=== PATIENT | female | born 1960 | race African-American/Black ===

== ENCOUNTER → 2018-06-11 | Day surgery (SDC) | payer OTHER ==
[2018-06-10 13:07] LABS: BASOPHILS % 0.3 % (0.0-1.0); EOSINOPHILS # (AUTO) 0.1 (0.0-0.4); EOSINOPHILS % 0.8 % (0.0-6.0); HEMATOCRIT 34.2 % (34.2-44.1); HEMOGLOBIN 11.8 g/dL (12.0-16.0); LYMPHOCYTES # (AUTO) 2.8 (1.0-3.2); LYMPHOCYTES % 36.8 % (18.0-39.1); MEAN CORPUSCULAR HEMOGLOBIN 29.8 pg (28-32); MEAN CORPUSCULAR HGB CONC 34.5 g/dL (31-35); MEAN CORPUSCULAR VOLUME 86.4 fL (81-99); MONOCYTES # (AUTO) 0.7 (0.2-0.8); MONOCYTES % 8.6 % (4.4-11.3); NEUTROPHILS % 53.1 % (38.7-80.0); PLATELET COUNT 347 x10e3/uL (140-360); RED BLOOD COUNT 3.96 x10e6/uL (3.6-5.1); RED CELL DISTRIBUTION WIDTH 13.9 % (11.7-14.4)
[2018-06-10 13:17] LABS: INR 0.92; PROTHROMBIN TIME 13.2 seconds (11.9-14.5)
[2018-06-10 13:18] LABS: PARTIAL THROMBOPLASTIN TIME 32.9 seconds (23.8-35.5)
[2018-06-10 14:34] LABS: ALANINE AMINOTRANSFERASE 29 IU/L (0-55); ALBUMIN 3.7 g/dL (3.5-5.0); ALBUMIN/GLOBULIN RATIO 0.8 (0.8-2.0); ALKALINE PHOSPHATASE 79 IU/L (40-150); ANION GAP 13.9 mmol/L (8-16); BLOOD UREA NITROGEN 7 mg/dL (7-26); BUN/CREATININE RATIO 10 (6-25); CALCIUM 8.8 mg/dL (8.4-10.2); CARBON DIOXIDE 24 mmol/L (22-29); CHLORIDE 102 mmol/L (98-107); CREATININE, SERUM 0.71 mg/dL (0.57-1.11); EST GLOMERULAR FILTRATION RATE > 60 ML/MIN (60-); GLUCOSE 103 mg/dL (74-118); POTASSIUM 3.9 mmol/L (3.5-5.1); SODIUM 136 mmol/L (136-145)
--- NOTE | 2018-06-10 14:53 | Diagnostic Imaging Report ---
EXAMINATION: CHEST 2 VIEWS INDICATION: Pre-op heart cath COMPARISON: None FINDINGS: TUBES and LINES: None. LUNGS: Lungs are well inflated. Mild patchy bibasilar opacities, likely atelectasis. There is no evidence of pneumonia or pulmonary edema. PLEURA: No pleural effusion or pneumothorax. HEART AND MEDIASTINUM: The cardiomediastinal silhouette is unremarkable. BONES AND SOFT TISSUES: No acute osseous lesion. Soft tissues are unremarkable. UPPER ABDOMEN: No free air under the diaphragm. IMPRESSION: No acute radiographic abnormality. Signed by: Dr. Ramón Damico MD on 06/10/2018 2:50 PM
[2018-06-11] VITALS (18 sets, daily range): BP systolic 100–123; BP diastolic 62–99
[~2018-06-11] VITALS: Ht 167.6 cm; Wt 91.6 kg
[~2018-06-11] MED LIST: CARAFATE SU1 G/10 ML PO; CYCLOBENZAPRINE10 MG PO; ELIQUIS PO; FENTANYL CITRATE/PF 100MCG/2 ML INJ ONE; GABAPENTIN300 MG PO; HEPARIN SOD/SOD CHLORIDE 2,000 ML ONE; IOPAMIDOL 370 MG/ML 200 ML INFUS..BTL INJ ONE; LIDOCAINE HCL 1% LOCAL INJ 20 ML VIAL ONE; LISINOPRIL-HCT1 EAC2 PO; METOPROLOL TART25 MG PO; MIDAZOLAM HCL 2 MG/2 ML VIAL ONE; MORPHINE SULFATE INJ 4 MG/ML INJ 1ML ONE; NITROGLYCERIN0.4 MG SL; NORCO 10-325 T1 EACH PO; SIMVASTATIN20 MG PO; SODIUM CHLORIDE 0.9% 1000ML 1,000 ML ONE; Z.0.PRILOSEC20 MG PO
--- OUTSIDE RECORDS SUMMARY | 2018-06-11 06:21 | XMS REPORT ---
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 Allergies, Adverse Reactions, Alerts Allergy Name Allergy Type Status Severity Reaction(s) Onset Date Inactive Date Treating Clinician Comments No Known Allergies DA Active U 2017-08-05 00:00:00 Medications This patient has no known medications. Results Test Description Test Time Test Comments Text Results Atomic Results Result Comments CHEST 2 VIEWS 2018-06-10 14:49:00 [place] [address] Patient Name: GEETA CHAVARRIA MR #: [id number] : 1960 Age/Sex: 57/F Req #: [id number] Adm Physician: Ordered by: RODOLFO KOEHLER MD Report #: [id number] Location: [facility] Room/Bed: Procedure: [id number] DX/CHEST 2 VIEWS Exam Date: 06/10/18 Exam Time: 1320 REPORT STATUS: Signed EXAMINATION: CHEST 2 VIEWS INDICATION: Pre-op heart cath COMPARISON: None FINDINGS: TUBES and LINES: None. LUNGS: Lungs are well inflated. Mild patchy bibasilar opacities, likely atelectasis. There is no evidence of pneumonia or pulmonary edema. PLEURA: No pleural effusion or pneumothorax. HEART AND MEDIASTINUM: The cardiomediastinal silhouette is unremarkable. BONES AND SOFT TISSUES: No acute osseous lesion. Soft tissues are unremarkable. UPPER ABDOMEN: No free air under the diaphragm. IMPRESSION: No acute radiographic abnormality. Signed by: Dr. Jose Angel Oates MD on 06/10/2018 2:50 PM Dictated By: JOSE ANGEL OATES MD 1450 Transcribed By: TOYA on 06/10/18 1450 COPY TO: RODOLFO KOEHLER MD
--- NOTE | 2018-06-11 12:00 | NUR ---
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 Identifier x2 [facility] Dr Marlow no fix Vascade employed 809 am and manual pressure 10min .Rt groin Site w/o hematoma or bleeding.Vascade dressing dry and intake. Back to baseline orientation. PEERLA, Resp. shallow and regular 100% on room air. Abdomen soft and nontender Bilateral Femoral pulsed x4 present.PD/DP. Infusing iv via controller 50cc/hr left forearm site w/o s/s infiltration. Ate and tolerated po intake Medicate 1034 for back pain left hip. and position for comfort. Re-medicated with Hydrocodone 03/13 self po med per Dr Radha lee. at bedside awaiting dc at 230pm.DC papers and POC discussed with and copies with .
--- NOTE | 2018-06-11 13:52 | Operative Report ---
DATE OF PROCEDURE: June 11, 2018 PROCEDURES 1. Left heart catheterization. 2. Selective coronary angiogram. 3. Left ventriculogram. INDICATIONS: Chest pain and abnormal stress test. DESCRIPTION OF PROCEDURE: After informed consent, patient was brought to the cardiac catheterization laboratory and placed on the table. Both groins were painted and draped in a sterile fashion. Lidocaine injected in the right groin for local anesthesia. The right femoral artery was accessed by Seldinger technique, and a 5-Marshallese sheath was placed in right femoral artery. Left main artery was cannulated using a JL4 5-Marshallese catheter. Coronary angiogram was performed. Images obtained in multiple views. Right coronary artery was cannulated using a 3DRC 5-Marshallese catheter. Coronary angiogram was performed and images obtained in multiple views. LV-gram was performed using a pigtail catheter. The patient tolerated the procedure without any complications. The arteriotomy site was closed with a vascade closure device. REPORT LEFT MAIN: Normal caliber. No significant stenosis. LEFT ANTERIOR DESCENDING: Normal caliber. No significant stenosis. LEFT CIRCUMFLEX: Normal caliber. No significant stenosis. RIGHT CORONARY ARTERY: Normal caliber. It is tortuous. No significant stenosis. LV-GRAM: Normal LV function. Overall ejection fraction is 60%. HEMODYNAMICS: Aortic pressure is 131/65. LV pressure 127/8. LVEDP is 14. PLAN: Medical management. Job#: [id number] LEE PATEL
--- NOTE | 2018-06-11 14:30 | NUR ---
1430 stable vs and rt groin site. No hematoma or bleeding noted dressing intact. ppx4 present aplpable.Iv removed left arm no s/s infiltration coban 2x2 gauze dressing in place. Pt states pain level 2/10 her normal due to chronic back pain. Assist to car per [facility] Staff [employer] Terra .Pt denies c/o states has copy of POC and d/c papers. Aware of importance of followup care. 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 To car with valuables and personal wheelchair. Buckled in car for safety with as clark driver.
== END | disposition home or self-care (01) ==
LOC: CATH LAB 06:18
DX: R07.9 Chest pain, unspecified (principal); R94.39 Abnormal result of other cardiovascular function study; I10 Essential (primary) hypertension; I73.9 Peripheral vascular disease, unspecified; F17.200 Nicotine dependence, unspecified, uncomplicated; Z01.810 Encounter for preprocedural cardiovascular examination; Z01.812 Encounter for preprocedural laboratory examination; Z01.818 Encounter for other preprocedural examination; Z79.02 Long term (current) use of antithrombotics/antiplatelets
CPT/HCPCS: 36415; 71046; 80053; 85025; 85610; 85730; 93005; 93458; C1760; C1769; J2001; J2250; J2270; J7030; Q9967

== ENCOUNTER 2018-06-12 21:16 | Emergency (ER) | payer OTHER ==
[~2018-06-12] VITALS: Ht 167.6 cm; Wt 91.6 kg
[~2018-06-12 21:16] MED LIST changes: -FENTANYL CITRATE/PF 100MCG/2 ML INJ ONE; -HEPARIN SOD/SOD CHLORIDE 2,000 ML ONE; -IOPAMIDOL 370 MG/ML 200 ML INFUS..BTL INJ ONE; -LIDOCAINE HCL 1% LOCAL INJ 20 ML VIAL ONE; -MIDAZOLAM HCL 2 MG/2 ML VIAL ONE; -MORPHINE SULFATE INJ 4 MG/ML INJ 1ML ONE; -SODIUM CHLORIDE 0.9% 1000ML 1,000 ML ONE
--- OUTSIDE RECORDS SUMMARY | 2018-06-12 21:23 | XMS REPORT | Continuity of Care Document ---
Author Author Sangeeta heather [facility] Interface Address Unknown Phone Unavailable Problems Problem Status Onset Date Classification Date Reported Comments Source LEG PAIN Active 02/24/2018 [facility] KNEE PAIN Active 01/30/2018 [facility] DX: DVT, LOWER EXTREMITY Active 01/27/2018 [facility] BACK PAIN Active 01/14/2018 [facility] BACTERIAL COLITIS Active 01/04/2018 [facility] DIARRHEA Active 01/04/2018 [facility] Left leg pain 12/29/2017 12/31/2017 [facility] CHEST PAIN Active 12/29/2017 [facility] Radiculopathy 11/30/2017 12/03/2017 [facility] Sciatica 11/04/2017 11/07/2017 [facility] Leg pain 11/04/2017 11/07/2017 [facility] HX BLOOD CLOT, SOB AND BACK PAIN Active 10/21/2017 [facility] ACUTE LEG PAIN Active 10/04/2017 [facility] Chronic left hip pain 09/23/2017 09/26/2017 [facility] Chronic left-sided low back pain 09/23/2017 09/26/2017 [facility] LEG AND HIP PAIN Active 09/23/2017 [facility] Chronic leg pain 09/07/2017 09/10/2017 [facility] SOB 09/07/2017 09/10/2017 [facility] Acute upper respiratory infection, unspecified 06/07/2017 09/07/2017 [facility] Chronic back pain 06/01/2017 09/07/2017 [facility] Acute URI 06/01/2017 09/07/2017 [facility] SOB, COUGH, LEG SWELLING Active 05/31/2017 [facility] Discharge Diagnosis: Acute exacerbation of chronic low back pain 01/03/2017 01/06/2017 [facility] Discharge Diagnosis: Dizziness 12/04/2016 12/07/2016 [facility] LIGHT HEADED Active 12/03/2016 [facility] Discharge Diagnosis: Low back pain 11/23/2016 11/26/2016 [facility] Discharge Diagnosis: S/P diskectomy 11/23/2016 11/26/2016 [facility] Discharge Diagnosis: H/O laminectomy 11/23/2016 11/26/2016 [facility] Discharge Diagnosis: Acute low back pain 02/25/2016 02/28/2016 [facility] Discharge Diagnosis: Syncope and collapse 09/27/2015 09/30/2015 [facility] DIZZY Active 09/27/2015 [facility] Discharge Diagnosis: Paresthesia 08/23/2015 08/27/2015 [facility] PAIN IN BODY Active 08/23/2015 [facility] Discharge Diagnosis: Chronic lumbar radiculopathy 09/28/2014 10/01/2014 [facility] LT LEG PAIN Active 09/28/2014 [facility] SWOLLEN FEET Active 09/17/2014 [facility] Discharge Diagnosis: Sciatica of left side 08/30/2014 09/01/2014 [facility] 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 Active 06/10/2014 [facility] [place] CORE COMPRESSION Active 04/10/2014 [facility] HIP PAIN Active 04/09/2014 [facility] LEFT LOWER EXTREMITY ARTERIAL INSUFFICIE Active 04/09/2014 [facility] Discharge Diagnosis: Sciatica 04/08/2014 04/11/2014 [facility] LEFT SIDE AND FOOT PAIN Active 04/08/2014 [facility] 836.1 - TEAR LAT MENISC Active 03/18/2014 [facility] RIGHT UPPER LOBE PNEUMONIA Active 02/16/2014 [facility] CHEST PAIN/ COUGH Active 02/16/2014 [facility] 724.4 Active 05/26/2013 [facility] ABD PAIN Active 03/06/2013 [facility] 724.4 COMPRESSION OF LUMBAR NERVE ROOT / Active 10/28/2012 [facility] FOOT PAIN Active 11/20/2011 [facility] 722.52 Active 06/26/2011 [facility] Gallstone<sup>1</sup> Active 11/21/2010 Problem 12/31/2017 Data migrated from [facility] on 10/18/14. [facility] Gallbladder stones Active Problem 11/02/2012 [facility] Back pain Active Problem 12/31/2017 [facility], [facility] [place],[facility] [place] Gallbladder stones Active Problem 12/31/2017 [facility], [facility] [place],[facility] [place],[facility] Back pain Resolved Problem 11/02/2012 [facility] Active smoker Active Problem 12/31/2017 [facility], [facility] [place],[facility] Hypertension Active Problem 12/31/2017 [facility] [place],[facility] Sciatica neuralgia Active Problem 12/31/2017 [facility] [place],[facility] Gall stone Resolved Problem 12/31/2017 [facility] Low back pain 09/07/2017 [facility] Other chronic pain 09/07/2017 [facility] Essential hypertension 09/07/2017 [facility] Nicotine dependence, cigarettes, uncomplicated 09/07/2017 [facility] Tobacco abuse counseling 09/07/2017 [facility] Pain in leg, unspecified 10/11/2017 [facility] Simple obesity Active Problem 12/31/2017 [facility] PNEUMONIA, ORGANISM NOS Active [facility] PERIPH VASCULAR DIS NOS Active [facility] CORD COMPRESS NEC-UNSPEC Active [facility] 719.46 Active [facility] PAIN IN LEG, UNSPECIFIED Active [facility] BACTERIAL INTESTINAL INFECTION, UNSPECIF Active [facility] CHEST PAIN, UNSPECIFIED Active [facility] Medications Medication Details Route Status Patient Instructions Ordering Provider Order Date Source Morphine 4 mg, Route: IVP, ONCE, Dosing Weight 90.909, kg, Priority: STAT, Start date: 12/28/17 23:36:00 CDT, Stop date: 12/28/17 23:36:00 CDT Inactive 12/29/2017 [facility] Acetaminophen 325 MG / Hydrocodone Bitartrate 5 MG Oral Tablet 1 tab, Route: PO, Drug Form: TAB, Dosing Weight 91.818, kg, ONCE, STAT, Start date: 11/30/17 4:26:00 CDT, Stop date: 11/30/17 4:26:00 CDT Inactive 11/30/2017 [facility] methylPREDNISolone SODium SUCCinate 125 mg, Route: IVP, ONCE, Dosing Weight 91.818, kg, Priority: STAT, Start date: 11/30/17 1:05:00 CDT, Stop date: 11/30/17 1:05:00 CDT Inactive 11/30/2017 [facility] Ondansetron 4 mg, 2 mL, Route: IVP, Drug form: INJ, ONCE, Dosing Weight 91.818, kg, Priority: STAT, Start date: 11/30/17 1:05:00 CDT, Stop date: 11/30/17 1:05:00 CDTNotes: (Same as: Yeimy) MEDICATION WASTE * Product Size: 4 mg Product Wasted: ___ mg Inactive 11/30/2017 [facility] Morphine 4 mg, Route: IVP, ONCE, Dosing Weight 91.818, kg, Priority: STAT, Start date: 11/30/17 1:05:00 CDT, Stop date: 11/30/17 1:04:00 CDT Inactive 11/30/2017 [facility] Acetaminophen 325 MG / Hydrocodone Bitartrate 5 MG Oral Tablet [[place] 5/325] 1 tab, Route: PO, Drug Form: TAB, Dosing Weight 89.091, kg, ONCE, STAT, Start date: 11/04/17 5:48:00 CDT, Stop date: 11/04/17 5:48:00 CDT Inactive 11/04/2017 [facility] Acetaminophen 325 MG / Hydrocodone Bitartrate 5 MG Oral Tablet [[place] 5/325] 1 tab, Route: PO, Drug Form: TAB, Dosing Weight 89.091, kg, ONCE, STAT, Start date: 10/22/17 1:24:00 CDT, Stop date: 10/22/17 1:24:00 CDT Inactive 10/22/2017 [facility] Saline Flush 0.9% 10 mL, Route: IVP, Drug Form: INJ, Dosing Weight 90.001, kg, PRN, PRN Line Flush, Start date: 10/21/17 19:45:00 CDT, Duration: 30 day, Stop date: 11/20/17 19:44:00 CDTNotes: (Same as: BD Posiflush) No Longer Active 10/22/2017 [facility] Aspirin 325 MG Enteric Coated Tablet 325 mg, 1 tab, Route: PO, Drug form: ECTAB, Daily, Dosing Weight 90.001, kg, Start date: 10/09/17 9:00:00 CDT, Duration: 30 day, Stop date: 11/07/17 9:00:00 CDTNotes: (Do Not Crush) Do not crush or chew. No Longer Active 10/09/2017 [facility] bisacodyl 5 mg oral enteric coated tablet 10 mg=2 tab, PO, Daily, # 24 tab, 0 Refill(s), Pharmacy: [facility] [id number] No Longer Active 10/08/2017 [facility] Aspirin 325 MG Enteric Coated Tablet 325 mg=1 tab, PO, Daily, take with food, # 30 tab, 0 Refill(s), Pharmacy: [facility] [id number] Active 10/08/2017 [facility] Acetaminophen 300 MG / Codeine Phosphate 30 MG Oral Tablet [Tylenol with Codeine #3] 1 tab, PO, Q6H, PRN Pain Score 1-3, # 24 tab, 0 Refill(s) No Longer Active 10/08/2017 [facility] gabapentin 300 MG Oral Capsule 300 mg, PO, TID, # 90 tab, 0 Refill(s), Pharmacy: [facility] [id number] Active 10/08/2017 [facility] Docusate Sodium 100 MG Oral Capsule [Colace] 100 mg=1 cap, PO, BID, # 30 cap, 0 Refill(s), Pharmacy: [facility] [id number] Active 10/08/2017 [facility] Acetaminophen 300 MG / Codeine Phosphate 30 MG Oral Tablet [Tylenol with Codeine #3] 1 tab, Route: PO, Drug Form: TAB, Dosing Weight 90.001, kg, Q6H, PRN Pain Score 1-3, Start date: 10/08/17 11:28:00 CDT, Duration: 7 day, Stop date: 10/15/17 11:27:00 CDTNotes: Do not exceed 4gm/day of a cetaminophen. (Same as: Tylenol with Codeine # 3) Inactive 10/08/2017 [facility] Dulcolax Laxative 10 mg, 2 tab, Route: PO, Drug form: ECTAB, Daily, Dosing Weight 90.001, kg, Start date: 10/07/17 9:00:00 CDT, Duration: 30 day, Stop date: 11/05/17 9:00:00 CDTNotes: (Same As: Dulcolax, Correctol) (Do Not Crush) "Do Not Crush" No Longer Active 10/07/2017 [facility] Docusate Sodium 100 MG Oral Capsule 100 mg, 1 cap, Route: PO, Drug form: CAP, BID, Dosing Weight 90.001, kg, Start date: 10/06/17 17:00:00 CDT, Duration: 30 day, Stop date: 11/05/17 9:00:00 CDTNotes: (Same as: Colace) (Do Not Crush) No Longer Active 10/06/2017 [facility] Dexamethasone 10 mg, 2.5 mL, Route: IVP, Drug form: INJ, ONCE, Dosing Weight 90.001, kg, Start date: 10/06/17 9:48:00 CDT, Stop date: 10/06/17 9:48:00 CDT Inactive 10/06/2017 [facility] lisinopril 10 mg, 2 tab, Route: PO, Drug form: TAB, Daily, Start date: 10/06/17 9:00:00 CDT, Duration: 30 day, Stop date: 11/04/17 9:00:00 CDTNotes: (Same as: Prinivil, Zestril) No Longer Active 10/06/2017 [facility] hydrochlorothiazide 25 mg oral tablet 12.5 mg, 0.5 tab, Route: PO, Drug form: TAB, Daily, Start date: 10/06/17 9:00:00 CDT, Duration: 30 day, Stop date: 11/04/17 9:00:00 CDTNotes: (Same as: Hydrodiuril) With food. No Longer Active 10/06/2017 [facility] Hydrochlorothiazide 12.5 MG / Lisinopril 10 MG Oral Tablet 1 tab, Route: PO, Drug Form: TAB, Dosing Weight 90.001, kg, Daily, Start date: 10/06/17 9:00:00 CDT, Duration: 30 day, Stop date: 11/04/17 9:00:00 CDT No Longer Active 10/06/2017 [facility] Simvastatin 20 mg, 1 tab, Route: PO, Drug form: TAB, Bedtime, Dosing Weight 90.001, kg, Start date: 10/05/17 21:00:00 CDT, Duration: 30 day, Stop date: 11/03/17 21:00:00 CDTNotes: (Same as: Zocor) No Longer Active 10/06/2017 [facility] Eliquis 5 mg, 1 tab, Route: PO, Drug form: TAB, Q12H, Dosing Weight 90.001, kg, Start date: 10/05/17 21:00:00 CDT, Duration: 30 day, Stop date: 11/04/17 9:00:00 CDTNotes: Same as: Eliquis No Longer Active 10/06/2017 [facility] gabapentin 300 mg, 1 cap, Route: PO, Drug form: CAP, TID, Dosing Weight 90.001, kg, Start date: 10/05/17 13:00:00 CDT, Duration: 30 day, Stop date: 11/04/17 9:00:00 CDTNotes: (Same as: Neurontin) Inactive 10/05/2017 [facility] cyclobenzaprine 10 mg, 1 tab, Route: PO, Drug form: TAB, TID, Dosing Weight 90.001, kg, Start date: 10/05/17 13:00:00 CDT, Duration: 30 day, Stop date: 11/04/17 9:00:00 CDTNotes: (Same As: Flexeril) No Longer Active 10/05/2017 [facility] Acetaminophen 325 MG / Hydrocodone Bitartrate 10 MG Oral Tablet [[place] 10/325] 2 tab, Route: PO, Drug Form: TAB, Dosing Weight 90.001, kg, Q4H, PRN Pain Score 6-10, Start date: 10/05/17 10:30:00 CDT, Duration: 2 day, Stop date: 10/07/17 10:29:00 CDTNotes: Do not exceed 4gm/day of acetaminophen. (Same as: [place] 325/10) No Longer Active 10/05/2017 [facility] Potassium Chloride 20 mEq, 15 mL, Route: PO, Drug form: LIQ, ONCE, Dosing Weight 90.001, kg, Start date: 10/05/17 10:29:00 CDT, Stop date: 10/05/17 10:29:00 CDTNotes: (Same as: Potassium Chloride) Inactive 10/05/2017 [facility] magnesium citrate 58.2 MG/ML Oral Solution 300 ml, Route: PO, Drug Form: LIQ, Dosing Weight 90.001, kg, ONCE, Start date: 10/05/17 10:04:00 CDT, Stop date: 10/05/17 10:04:00 CDTNotes: (Same as: Citrate of Magnesia) Concentration: 1.745 gm / 30 mL Inactive 10/05/2017 [facility] Saline Flush 0.9% 10 ml, Route: IVP, Drug Form: INJ, Dosing Weight 90.001, kg, PRN, PRN Line Flush, Start date: 10/05/17 2:17:00 CDT, Duration: 30 day, Stop date: 11/04/17 2:16:00 CDTNotes: (Same as: BD Posiflush) No Longer Active 10/05/2017 [facility] Ondansetron 4 mg, 2 mL, Route: IVP, Drug form: INJ, Q6H, Dosing Weight 90.001, kg, PRN Nausea & Vomiting, Start date: 10/05/17 2:17:00 CDT, Duration: 30 day, Stop date: 11/04/17 2:16:00 CDTNotes: (Same as: Zofran) MEDICATION WASTE Product Size: 4 mg Product Wasted: ___ mg No Longer Active 10/05/2017 [facility] Acetaminophen 325 MG / Hydrocodone Bitartrate 5 MG Oral Tablet 2 tab, Route: PO, Drug Form: TAB, Dosing Weight 90.001, kg, Q4H, PRN Pain Score 7-10, Start date: 10/05/17 2:17:00 CDT, Duration: 30 day, Stop date: 11/04/17 2:16:00 CDTNotes: (Same as: [place] 325/5) Do not exceed 4gm/day of acetaminophen. Inactive 10/05/2017 [facility] Morphine 6 mg, 3 mL, Route: PO, Drug form: SOLN, Q4H, Dosing Weight 90.001, kg, PRN Pain Score 7-10, Start date: 10/05/17 2:17:00 CDT, Stop date: 11/04/17 2:16:00 CDTNotes: (Same as:MORPhine Sulfate) No Longer Active 10/05/2017 [facility] Sodium Chloride 0.9% IV 1,000 mL 1,000 mL, Rate: 75 ml/hr, Infuse over: 13.3 hr, Route: IV, Dosing Weight 90.001 kg, Total Volume: 1,000, Start date: 10/05/17 2:17:00 CDT, Duration: 30 day, Stop date: 11/04/17 2:16:00 CDT, 2.07, m2 Inactive 10/05/2017 [facility] apixaban 5 MG Oral Tablet [Eliquis] 5 mg, PO, Q12H, 0 Refill(s) No Longer Active 10/05/2017 [facility] simvastatin 20 mg oral tablet 20 mg=1 tab, PO, Bedtime, # 30 tab, 1 Refill(s) Active 10/05/2017 [facility] Fentanyl 50 microgram, 1 mL, Route: IVP, Drug form: INJ, ONCE, Dosing Weight 109.091, kg, Priority: STAT, Start date: 10/04/17 22:08:00 CDT, Stop date: 10/04/17 22:08:00 CDTNotes: (Same as: Sublimaze) Preservative free. Inactive 10/05/2017 [facility] Saline Flush 0.9% 10 mL, Route: IVP, Drug Form: INJ, Dosing Weight 109.091, kg, PRN, PRN Line Flush, Start date: 10/04/17 22:08:00 CDT, Duration: 30 day, Stop date: 11/03/17 22:07:00 CDTNotes: (Same as: BD Posiflush) No Longer Active 10/05/2017 [facility] Morphine 4 mg, Route: IVP, ONCE, Dosing Weight 89.545, kg, Priority: STAT, Start date: 09/23/17 22:56:00 CDT, Stop date: 09/23/17 22:56:00 CDT Inactive 09/24/2017 [facility] Saline Flush 0.9% 10 mL, Route: IVP, Drug Form: INJ, Dosing Weight 89.545, kg, PRN, PRN Line Flush, Start date: 09/23/17 18:28:00 CDT, Duration: 30 day, Stop date: 10/23/17 18:27:00 CDTNotes: (Same as: BD Posiflush) No Longer Active 09/23/2017 [facility] tramadol hydrochloride 50 MG Oral Tablet [Ultram] 50 mg=1 tab, PO, Q4H, PRN pain, X 5 day, # 30 tab, 0 Refill(s) Active 09/07/2017 [facility] Morphine 4 mg, Route: IVP, Drug form: INJ, ONCE, Dosing Weight 89.545, kg, Priority: STAT, Start date: 09/07/17 0:27:00 CDT, Stop date: 09/07/17 0:27:00 CDT Inactive 09/07/2017 [facility] Acetaminophen 325 MG / Hydrocodone Bitartrate 10 MG Oral Tablet [[place] 10/325] 1 tab, Route: PO, Drug Form: TAB, Dosing Weight 89.545, kg, ONCE, STAT, Start date: 09/06/17 22:06:00 CDT, Stop date: 09/06/17 22:06:00 CDTNotes: Do not exceed 4gm/day of acetaminophen. (Same as: [place] 325/10) Inactive 09/07/2017 [facility] Acetaminophen 300 MG / Codeine Phosphate 30 MG Oral Tablet [Tylenol with Codeine #3] 1 - 2 tab, PO, Q4H, PRN Pain, not to exceed 4000 mg acetaminophen per day, X 3 day, # 20 tab, 0 Refill(s) No Longer Active 06/01/2017 [facility] Acetaminophen 325 MG / Hydrocodone Bitartrate 5 MG Oral Tablet 1 tab, Route: PO, Drug Form: TAB, Dosing Weight 89.545, kg, ONCE, STAT, Start date: 06/01/17 5:25:00 SLAB OFF MILL TENDER, Stop date: 06/01/17 5:25:00 SLAB OFF MILL TENDER Inactive 06/01/2017 [facility] Sodium Chloride 0.9% (Bolus) IV 1,000 mL, Infuse Over: 1 hr, Route: IV, ONCE, Priority: STAT, Dosing Weight 89.545 kg, Start date: 06/01/17 1:58:00 SLAB OFF MILL TENDER, Stop date: 06/01/17 1:58:00 SLAB [employer] M[employer] TENDER Inactive 06/01/2017 [facility] Acetaminophen 650 mg, Route: PO, Drug form: TAB, ONCE, Dosing Weight 89.545, kg, Priority: STAT, Start date: 06/01/17 1:58:00 SLAB [employer] M[employer] TENDER, Stop date: 06/01/17 1:58:00 SLAB [employer] M[employer] TENDER Inactive 06/01/2017 [facility] meclizine 50 mg oral tablet 25 mg=1 tab, PO, TID, X 7 day, # 21 tab, 0 Refill(s) Active 12/04/2016 [facility] Meclizine 50 mg, Route: PO, Drug form: TAB, ONCE, Dosing Weight 85.909, kg, Priority: STAT, Start date: 12/04/16 4:19:00 CDT, Stop date: 12/04/16 4:19:00 CDT Inactive 12/04/2016 [facility] Diphenhydramine 25 mg, Route: IVP, ONCE, Dosing Weight 85.909, kg, Priority: STAT, Start date: 12/04/16 4:19:00 CDT, Stop date: 12/04/16 4:19:00 CDT Inactive 12/04/2016 [facility] Ondansetron 4 mg, Route: IVP, Drug form: INJ, ONCE, Dosing Weight 85.909, kg, Priority: STAT, Start date: 12/04/16 4:19:00 CDT, Stop date: 12/04/16 4:19:00 CDT Inactive 12/04/2016 [facility] Sodium Chloride 0.154 MEQ/ML Injectable Solution 1,000 mL, Infuse Over: 1 hr, Route: IV, ONCE, Priority: STAT, Dosing Weight 85.909 kg, Start date: 12/04/16 4:19:00 CDT, Duration: 1 doses or times, Stop date: 12/04/16 4:19:00 CDT Inactive 12/04/2016 [facility] Saline Flush 0.9% 10 mL, Route: IVP, Drug Form: INJ, Dosing Weight 85.909, kg, PRN, PRN Line Flush, Start date: 12/03/16 23:44:00 CDT, Duration: 30 day, Stop date: 01/02/17 23:43:00 CDTNotes: (Same as: BD Posiflush) No Longer Active 12/04/2016 [facility] Acetaminophen 325 MG / Oxycodone Hydrochloride 10 MG Oral Tablet [Percocet 10/325] 2 tab, PO, Q8H, 0 Refill(s) Active 11/23/2016 [facility] gabapentin 300 mg, PO, TID, 0 Refill(s) Active 11/23/2016 [facility] Sodium Chloride 0.154 MEQ/ML Injectable Solution 1,000 mL, 1000 ml/hr, Infuse Over: 1 hr, Route: IV, 1,000, Drug form: INJ, ONCE, Priority: STAT, Dosing Weight 85 kg, Start date: 11/23/16 3:19:00 CDT, Duration: 1 doses or times, Stop date: 11/23/16 3:19:00 CDT Inactive 11/23/2016 [facility] predniSONE 20 mg oral tablet 40 mg=2 tab, PO, Daily, X 5 day, # 10 tab, 0 Refill(s) Active 02/26/2016 [facility] Diazepam 5 MG Oral Tablet [Valium] 5 mg=1 tab, PO, BID, PRN Spasm, X 7 day, # 14 tab, 0 Refill(s) Active 02/26/2016 [facility] Valium 5 mg, 1 tab, Route: PO, Drug form: TAB, ONCE, Dosing Weight 85.909, kg, Priority: STAT, Start date: 02/25/16 17:51:00 CDT, Stop date: 02/25/16 17:51:00 CDTNotes: (Same as: Valium) Inactive 02/25/2016 [facility] Ibuprofen 800 mg, 2 tab, Route: PO, Drug form: TAB, ONCE, Dosing Weight 85.455, kg, Priority: STAT, Start date: 02/25/16 16:38:00 CDT, Stop date: 02/25/16 16:38:00 CDTNotes: (Same as: Motrin) "Do Not Crush" Give with food. Inactive 02/25/2016 [facility] Dexamethasone 10 mg, 2.5 mL, Route: IM, Drug form: INJ, ONCE, Dosing Weight 85.455, kg, Priority: STAT, Start date: 02/25/16 16:38:00 CDT, Stop date: 02/25/16 16:38:00 CDTNotes: Concentration: 4mg/ml Inactive 02/25/2016 [facility] Saline Flush 0.9% 10 mL, Route: IVP, Drug Form: INJ, Dosing Weight 85.455, kg, PRN, PRN Line Flush, Start date: 09/27/15 2:38:00 CDT, Duration: 30 day, Stop date: 10/27/15 2:37:00 CDTNotes: (Same as: BD Posiflush) Inactive 09/27/2015 [facility] Sodium Chloride 0.154 MEQ/ML Injectable Solution 1,000 mL, 1,000 ml/hr, Infuse Over: 1 hr, Route: IV, 1,000, Drug form: INJ, ONCE, Priority: STAT, Dosing Weight 85.909 kg, Start date: 08/23/15 22:00:00, Duration: 1 doses or times, Stop date: 08/23/15 22:00:00 Inactive 08/24/2015 [facility] Saline Flush 0.9% 10 mL, Route: IVP, Drug Form: INJ, Dosing Weight 85.909, kg, PRN, PRN Line Flush, Start date: 08/23/15 16:04:00, Duration: 30 day, Stop date: 09/22/15 16:03:00Notes: (Same as: BD Posiflush) No Longer Active 08/23/2015 [facility] Naproxen sodium 550 MG Oral Tablet [Anaprox] 550 mg=1 tab, PO, BID, PRN for pain, X 10 day, # 20 tab, 0 Refill(s) Active 09/28/2014 [facility] Dexamethasone 10 mg, 2.5 mL, Route: IM, Drug form: INJ, ONCE, Dosing Weight 60.909, kg, Priority: STAT, Start date: 09/28/14 15:52:00, Stop date: 09/28/14 15:52:00Notes: Concentration: 4mg/ml Inactive 09/28/2014 [facility] Ketorolac 60 mg, 2 mL, Route: IM, Drug form: INJ, ONCE, Dosing Weight 60.909, kg, Priority: STAT, Start date: 09/28/14 15:52:00, Stop date: 09/28/14 15:52:00Notes: (Same as:Toradol) IV bolus must be given >15 seconds. Give IM administration slowly and deeply into the muscle. Not for use > 4 days MEDICATION WASTE Product Size: 60 mg Product Wasted: ___ mg Inactive 09/28/2014 [facility] Orphenadrine 60 mg, Route: IM, ONCE, Dosing Weight 84.091, kg, Priority: STAT, Start date: 08/30/14 0:51:00, Stop date: 08/30/14 0:51:00 Inactive 08/30/2014 [facility] Morphine 4 mg, Route: IM, Drug form: INJ, ONCE, Dosing Weight 84.091, kg, Priority: STAT, Start date: 08/30/14 0:50:00, Stop date: 08/30/14 0:50:00 Inactive 08/30/2014 [facility] sennosides, PRISON 8.6 MG Oral Tablet 17.2 mg=2 tab, PO, Daily, 0 Refill(s) Active 04/14/2014 [facility] Docusate Sodium 100 MG Oral Capsule [Colace] 100 mg=1 cap, PO, BID, 0 Refill(s) Active 04/14/2014 [facility] Senokot 17.2 mg, 2 tab, Route: PO, Drug Form: TAB, Dosing Weight 83.182, kg, Daily, Start date: 04/13/14 9:00:00, Duration: 30 day, Stop date: 05/12/14 9:00:00Notes: (Same as: Senokot) No Longer Active 04/13/2014 [facility] heparin sodium, porcine 2500 UNT/ML Injectable Solution 5,000 unit, 1 mL, Route: SUB-Q, Drug form: INJ, Q12H, Dosing Weight 83.182, kg, Start date: 04/13/14 8:00:00, Duration: 30 day, Stop date: 05/12/14 21:00:00Notes: porcine heparin No Longer Active 04/13/2014 [facility] Famotidine 20 MG Oral Tablet [Pepcid] 20 mg, 1 tab, Route: PO, Drug form: TAB, Q12H, Dosing Weight 83.182, kg, Start date: 04/12/14 21:00:00, Duration: 30 day, Stop date: 05/12/14 9:00:00Notes: (Same as: Pepcid) No Longer Active 04/13/2014 [facility] Docusate Sodium 100 MG Oral Capsule [Colace] 100 mg, 1 cap, Route: PO, Drug form: CAP, BID, Dosing Weight 83.182, kg, Start date: 04/12/14 17:00:00, Duration: 30 day, Stop date: 05/12/14 9:00:00Notes: (Same as: Colace) (Do Not Crush) No Longer Active 04/12/2014 [facility] 10 ML Cefazolin 100 MG/ML Prefilled Syringe 1 gm, 100 mL, Route: IVPB, Drug form: INJ, Q8H, Dosing Weight 83.182, kg, Start date: 04/12/14 16:00:00, Duration: 3 doses or times, Stop date: 04/13/14 8:00:00 No Longer Active 04/12/2014 [facility] magnesium citrate 300 ml, Route: PO, Drug Form: LIQ, Dosing Weight 83.182, kg, ONCE, PRN Constipation, Start date: 04/12/14 12:18:00Notes: (Same as: Citrate of Magnesia) No Longer Active 04/12/2014 [facility] Zofran 4 mg, 2 mL, Route: IV, Drug form: INJ, Q8H, Dosing Weight 83.182, kg, PRN Nausea, Start date: 04/12/14 12:18:00, Duration: 30 day, Stop date: 05/12/14 12:17:00Notes: (Same as: Zofran) No Longer Active 04/12/2014 [facility] Acetaminophen 325 MG / Hydrocodone Bitartrate 5 MG Oral Tablet 1 tab, Route: PO, Drug Form: TAB, Dosing Weight 83.182, kg, Q4H, PRN Pain Score 4-6, Start date: 04/12/14 12:18:00, Stop date: 05/12/14 12:17:00Notes: (Same as: [place] 325/5) Do not exceed 4gm/day of acetaminophen. No Longer Active 04/12/2014 [facility] Dilaudid 1 mg, Route: IV, Q3H, Dosing Weight 83.182, kg, PRN Pain, Start date: 04/12/14 12:18:00, Duration: 30 day, Stop date: 05/12/14 12:17:00 Inactive 04/12/2014 [facility] Tylenol 650 mg, 2 tab, Route: PO, Drug form: TAB, Q4H, Dosing Weight 83.182, kg, PRN Pain Score 1-3, Start date: 04/12/14 12:18:00, Stop date: 05/12/14 12:17:00Notes: Do not exceed 4 gm/day. (Same as: Tylenol) No Longer Active 04/12/2014 [facility] Sodium Chloride 0.154 MEQ/ML Injectable Solution 1,000 mL, Rate: 75 ml/hr, Infuse over: 13.3 hr, Route: IV, Dosing Weight 83.182 kg, Total Volume: 1,000, Start date: 04/12/14 12:18:00, Duration: 30 day, Stop date: 05/12/14 12:17:00 No Longer Active 04/12/2014 [facility] Ancef 2 gm, 100 mL, Route: IVPB, Drug form: INJ, ONCE, Dosing Weight 83.182, kg, Start date: 04/12/14 8:14:00, Stop date: 04/12/14 8:14:00Notes: Same as: Ancef Inactive 04/12/2014 [facility] Lactated Ringers IV 1,000 mL 1,000 mL, Rate: 25 ml/hr, Infuse over: 40 hr, Route: IV, Dosing Weight 83.182 kg, Total Volume: 1,000, Start date: 04/12/14 7:32:00, Duration: 30 day, Stop date: 05/12/14 7:31:00 No Longer Active 04/12/2014 [facility] hydrochlorothiazide 25 mg oral tablet 12.5 mg, 0.5 tab, Route: PO, Drug form: TAB, Daily, Start date: 04/11/14 9:00:00, Duration: 30 day, Stop date: 05/10/14 9:00:00Notes: (Same as: Hydrodiuril) With food. No Longer Active 04/11/2014 [facility] Hydrochlorothiazide 12.5 MG / Lisinopril 10 MG Oral Tablet 1 tab, Route: PO, Drug Form: TAB, Dosing Weight 83.182, kg, Daily, Start date: 04/11/14 9:00:00, Duration: 30 day, Stop date: 05/10/14 9:00:00 No Longer Active 04/11/2014 [facility] Prinivil 10 mg, 1 tab, Route: PO, Drug form: TAB, Daily, Start date: 04/11/14 9:00:00, Duration: 30 day, Stop date: 05/10/14 9:00:00Notes: (Same as: Prinivil, Zestril) No Longer Active 04/11/2014 [facility] Methadone 5 mg, 5 mL, Route: PO, Drug form: SOLN, Q8H, Dosing Weight 83.182, kg, Start date: 04/10/14 16:00:00, Duration: 30 day, Stop date: 05/10/14 8:00:00Notes: (Same as: Dolophine) No Longer Active 04/10/2014 [facility] gabapentin 600 MG Oral Tablet [Neurontin] 600 mg, 2 cap, Route: PO, Drug form: CAP, TID, Dosing Weight 83.182, kg, Start date: 04/10/14 13:00:00, Duration: 30 day, Stop date: 05/10/14 9:00:00Notes: (Same as: Neurontin) No Longer Active 04/10/2014 [facility] Enoxaparin 40 mg, 0.4 mL, Route: SUB-Q, Drug form: INJ, [id number], Dosing Weight 83.182, kg, Start date: 04/10/14 11:00:00, Duration: 30 day, Stop date: 05/09/14 11:00:00Notes: (Same as: Lovenox) No Longer Active 04/10/2014 [facility] Dilaudid 0.5 mg, 0.5 mL, Route: IV, Drug form: INJ, Q4H, Dosing Weight 83.182, kg, PRN Pain Score 6-10, Start date: 04/10/14 10:12:00, Duration: 30 day, Stop date: 05/10/14 10:11:00 No Longer Active 04/10/2014 [facility] cyclobenzaprine 10 mg, 1 tab, Route: PO, Drug form: TAB, TID, Dosing Weight 83.182, kg, PRN as needed for muscle spasm, Start date: 04/10/14 10:10:00, Stop date: 05/10/14 10:09:00Notes: (Same As: Flexeril) No Longer Active 04/10/2014 [facility] Acetaminophen 325 MG / Hydrocodone Bitartrate 10 MG Oral Tablet [[place] 10/325] 1 tab, Route: PO, Drug Form: TAB, Dosing Weight 83.182, kg, Q4H, PRN Pain Score 7-10, Start date: 04/10/14 10:10:00, Stop date: 05/10/14 10:09:00Notes: Do not exceed 4gm/day of acetaminophen. (Same as: [place] 325/10) No Longer Active 04/10/2014 [facility] Influenza Virus Vaccine, Inactivated O-Ijrkbxhv-36 (H3N2)-like virus ([id number] [facility] X-175C) strain / Influenza Virus Vaccine, Inactivated C-Zrjslebx-97-2007, IVR-148 (H1N1) strain / Influenza Virus Vaccine, Inactivated, M-[id number]-lik 0.5 mL, Route: IM, Drug Form: SUSP, Daily, Start date: 04/10/14 9:00:00, Duration: 1 doses or times, Stop date: 04/10/14 9:00:00Notes: (Same as: Fluzone Quadrivalent) Inactive 04/10/2014 [facility] Morphine 4 mg, Route: IVP, ONCE, Dosing Weight 106.818, kg, Start date: 04/10/14 5:24:00, Stop date: 04/10/14 5:24:00 Inactive 04/10/2014 [facility] Saline Flush 0.9% 10 ml, Route: IVP, Drug Form: INJ, Dosing Weight 86.364, kg, PRN, PRN Line Flush, Start date: 04/10/14 5:18:00, Duration: 30 day, Stop date: 05/10/14 5:17:00Notes: (Same as: BD Posiflush) No Longer Active 04/10/2014 [facility] D5W 1/2NS + KCL 20mEq/L 1000ml (Premix) 1,000 mL 1,000 mL, Rate: 125 ml/hr, Infuse over: 8 hr, Route: IV, Dosing Weight 86.364 kg, Total Volume: 1,000, Start date: 04/10/14 5:18:00, Duration: 30 day, Stop date: 05/10/14 5:17:00Notes: PREMIX IV - Do Not Alter No Longer Active 04/10/2014 [facility] Ondansetron 4 mg, 2 mL, Route: IVP, Drug form: INJ, Q8H, Dosing Weight 86.364, kg, PRN Nausea & Vomiting, Start date: 04/10/14 5:18:00, Duration: 30 day, Stop date: 05/10/14 5:17:00Notes: (Same as: Zofran) No Longer Active 04/10/2014 [facility] Acetaminophen 325 MG / Hydrocodone Bitartrate 10 MG Oral Tablet [[place] 10/325] 1 tab, PO, Q4H, for pain, # 24 tab, 0 Refill(s) No Longer Active 04/10/2014 [facility] Hydrochlorothiazide 12.5 MG / Lisinopril 10 MG Oral Tablet 1 tab, PO, Daily, # 30 tab, 0 Refill(s) No Longer Active 04/10/2014 [facility] cyclobenzaprine 10 mg oral tablet 10 mg=1 tab, PO, TID, for spasm, # 30 tab, 0 Refill(s) No Longer Active 04/10/2014 [facility] methadone 5 mg oral tablet 5 mg=1 tab, PO, Q6H, Pain, 0 Refill(s) No Longer Active 04/10/2014 [facility] gabapentin 600 MG Oral Tablet [Neurontin] 600 mg=1 tab, PO, TID, # 90 tab, 0 Refill(s) Active 04/10/2014 [facility] heparin sodium, porcine 1000 UNT/ML Injectable Solution Pharmacy To Manage, Route: IVP, PRN, Drug form: INJ, PRN, Heparin Protocol, Start date: 04/10/14 4:32:00 Stop date: 05/10/14 4:31:00, 30 day Inactive 04/10/2014 [facility] Heparin - one time bolus for DVT/PE 6,800 unit, Route: IV, Drug form: INJ, ONCE, Dosing Weight 86.364, kg, Priority: STAT, Start date: 04/10/14 4:32:00, Stop date: 04/10/14 4:32:00 Inactive 04/10/2014 [facility] heparin additive 25,000 unit [18 unit/kg/hr] + Premix Diluent Dextrose 5% 500 mL 500 mL, Rate: 31.09 ml/hr, Infuse over: 16.1 hr, Route: IV, Dosing Weight 86.364 kg, Total Volume: 500 mL, Start date: 04/10/14 4:32:00, Duration: 30 day, Stop date: 05/10/14 4:31:00 Inactive 04/10/2014 [facility] Zofran 4 mg, Route: IVP, Drug form: INJ, ONCE, Dosing Weight 86.364, kg, Priority: STAT, Start date: 04/09/14 22:01:00, Stop date: 04/09/14 22:01:00 Inactive 04/10/2014 [facility] Morphine 4 mg, Route: IVP, Drug form: INJ, ONCE, Dosing Weight 86.364, kg, Priority: STAT, Start date: 04/09/14 22:00:00, Stop date: 04/09/14 22:00:00 Inactive 04/10/2014 [facility] Sodium Chloride 0.154 MEQ/ML Injectable Solution 500 mL, 500 ml/hr, Infuse Over: 1 Hour, Route: IV, ONCE, Priority: STAT, Dosing Weight 86.364 kg, Start date: 04/09/14 20:14:00, Duration: 1 doses or times, Stop date: 04/09/14 20:14:00 Inactive 04/10/2014 [facility] tramadol hydrochloride 50 MG Oral Tablet 50 mg=1 tab, PO, Q6H, # 12 tab, 0 Refill(s) On Hold 04/08/2014 [facility] Ibuprofen 800 MG Oral Tablet [Motrin] 800 mg=1 tab, PO, Q8H, Pain, Take with food, # 30 tab, 0 Refill(s)Special Instructions: Take with food On Hold 04/08/2014 [facility] Ketorolac 30 mg, Route: IVP, Drug form: INJ, ONCE, Dosing Weight 86.364, kg, Priority: STAT, Start date: 04/08/14 6:28:00, Stop date: 04/08/14 6:28:00 Inactive 04/08/2014 [facility] Zofran 4 mg, Route: IVP, Drug form: INJ, ONCE, Dosing Weight 86.364, kg, Priority: STAT, Start date: 04/08/14 5:27:00, Stop date: 04/08/14 5:27:00 Inactive 04/08/2014 [facility] Morphine 6 mg, Route: IVP, Drug form: INJ, ONCE, Dosing Weight 86.364, kg, Priority: STAT, Start date: 04/08/14 5:26:00, Stop date: 04/08/14 5:26:00 Inactive 04/08/2014 [facility] Zofran ODT 4 mg, Route: PO, Drug form: TABDIS, ONCE, Dosing Weight 86.364, kg, Priority: STAT, Start date: 04/08/14 4:13:00, Stop date: 04/08/14 4:13:00 Inactive 04/08/2014 [facility] Morphine 4 mg, Route: IM, Drug form: INJ, ONCE, Dosing Weight 86.364, kg, Priority: STAT, Start date: 04/08/14 4:13:00, Stop date: 04/08/14 4:13:00 Inactive 04/08/2014 [facility] cefpodoxime 200 MG Oral Tablet [Vantin] 200 mg=1 tab, PO, Q12H, # 20 tab, 0 Refill(s) Active 02/18/2014 [facility] benzonatate 100 mg oral capsule 100 mg=1 cap, PO, TID, Cough, # 10 cap, 0 Refill(s) Active 02/18/2014 [facility] Azithromycin 5 Day Dose Pack 250 mg oral tablet See Instructions, as directed on package labeling, # 6 tab, 0 Refill(s)Special Instructions: as directed on package labeling Active 02/18/2014 [facility] Hydrochlorothiazide 12.5 MG / Lisinopril 10 MG Oral Tablet 1 tab, Route: PO, Drug Form: TAB, Dosing Weight 82.727, kg, Daily, Start date: 02/18/14 9:00:00, Duration: 30 day, Stop date: 03/19/14 9:00:00 No Longer Active 02/18/2014 [facility] Prinivil 10 mg, 1 tab, Route: PO, Drug form: TAB, Daily, Start date: 02/18/14 9:00:00, Duration: 30 day, Stop date: 03/19/14 9:00:00Notes: (Same as: Prinivil, Zestril) Inactive 02/18/2014 [facility] Microzide 12.5 mg, 1 cap, Route: PO, Drug form: CAP, Daily, Start date: 02/18/14 9:00:00, Duration: 30 day, Stop date: 03/19/14 9:00:00Notes: (Same as: Microzide) With food. Inactive 02/18/2014 [facility] gabapentin 600 MG Oral Tablet 600 mg, 2 cap, Route: PO, Drug form: CAP, Q12H, Dosing Weight 82.727, kg, Start date: 02/17/14 21:00:00, Duration: 30 day, Stop date: 03/19/14 9:00:00Notes: (Same as: Neurontin) No Longer Active 02/18/2014 [facility] Azithromycin 500 mg, Route: IVPB, [id number], Dosing Weight 82.727, kg, Priority: Routine, Start date: 02/17/14 21:00:00, Duration: 5 day, Stop date: 02/21/14 21:00:00Notes: (Same As: Zithromax IV) No Longer Active 02/18/2014 [facility] Ceftriaxone 1 gm, Route: IVPB, [id number], Dosing Weight 82.727, kg, Priority: Routine, Start date: 02/17/14 20:00:00, Duration: 30 day, Stop date: 03/18/14 20:00:00Notes: (Same As: Rocephin). Use with 100ml NS mini-bag PLUS and infuse over 30 min No Longer Active 02/18/2014 [facility] Nicotine 14 mg, 1 patch, Route: TOP, Drug form: ERFILM, Daily, Dosing Weight 82.727, kg, Start date: 02/17/14 17:00:00, Duration: 30 day, Stop date: 03/19/14 9:00:00 No Longer Active 02/17/2014 [facility] Methadone 5 mg, 5 mL, Route: PO, Drug form: SOLN, Q8H, Dosing Weight 82.727, kg, Start date: 02/17/14 16:00:00, Duration: 30 day, Stop date: 03/19/14 8:00:00Notes: (Same as: Dolophine) No Longer Active 02/17/2014 [facility] Tessalon Perles 100 mg, 1 cap, Route: PO, Drug form: CAP, TID, Dosing Weight 82.727, kg, PRN Cough, Start date: 02/17/14 10:45:00, Duration: 30 day, Stop date: 03/19/14 10:44:00 No Longer Active 02/17/2014 [facility] cyclobenzaprine 10 mg, 1 tab, Route: PO, Drug form: TAB, TID, Dosing Weight 82.727, kg, PRN as needed for muscle spasm, Start date: 02/17/14 10:43:00, Duration: 30 day, Stop date: 03/19/14 10:42:00Notes: (Same As: Flexeril) No Longer Active 02/17/2014 [facility] Acetaminophen 325 MG / Hydrocodone Bitartrate 10 MG Oral Tablet [[place] 10/325] 1 tab, Route: PO, Drug Form: TAB, Dosing Weight 82.727, kg, TID, PRN Pain Score 4-6, Start date: 02/17/14 10:43:00, Duration: 30 day, Stop date: 03/19/14 10:42:00 No Longer Active 02/17/2014 [facility] gabapentin 600 MG Oral Tablet 600 mg=1 tab, PO, Q12H, # 270 tab, 0 Refill(s) Active 02/17/2014 [facility] Methadone 5 mg, PO, Q8H, 0 Refill(s) Active 02/17/2014 [facility] cyclobenzaprine 10 mg oral tablet 10 mg=1 tab, PO, TID, as needed for muscle spasm, # 30 tab, 0 Refill(s) Active 02/17/2014 [facility] Hydrochlorothiazide 12.5 MG / Lisinopril 10 MG Oral Tablet 1 tab, PO, Daily, # 30 tab, 0 Refill(s) Active 02/17/2014 [facility] Acetaminophen 325 MG / Hydrocodone Bitartrate 10 MG Oral Tablet [[place] 10/325] 1 tab, PO, TID, as needed for pain, # 24 tab, 0 Refill(s) Active 02/17/2014 [facility] Saline Flush 0.9% 10 ml, Route: IVP, Drug Form: INJ, Dosing Weight 82.727, kg, PRN, PRN Line Flush, Start date: 02/17/14 4:30:00, Duration: 30 day, Stop date: 03/19/14 4:29:00Notes: (Same as: BD Posiflush) No Longer Active 02/17/2014 [facility] Sodium Chloride 0.154 MEQ/ML Injectable Solution 1,000 mL, Rate: 75 ml/hr, Infuse over: 13.3 hr, Route: IV, Dosing Weight 82.727 kg, Total Volume: 1,000, Start date: 02/17/14 4:30:00, Duration: 30 day, Stop date: 03/19/14 4:29:00 No Longer Active 02/17/2014 [facility] Guaifenesin 200 mg, 10 mL, Route: PO, Drug form: LIQ, Q4H, Dosing Weight 82.727, kg, PRN Cough, Start date: 02/17/14 4:30:00, Duration: 30 day, Stop date: 03/19/14 4:29:00Notes: (Same as: Robitussin) No Longer Active 02/17/2014 [facility] Ondansetron 4 mg, 2 mL, Route: IVP, Drug form: INJ, Q6H, Dosing Weight 82.727, kg, PRN Nausea & Vomiting, Start date: 02/17/14 4:30:00, Duration: 30 day, Stop date: 03/19/14 4:29:00Notes: (Same as: Zofran) No Longer Active 02/17/2014 [facility] Acetaminophen 650 mg, 2 tab, Route: PO, Drug form: TAB, Q4H, Dosing Weight 82.727, kg, PRN Pain Score 1-3, For fever > 100.4. Not to exceed 4 grams in 24 hours, Start date: 02/17/14 4:30:00, Duration: 30 day, Stop date: 03/19/14 4:29:00Notes: Do not exceed 4 gm/day. (Same as: Tylenol) No Longer Active 02/17/2014 [facility] Albuterol 0.833 MG/ML / Ipratropium [place] 0.167 MG/ML Inhalant Solution [DuoNeb] 3 ml, Route: INHALATION, Drug Form: SOLN, Dosing Weight 82.727, kg, PRN, PRN Respiratory Protocol, Start date: 02/17/14 1:11:00, Duration: 30 day, Stop date: 03/19/14 1:10:00Notes: (Same as: Duoneb) No Longer Active 02/17/2014 [facility] Sodium Chloride 0.154 MEQ/ML Injectable Solution 1,000 mL, 1,000 ml/hr, Infuse Over: 1 hr, Route: IV, ONCE, Priority: STAT, Dosing Weight 82.727 kg, Start date: 02/16/14 19:10:00, Duration: 1 doses or times, Stop date: 02/16/14 19:10:00 Inactive 02/17/2014 [facility] Zithromax 1 gm, Route: PO, ONCE, Dosing Weight 82.727, kg, Start date: 02/16/14 19:08:00, Stop date: 02/16/14 19:08:00 Inactive 02/17/2014 [facility] Rocephin 1 gm, Route: IVPB, Drug form: PDR/INJ, ONCE, Dosing Weight 82.727, kg, Priority: STAT, Start date: 02/16/14 19:08:00, Stop date: 02/16/14 19:08:00 Inactive 02/17/2014 [facility] Tylenol 975 mg, Route: PO, Drug form: TAB, ONCE, Dosing Weight 82.727, kg, Priority: STAT, Start date: 02/16/14 19:08:00, Stop date: 02/16/14 19:08:00 Inactive 02/17/2014 [facility] Albuterol 0.833 MG/ML / Ipratropium [place] 0.167 MG/ML Inhalant Solution [DuoNeb] 3 ml, Route: INHALATION, Drug Form: SOLN, Dosing Weight 82.727, kg, PRN, PRN Respiratory Protocol, Start date: 02/16/14 19:08:00, Duration: 30 day, Stop date: 03/18/14 19:07:00Notes: (Same as: Duoneb) No Longer Active 02/17/2014 [facility] Protonix 40 mg oral enteric coated tablet 40 mg, 1 tab, PO, Daily, 30 tab, Substitution Allowed, ECTAB Active [facility] 03/07/2013 [facility] Zofran ODT 4 mg oral tablet, disintegrating 4 mg, 1 tab, PO, BID, PRN, Dissolve tab under tongue, 10 tab, Nausea and Vomiting, Substitution AllowedDissolve tab under tongue Active [facility] 03/07/2013 [facility] Flexeril 10 mg oral tablet 10 mg, 1 tab, PO, TID, PRN, 30 tab, for spasm, Substitution Allowed, TAB PO Active [facility] 06/14/2011 [facility] Vicodin ES 7.5/750 oral tablet 1 tab, PO, Q4-6H, PRN, 15 tab, for Pain, Substitution Allowed, Maintenance PO Active [facility] 06/14/2011 [facility] ondansetron 4 mg, Route: IM, Drug form: INJ, ONCE, Priority: STAT, Start date: 06/14/11 16:11:00, Stop date: 06/14/11 16:11:00 IM No Longer Active [facility] 06/14/2011 [facility] morphine Sulfate 10 mg, Route: IM, ONCE, Priority: STAT, Start date: 06/14/11 16:11:00, Stop date: 06/14/11 16:11:00 IM No Longer Active [facility] 06/14/2011 [facility] Allergies, Adverse Reactions, Alerts Substance Category Reaction Severity Reaction type Status Date Reported Comments Source Immunizations Immunization Date Given Site Status Last Updated Comments Source influenza virus vaccine, inactivated 04/11/2014 Not Given [facility] [place] Results Order Name Results Value Reference Range Date Interpretation Comments Source ED Abdomen/Pelvis IV contrast only CT ED Abdomen/Pelvis IV contrast only CT Clinical Indication: Abdominal pain, acute - abdominal pain; Comparison: 01/04/2018 Technique: Multi-detector CT imaging of the abdomen and pelvis is performed with contrast. Coronal and sagittal reconstructions were obtained. IV CONTRAST: 100 mL of Omnipaque GI CONTRAST: No oral contrast was administered which can limit assessment. CT Radiation Dose: DLP 1218.50 mGy-cm FINDINGS: CT ABDOMEN WITH CONTRAST: Included chest: Mild atelectasis/scar in the right lung base. ABDOMINAL SOLID ORGANS: The contrast enhanced images of the spleen, pancreas, adrenals and kidneys are normal. Liver is enlarged. Diffuse hepatic steatosis is noted. Gallbladder is surgically absent. STOMACH AND BOWEL: The stomach is unremarkable. The small bowel are unremarkable. The appendix is normal . Previously seen circumferential wall thickening of the Left colon and sigmoid colon with areas of minimal pericolonic inflammatory changes have improved with minimal scattered area of minimal bowel wall thickening. No bowel obstruction seen. Small fat-containing umbilical hernia seen. PERITONEUM AND RETROPERITONEUM: There is no abdominal lymphadenopathy. There is no pneumoperitoneum or abdominal ascites. VASCULAR STRUCTURES: The abdominal aorta is unremarkable without aneurysm. The inferior vena cava is unremarkable. The mesenteric vessels and portal veinous structures are grossly patent. CT PELVIS WITH CONTRAST: PERITONEAL AND EXTRAPERITONEAL REGIONS: There is no pelvic free fluid or lymphadenopathy. The inguinal regions are unremarkable. BLADDER / : The bladder is unremarkable. Anteverted and unremarkable uterus. Ovaries are not well seen. OSSEOUS STRUCTURES: There are no postsurgical changes at L4-L5.. IMPRESSION: 1. Previously seen changes of left colon and sigmoid colon colitis have significantly improved with minimal residual scattered area of bowel wall thickening. No bowel obstruction seen. 2. Hepatomegaly. Hepatic steatosis. 3. Cholecystectomy. SL: [RD] 02/25/2018 - - Read by: Hank Benton MD Dictated Date/time: 02/25/18 01:50 Electronically Signed by: Hank Benton MD 02/25/18 02:02 FINAL REPORT [facility] Ext Lower Venous Doppler Unilat US Ext Lower Venous Doppler Unilat US Clinical Indication: - increasing LE pain / edema p dx DVT 12/2017; Comparison: 01/30/2018 TECHNIQUE: Sonographic evaluation of the leftlower extremity veins was performed using high resolution B-mode imaging, along with pulse and color Doppler imaging. FINDINGS: Left lower extremity: The common femoral vein, femoral vein, and visualized posterior tibial/calf veins are patent. There is noncompressible thrombus visualized within the left popliteal vein with flow. There is no echogenic debris to suggest deep venous thrombosis. The saphenofemoral junction is unremarkable. IMPRESSION: 1. Nonocclusive thrombus visualized within the left popliteal vein which is relatively unchanged. SL: [id number] 02/05/2018 - - Read by: Perry Zazueta MD Dictated Date/time: 02/05/18 22:45 Electronically Signed by: Perry Zazueta MD 02/05/18 22:47 FINAL REPORT [facility] Lower Venous Doppler Bilat US Ext Lower Venous Doppler Bilat US Ext Lower Venous Doppler Bilat US CLINICAL HX: Left leg pain; COMPARISON: 12/29/2017 TECHNIQUE: Nava scale imaging, compression techniques and spectral analysis were utilized to evaluate the deep venous system of both lower extremities from the inguinal ligament to the popliteal fossa. FINDINGS: There is adequate compression, respiratory variability, and appropriate response to augmentation in the CFV and femoral veins bilaterally. There is partial compressibility off the left popliteal vein and on grayscale images, and eccentric thrombus is visualized. The right popliteal vein is patent. The junction of the profunda vein to the SFV is patent bilaterally. Posterior tibial vein/trunk and the saphenous vein demonstrate normal compressibility. IMPRESSION: Positive study. DVT is visualized in the left popliteal vein. NOTE: Critical and/or salient findings telephoned to JANNA Nielsen for the referring physician, Dr. Villarreal on 01/30/2018 10:24 AM CDT. The patient was escorted to the emergency room in a wheelchair by the cytotechnologist/cytology supervisor. SL: [id number] 01/30/2018 - - Read by: Toñito Julian MD Dictated Date/time: 01/30/18 10:19 Electronically Signed by: Toñito Julian MD 01/30/18 10:42 FINAL REPORT [facility] Abdomen/Pelvis IV contrast only CT ED Abdomen/Pelvis IV contrast only CT ED Abdomen/Pelvis IV contrast only CT 01/04/2018 12:24 PM CDT Ordering Physician:Savannah Ramey MD CLINICAL HISTORY: - abdominal pain; right-sided flank abdominal pain; vomiting and diarrhea; possible bloody bowel movement Dose: Total DLP 1265.1; 100 cc Omnipaque IV COMPARISON: Abdominopelvic CT 09/23/2017 TECHNIQUE: 5 mm thick axial images of the abdomen and pelvis were obtained with IV contrast. . Coronal and sagittal reformations were created. FINDINGS: Visualized lung bases demonstrate mild right basilar scarring Diffuse fatty infiltration of the liver is present. Gallbladder surgically absent. Spleen, pancreas, adrenal glands, and kidneys are normal. A few small, subcentimeter bilateral renal cysts are present. Ureters normal. Bladder is contracted. Uterus and ovaries are present. Moderate to severe left and sigmoid colonic diffuse circumferential mural thickening with areas of minimal pericolonic hazy fat stranding is present. Remaining gastrointestinal tract is grossly normal. Appendix is normal and retrocecal in location. No mesenteric or retroperitoneal lymphadenopathy is present. No free air or free fluid is present. Aortoiliac arterial system is normal. Celiac axis, SMA, and TOMMY are widely patent from their respective origins to their distal perfusional territories. Bones demonstrate L4-L5 posterior bipedicular screw and brandyn fixation hardware with intervertebral disc spacer cage. IMPRESSION: 1. Moderate to severe diffuse left and sigmoid postinfectious/inflammatory colitis. 2. Diffuse fatty infiltration of liver. SL: [id number] 01/04/2018 - - Read by: Kathy Brink MD Dictated Date/time: 01/04/18 14:51 Electronically Signed by: Kathy Brink MD 01/04/18 14:57 FINAL REPORT [facility] Chest 1view DX Chest 1view DX Clinical Indication: - cp Comparison: 10/21/2017 FINDINGS: AP chest radiograph was obtained. MEDIASTINUM: The cardiac silhouette is normal in size. The aorta is unremarkable. LUNGS: Lung volumes are maintained. There are no focal infiltrates or effusions. There are no pneumothoraces noted. BONES: The visualized osseous structures are unremarkable. IMPRESSION: No acute infiltrates or effusions. SL: [id number] 12/30/2017 - - Read by: King Alford MD Dictated Date/time: 12/30/17 02:32 Electronically Signed by: King Alford MD 12/30/17 02:33 FINAL REPORT [facility] Chest Pulmonary Embolism CTA Chest Pulmonary Embolism CTA CTA CHEST PE protocol HISTORY: - pad off elloquis. Shortness of breath. Chest pain. TECHNIQUE: Thin collimation axial images of the chest with IV contrast per CT angiogram protocol. Coronal and sagittal reformatted images were utilized. 3-D reconstructions were obtained. COMPARISON: CT PE study of 09/07/2017. Total DLP: 902.94 mGy-cm FINDINGS: No filling defect is present within the main, right and left pulmonary arteries. Stable dominant about 1.9 cm posterior left thyroid lobe nodule or parathyroid adenoma is present. Stable mild cardiomegaly. No pericardial effusion. No mediastinum or hilar mass or adenopathy. Paraseptal emphysematous change is present. Mild bibasilar atelectasis and/or parenchymal scarring. No new gross focal consolidation, pleural effusion, pneumothorax. Postoperative cholecystectomy. Diffuse fatty liver infiltration. Impression: 1. No convincing evidence of acute pulmonary embolus detected. 2. No focal consolidation, pleural effusion, pneumothorax. 3. Diffuse fatty liver infiltration. 4. Stable dominant about 1.9 cm posterior left thyroid lobe nodule or parathyroid adenoma is present. Please correlate with thyroid ultrasound, laboratory values and parathyroid scan if indicated. SL: [id number] 12/30/2017 - - Read by: Mitchel Duval MD Dictated Date/time: 12/30/17 04:47 Electronically Signed by: Mitchel Duval MD 12/30/17 04:51 FINAL REPORT [facility] CHEM PANEL Globulin 5.0 g/dL 2.7 - 4.2 12/29/2017 [facility] CHEM PANEL B/C Ratio 13 6 - 25 12/29/2017 [facility] CHEM PANEL AGAP 10.7 meq/L 10.0 - 20.0 12/29/2017 [facility] CHEM PANEL A/G Ratio 0.8 0.7 - 1.6 12/29/2017 [facility] CHEM PANEL eGFR 113 mL/min/1.73m2 12/29/2017 Result Comment: The eGFR is calculated using the CKD-EPI formula. In most young, healthy individuals the eGFR will be >90 mL/min/1.73m2. The eGFR declines with age. An eGFR of 60-89 may be normal in some populations, particularly the elderly, for whom the CKD-EPI formula has not been extensively validated. Use of the eGFR is not recommended in the following populations: Individuals with unstable creatinine concentrations, including patients and those with serious co-morbid conditions. Patients with extremes in muscle mass or diet. The data above are obtained from the National Kidney Disease Education Program (NKDEP) which additionally recommends that when the eGFR is used in patients with extremes of body mass index for purposes of drug dosing, the eGFR should be multiplied by the estimated BMI. [facility] CHEM PANEL Bili Total 0.3 mg/dL 0.2 - 1.3 12/29/2017 [facility] CHEM PANEL Sodium Lvl 139 meq/L 135 - 145 12/29/2017 [facility] CHEM PANEL Alk Phos 101 unit/L 39 - 136 12/29/2017 [facility] CHEM PANEL AST 32 unit/L 0 - 37 12/29/2017 [facility] CHEM PANEL ALT 40 unit/L 0 - 65 12/29/2017 [facility] CHEM PANEL Potassium Lvl 3.7 meq/L 3.5 - 5.1 12/29/2017 [facility] CHEM PANEL Calcium Lvl 9.1 mg/dL 8.5 - 10.5 12/29/2017 [facility] CHEM PANEL CO2 28 meq/L 24 - 32 12/29/2017 [facility] CHEM PANEL Chloride Lvl 104 meq/L 95 - 109 12/29/2017 [facility] CHEM PANEL Albumin Lvl 3.9 g/dL 3.5 - 5.0 12/29/2017 [facility] CHEM PANEL Total Protein 8.9 g/dL 6.4 - 8.4 12/29/2017 [facility] CHEM PANEL Glucose Lvl 103 mg/dL 70 - 99 12/29/2017 [facility] CHEM PANEL Creatinine Lvl 0.68 mg/dL 0.50 - 1.40 12/29/2017 [facility] CHEM PANEL BUN 9 mg/dL 7 - 22 12/29/2017 [facility] HEMATOLOGY Eosinophils # 0.1 K/CMM 0.0 - 0.5 12/29/2017 [facility] HEMATOLOGY Monocytes # 0.8 K/CMM 0.0 - 0.8 12/29/2017 [facility] Lymphocytes # 3.7 K/CMM 1.0 - 5.5 12/29/2017 [facility] Segs-Bands # 4.9 K/CMM 1.5 - 8.1 12/29/2017 [facility] Monocytes 8.0 % 2.0 - 12.0 12/29/2017 [facility] Eosinophils 0.7 % 0.0 - 4.0 12/29/2017 [facility] Segs 52.0 % 45.0 - 75.0 12/29/2017 [facility] Basophils 0.4 % 0.0 - 1.0 12/29/2017 [facility] Lymphocytes 38.9 % 20.0 - 40.0 12/29/2017 [facility] PTT 38.9 s 22.9 - 35.8 12/29/2017 [facility] MPV 8.7 fL 7.4 - 10.4 12/29/2017 [facility] Hgb 12.9 g/dL 12.0 - 16.0 12/29/2017 [facility] Hct 37.6 % 36.0 - 48.0 12/29/2017 [facility] MCV 86.5 fL 80.0 - 98.0 12/29/2017 [facility] MCH 29.7 pg 27.0 - 31.0 12/29/2017 [facility] MCHC 34.3 g/dL 32.0 - 36.0 12/29/2017 [facility] RDW 14.1 % 11.5 - 14.5 12/29/2017 [facility] WBC 9.4 K/CMM 3.7 - 10.4 12/29/2017 [facility] RBC 4.34 M/CMM 4.20 - 5.40 12/29/2017 [facility] Platelet 322 K/CMM 133 - 450 12/29/2017 [facility] INR 1.07 0.85 - 1.17 12/29/2017 [facility] PT 13.9 s 12.0 - 14.7 12/29/2017 [facility] Ext Lower Venous Doppler Unilat US Ext Lower Venous Doppler Unilat US Clinical Indication: - pain ? DVT , left leg pain and swelling Comparison: 11/29/2017 TECHNIQUE: Sonographic evaluation of the left lower extremity veins was performed using high resolution B-mode imaging, along with pulse and color Doppler imaging. FINDINGS: The common femoral vein, superficial femoral vein, popliteal vein and visualized posterior tibial/calf veins are patent. There is no echogenic debris to suggest deep venous thrombosis. The saphenofemoral junction is unremarkable. IMPRESSION: No sonographic evidence for deep vein thrombosis of the left lower extremity. SL: [id number] 12/28/2017 - - Read by: Ab Cifuentes MD Dictated Date/time: 12/29/17 02:18 Electronically Signed by: Ab Cifuentes MD 12/29/17 02:19 FINAL REPORT [facility] CHEM PANEL A/G Ratio 0.8 0.7 - 1.6 11/30/2017 [facility] CHEM PANEL B/C Ratio 14 6 - 25 11/30/2017 [facility] CHEM PANEL Globulin 4.6 g/dL 2.7 - 4.2 11/30/2017 [facility] CHEM PANEL AGAP 7.5 meq/L 10.0 - 20.0 11/30/2017 [facility] CHEM PANEL eGFR 106 mL/min/1.73m2 11/30/2017 Result Comment: The eGFR is calculated using the CKD-EPI formula. In most young, healthy individuals the eGFR will be >90 mL/min/1.73m2. The eGFR declines with age. An eGFR of 60-89 may be normal in some populations, particularly the elderly, for whom the CKD-EPI formula has not been extensively validated. Use of the eGFR is not recommended in the following populations: Individuals with unstable creatinine concentrations, including patients and those with serious co-morbid conditions. Patients with extremes in muscle mass or diet. The data above are obtained from the National Kidney Disease Education Program (NKDEP) which additionally recommends that when the eGFR is used in patients with extremes of body mass index for purposes of drug dosing, the eGFR should be multiplied by the estimated BMI. [facility] CHEM PANEL Alk Phos 90 unit/L 39 - 136 11/30/2017 [facility] CHEM PANEL Bili Total 0.3 mg/dL 0.2 - 1.3 11/30/2017 [facility] CHEM PANEL AST 32 unit/L 0 - 37 11/30/2017 [facility] CHEM PANEL Potassium Lvl 3.5 meq/L 3.5 - 5.1 11/30/2017 [facility] CHEM PANEL Chloride Lvl 105 meq/L 95 - 109 11/30/2017 [facility] CHEM PANEL CO2 32 meq/L 24 - 32 11/30/2017 [facility] CHEM PANEL Calcium Lvl 8.7 mg/dL 8.5 - 10.5 11/30/2017 [facility] CHEM PANEL Sodium Lvl 141 meq/L 135 - 145 11/30/2017 [facility] CHEM PANEL Albumin Lvl 3.6 g/dL 3.5 - 5.0 11/30/2017 [facility] CHEM PANEL ALT 34 unit/L 0 - 65 11/30/2017 [facility] CHEM PANEL Total Protein 8.2 g/dL 6.4 - 8.4 11/30/2017 [facility] CHEM PANEL Glucose Lvl 140 mg/dL 70 - 99 11/30/2017 [facility] CHEM PANEL BUN 10 mg/dL 7 - 22 11/30/2017 [facility] CHEM PANEL Creatinine Lvl 0.73 mg/dL 0.50 - 1.40 11/30/2017 [facility] HEMATOLOGY MCH 30.1 pg 27.0 - 31.0 11/30/2017 [facility] HEMATOLOGY RBC 3.96 M/CMM 4.20 - 5.40 11/30/2017 [facility] HEMATOLOGY WBC 8.4 K/CMM 3.7 - 10.4 11/30/2017 [facility] HEMATOLOGY Platelet 306 K/CMM 133 - 450 11/30/2017 [facility] HEMATOLOGY MPV 8.4 fL 7.4 - 10.4 11/30/2017 [facility] HEMATOLOGY MCV 86.2 fL 80.0 - 98.0 11/30/2017 [facility] HEMATOLOGY Hct 34.2 % 36.0 - 48.0 11/30/2017 [facility] HEMATOLOGY Hgb 11.9 g/dL 12.0 - 16.0 11/30/2017 [facility] MCHC 34.9 g/dL 32.0 - 36.0 11/30/2017 [facility] HEMATOLOGY RDW 14.4 % 11.5 - 14.5 11/30/2017 [facility] HEMATOLOGY Segs 47.2 % 45.0 - 75.0 11/30/2017 [facility] HEMATOLOGY Monocytes 8.6 % 2.0 - 12.0 11/30/2017 [facility] HEMATOLOGY Lymphocytes 42.5 % 20.0 - 40.0 11/30/2017 [facility] HEMATOLOGY Basophils 1.0 % 0.0 - 1.0 11/30/2017 [facility] HEMATOLOGY Eosinophils 0.7 % 0.0 - 4.0 11/30/2017 [facility] HEMATOLOGY Segs-Bands # 4.0 K/CMM 1.5 - 8.1 11/30/2017 [facility] HEMATOLOGY Monocytes # 0.7 K/CMM 0.0 - 0.8 11/30/2017 [facility] HEMATOLOGY Lymphocytes # 3.6 K/CMM 1.0 - 5.5 11/30/2017 [facility] HEMATOLOGY Basophils # 0.1 K/CMM 0.0 - 0.2 11/30/2017 [facility] HEMATOLOGY Eosinophils # 0.1 K/CMM 0.0 - 0.5 11/30/2017 [facility] Ext Lower Venous Doppler Unilat US Ext Lower Venous Doppler Unilat US Clinical Indication: - left lower extremity swelling. Comparison: 11/04/2017 sonogram TECHNIQUE: Sonographic evaluation of the left lower extremity veins was performed using high resolution B-mode imaging, along with pulse and color Doppler imaging. FINDINGS: The left common femoral, femoral, popliteal and visualized posterior tibial/calf veins are patent. The veins compress, fill with color Doppler signal and augment. There is no echogenic debris to suggest deep venous thrombosis. The saphenofemoral junction is unremarkable. Morphologically normal, nonenlarged left inguinal lymph node is seen measuring 0.7 cm short axis. IMPRESSION: No evidence of deep venous thrombosis. SL: [id number] 11/29/2017 - - Read by: Tammy Abbasi MD Dictated Date/time: 11/29/17 21:18 Electronically Signed by: Tammy Abbasi MD 11/29/17 21:19 FINAL REPORT [facility] Ext Lower Venous Doppler Unilat US Ext Lower Venous Doppler Unilat US Patient Name: GEETA CHAVARRIA : 1960; Age: 57 years y/o Female MR: [id number] Study: Ext Lower Venous Doppler Unilat US 11/04/2017 5:47 AM CDT Ordering Physician: Clinical Indication: - hx of dvt, ro new dvt left leg. suspect radicular pain >>dvt; Comparison: None Left lower extremity venous Doppler ultrasound exam demonstrates normal flow and compressibility of the common femoral, superficial femoral, tibial venous segments. Normal distal augmentation. IMPRESSION: No sonographic evidence for left lower extremity deep vein thrombosis. SL: [id number] 11/04/2017 - - Read by: Fer Zuniga MD Dictated Date/time: 11/04/17 07:40 Electronically Signed by: Fer Zuniga MD 11/04/17 07:41 FINAL REPORT [facility] CARDIAC ENZYMES Troponin-I null 0.00 - 0.40 10/22/2017 [facility] CARDIAC ENZYMES Total CK 92 unit/L 12 - 191 10/22/2017 [facility] CARDIAC ENZYMES CK MB 2.3 ng/mL 0.5 - 3.6 10/22/2017 [facility] CARDIAC ENZYMES CK MB Index 2.5 0.0 - 2.5 10/22/2017 [facility] CHEM PANEL eGFR 92 mL/min/1.73m2 10/22/2017 Result Comment: The eGFR is calculated using the CKD-EPI formula. In most young, healthy individuals the eGFR will be >90 mL/min/1.73m2. The eGFR declines with age. An eGFR of 60-89 may be normal in some populations, particularly the elderly, for whom the CKD-EPI formula has not been extensively validated. Use of the eGFR is not recommended in the following populations: Individuals with unstable creatinine concentrations, including patients and those with serious co-morbid conditions. Patients with extremes in muscle mass or diet. The data above are obtained from the National Kidney Disease Education Program (NKDEP) which additionally recommends that when the eGFR is used in patients with extremes of body mass index for purposes of drug dosing, the eGFR should be multiplied by the estimated BMI. [facility] CHEM PANEL Total Protein 8.4 g/dL 6.4 - 8.4 10/22/2017 [facility] CHEM PANEL Albumin Lvl 3.6 g/dL 3.5 - 5.0 10/22/2017 [facility] CHEM PANEL Alk Phos 91 unit/L 39 - 136 10/22/2017 [facility] CHEM PANEL Bili Total 0.2 mg/dL 0.2 - 1.3 10/22/2017 [facility] CHEM PANEL AST 21 unit/L 0 - 37 10/22/2017 [facility] CHEM PANEL ALT 34 unit/L 0 - 65 10/22/2017 [facility] CHEM PANEL Glucose Lvl 140 mg/dL 70 - 99 10/22/2017 [facility] CHEM PANEL BUN 10 mg/dL 7 - 22 10/22/2017 [facility] CHEM PANEL CO2 31 meq/L 24 - 32 10/22/2017 [facility] CHEM PANEL Chloride Lvl 105 meq/L 95 - 109 10/22/2017 [facility] CHEM PANEL Sodium Lvl 141 meq/L 135 - 145 10/22/2017 [facility] CHEM PANEL Creatinine Lvl 0.82 mg/dL 0.50 - 1.40 10/22/2017 [facility] CHEM PANEL Potassium Lvl 3.5 meq/L 3.5 - 5.1 10/22/2017 [facility] CHEM PANEL A/G Ratio 0.8 0.7 - 1.6 10/22/2017 [facility] CHEM PANEL Globulin 4.8 g/dL 2.7 - 4.2 10/22/2017 [facility] CHEM PANEL B/C Ratio 12 6 - 25 10/22/2017 [facility] CHEM PANEL AGAP 8.5 meq/L 10.0 - 20.0 10/22/2017 [facility] CHEM PANEL Calcium Lvl 8.5 mg/dL 8.5 - 10.5 10/22/2017 [facility] HEMATOLOGY INR 0.99 0.85 - 1.17 10/22/2017 [facility] PTT 36.0 s 22.9 - 35.8 10/22/2017 [facility] PT 13.1 s 12.0 - 14.7 10/22/2017 [facility] MPV 8.1 fL 7.4 - 10.4 10/22/2017 [facility] Platelet 351 K/CMM 133 - 450 10/22/2017 [facility] RDW 14.5 % 11.5 - 14.5 10/22/2017 [facility] RBC 4.16 M/CMM 4.20 - 5.40 10/22/2017 [facility] WBC 11.9 K/CMM 3.7 - 10.4 10/22/2017 [facility] MCHC 33.8 g/dL 32.0 - 36.0 10/22/2017 [facility] Hgb 12.3 g/dL 12.0 - 16.0 10/22/2017 [facility] MCH 29.5 pg 27.0 - 31.0 10/22/2017 [facility] Hct 36.2 % 36.0 - 48.0 10/22/2017 [facility] MCV 87.1 fL 80.0 - 98.0 10/22/2017 [facility] Monocytes # 1.0 K/CMM 0.0 - 0.8 10/22/2017 [facility] Eosinophils # 0.1 K/CMM 0.0 - 0.5 10/22/2017 [facility] Lymphocytes # 4.3 K/CMM 1.0 - 5.5 10/22/2017 [facility] HEMATOLOGY Basophils # 0.1 K/CMM 0.0 - 0.2 10/22/2017 [facility] HEMATOLOGY Eosinophils 0.5 % 0.0 - 4.0 10/22/2017 [facility] HEMATOLOGY Segs 54.8 % 45.0 - 75.0 10/22/2017 [facility] HEMATOLOGY Monocytes 8.3 % 2.0 - 12.0 10/22/2017 [facility] HEMATOLOGY Lymphocytes 35.8 % 20.0 - 40.0 10/22/2017 [facility] HEMATOLOGY Basophils 0.6 % 0.0 - 1.0 10/22/2017 [facility] Segs-Bands # 6.5 K/CMM 1.5 - 8.1 10/22/2017 [facility] Chest 1view DX Chest 1view DX Study: Chest 1view DX 10/21/2017 7:45 PM CDT Clinical Indication: Chest pain - chest pain; Comparison: Chest x-ray 09/06/2017 FINDINGS: The cardiac silhouette and pulmonary vasculature are normal for projection and degree of inspiration. No lobar consolidation, effusion, or pneumothorax. No pleural abnormalities are seen. No acute bony abnormalities. IMPRESSION: No acute intrathoracic abnormalities. SL: [id number] 10/21/2017 - - Read by: Xavier Amor MD Dictated Date/time: 10/21/17 20:22 Electronically Signed by: Xavier Amor MD 10/21/17 20:24 FINAL REPORT [facility] ELECTROLYTES AGAP 11.4 meq/L 10.0 - 20.0 10/07/2017 [facility] ELECTROLYTES eGFR 92 mL/min/1.73m2 10/07/2017 Result Comment: The eGFR is calculated using the CKD-EPI formula. In most young, healthy individuals the eGFR will be >90 mL/min/1.73m2. The eGFR declines with age. An eGFR of 60-89 may be normal in some populations, particularly the elderly, for whom the CKD-EPI formula has not been extensively validated. Use of the eGFR is not recommended in the following populations: Individuals with unstable creatinine concentrations, including patients and those with serious co-morbid conditions. Patients with extremes in muscle mass or diet. The data above are obtained from the National Kidney Disease Education Program (NKDEP) which additionally recommends that when the eGFR is used in patients with extremes of body mass index for purposes of drug dosing, the eGFR should be multiplied by the estimated BMI. [facility] ELECTROLYTES BUN 13 mg/dL 7 - 22 10/07/2017 [facility] ELECTROLYTES Glucose Lvl 225 mg/dL 70 - 99 10/07/2017 [facility] ELECTROLYTES CO2 27 meq/L 24 - 32 10/07/2017 [facility] ELECTROLYTES Calcium Lvl 8.9 mg/dL 8.5 - 10.5 10/07/2017 [facility] ELECTROLYTES Potassium Lvl 4.4 meq/L 3.5 - 5.1 10/07/2017 [facility] ELECTROLYTES Chloride Lvl 104 meq/L 95 - 109 10/07/2017 [facility] ELECTROLYTES Creatinine Lvl 0.83 mg/dL 0.50 - 1.40 10/07/2017 [facility] ELECTROLYTES Sodium Lvl 138 meq/L 135 - 145 10/07/2017 [facility] HEMATOLOGY Platelet 332 K/CMM 133 - 450 10/07/2017 [facility] HEMATOLOGY MPV 8.8 fL 7.4 - 10.4 10/07/2017 [facility] MCH 29.9 pg 27.0 - 31.0 10/07/2017 [facility] MCHC 34.5 g/dL 32.0 - 36.0 10/07/2017 [facility] HEMATOLOGY RDW 14.8 % 11.5 - 14.5 10/07/2017 [facility] HEMATOLOGY Hgb 11.8 g/dL 12.0 - 16.0 10/07/2017 [facility] HEMATOLOGY Hct 34.3 % 36.0 - 48.0 10/07/2017 [facility] HEMATOLOGY MCV 86.9 fL 80.0 - 98.0 10/07/2017 [facility] HEMATOLOGY WBC 14.2 K/CMM 3.7 - 10.4 10/07/2017 [facility] HEMATOLOGY RBC 3.95 M/CMM 4.20 - 5.40 10/07/2017 [facility] HEMATOLOGY Monocytes # 1.0 K/CMM 0.0 - 0.8 10/07/2017 [facility] HEMATOLOGY Segs 80.0 % 45.0 - 75.0 10/07/2017 [facility] HEMATOLOGY Lymphocytes 12.9 % 20.0 - 40.0 10/07/2017 [facility] HEMATOLOGY Segs-Bands # 11.3 K/CMM 1.5 - 8.1 10/07/2017 [facility] HEMATOLOGY Lymphocytes # 1.8 K/CMM 1.0 - 5.5 10/07/2017 [facility] HEMATOLOGY Monocytes 6.9 % 2.0 - 12.0 10/07/2017 [facility] HEMATOLOGY Basophils 0.2 % 0.0 - 1.0 10/07/2017 [facility] Spine lumbar wo contrast CT Spine lumbar wo contrast CT Patient Name: GEETA CHAVARRIA : 1960; Age: 57 years y/o Female MR: [id number] Study: Spine lumbar wo contrast CT 10/06/2017 9:55 AM CDT Clinical Indication: - lumbar radiculopathy w/left leg pain; Comparison: MRI of the lumbar spine from 10/06/2017 TECHNIQUE: Sequential trans-axial images were obtained with a multi-detector helical CT. Coronal and sagittal reconstructions were obtained. CT Radiation Dose DLP 699.79 mGy-cm FINDINGS: ALIGNMENT AND GENERAL ASSESSMENT: There are 5 nonrib-bearing lumbar vertebral segments. There is normal alignment of the lumbar spine. The anterior and posterior paraspinal soft tissues are unremarkable. Postoperative changes of discectomy and interbody spacer placement at L4-L5 are seen. Changes of posterior instrumentation for fusion with transpedicular fixation screws and Rodriguez rods at L4-L5 are seen. No hardware fracture or displacement is seen. No suspicious paralleling lucency is noted. There is moderate disc height loss with vacuum disc phenomena at L5-S1. Paravertebral soft tissues are unremarkable. No pars interarticularis defects are seen. DISK SPACES AND SOFT TISSUES: MRI has higher sensitivity and specificity for disc and soft tissue disease. T12-L1: The disc is unremarkable. Mild to moderate facet arthrosis is seen, right greater than left. There is no spinal canal stenosis or neural foraminal narrowing. L1-L2: The disc is unremarkable. Mild to moderate facet arthrosis is seen. There is no spinal canal stenosis. Mild bilateral neural foraminal narrowing is seen. L2-L3: Small annular disc bulge is present. Moderate facet arthrosis is seen. There is mild central spinal canal stenosis with mild bilateral neural foraminal narrowing. L3-L4: Small annular disc bulge is present. Moderate-severe facet arthrosis is present, right greater than left. There is mild spinal canal stenosis with moderate bilateral neural foraminal narrowing, right greater than left. L4-L5: Postoperative changes of left hemilaminectomy are seen. Fusion across the disc space is seen. No spinal canal stenosis is seen. Moderate-severe right facet arthropathy is seen. There is moderate right neural foraminal narrowing. L5-S1: Small annular disc bulge is seen. Moderate-severe facet arthrosis is seen, right greater than left. Changes of prior left hemilaminectomy are seen. There is no central spinal canal stenosis. Mild to moderate bilateral neural foraminal narrowing, left greater than right, is seen. IMPRESSION: 1. Postoperative changes of L4-L5 fusion as well as left hemilaminectomy at L4 and L5. 2. Multilevel degenerative changes of the lumbar spine with mild spinal canal stenosis at L2-L3 and L3-L4. 3. Moderate right neural foraminal narrowing at L4-L5. 4. Mild to moderate bilateral neural foraminal narrowing at L3-L4 and L5-S1. SL: [id number] 10/06/2017 - - Read by: Emiliano Harris MD Dictated Date/time: 10/06/17 11:21 Electronically Signed by: Emiliano Harris MD 10/06/17 11:28 FINAL REPORT [facility] Spine lumbar wo contrast MRI Spine lumbar wo contrast MRI Clinical Indication: - LUMBAR SPONDYLOSIS. Patient complained of lower back pain that radiates down her left lower extremity. Comparison: 04/10/2014. TECHNIQUE: MRI of the lumbar spine was performed without IV contrast using standard technique. Findings: Conus and cauda equina: Conus terminates at T12-L1. No intramedullary masses or lesions are visualized. T12-L1: Normal. L1-L2: Mild facet arthropathy bilaterally. No significant disc bulge or protrusion. Neural foramina are widely patent. L2-L3: Mild centrilobular bilaterally. Very small broad-based posterior disc bulge. Mild narrowing the neural foramina bilaterally. No spinal stenosis. L3-L4: Moderate facet arthropathy bilaterally. Small broad-based posterior disc bulge. No spinal stenosis. Mild to moderate narrowing of the neural foramina bilaterally. L4-L5: Interval posterior and interbody fusion. The vertebral bodies appear in anatomic alignment. No significant disc bulge or protrusion. There may be mild narrowing of the the left neural foramen although evaluation is somewhat limited due to artifact. L5-S1: Disc desiccation. Mild facet arthropathy bilaterally. There is a moderately large left paracentral to left foraminal disc extrusion with severe narrowing of the left neural foramen. The right neural foramen is widely patent. Bone marrow: Other than the interbody fusion at L4-5 the bone marrow appears normal. Surrounding tissues: Punctation left renal lesion most likely a small cyst. IMPRESSION: New moderately large left paracentral to left foraminal disc extrusion at L5-S1 with suspected impingement of the exiting left L5 nerve root. Interval posterior and interbody fusion of L4-L5. There remains mild to moderate narrowing of the left neural foramen. Mild to moderate narrowing of the neural foramina bilaterally at L3-L4 due to a small disc bulge and facet arthropathy. SL: [id number] 10/06/2017 - - Read by: Hung Owusu MD Dictated Date/time: 10/06/17 05:09 Electronically Signed by: Hung Owusu MD 10/06/17 05:17 FINAL REPORT [facility] CHEM PANEL eGFR 112 mL/min/1.73m2 10/05/2017 Result Comment: The eGFR is calculated using the CKD-EPI formula. In most young, healthy individuals the eGFR will be >90 mL/min/1.73m2. The eGFR declines with age. An eGFR of 60-89 may be normal in some populations, particularly the elderly, for whom the CKD-EPI formula has not been extensively validated. Use of the eGFR is not recommended in the following populations: Individuals with unstable creatinine concentrations, including patients and those with serious co-morbid conditions. Patients with extremes in muscle mass or diet. The data above are obtained from the National Kidney Disease Education Program (NKDEP) which additionally recommends that when the eGFR is used in patients with extremes of body mass index for purposes of drug dosing, the eGFR should be multiplied by the estimated BMI. [facility] CHEM PANEL Creatinine Lvl 0.69 mg/dL 0.50 - 1.40 10/05/2017 [facility] CHEM PANEL BUN 10 mg/dL 7 - 22 10/05/2017 [facility] CHEM PANEL Glucose Lvl 123 mg/dL 70 - 99 10/05/2017 [facility] CHEM PANEL Chloride Lvl 106 meq/L 95 - 109 10/05/2017 [facility] CHEM PANEL Sodium Lvl 143 meq/L 135 - 145 10/05/2017 [facility] CHEM PANEL Potassium Lvl 3.4 meq/L 3.5 - 5.1 10/05/2017 [facility] CHEM PANEL ALT 29 unit/L 0 - 65 10/05/2017 [facility] CHEM PANEL AST 20 unit/L 0 - 37 10/05/2017 [facility] CHEM PANEL Albumin Lvl 3.3 g/dL 3.5 - 5.0 10/05/2017 [facility] CHEM PANEL A/G Ratio 0.7 0.7 - 1.6 10/05/2017 [facility] CHEM PANEL Total Protein 7.8 g/dL 6.4 - 8.4 10/05/2017 [facility] CHEM PANEL Globulin 4.5 g/dL 2.7 - 4.2 10/05/2017 [facility] CHEM PANEL B/C Ratio 14 6 - 25 10/05/2017 [facility] CHEM PANEL CO2 32 meq/L 24 - 32 10/05/2017 [facility] CHEM PANEL AGAP 8.4 meq/L 10.0 - 20.0 10/05/2017 [facility] CHEM PANEL Calcium Lvl 8.7 mg/dL 8.5 - 10.5 10/05/2017 [facility] CHEM PANEL Alk Phos 86 unit/L 39 - 136 10/05/2017 [facility] CHEM PANEL Bili Total 0.3 mg/dL 0.2 - 1.3 10/05/2017 [facility] CHEM PANEL Magnesium Lvl 2.3 mg/dL 1.8 - 2.4 10/05/2017 [facility] HEMATOLOGY Hgb 11.3 g/dL 12.0 - 16.0 10/05/2017 [facility] HEMATOLOGY Hct 32.1 % 36.0 - 48.0 10/05/2017 [facility] HEMATOLOGY INR 1.05 0.85 - 1.17 10/05/2017 [facility] HEMATOLOGY PT 13.7 s 12.0 - 14.7 10/05/2017 [facility] HEMATOLOGY PTT 50.6 s 22.9 - 35.8 10/05/2017 [facility] MCH 30.3 pg 27.0 - 31.0 10/05/2017 [facility] HEMATOLOGY Hct 32.1 % 36.0 - 48.0 10/05/2017 [facility] HEMATOLOGY MCV 86.3 fL 80.0 - 98.0 10/05/2017 [facility] HEMATOLOGY MCHC 35.2 g/dL 32.0 - 36.0 10/05/2017 [facility] HEMATOLOGY Hgb 11.3 g/dL 12.0 - 16.0 10/05/2017 [facility] HEMATOLOGY Platelet 297 K/CMM 133 - 450 10/05/2017 [facility] HEMATOLOGY RDW 14.9 % 11.5 - 14.5 10/05/2017 [facility] HEMATOLOGY MPV 8.7 fL 7.4 - 10.4 10/05/2017 [facility] HEMATOLOGY RBC 3.73 M/CMM 4.20 - 5.40 10/05/2017 [facility] HEMATOLOGY WBC 9.7 K/CMM 3.7 - 10.4 10/05/2017 [facility] HEMATOLOGY Segs-Bands # 5.3 K/CMM 1.5 - 8.1 10/05/2017 [facility] HEMATOLOGY Lymphocytes # 3.4 K/CMM 1.0 - 5.5 10/05/2017 [facility] HEMATOLOGY Basophils 0.8 % 0.0 - 1.0 10/05/2017 [facility] HEMATOLOGY Monocytes # 0.8 K/CMM 0.0 - 0.8 10/05/2017 [facility] HEMATOLOGY Eosinophils # 0.1 K/CMM 0.0 - 0.5 10/05/2017 [facility] HEMATOLOGY Basophils # 0.1 K/CMM 0.0 - 0.2 10/05/2017 [facility] HEMATOLOGY Eosinophils 0.8 % 0.0 - 4.0 10/05/2017 [facility] HEMATOLOGY Segs 55.2 % 45.0 - 75.0 10/05/2017 [facility] HEMATOLOGY Lymphocytes 35.2 % 20.0 - 40.0 10/05/2017 [facility] HEMATOLOGY Monocytes 8.0 % 2.0 - 12.0 10/05/2017 [facility] URINE AND STOOL UA Sq Epi None Seen 10/05/2017 [facility] URINE AND STOOL UA Bacteria Occasional /HPF None Seen /HPF 10/05/2017 [facility] URINE AND STOOL UA Amorph Analisa Few /HPF None Seen /HPF 10/05/2017 [facility] URINE AND STOOL UA WBC 4 /HPF 0 - 5 10/05/2017 [facility] URINE AND STOOL UA Nitrite Negative (10/04/17 11:08 PM) Negative 10/05/2017 [facility] URINE AND STOOL UA RBC 15 /HPF 0 - 2 10/05/2017 [facility] URINE AND STOOL UA Leuk Est Negative (10/04/17 11:08 PM) Negative 10/05/2017 [facility] URINE AND STOOL UA Urobilinogen 4.0 mg/dL 0.1 - 1.0 10/05/2017 [facility] URINE AND STOOL UA Blood Negative (10/04/17 11:08 PM) Negative 10/05/2017 [facility] URINE AND STOOL UA Bili Negative *NA* (10/04/17 11:08 PM) Negative 10/05/2017 [facility] URINE AND STOOL UA Ketones Negative mg/dL Negative mg/dL 10/05/2017 [facility] URINE AND STOOL UA Protein Negative mg/dL Negative mg/dL 10/05/2017 [facility] URINE AND STOOL UA pH 5.0 5.0 - 8.0 10/05/2017 [facility] URINE AND STOOL UA Glucose Negative mg/dL Negative mg/dL 10/05/2017 [facility] URINE AND STOOL UA Turbidity Clear (10/04/17 11:08 PM) Clear 10/05/2017 [facility] URINE AND STOOL UA Spec Grav 1.020 <=1.030 10/05/2017 [facility] URINE AND STOOL UA Color Yellow *NA* (10/04/17 11:08 PM) Yellow 10/05/2017 [facility] CARDIAC ENZYMES CK MB Index 1.1 0.0 - 2.5 10/05/2017 [facility] CARDIAC ENZYMES Troponin-I null 0.00 - 0.40 10/05/2017 [facility] CARDIAC ENZYMES CK MB 1.2 ng/mL 0.5 - 3.6 10/05/2017 [facility] CARDIAC ENZYMES Total CK 114 unit/L 12 - 191 10/05/2017 [facility] CHEM PANEL A/G Ratio 0.7 0.7 - 1.6 10/05/2017 [facility] CHEM PANEL AST 38 unit/L 0 - 37 10/05/2017 [facility] CHEM PANEL ALT 33 unit/L 0 - 65 10/05/2017 [facility] CHEM PANEL Sodium Lvl 138 meq/L 135 - 145 10/05/2017 [facility] CHEM PANEL Creatinine Lvl 0.72 mg/dL 0.50 - 1.40 10/05/2017 [facility] CHEM PANEL Globulin 5.0 g/dL 2.7 - 4.2 10/05/2017 [facility] CHEM PANEL B/C Ratio 14 6 - 25 10/05/2017 [facility] CHEM PANEL BUN 10 mg/dL 7 - 22 10/05/2017 [facility] CHEM PANEL Glucose Lvl 177 mg/dL 70 - 99 10/05/2017 [facility] CHEM PANEL Total Protein 8.7 g/dL 6.4 - 8.4 10/05/2017 [facility] CHEM PANEL Calcium Lvl 8.8 mg/dL 8.5 - 10.5 10/05/2017 [facility] CHEM PANEL CO2 29 meq/L 24 - 32 10/05/2017 [facility] CHEM PANEL Chloride Lvl 104 meq/L 95 - 109 10/05/2017 [facility] CHEM PANEL Potassium Lvl 4.4 meq/L 3.5 - 5.1 10/05/2017 [facility] CHEM PANEL eGFR 109 mL/min/1.73m2 10/05/2017 Result Comment: The eGFR is calculated using the CKD-EPI formula. In most young, healthy individuals the eGFR will be >90 mL/min/1.73m2. The eGFR declines with age. An eGFR of 60-89 may be normal in some populations, particularly the elderly, for whom the CKD-EPI formula has not been extensively validated. Use of the eGFR is not recommended in the following populations: Individuals with unstable creatinine concentrations, including patients and those with serious co-morbid conditions. Patients with extremes in muscle mass or diet. The data above are obtained from the National Kidney Disease Education Program (NKDEP) which additionally recommends that when the eGFR is used in patients with extremes of body mass index for purposes of drug dosing, the eGFR should be multiplied by the estimated BMI. [facility] CHEM PANEL AGAP 9.4 meq/L 10.0 - 20.0 10/05/2017 [facility] CHEM PANEL Bili Total 0.3 mg/dL 0.2 - 1.3 10/05/2017 [facility] CHEM PANEL Alk Phos 86 unit/L 39 - 136 10/05/2017 [facility] CHEM PANEL Albumin Lvl 3.7 g/dL 3.5 - 5.0 10/05/2017 [facility] Lymphocytes # 4.3 K/CMM 1.0 - 5.5 10/05/2017 [facility] HEMATOLOGY Eosinophils 0.5 % 0.0 - 4.0 10/05/2017 [facility] HEMATOLOGY Basophils 0.7 % 0.0 - 1.0 10/05/2017 [facility] HEMATOLOGY Segs-Bands # 5.7 K/CMM 1.5 - 8.1 10/05/2017 [facility] HEMATOLOGY Monocytes 7.6 % 2.0 - 12.0 10/05/2017 [facility] HEMATOLOGY Eosinophils # 0.1 K/CMM 0.0 - 0.5 10/05/2017 [facility] HEMATOLOGY Basophils # 0.1 K/CMM 0.0 - 0.2 10/05/2017 [facility] HEMATOLOGY Monocytes # 0.8 K/CMM 0.0 - 0.8 10/05/2017 [facility] Lymphocytes 39.1 % 20.0 - 40.0 10/05/2017 [facility] Segs 52.1 % 45.0 - 75.0 10/05/2017 [facility] PTT 41.0 s 22.9 - 35.8 10/05/2017 [facility] INR 1.09 0.85 - 1.17 10/05/2017 [facility] PT 14.1 s 12.0 - 14.7 10/05/2017 [facility] WBC 11.0 K/CMM 3.7 - 10.4 10/05/2017 [facility] RBC 4.08 M/CMM 4.20 - 5.40 10/05/2017 [facility] MPV 8.7 fL 7.4 - 10.4 10/05/2017 [facility] RDW 15.0 % 11.5 - 14.5 10/05/2017 [facility] MCHC 34.6 g/dL 32.0 - 36.0 10/05/2017 [facility] Platelet 307 K/CMM 133 - 450 10/05/2017 [facility] MCH 30.4 pg 27.0 - 31.0 10/05/2017 [facility] MCV 87.7 fL 80.0 - 98.0 10/05/2017 [facility] Ext Lower Arterial Doppler unilat US Ext Lower Arterial Doppler unilat US Clinical Indication: - RLE with decreased pulses and cool foot, pain and swelling. Comparison: None. TECHNIQUE: Left lower extremity arterial ultrasound with grayscale, color Doppler and duplex imaging modalities. Findings: Flow velocities in centimeters per second: Common femoral: 133. Deep femoral: 91. Proximal SFA: 96. Mid SFA: 122. Distal SFA: 118. Popliteal: 41. Posterior tibial: 80. Dorsalis pedis: 33. Doppler waveforms are biphasic to triphasic throughout the left lower extremity. IMPRESSION: There is a significant drop in the velocity from the distal left SFA to the popliteal region although I suspect this may be due to sampling error as there are good biphasic and triphasic waveforms in this region and more distally. Otherwise unremarkable left extremity arterial ultrasound. SL: [id number] 10/04/2017 - - Read by: Hung Owusu MD Dictated Date/time: 10/04/17 23:25 Electronically Signed by: Hung Owusu MD 10/04/17 23:28 FINAL REPORT [facility] Ext Lower Venous Doppler Unilat US Ext Lower Venous Doppler Unilat US Clinical Indication: Left ankle pain and swelling. Comparison: 09/06/2017 TECHNIQUE: Sonographic evaluation of the left lower extremity veins was performed using high resolution B-mode imaging, along with pulse and color Doppler imaging. FINDINGS: The common femoral vein, femoral vein, popliteal vein and visualized posterior tibial/calf veins are patent. There is no echogenic debris to suggest deep venous thrombosis. The saphenofemoral junction is unremarkable. IMPRESSION: 1. No DVT in the left lower extremity. SL: [id number] 10/04/2017 - - Read by: Karen Damico MD Dictated Date/time: 10/04/17 23:09 Electronically Signed by: Karen Damico MD 10/04/17 23:10 FINAL REPORT [facility] CHEM PANEL A/G Ratio 0.7 0.7 - 1.6 09/23/2017 [facility] CHEM PANEL Globulin 5.3 g/dL 2.7 - 4.2 09/23/2017 [facility] CHEM PANEL B/C Ratio 11 6 - 25 09/23/2017 [facility] CHEM PANEL AGAP 8.7 meq/L 10.0 - 20.0 09/23/2017 [facility] CHEM PANEL eGFR 90 mL/min/1.73m2 09/23/2017 Result Comment: The eGFR is calculated using the CKD-EPI formula. In most young, healthy individuals the eGFR will be >90 mL/min/1.73m2. The eGFR declines with age. An eGFR of 60-89 may be normal in some populations, particularly the elderly, for whom the CKD-EPI formula has not been extensively validated. Use of the eGFR is not recommended in the following populations: Individuals with unstable creatinine concentrations, including patients and those with serious co-morbid conditions. Patients with extremes in muscle mass or diet. The data above are obtained from the National Kidney Disease Education Program (NKDEP) which additionally recommends that when the eGFR is used in patients with extremes of body mass index for purposes of drug dosing, the eGFR should be multiplied by the estimated BMI. [facility] CHEM PANEL Albumin Lvl 3.9 g/dL 3.5 - 5.0 09/23/2017 [facility] CHEM PANEL Alk Phos 98 unit/L 39 - 136 09/23/2017 [facility] CHEM PANEL ALT 32 unit/L 0 - 65 09/23/2017 [facility] CHEM PANEL Bili Total 0.4 mg/dL 0.2 - 1.3 09/23/2017 [facility] CHEM PANEL AST 22 unit/L 0 - 37 09/23/2017 [facility] CHEM PANEL Potassium Lvl 3.7 meq/L 3.5 - 5.1 09/23/2017 [facility] CHEM PANEL Total Protein 9.2 g/dL 6.4 - 8.4 09/23/2017 [facility] CHEM PANEL Calcium Lvl 9.4 mg/dL 8.5 - 10.5 09/23/2017 [facility] CHEM PANEL CO2 30 meq/L 24 - 32 09/23/2017 [facility] CHEM PANEL Chloride Lvl 104 meq/L 95 - 109 09/23/2017 [facility] CHEM PANEL Sodium Lvl 139 meq/L 135 - 145 09/23/2017 [facility] CHEM PANEL Creatinine Lvl 0.84 mg/dL 0.50 - 1.40 09/23/2017 [facility] CHEM PANEL Glucose Lvl 106 mg/dL 70 - 99 09/23/2017 [facility] CHEM PANEL BUN 9 mg/dL 7 - 22 09/23/2017 [facility] CHEM PANEL Lipase Lvl 135 unit/L 73 - 393 09/23/2017 [facility] MCHC 35.4 g/dL 32.0 - 36.0 09/23/2017 [facility] HEMATOLOGY Platelet 370 K/CMM 133 - 450 09/23/2017 [facility] HEMATOLOGY MPV 8.2 fL 7.4 - 10.4 09/23/2017 [facility] HEMATOLOGY RDW 14.4 % 11.5 - 14.5 09/23/2017 [facility] RBC 4.18 M/CMM 4.20 - 5.40 09/23/2017 [facility] Hgb 12.8 g/dL 12.0 - 16.0 09/23/2017 [facility] Hct 36.2 % 36.0 - 48.0 09/23/2017 [facility] MCV 86.5 fL 80.0 - 98.0 09/23/2017 [facility] MCH 30.6 pg 27.0 - 31.0 09/23/2017 [facility] WBC 11.3 K/CMM 3.7 - 10.4 09/23/2017 [facility] HEMATOLOGY PTT 43.8 s 22.9 - 35.8 09/23/2017 [facility] HEMATOLOGY PT 14.6 s 12.0 - 14.7 09/23/2017 [facility] INR 1.14 0.85 - 1.17 09/23/2017 [facility] Monocytes # 0.8 K/CMM 0.0 - 0.8 09/23/2017 [facility] Eosinophils # 0.1 K/CMM 0.0 - 0.5 09/23/2017 [facility] Monocytes 6.8 % 2.0 - 12.0 09/23/2017 [facility] Eosinophils 0.6 % 0.0 - 4.0 09/23/2017 [facility] Segs 61.5 % 45.0 - 75.0 09/23/2017 [facility] Lymphocytes 30.2 % 20.0 - 40.0 09/23/2017 [facility] Segs-Bands # 6.9 K/CMM 1.5 - 8.1 09/23/2017 [facility] Lymphocytes # 3.4 K/CMM 1.0 - 5.5 09/23/2017 [facility] Basophils # 0.1 K/CMM 0.0 - 0.2 09/23/2017 [facility] Basophils 0.9 % 0.0 - 1.0 09/23/2017 [facility] ED Abdomen/Pelvis IV contrast only CT ED Abdomen/Pelvis IV contrast only CT Patient Name: GEETA CHAVARRIA : 1960; Age: 57 years y/o Female MR: [id number] Study: ED Abdomen/Pelvis IV contrast only CT 09/23/2017 6:28 PM CDT Ordering Physician: Regla Payton Clinical Indication: Abdominal pain, acute - left gluteal swelling, pain Comparison: None TECHNIQUE: Sequential trans-axial images were obtained with a multi-detector helical CT with IV contrast. Coronal and sagittal reconstructions were obtained. 100 mL of Omni intravenously were used for the exam. CT Radiation Dose DLP 1184.84 mGy-cm FINDINGS: CT ABDOMEN: VISUALIZED LUNG BASES: demonstrate bibasilar atelectasis but are otherwise clear. ABDOMINAL ORGANS: The liver appears fatty infiltrated and enlarged. The spleen, pancreas, adrenals and kidneys demonstrate no acute pathology. 1cm left renal lesion noted, not a simple cyst, mid aspect. Short interval follow up recommended to exclude mass. STOMACH AND ABDOMINAL BOWEL: The stomach demonstrates no acute pathology. There is no evidence of bowel obstruction or free air. PERITONEUM AND RETROPERITONEUM: There is no lymphadenopathy appreciated. VASCULAR STRUCTURES: The abdominal aorta demonstrates no acute pathology . Atherosclerotic calcifications noted. CT PELVIS: PELVIC BOWEL: The appendix does not appear inflamed. PERITONEUM AND EXTRAPERITONEAL REGIONS: There is no pelvic sidewall lymphadenopathy. The inguinal regions demonstrate no acute pathology. No gluteal inflammatory changes or swelling appreciated by CT. BLADDER: The bladder demonstrate no acute pathology. OSSEOUS STRUCTURES: There are no focal suspicious lesions appreciated. IMPRESSION: Fatty infiltration of the liver. Left renal lesion as above, follow up recommended. Otherwise no acute pathology appreciated. Please correlate, follow-up recommended if ongoing clinical concern SL: MARJAN 09/23/2017 - - Read by: Bertha Shepherd MD Dictated Date/time: 09/23/17 21:11 Electronically Signed by: Bertha Shepherd MD 09/23/17 21:23 FINAL REPORT [facility] CARDIAC ENZYMES CK MB Index 1.4 0.0 - 2.5 09/07/2017 [facility] CARDIAC ENZYMES Troponin-I null 0.00 - 0.40 09/07/2017 [facility] CARDIAC ENZYMES CK MB 1.0 ng/mL 0.5 - 3.6 09/07/2017 [facility] CARDIAC ENZYMES Total CK 73 unit/L 12 - 191 09/07/2017 [facility] CARDIAC ENZYMES BNP 24 pg/mL <=100 pg/mL 09/07/2017 [facility] CHEM PANEL eGFR 122 mL/min/1.73m2 09/07/2017 Result Comment: The eGFR is calculated using the CKD-EPI formula. In most young, healthy individuals the eGFR will be >90 mL/min/1.73m2. The eGFR declines with age. An eGFR of 60-89 may be normal in some populations, particularly the elderly, for whom the CKD-EPI formula has not been extensively validated. Use of the eGFR is not recommended in the following populations: Individuals with unstable creatinine concentrations, including patients and those with serious co-morbid conditions. Patients with extremes in muscle mass or diet. The data above are obtained from the National Kidney Disease Education Program (NKDEP) which additionally recommends that when the eGFR is used in patients with extremes of body mass index for purposes of drug dosing, the eGFR should be multiplied by the estimated BMI. [facility] CHEM PANEL Chloride Lvl 105 meq/L 95 - 109 09/07/2017 [facility] CHEM PANEL Potassium Lvl 3.5 meq/L 3.5 - 5.1 09/07/2017 [facility] CHEM PANEL Sodium Lvl 142 meq/L 135 - 145 09/07/2017 [facility] CHEM PANEL CO2 30 meq/L 24 - 32 09/07/2017 [facility] CHEM PANEL BUN 9 mg/dL 7 - 22 09/07/2017 [facility] CHEM PANEL Glucose Lvl 92 mg/dL 70 - 99 09/07/2017 [facility] CHEM PANEL Creatinine Lvl 0.54 mg/dL 0.50 - 1.40 09/07/2017 [facility] CHEM PANEL Alk Phos 91 unit/L 39 - 136 09/07/2017 [facility] CHEM PANEL ALT 28 unit/L 0 - 65 09/07/2017 [facility] CHEM PANEL AST 21 unit/L 0 - 37 09/07/2017 [facility] CHEM PANEL Albumin Lvl 3.7 g/dL 3.5 - 5.0 09/07/2017 [facility] CHEM PANEL Total Protein 8.6 g/dL 6.4 - 8.4 09/07/2017 [facility] CHEM PANEL Calcium Lvl 9.0 mg/dL 8.5 - 10.5 09/07/2017 [facility] CHEM PANEL Globulin 4.9 g/dL 2.7 - 4.2 09/07/2017 [facility] CHEM PANEL A/G Ratio 0.8 0.7 - 1.6 09/07/2017 [facility] CHEM PANEL AGAP 10.5 meq/L 10.0 - 20.0 09/07/2017 [facility] CHEM PANEL B/C Ratio 17 6 - 25 09/07/2017 [facility] CHEM PANEL Bili Total 0.3 mg/dL 0.2 - 1.3 09/07/2017 [facility] HEMATOLOGY Eosinophils # 0.1 K/CMM 0.0 - 0.5 09/07/2017 [facility] HEMATOLOGY Monocytes # 0.8 K/CMM 0.0 - 0.8 09/07/2017 [facility] HEMATOLOGY Segs 55.0 % 45.0 - 75.0 09/07/2017 [facility] HEMATOLOGY Lymphocytes 36.0 % 20.0 - 40.0 09/07/2017 [facility] HEMATOLOGY Eosinophils 0.9 % 0.0 - 4.0 09/07/2017 [facility] HEMATOLOGY Basophils 0.5 % 0.0 - 1.0 09/07/2017 [facility] HEMATOLOGY Segs-Bands # 5.7 K/CMM 1.5 - 8.1 09/07/2017 [facility] HEMATOLOGY Lymphocytes # 3.7 K/CMM 1.0 - 5.5 09/07/2017 [facility] Monocytes 7.6 % 2.0 - 12.0 09/07/2017 [facility] INR 1.03 0.85 - 1.17 09/07/2017 [facility] PTT 40.1 s 22.9 - 35.8 09/07/2017 [facility] PT 13.5 s 12.0 - 14.7 09/07/2017 [facility] MCV 86.1 fL 80.0 - 98.0 09/07/2017 [facility] MCH 29.8 pg 27.0 - 31.0 09/07/2017 [facility] MCHC 34.6 g/dL 32.0 - 36.0 09/07/2017 [facility] Platelet 312 K/CMM 133 - 450 09/07/2017 [facility] RDW 14.1 % 11.5 - 14.5 09/07/2017 [facility] MPV 8.2 fL 7.4 - 10.4 09/07/2017 [facility] WBC 10.4 K/CMM 3.7 - 10.4 09/07/2017 [facility] Hct 35.4 % 36.0 - 48.0 09/07/2017 [facility] RBC 4.12 M/CMM 4.20 - 5.40 09/07/2017 [facility] Hgb 12.3 g/dL 12.0 - 16.0 09/07/2017 [facility] Chest Pulmonary Embolism CTA Chest Pulmonary Embolism CTA Patient Name: GEETA CHAVARRIA : 1960; Age: 57 years y/o Female MR: [id number] Study: Chest Pulmonary Embolism CTA 09/06/2017 11:05 PM CDT Ordering Physician: Todd Mcdowell Clinical Indication: - SOB, leg pain and swelling. Comparison: 06/01/17 TECHNIQUE: Sequential trans-axial images were obtained thru the chest and upper abdomen after administration of iodinated contrast. Coronal, sagittal and MIP reconstructions were obtained. 100 mL of Omnipaque intravenously were used for the exam. Dose: PYK=391.39 mGy-cm FINDINGS: LUNG PARENCHYMA AND PLEURA: The lungs are notable for some subsegmental atelectasis and scarring. There are no pleural effusions. There is no pneumothorax. AIRWAY: The central airway is demonstrates no acute pathology.[ MEDIASTINUM: No significant mediastinal lymphadenopathy. 19mm posterior left thyroid nodule vs parathyroid nodule. Non emergent ultrasound follow up recommended. HEART: There is no evidence of RV strain. The cardiac chambers are otherwise unremarkable. There is no pericardial effusion. VASCULAR STRUCTURES: There are no filling defects appreciated to suggest PE. The great vessels are unremarkable. The thoracic aorta demonstrates no aneurysm or dissection. The superior vena cava is unremarkable. OSSEOUS STRUCTURES: There are no definite significant osseous abnormalities seen. VISUALIZED UPPER ABDOMEN: Included portions of the upper abdomen demonstrate no acute pathology. The liver appears fatty infiltrated. IMPRESSION: Subsegmental atelectasis/scarring, otherwise no PE or other acute pathology appreciated. 19mm left thyroid vs parathyroid nodule, follow up recommended as above. Fatty infiltration of the liver. SL: MARJAN 09/07/2017 - - Read by: Bertha Shepherd MD Dictated Date/time: 09/07/17 01:41 Electronically Signed by: Bertha Shepherd MD 09/07/17 01:48 FINAL REPORT [facility] Ext Lower Venous Doppler Unilat US Ext Lower Venous Doppler Unilat US Clinical Indication: Pain, Limb - pain and swelling Comparison: None TECHNIQUE: Sonographic venous evaluation of the left lower extremity was performed using high resolution B-mode imaging, along with pulse and color Doppler imaging. FINDINGS: Left lower extremity: The common femoral vein, femoral vein, popliteal vein and visualized posterior tibial/calf veins are patent. There is no echogenic debris to suggest deep venous thrombosis. Incidental note is made of a left groin lymph node measuring 8 mm in short axis. IMPRESSION: 1. No sonographic evidence of DVT within the left lower extremity. 2. Left groin lymphadenopathy. SL: YE 09/06/2017 - - Read by: George Bach MD Dictated Date/time: 09/06/17 23:01 Electronically Signed by: George Bach MD 09/06/17 23:03 FINAL REPORT [facility] Chest 1view DX Chest 1view DX Clinical Indication: Chest pain - SOB Comparison: 05/31/2017 FINDINGS: Single AP view of the chest is submitted for interpretation. There is mild pulmonary vascular congestion. The lungs are otherwise clear and there are no effusions. There is no visible pneumothorax. Cardiomediastinal contours are stable. No gross bony normalities are identified. IMPRESSION: 1. Mild pulmonary vascular congestion. SL: [id number] 09/06/2017 - - Read by: George Bach MD Dictated Date/time: 09/06/17 22:37 Electronically Signed by: George Bach MD 09/06/17 22:37 FINAL REPORT [facility] VIRAL - SEROLOGY Influ A Negative (06/01/17 2:56 AM) Negative 06/01/2017 [facility] VIRAL - SEROLOGY Influ B Negative (06/01/17 2:56 AM) Negative 06/01/2017 [facility] [facility] HEMATOLOGY D-Dimer 0.73 ug/mL FEU 06/01/2017 [facility] HEMATOLOGY PT 12.9 s 12.0 - 14.7 06/01/2017 [facility] HEMATOLOGY INR 0.97 0.85 - 1.17 06/01/2017 [facility] HEMATOLOGY PTT 36.5 s 22.9 - 35.8 06/01/2017 [facility] URINE AND STOOL UA Mucus Few /LPF None Seen /LPF 06/01/2017 [facility] URINE AND STOOL UA Leuk Est Negative (06/01/17 1:24 AM) Negative 06/01/2017 [facility] URINE AND STOOL UA WBC 1 /HPF 0 - 5 06/01/2017 [facility] URINE AND STOOL UA Sq Epi Occasional /LPF Few /LPF 06/01/2017 [facility] URINE AND STOOL UA Nitrite Negative (06/01/17 1:24 AM) Negative 06/01/2017 [facility] URINE AND STOOL UA Urobilinogen 4.0 mg/dL 0.1 - 1.0 06/01/2017 [facility] URINE AND STOOL UA Bacteria Occasional /HPF None Seen /HPF 06/01/2017 [facility] URINE AND STOOL UA RBC 5 /HPF 0 - 2 06/01/2017 [facility] URINE AND STOOL UA Color Yellow *NA* (06/01/17 1:24 AM) Yellow 06/01/2017 [facility] URINE AND STOOL UA Bili Negative *NA* (06/01/17 1:24 AM) Negative 06/01/2017 [facility] URINE AND STOOL UA Blood Small *ABN* (06/01/17 1:24 AM) Negative 06/01/2017 [facility] URINE AND STOOL UA Ketones Negative mg/dL Negative mg/dL 06/01/2017 [facility] URINE AND STOOL UA Spec Grav 1.027 <=1.030 06/01/2017 [facility] URINE AND STOOL UA Protein 30 mg/dL Negative mg/dL 06/01/2017 [facility] URINE AND STOOL UA pH 5.0 5.0 - 8.0 06/01/2017 [facility] URINE AND STOOL UA Glucose Negative mg/dL Negative mg/dL 06/01/2017 [facility] URINE AND STOOL UA Turbidity Clear (06/01/17 1:24 AM) Clear 06/01/2017 [facility] Chest Pulmonary Embolism CTA Chest Pulmonary Embolism CTA CTA chest with contrast Clinical Indication: Shortness of breath and tachycardia. Comparison: 03/09/2015. TECHNIQUE: CTA of the pulmonary arteries was performed with 100 cc Omnipaque intravenous contrast. Helical imaging performed apices to the lung bases. Multiplanar reconstructions were obtained. 3-D postprocessing reconstruction MIP imaging was performed. CT imaging was performed with exposure control parameters to reduce radiation dose. CT Radiation Dose DLP: 687.81 mGy-cm FINDINGS: Heart size is normal. No pericardial effusion. Thoracic aorta is of normal caliber. There is no evidence of pulmonary embolism. No lymphadenopathy. Lungs are clear with no pneumonic consolidation. Mild scattered subsegmental atelectasis. Stable subcentimeter nodules in the right upper lobe, likely postinflammatory in nature. No pleural effusion or pneumothorax. Visualized upper abdomen demonstrates fatty infiltration of liver. IMPRESSION: No acute cardiopulmonary abnormality. Specifically, there is no evidence of pulmonary embolism. Hepatic steatosis. 06/01/2017 - - Read by: Susan Reina MD Dictated Date/time: 06/01/17 04:05 Electronically Signed by: Susan Reina MD 06/01/17 04:16 FINAL REPORT [facility] Ext Lower Venous Doppler Unilat US Ext Lower Venous Doppler Unilat US Exam: Left lower extremity venous Doppler Clinical Indication: - pain and swelling. Comparison: None. TECHNIQUE: Sonographic evaluation of the lower extremity veins was performed using high resolution B-mode imaging, along with pulse and color Doppler imaging. FINDINGS: The common femoral vein, superficial femoral vein, popliteal vein and visualized posterior tibial/calf veins are patent. There is no echogenic debris to suggest deep venous thrombosis. The saphenofemoral junction is unremarkable. IMPRESSION: 1. No deep venous thrombosis of the left lower extremity. SL: GATO 06/01/2017 - - Read by: Susan Reina MD Dictated Date/time: 06/01/17 02:19 Electronically Signed by: Susan Reina MD 06/01/17 02:20 FINAL REPORT [facility] CHEM PANEL Globulin 5.5 g/dL 2.7 - 4.2 05/31/2017 [facility] CHEM PANEL AGAP 8.6 meq/L 10.0 - 20.0 05/31/2017 [facility] CHEM PANEL B/C Ratio 15 6 - 25 05/31/2017 [facility] CHEM PANEL A/G Ratio 0.7 0.7 - 1.6 05/31/2017 [facility] CHEM PANEL eGFR 107 mL/min/1.73m2 05/31/2017 Result Comment: The eGFR is calculated using the CKD-EPI formula. In most young, healthy individuals the eGFR will be >90 mL/min/1.73m2. The eGFR declines with age. An eGFR of 60-89 may be normal in some populations, particularly the elderly, for whom the CKD-EPI formula has not been extensively validated. Use of the eGFR is not recommended in the following populations: Individuals with unstable creatinine concentrations, including patients and those with serious co-morbid conditions. Patients with extremes in muscle mass or diet. The data above are obtained from the National Kidney Disease Education Program (NKDEP) which additionally recommends that when the eGFR is used in patients with extremes of body mass index for purposes of drug dosing, the eGFR should be multiplied by the estimated BMI. [facility] CHEM PANEL Alk Phos 106 unit/L 39 - 136 05/31/2017 [facility] CHEM PANEL AST 32 unit/L 0 - 37 05/31/2017 [facility] CHEM PANEL ALT 33 unit/L 0 - 65 05/31/2017 [facility] CHEM PANEL Bili Total 0.5 mg/dL 0.2 - 1.3 05/31/2017 [facility] CHEM PANEL Sodium Lvl 136 meq/L 135 - 145 05/31/2017 [facility] CHEM PANEL Potassium Lvl 3.6 meq/L 3.5 - 5.1 05/31/2017 [facility] CHEM PANEL Creatinine Lvl 0.73 mg/dL 0.50 - 1.40 05/31/2017 [facility] CHEM PANEL CO2 30 meq/L 24 - 32 05/31/2017 [facility] CHEM PANEL BUN 11 mg/dL 7 - 22 05/31/2017 [facility] CHEM PANEL Chloride Lvl 101 meq/L 95 - 109 05/31/2017 [facility] CHEM PANEL Glucose Lvl 106 mg/dL 70 - 99 05/31/2017 [facility] CHEM PANEL Albumin Lvl 4.1 g/dL 3.5 - 5.0 05/31/2017 [facility] CHEM PANEL Total Protein 9.6 g/dL 6.4 - 8.4 05/31/2017 [facility] CHEM PANEL Calcium Lvl 8.9 mg/dL 8.5 - 10.5 05/31/2017 [facility] Segs-Bands # 3.3 K/CMM 1.5 - 8.1 05/31/2017 [facility] Lymphocytes # 1.4 K/CMM 1.0 - 5.5 05/31/2017 [facility] Monocytes # 0.9 K/CMM 0.0 - 0.8 05/31/2017 [facility] Segs 57.9 % 45.0 - 75.0 05/31/2017 [facility] Basophils 0.7 % 0.0 - 1.0 05/31/2017 [facility] Eosinophils 0.3 % 0.0 - 4.0 05/31/2017 [facility] Monocytes 16.4 % 2.0 - 12.0 05/31/2017 [facility] Lymphocytes 24.7 % 20.0 - 40.0 05/31/2017 [facility] Hct 38.9 % 36.0 - 48.0 05/31/2017 [facility] Hgb 13.6 g/dL 12.0 - 16.0 05/31/2017 [facility] RBC 4.46 M/CMM 4.20 - 5.40 05/31/2017 [facility] MPV 8.4 fL 7.4 - 10.4 05/31/2017 [facility] Platelet 311 K/CMM 133 - 450 05/31/2017 [facility] RDW 14.2 % 11.5 - 14.5 05/31/2017 [facility] WBC 5.7 K/CMM 3.7 - 10.4 05/31/2017 [facility] MCHC 34.9 g/dL 32.0 - 36.0 05/31/2017 [facility] MCH 30.5 pg 27.0 - 31.0 05/31/2017 [facility] MCV 87.2 fL 80.0 - 98.0 05/31/2017 [facility] Chest 2 views DX Chest 2 views DX Clinical Indication: - sob. Comparison: 12/04/2016 FINDINGS: PA and lateral chest radiographs were obtained. MEDIASTINUM: The cardiac silhouette is normal in size. The aorta is unremarkable. LUNGS: The lungs are clear. No pleural effusion or pneumothorax. OTHER: No acute osseous abnormalities. IMPRESSION: No acute cardiopulmonary abnormality identified. SL: [id number] 05/31/2017 - - Read by: Todd Pedroza MD Dictated Date/time: 05/31/17 17:51 Electronically Signed by: Todd Pedroza MD 05/31/17 17:52 FINAL REPORT [facility] CARDIAC ENZYMES CK MB Index 0.7 0.0 - 2.5 12/04/2016 [facility] CARDIAC ENZYMES Total CK 124 unit/L 12 - 191 12/04/2016 [facility] CARDIAC ENZYMES CK MB 0.9 ng/mL 0.5 - 3.6 12/04/2016 [facility] CARDIAC ENZYMES Troponin-I null 0.00 - 0.40 12/04/2016 [facility] CHEM PANEL ALT 35 unit/L 0 - 65 12/04/2016 [facility] CHEM PANEL AST 25 unit/L 0 - 37 12/04/2016 [facility] CHEM PANEL Alk Phos 96 unit/L 39 - 136 12/04/2016 [facility] CHEM PANEL AGAP 6.3 meq/L 10.0 - 20.0 12/04/2016 [facility] CHEM PANEL Bili Total 0.6 mg/dL 0.2 - 1.3 12/04/2016 [facility] CHEM PANEL B/C Ratio 10 6 - 25 12/04/2016 [facility] CHEM PANEL Globulin 5.1 g/dL 2.7 - 4.2 12/04/2016 [facility] CHEM PANEL A/G Ratio 0.7 0.7 - 1.6 12/04/2016 [facility] CHEM PANEL eGFR 113 mL/min/1.73m2 12/04/2016 Result Comment: The eGFR is calculated using the CKD-EPI formula. In most young, healthy individuals the eGFR will be >90 mL/min/1.73m2. The eGFR declines with age. An eGFR of 60-89 may be normal in some populations, particularly the elderly, for whom the CKD-EPI formula has not been extensively validated. Use of the eGFR is not recommended in the following populations: Individuals with unstable creatinine concentrations, including patients and those with serious co-morbid conditions. Patients with extremes in muscle mass or diet. The data above are obtained from the National Kidney Disease Education Program (NKDEP) which additionally recommends that when the eGFR is used in patients with extremes of body mass index for purposes of drug dosing, the eGFR should be multiplied by the estimated BMI. [facility] CHEM PANEL Creatinine Lvl 0.70 mg/dL 0.50 - 1.40 12/04/2016 [facility] CHEM PANEL Sodium Lvl 136 meq/L 135 - 145 12/04/2016 [facility] CHEM PANEL Potassium Lvl 3.3 meq/L 3.5 - 5.1 12/04/2016 [facility] CHEM PANEL Chloride Lvl 100 meq/L 95 - 109 12/04/2016 [facility] CHEM PANEL CO2 33 meq/L 24 - 32 12/04/2016 [facility] CHEM PANEL Calcium Lvl 9.3 mg/dL 8.5 - 10.5 12/04/2016 [facility] CHEM PANEL Total Protein 8.8 g/dL 6.4 - 8.4 12/04/2016 [facility] CHEM PANEL Albumin Lvl 3.7 g/dL 3.5 - 5.0 12/04/2016 [facility] CHEM PANEL Glucose Lvl 111 mg/dL 70 - 99 12/04/2016 [facility] CHEM PANEL BUN 7 mg/dL 7 - 22 12/04/2016 [facility] Segs 45.4 % 45.0 - 75.0 12/04/2016 [facility] Monocytes # 0.9 K/CMM 0.0 - 0.8 12/04/2016 [facility] Lymphocytes # 4.3 K/CMM 1.0 - 5.5 12/04/2016 [facility] Segs-Bands # 4.5 K/CMM 1.5 - 8.1 12/04/2016 [facility] HEMATOLOGY Eosinophils # 0.1 K/CMM 0.0 - 0.5 12/04/2016 [facility] Lymphocytes 43.7 % 20.0 - 40.0 12/04/2016 [facility] HEMATOLOGY Monocytes 9.5 % 2.0 - 12.0 12/04/2016 [facility] HEMATOLOGY Basophils 0.4 % 0.0 - 1.0 12/04/2016 [facility] Eosinophils 1.0 % 0.0 - 4.0 12/04/2016 [facility] MCHC 34.1 g/dL 32.0 - 36.0 12/04/2016 [facility] RDW 14.3 % 11.5 - 14.5 12/04/2016 [facility] MPV 8.4 fL 7.4 - 10.4 12/04/2016 [facility] HEMATOLOGY Platelet 338 K/CMM 133 - 450 12/04/2016 [facility] HEMATOLOGY Hct 38.9 % 36.0 - 48.0 12/04/2016 [facility] HEMATOLOGY MCV 86.9 fL 80.0 - 98.0 12/04/2016 [facility] HEMATOLOGY MCH 29.7 pg 27.0 - 31.0 12/04/2016 [facility] HEMATOLOGY Hgb 13.3 g/dL 12.0 - 16.0 12/04/2016 [facility] HEMATOLOGY WBC 9.9 K/CMM 3.7 - 10.4 12/04/2016 [facility] HEMATOLOGY RBC 4.47 M/CMM 4.20 - 5.40 12/04/2016 [facility] URINE AND STOOL UA Color Ltyellow 12/04/2016 [facility] URINE AND STOOL UA Urobilinogen <=1.0 mg/dL 0.1 - 1.0 12/04/2016 [facility] URINE AND STOOL UA Bili Negative *NA* (12/04/16 4:09 AM) Negative 12/04/2016 [facility] URINE AND STOOL UA Glucose Negative mg/dL Negative mg/dL 12/04/2016 [facility] URINE AND STOOL UA Protein Negative mg/dL Negative mg/dL 12/04/2016 [facility] URINE AND STOOL UA Spec Grav 1.014 <=1.030 12/04/2016 [facility] URINE AND STOOL UA Blood Small *ABN* (12/04/16 4:09 AM) Negative 12/04/2016 [facility] URINE AND STOOL UA pH 5.0 5.0 - 8.0 12/04/2016 [facility] URINE AND STOOL UA Leuk Est Negative (12/04/16 4:09 AM) Negative 12/04/2016 [facility] URINE AND STOOL UA WBC 1 /HPF 0 - 5 12/04/2016 [facility] URINE AND STOOL UA RBC 2 /HPF 0 - 2 12/04/2016 [facility] URINE AND STOOL UA Ketones Negative mg/dL Negative mg/dL 12/04/2016 [facility] URINE AND STOOL UA Sq Epi Occasional /LPF Few /LPF 12/04/2016 [facility] URINE AND STOOL UA Nitrite Negative (12/04/16 4:09 AM) Negative 12/04/2016 [facility] URINE AND STOOL UA Turbidity Clear (12/04/16 4:09 AM) Clear 12/04/2016 [facility] Brain wo contrast CT Brain wo contrast CT Agree with findings on initial CT head report. No report changes are made. Agree with findings on initial CT head report. No report changes are made. Agree with findings on initial CT head report. No report changes are made. Agree with findings on initial CT head report. No report changes are made. Clinical Indication: CT dose DLP 981.77 mGy-cm - dizzy Comparison: 04/10/2014 TECHNIQUE: CT images were obtained from the foramen magnum to the vertex without the use of intravenous contrast on a multidetector CT. Coronal and sagittal reconstructions were obtained. CT radiation dose DLP: 981.77 mGy-cm FINDINGS: BRAIN PARENCHYMA:Partial empty sella turcica incidentally noted. Age appropriate involutionary changes with mild small vessel ischemic changes. There are otherwise normal nava-white interfaces, sulci and gyri. There are no focal mass lesions on this noncontrast head CT. There is no mass effect, midline shift or edema. There are no intra-axial or extra-axial fluid collections, intraventricular or intraparenchymal hemorrhage. The pineal, sellar, brainstem, cerebellum and skull base regions appear unremarkable. VENTRICLES: The lateral ventricles, third and fourth ventricles appear unremarkable. The basilar cisterns are normal. ORBITS, MASTOIDS AND PARANASAL SINUSES: The visualized orbits and paranasal sinuses are otherwise unremarkable. The mastoid air cells are unopacified. SKULL: There are no osseous abnormalities. If there is further concern for intracranial pathology or acute stroke, MRI of the brain may be performed for complete assessment. IMPRESSION: 1. Age appropriate involutionary changes with mild small vessel ischemic changes. 2. Partial empty sella turcica incidentally noted, stable. SL: BROOKE 12/04/2016 - - Read by: Lacey Schuster MD Dictated Date/time: 12/04/16 06:18 Electronically Signed by: Lacey Schuster MD 12/04/16 06:21 FINAL REPORT - - Read by: Lacey Schuster MD Dictated Date/time: 12/04/16 06:18 Electronically Signed by: Lacey Schuster MD 12/04/16 06:21 FINAL REPORT - - Read by: Lacey Schuster MD Dictated Date/time: 07/18/17 06:18 Electronically Signed by: Lacey Schuster MD 12/04/16 06:21 FINAL REPORT - - Read by: [id number] -UNKNOWN, DOCTOR Dictated Date/time: 12/04/16 06:18 Electronically Signed by: [id number] -UNKNOWN, DOCTOR 12/04/16 06:21 FINAL REPORT - - Read by: De Mckeon DO Dictated Date/time: 12/04/16 05:58 Electronically Signed by: De Mckeon DO 12/04/16 06:14 FINAL REPORT [facility] Chest 1view DX Chest 1view DX Chest, single view dated 12/04/2016. HISTORY: Dizziness. Comparison is made to a prior study dated 09/27/2015. The heart is normal in size. The cardiomediastinal shadow is stable. The lungs appear clear of acute disease. Linear scarring or subsegmental atelectasis is identified in both lung bases. The pulmonary vasculature is normal in caliber. No acute pleural space abnormalities are detected. IMPRESSION: 1. No radiographic evidence of acute cardiopulmonary disease. SL: 131 12/04/2016 - - Read by: Olivier Parker MD Dictated Date/time: 12/04/16 00:38 Electronically Signed by: Olivier Parker MD 12/04/16 00:39 FINAL REPORT [facility] CHEM PANEL eGFR 107 mL/min/1.73m2 11/23/2016 Result Comment: The eGFR is calculated using the CKD-EPI formula. In most young, healthy individuals the eGFR will be >90 mL/min/1.73m2. The eGFR declines with age. An eGFR of 60-89 may be normal in some populations, particularly the elderly, for whom the CKD-EPI formula has not been extensively validated. Use of the eGFR is not recommended in the following populations: Individuals with unstable creatinine concentrations, including patients and those with serious co-morbid conditions. Patients with extremes in muscle mass or diet. The data above are obtained from the National Kidney Disease Education Program (NKDEP) which additionally recommends that when the eGFR is used in patients with extremes of body mass index for purposes of drug dosing, the eGFR should be multiplied by the estimated BMI. [facility] CHEM PANEL CO2 29 meq/L 24 - 32 11/23/2016 [facility] CHEM PANEL Calcium Lvl 9.0 mg/dL 8.5 - 10.5 11/23/2016 [facility] CHEM PANEL Chloride Lvl 102 meq/L 95 - 109 11/23/2016 [facility] CHEM PANEL Glucose Lvl 109 mg/dL 70 - 99 11/23/2016 [facility] CHEM PANEL BUN 8 mg/dL 7 - 22 11/23/2016 [facility] CHEM PANEL Creatinine Lvl 0.73 mg/dL 0.50 - 1.40 11/23/2016 [facility] CHEM PANEL Sodium Lvl 136 meq/L 135 - 145 11/23/2016 [facility] CHEM PANEL Potassium Lvl 4.3 meq/L 3.5 - 5.1 11/23/2016 [facility] CHEM PANEL AGAP 9.3 meq/L 10.0 - 20.0 11/23/2016 [facility] CHEM PANEL Procalcitonin Lvl <0.05 ng/mL 0.00 - 0.10 11/23/2016 [facility] ENDOCRINOLOGY S Preg Negative *NA* (11/23/16 4:15 AM) Negative 11/23/2016 [facility] HEMATOLOGY Basophils # 0.1 K/CMM 0.0 - 0.2 11/23/2016 [facility] HEMATOLOGY Eosinophils # 0.1 K/CMM 0.0 - 0.5 11/23/2016 [facility] HEMATOLOGY Monocytes # 0.8 K/CMM 0.0 - 0.8 11/23/2016 [facility] HEMATOLOGY Segs 50.0 % 45.0 - 75.0 11/23/2016 [facility] Lymphocytes 39.8 % 20.0 - 40.0 11/23/2016 [facility] HEMATOLOGY Segs-Bands # 4.5 K/CMM 1.5 - 8.1 11/23/2016 [facility] HEMATOLOGY Basophils 0.6 % 0.0 - 1.0 11/23/2016 [facility] HEMATOLOGY Lymphocytes # 3.6 K/CMM 1.0 - 5.5 11/23/2016 [facility] HEMATOLOGY Monocytes 8.7 % 2.0 - 12.0 11/23/2016 [facility] HEMATOLOGY Eosinophils 0.9 % 0.0 - 4.0 11/23/2016 [facility] MCHC 34.8 g/dL 32.0 - 36.0 11/23/2016 [facility] HEMATOLOGY RDW 14.4 % 11.5 - 14.5 11/23/2016 [facility] MCH 30.1 pg 27.0 - 31.0 11/23/2016 [facility] HEMATOLOGY MPV 8.2 fL 7.4 - 10.4 11/23/2016 [facility] HEMATOLOGY Platelet 333 K/CMM 133 - 450 11/23/2016 [facility] HEMATOLOGY WBC 9.0 K/CMM 3.7 - 10.4 11/23/2016 [facility] HEMATOLOGY RBC 4.07 M/CMM 4.20 - 5.40 11/23/2016 [facility] HEMATOLOGY MCV 86.5 fL 80.0 - 98.0 11/23/2016 [facility] HEMATOLOGY Hgb 12.2 g/dL 12.0 - 16.0 11/23/2016 [facility] HEMATOLOGY Hct 35.2 % 36.0 - 48.0 11/23/2016 [facility] URINE AND STOOL UA Color Ltyellow 11/23/2016 [facility] URINE AND STOOL UA WBC 1 /HPF 0 - 5 11/23/2016 [facility] URINE AND STOOL UA RBC 1 /HPF 0 - 2 11/23/2016 [facility] URINE AND STOOL UA Sq Epi Occasional /LPF Few /LPF 11/23/2016 [facility] URINE AND STOOL UA Urobilinogen 2.0 mg/dL 0.1 - 1.0 11/23/2016 [facility] URINE AND STOOL UA Nitrite Negative (11/23/16 4:06 AM) Negative 11/23/2016 [facility] URINE AND STOOL UA Leuk Est Negative (11/23/16 4:06 AM) Negative 11/23/2016 [facility] URINE AND STOOL UA Bili Negative *NA* (11/23/16 4:06 AM) Negative 11/23/2016 [facility] URINE AND STOOL UA Blood Small *ABN* (11/23/16 4:06 AM) Negative 11/23/2016 [facility] URINE AND STOOL UA Glucose Negative mg/dL Negative mg/dL 11/23/2016 [facility] URINE AND STOOL UA Ketones Negative mg/dL Negative mg/dL 11/23/2016 [facility] URINE AND STOOL UA Spec Grav 1.013 <=1.030 11/23/2016 [facility] URINE AND STOOL UA pH 6.0 5.0 - 8.0 11/23/2016 [facility] URINE AND STOOL UA Protein Negative mg/dL Negative mg/dL 11/23/2016 [facility] URINE AND STOOL UA Turbidity Clear (11/23/16 4:06 AM) Clear 11/23/2016 [facility] URINE CHEM U Preg Negative (11/23/16 4:06 AM) Negative 11/23/2016 [facility] Spine lumbar w contrast CT Spine lumbar w contrast CT EXAM: CT lumbar spine HISTORY: Back surgery, low back pain, possible abscess COMPARISON: CT 04/11/2014 TECHNIQUE: Axial images with sagittal and coronal reformats. IV contrast. DLP 951 FINDINGS: Interval left hemilaminectomy with pedicle screws and intervertebral bone graft L4-L5. No appreciable abscess. An MRI with contrast is advised to better evaluate. Disc osteophyte complexes at L4-L5 and L5-S1. Diffuse facet arthrosis, canal and neuroforaminal stenosis. Incidental note of fatty liver. 13 11/23/2016 - - Read by: Nick Coffey MD Dictated Date/time: 11/23/16 07:13 Electronically Signed by: Nick Coffey MD 11/23/16 07:57 FINAL REPORT [facility] URINE AND STOOL UA Sq Epi Occasional /LPF Few /LPF 02/25/2016 [facility] URINE AND STOOL UA WBC 2 /HPF 0 - 5 02/25/2016 [facility] URINE AND STOOL UA RBC 5 /HPF 0 - 2 02/25/2016 [facility] URINE AND STOOL UA Mucus Few /LPF None Seen /LPF 02/25/2016 [facility] URINE AND STOOL UA Urobilinogen <=1.0 mg/dL 0.1 - 1.0 02/25/2016 [facility] URINE AND STOOL UA Ketones Negative mg/dL Negative mg/dL 02/25/2016 [facility] URINE AND STOOL UA Bili Negative *NA* (02/25/16 6:09 PM) Negative 02/25/2016 [facility] URINE AND STOOL UA Blood Small *ABN* (02/25/16 6:09 PM) Negative 02/25/2016 [facility] URINE AND STOOL UA Nitrite Negative (02/25/16 6:09 PM) Negative 02/25/2016 [facility] URINE AND STOOL UA Leuk Est Negative (02/25/16 6:09 PM) Negative 02/25/2016 [facility] URINE AND STOOL UA Turbidity Clear (02/25/16 6:09 PM) Clear 02/25/2016 [facility] URINE AND STOOL UA Spec Grav 1.021 <=1.030 02/25/2016 [facility] URINE AND STOOL UA Protein Negative mg/dL Negative mg/dL 02/25/2016 [facility] URINE AND STOOL UA pH 5.0 5.0 - 8.0 02/25/2016 [facility] URINE AND STOOL UA Glucose Negative mg/dL Negative mg/dL 02/25/2016 [facility] URINE AND STOOL UA Color Yellow *NA* (02/25/16 6:09 PM) Yellow 02/25/2016 [facility] URINE CHEM U Preg Negative (02/25/16 6:09 PM) Negative 02/25/2016 [facility] ELECTROLYTES AGAP 9.9 meq/L 10.0 - 20.0 09/27/2015 [facility] ELECTROLYTES Globulin 4.9 g/dL 2.0 - 4.0 09/27/2015 [facility] ELECTROLYTES B/C Ratio 11 6 - 25 09/27/2015 [facility] ELECTROLYTES A/G Ratio 0.8 0.7 - 1.6 09/27/2015 [facility] ELECTROLYTES Glucose Lvl 123 mg/dL 70 - 99 09/27/2015 [facility] ELECTROLYTES Creatinine Lvl 0.74 mg/dL 0.50 - 1.40 09/27/2015 [facility] ELECTROLYTES BUN 8 mg/dL 7 - 22 09/27/2015 [facility] ELECTROLYTES eGFR 107 mL/min/1.73m2 09/27/2015 Result Comment: The eGFR is calculated using the CKD-EPI formula. In most young, healthy individuals the eGFR will be >90 mL/min/1.73m2. The eGFR declines with age. An eGFR of 60-89 may be normal in some populations, particularly the elderly, for whom the CKD-EPI formula has not been extensively validated. Use of the eGFR is not recommended in the following populations: Individuals with unstable creatinine concentrations, including patients and those with serious co-morbid conditions. Patients with extremes in muscle mass or diet. The data above are obtained from the National Kidney Disease Education Program (NKDEP) which additionally recommends that when the eGFR is used in patients with extremes of body mass index for purposes of drug dosing, the eGFR should be multiplied by the estimated BMI. [facility] ELECTROLYTES Bili Total 0.3 mg/dL 0.2 - 1.3 09/27/2015 [facility] ELECTROLYTES Albumin Lvl 3.7 g/dL 3.5 - 5.0 09/27/2015 [facility] [facility] ELECTROLYTES Total Protein 8.6 g/dL 6.4 - 8.4 09/27/2015 [facility] ELECTROLYTES AST 20 unit/L 0 - 37 09/27/2015 [facility] ELECTROLYTES ALT 34 unit/L 0 - 65 09/27/2015 [facility] ELECTROLYTES Alk Phos 97 unit/L 39 - 136 09/27/2015 [facility] ELECTROLYTES Sodium Lvl 138 meq/L 135 - 145 09/27/2015 [facility] ELECTROLYTES Chloride Lvl 105 meq/L 95 - 109 09/27/2015 [facility] ELECTROLYTES Potassium Lvl 3.9 meq/L 3.5 - 5.1 09/27/2015 [facility] ELECTROLYTES Calcium Lvl 9.1 mg/dL 8.5 - 10.5 09/27/2015 [facility] ELECTROLYTES CO2 27 meq/L 24 - 32 09/27/2015 [facility] HEMATOLOGY Monocytes # 0.7 K/CMM 0.0 - 0.8 09/27/2015 [facility] HEMATOLOGY Eosinophils # 0.1 K/CMM 0.0 - 0.5 09/27/2015 [facility] HEMATOLOGY Lymphocytes 43.2 % 20.0 - 40.0 09/27/2015 [facility] HEMATOLOGY Monocytes 7.9 % 2.0 - 12.0 09/27/2015 [facility] HEMATOLOGY Segs 47.0 % 45.0 - 75.0 09/27/2015 [facility] HEMATOLOGY Segs-Bands # 4.0 K/CMM 1.5 - 8.1 09/27/2015 [facility] HEMATOLOGY Lymphocytes # 3.7 K/CMM 1.0 - 5.5 09/27/2015 [facility] HEMATOLOGY Basophils 0.4 % 0.0 - 1.0 09/27/2015 [facility] HEMATOLOGY Eosinophils 1.5 % 0.0 - 4.0 09/27/2015 [facility] HEMATOLOGY Platelet 320 K/CMM 133 - 450 09/27/2015 [facility] HEMATOLOGY MCHC 33.2 g/dL 32.0 - 36.0 09/27/2015 [facility] HEMATOLOGY RDW 14.4 % 11.5 - 14.5 09/27/2015 [facility] HEMATOLOGY MPV 8.5 fL 7.4 - 10.4 09/27/2015 [facility] HEMATOLOGY MCV 87.6 fL 80.0 - 98.0 09/27/2015 [facility] HEMATOLOGY Hct 38.6 % 36.0 - 48.0 09/27/2015 [facility] HEMATOLOGY MCH 29.1 pg 27.0 - 31.0 09/27/2015 [facility] HEMATOLOGY WBC 8.5 K/CMM 3.7 - 10.4 09/27/2015 [facility] HEMATOLOGY RBC 4.41 M/CMM 4.20 - 5.40 09/27/2015 [facility] HEMATOLOGY Hgb 12.8 g/dL 12.0 - 16.0 09/27/2015 [facility] URINE AND STOOL UA Urobilinogen <=1.0 mg/dL 0.1 - 1.0 09/27/2015 [facility] URINE AND STOOL UA Color Ltyellow 09/27/2015 [facility] URINE AND STOOL UA Sq Epi Occasional /LPF Few /LPF 09/27/2015 [facility] URINE AND STOOL UA WBC 1 /HPF 0 - 5 09/27/2015 [facility] URINE AND STOOL UA RBC 2 /HPF 0 - 2 09/27/2015 [facility] URINE AND STOOL UA Leuk Est Negative (09/27/15 2:58 AM) Negative 09/27/2015 [facility] URINE AND STOOL UA Ketones Negative mg/dL Negative mg/dL 09/27/2015 [facility] URINE AND STOOL UA Glucose Negative mg/dL Negative mg/dL 09/27/2015 [facility] URINE AND STOOL UA Bili Negative *NA* (09/27/15 2:58 AM) Negative 09/27/2015 [facility] URINE AND STOOL UA Blood Negative (09/27/15 2:58 AM) Negative 09/27/2015 [facility] URINE AND STOOL UA Nitrite Negative (09/27/15 2:58 AM) Negative 09/27/2015 [facility] URINE AND STOOL UA Spec Grav 1.013 <=1.030 09/27/2015 [facility] URINE AND STOOL UA Turbidity Clear (09/27/15 2:58 AM) Clear 09/27/2015 [facility] URINE AND STOOL UA pH 5.0 5.0 - 8.0 09/27/2015 [facility] URINE AND STOOL UA Protein Negative mg/dL Negative mg/dL 09/27/2015 [facility] Chest 1view DX Chest 1view DX Portable chest: The cardiac silhouette and pulmonary vasculature are within normal limits.There is mild right basilar subsegmental atelectasis, unchanged compared to 08/23/2015. The lungs and pleural spaces are otherwiseclear. . IMPRESSION: No acute radiographic abnormality in the chest. [id number] 09/27/2015 - - Read by: Quentin Ames MD Dictated Date/time: 09/27/15 03:00 Electronically Signed by: Quentin Ames MD 09/27/15 03:01 FINAL REPORT [facility] Ext Lower Venous Doppler Unilat US Ext Lower Venous Doppler Unilat US Patient Name: GEETA CHAVARRIA : 1960; Age: 55 years y/o Female MR: [id number] Study: Ext Lower Venous Doppler Unilat US 08/23/2015 10:00 PM CDT Ordering Physician: Jodee Ferraro DO Clinical Indication: Right lower extremity swelling. Comparison: None FINDINGS: Compression duplex ultrasound of the right lower extremity was done from the inguinal through the infrageniculate popliteal region. The visualized superficial and deep veins are patent and compressible without evidence of intraluminal thrombus. Satisfactory spontaneous and augmented flow is demonstrated in the visualized segments. IMPRESSION: Negative venous Doppler of the right lower extremity. SL: [id number] 08/23/2015 - - Read by: Reinaldo Browne MD Dictated Date/time: 08/23/15 22:57 Electronically Signed by: Reinaldo Browne MD 08/23/15 22:59 FINAL REPORT [facility] CARDIAC ENZYMES CK MB Index 0.9 0.0 - 2.5 08/23/2015 [facility] CARDIAC ENZYMES BNP 4 pg/mL <=100 pg/mL 08/23/2015 [facility] CARDIAC ENZYMES Troponin-I null 0.00 - 0.40 08/23/2015 [facility] CARDIAC ENZYMES CK MB 2.2 ng/mL 0.5 - 3.6 08/23/2015 [facility] CARDIAC ENZYMES Total CK 250 unit/L 12 - 191 08/23/2015 [facility] CHEM PANEL Magnesium Lvl 2.4 mg/dL 1.8 - 2.4 08/23/2015 [facility] CHEM PANEL eGFR 105 mL/min/1.73m2 08/23/2015 Result Comment: The eGFR is calculated using the CKD-EPI formula. In most young, healthy individuals the eGFR will be >90 mL/min/1.73m2. The eGFR declines with age. An eGFR of 60-89 may be normal in some populations, particularly the elderly, for whom the CKD-EPI formula has not been extensively validated. Use of the eGFR is not recommended in the following populations: Individuals with unstable creatinine concentrations, including patients and those with serious co-morbid conditions. Patients with extremes in muscle mass or diet. The data above are obtained from the National Kidney Disease Education Program (NKDEP) which additionally recommends that when the eGFR is used in patients with extremes of body mass index for purposes of drug dosing, the eGFR should be multiplied by the estimated BMI. [facility] CHEM PANEL Glucose Lvl 125 mg/dL 70 - 99 08/23/2015 [facility] CHEM PANEL Creatinine Lvl 0.74 mg/dL 0.50 - 1.40 08/23/2015 [facility] CHEM PANEL BUN 13 mg/dL 7 - 22 08/23/2015 [facility] CHEM PANEL Sodium Lvl 136 meq/L 135 - 145 08/23/2015 [facility] CHEM PANEL Potassium Lvl 3.5 meq/L 3.5 - 5.1 08/23/2015 [facility] CHEM PANEL Chloride Lvl 102 meq/L 95 - 109 08/23/2015 [facility] CHEM PANEL CO2 28 meq/L 24 - 32 08/23/2015 [facility] CHEM PANEL Calcium Lvl 8.6 mg/dL 8.5 - 10.5 08/23/2015 [facility] CHEM PANEL AGAP 9.5 meq/L 10.0 - 20.0 08/23/2015 [facility] CHEM PANEL A/G Ratio 0.8 0.7 - 1.6 08/23/2015 [facility] CHEM PANEL Globulin 5.1 g/dL 2.0 - 4.0 08/23/2015 [facility] CHEM PANEL Bili Total 0.5 mg/dL 0.2 - 1.3 08/23/2015 [facility] CHEM PANEL B/C Ratio 18 6 - 25 08/23/2015 [facility] CHEM PANEL Total Protein 9.1 g/dL 6.4 - 8.4 08/23/2015 [facility] CHEM PANEL ALT 39 unit/L 0 - 65 08/23/2015 [facility] CHEM PANEL Alk Phos 92 unit/L 39 - 136 08/23/2015 [facility] CHEM PANEL Albumin Lvl 4.0 g/dL 3.5 - 5.0 08/23/2015 [facility] CHEM PANEL AST 25 unit/L 0 - 37 08/23/2015 [facility] HEMATOLOGY Monocytes # 0.7 K/CMM 0.0 - 0.8 08/23/2015 [facility] HEMATOLOGY Lymphocytes 31.3 % 20.0 - 40.0 08/23/2015 [facility] HEMATOLOGY Monocytes 8.4 % 2.0 - 12.0 08/23/2015 [facility] HEMATOLOGY Segs-Bands # 4.9 K/CMM 1.5 - 8.1 08/23/2015 [facility] HEMATOLOGY Basophils 0.5 % 0.0 - 1.0 08/23/2015 [facility] HEMATOLOGY Eosinophils 0.5 % 0.0 - 4.0 08/23/2015 [facility] HEMATOLOGY Lymphocytes # 2.6 K/CMM 1.0 - 5.5 08/23/2015 [facility] HEMATOLOGY Segs 59.3 % 45.0 - 75.0 08/23/2015 [facility] MCHC 33.5 g/dL 32.0 - 36.0 08/23/2015 [facility] Hct 41.4 % 36.0 - 48.0 08/23/2015 [facility] Hgb 13.9 g/dL 12.0 - 16.0 08/23/2015 [facility] MCV 85.8 fL 80.0 - 98.0 08/23/2015 [facility] RDW 14.2 % 11.5 - 14.5 08/23/2015 [facility] Platelet 343 K/CMM 133 - 450 08/23/2015 [facility] MPV 8.5 fL 7.4 - 10.4 08/23/2015 [facility] MCH 28.8 pg 27.0 - 31.0 08/23/2015 [facility] WBC 8.3 K/CMM 3.7 - 10.4 08/23/2015 [facility] RBC 4.83 M/CMM 4.20 - 5.40 08/23/2015 [facility] HEMATOLOGY PTT 37.7 s 22.9 - 35.8 08/23/2015 [facility] HEMATOLOGY INR 1.04 0.85 - 1.17 08/23/2015 [facility] PT 13.9 s 12.0 - 14.7 08/23/2015 [facility] URINE AND STOOL UA Urobilinogen <=1.0 mg/dL 0.1 - 1.0 08/23/2015 [facility] URINE AND STOOL UA Turbidity Clear (08/23/15 4:10 PM) Clear 08/23/2015 [facility] URINE AND STOOL UA Protein Negative mg/dL Negative mg/dL 08/23/2015 [facility] URINE AND STOOL UA pH 5.0 5.0 - 8.0 08/23/2015 [facility] URINE AND STOOL UA Color Yellow *NA* (08/23/15 4:10 PM) Yellow 08/23/2015 [facility] URINE AND STOOL UA Spec Grav 1.015 <=1.030 08/23/2015 [facility] URINE AND STOOL UA Ketones Negative mg/dL Negative mg/dL 08/23/2015 [facility] URINE AND STOOL UA Nitrite Negative (08/23/15 4:10 PM) Negative 08/23/2015 [facility] URINE AND STOOL UA Bili Negative *NA* (08/23/15 4:10 PM) Negative 08/23/2015 [facility] URINE AND STOOL UA Glucose Negative mg/dL Negative mg/dL 08/23/2015 [facility] URINE AND STOOL UA Blood Negative (08/23/15 4:10 PM) Negative 08/23/2015 [facility] URINE AND STOOL UA RBC 1 /HPF 0 - 2 08/23/2015 [facility] URINE AND STOOL UA WBC null 0 - 5 08/23/2015 [facility] URINE AND STOOL UA Sq Epi Occasional /LPF Few /LPF 08/23/2015 [facility] URINE AND STOOL UA Leuk Est Negative (08/23/15 4:10 PM) Negative 08/23/2015 [facility] Chest 1view DX Chest 1view DX Portable chest: There is mild right basilar subsegmental atelectasis. The lungs and pleural spaces are otherwise clear. The cardiomediastinal silhouette is within normal limits. There is no significant change compared to 03/09/2015. IMPRESSION: Mild right basilar subsegmental atelectasis without other acute radiographic abnormalities in the chest. [id number] 08/23/2015 - - Read by: Quentin Ames MD Dictated Date/time: 08/23/15 17:16 Electronically Signed by: Quentin Ames MD 08/23/15 17:17 FINAL REPORT [facility] Pulmonary Embolism CTA Chest Pulmonary Embolism CTA CTA CHEST WITH CONTRAST: CLINICAL HISTORY: Chest pain. Pulmonary embolus. TECHNIQUE AND FINDINGS: Multiple contiguous post contrast transaxial CT images were obtained through the chest. Additionally, two dimensional and three dimensional reformatted images were prepared. COMPARISON: 02/16/2014. 1. No evidence of pulmonary embolus. 2. Normal caliber thoracic aorta without aneurysm or dissection. 3. Heart size at the upper limits of normal with trace pericardial fluid or thickening. 4. The lungs are clear of consolidation, pleural effusion, and pneumothorax. Minimal bilateral basilar subsegmental atelectasis and scarring. 5. No lymphadenopathy, mass, free fluid collection, or focal inflammation. 6. Fatty liver. 7. No acute fracture, dislocation, or focal osseous lesion is appreciated SL:17 03/09/2015 - - Read by: Reinaldo Browne MD Dictated Date/time: 03/09/15 03:25 Electronically Signed by: Reinaldo Browne MD 03/09/15 03:30 FINAL REPORT [facility] Chest 2 views DX Chest 2 views DX EXAMINATION: Chest 2 views CLINICAL HISTORY: Chest pain Since 02/16/2014, pulmonary inflation has slightly decreased. Bilateral basilar subsegmental atelectasis is again seen with decreasing although still asymmetrically prominent right middle lobe opacity that may represent greater atelectasis or pneumonia. Mild bilateral basilar subsegmental atelectasis and scarring. The heart size remains normal. Mild spinal degenerative changes without acute injury or suspicious focal osseous lesion. SL:17 03/09/2015 - - Read by: Reinaldo Browne MD Dictated Date/time: 03/09/15 02:00 Electronically Signed by: Reinaldo Browne MD 03/09/15 02:02 FINAL REPORT [facility] CHEM PANEL Magnesium Lvl 2.2 mg/dL 1.8 - 2.4 04/13/2014 [facility] ELECTROLYTES AGAP 13.1 meq/L 10.0 - 20.0 04/13/2014 [facility] ELECTROLYTES Chloride Lvl 107 meq/L 95 - 109 04/13/2014 [facility] ELECTROLYTES Potassium Lvl 4.1 meq/L 3.5 - 5.1 04/13/2014 [facility] ELECTROLYTES Sodium Lvl 143 meq/L 135 - 145 04/13/2014 [facility] ELECTROLYTES eGFR 98 mL/min/1.73m2 04/13/2014 1Result Comment: The eGFR is calculated using the CKD-EPI formula. In most young, healthy individuals the eGFR will be >90 mL/min/1.73m2. The eGFR declines with age. An eGFR of 60-89 may be normal in some populations, particularly the elderly, for whom the CKD-EPI formula has not been extensively validated. Use of the eGFR is not recommended in the following populations: Individuals with unstable creatinine concentrations, including patients and those with serious co-morbid conditions. Patients with extremes in muscle mass or diet. The data above are obtained from the National Kidney Disease Education Program (NKDEP) which additionally recommends that when the eGFR is used in patients with extremes of body mass index for purposes of drug dosing, the eGFR should be multiplied by the estimated BMI. [facility] ELECTROLYTES Glucose Lvl 94 mg/dL 70 - 99 04/13/2014 4Interpretive Data: Adult reference range values reflect the clinical guidelines of the [place] [employer]. [facility] ELECTROLYTES BUN 8 mg/dL 7 - 22 04/13/2014 [facility] ELECTROLYTES Creatinine Lvl 0.8 mg/dL 0.5 - 1.4 04/13/2014 [facility] ELECTROLYTES CO2 27 meq/L 24 - 32 04/13/2014 [facility] ELECTROLYTES Calcium Lvl 8.0 mg/dL 8.5 - 10.5 04/13/2014 [facility] HEMATOLOGY Segs 50.9 % 45.0 - 75.0 04/13/2014 [facility] HEMATOLOGY Monocytes 11.2 % 2.0 - 12.0 04/13/2014 [facility] HEMATOLOGY Basophils 0.3 % 0.0 - 1.0 04/13/2014 [facility] HEMATOLOGY Lymphocytes 36.9 % 20.0 - 40.0 04/13/2014 [facility] HEMATOLOGY Eosinophils 0.7 % 0.0 - 4.0 04/13/2014 [facility] HEMATOLOGY Lymphocytes # 3.3 K/CMM 1.0 - 5.5 04/13/2014 [facility] HEMATOLOGY Segs-Bands # 4.6 K/CMM 1.5 - 8.1 04/13/2014 [facility] HEMATOLOGY Monocytes # 1.0 K/CMM 0.0 - 0.8 04/13/2014 [facility] HEMATOLOGY Eosinophils # 0.1 K/CMM 0.0 - 0.5 04/13/2014 [facility] HEMATOLOGY Hct 32.3 % 36.0 - 48.0 04/13/2014 [facility] MCV 87.3 fL 80.0 - 98.0 04/13/2014 [facility] RBC 3.69 M/CMM 4.20 - 5.40 04/13/2014 [facility] Hgb 11.3 g/dL 12.0 - 16.0 04/13/2014 [facility] WBC 9.0 K/CMM 3.7 - 10.4 04/13/2014 [facility] MCH 30.5 pg 27.0 - 31.0 04/13/2014 [facility] RDW 14.0 % 11.5 - 14.5 04/13/2014 [facility] Platelet 270 K/CMM 133 - 450 04/13/2014 [facility] MCHC 34.9 g/dL 32.0 - 36.0 04/13/2014 [facility] HEMATOLOGY MPV 8.7 fL 7.4 - 10.4 04/13/2014 [facility] ELECTROLYTES AGAP 13.5 meq/L 10.0 - 20.0 04/12/2014 [facility] ELECTROLYTES Sodium Lvl 141 meq/L 135 - 145 04/12/2014 [facility] ELECTROLYTES Chloride Lvl 105 meq/L 95 - 109 04/12/2014 [facility] ELECTROLYTES Potassium Lvl 4.5 meq/L 3.5 - 5.1 04/12/2014 [facility] ELECTROLYTES eGFR 115 mL/min/1.73m2 04/12/2014 2Result Comment: The eGFR is calculated using the CKD-EPI formula. In most young, healthy individuals the eGFR will be >90 mL/min/1.73m2. The eGFR declines with age. An eGFR of 60-89 may be normal in some populations, particularly the elderly, for whom the CKD-EPI formula has not been extensively validated. Use of the eGFR is not recommended in the following populations: Individuals with unstable creatinine concentrations, including patients and those with serious co-morbid conditions. Patients with extremes in muscle mass or diet. The data above are obtained from the National Kidney Disease Education Program (NKDEP) which additionally recommends that when the eGFR is used in patients with extremes of body mass index for purposes of drug dosing, the eGFR should be multiplied by the estimated BMI. [facility] ELECTROLYTES CO2 27 meq/L 24 - 32 04/12/2014 [facility] ELECTROLYTES Calcium Lvl 8.7 mg/dL 8.5 - 10.5 04/12/2014 [facility] ELECTROLYTES Glucose Lvl 113 mg/dL 70 - 99 04/12/2014 5Interpretive Data: Adult reference range values reflect the clinical guidelines of the [place] [employer]. [facility] ELECTROLYTES BUN 12 mg/dL 7 - 22 04/12/2014 [facility] ELECTROLYTES Creatinine Lvl 0.7 mg/dL 0.5 - 1.4 04/12/2014 [facility] HEMATOLOGY Basophils # 0.1 K/CMM 0.0 - 0.2 04/12/2014 [facility] HEMATOLOGY Eosinophils # 0.1 K/CMM 0.0 - 0.5 04/12/2014 [facility] HEMATOLOGY Monocytes 10.7 % 2.0 - 12.0 04/12/2014 [facility] HEMATOLOGY Segs 43.7 % 45.0 - 75.0 04/12/2014 [facility] HEMATOLOGY Lymphocytes 44.0 % 20.0 - 40.0 04/12/2014 [facility] Eosinophils 0.9 % 0.0 - 4.0 04/12/2014 [facility] Basophils 0.7 % 0.0 - 1.0 04/12/2014 [facility] Segs-Bands # 3.5 K/CMM 1.5 - 8.1 04/12/2014 [facility] Lymphocytes # 3.5 K/CMM 1.0 - 5.5 04/12/2014 [facility] Monocytes # 0.9 K/CMM 0.0 - 0.8 04/12/2014 [facility] MPV 9.2 fL 7.4 - 10.4 04/12/2014 [facility] MCH 30.4 pg 27.0 - 31.0 04/12/2014 [facility] MCV 87.4 fL 80.0 - 98.0 04/12/2014 [facility] Hct 34.0 % 36.0 - 48.0 04/12/2014 [facility] Hgb 11.8 g/dL 12.0 - 16.0 04/12/2014 [facility] RBC 3.89 M/CMM 4.20 - 5.40 04/12/2014 [facility] WBC 8.1 K/CMM 3.7 - 10.4 04/12/2014 [facility] Platelet 276 K/CMM 133 - 450 04/12/2014 [facility] RDW 14.6 % 11.5 - 14.5 04/12/2014 [facility] MCHC 34.8 g/dL 32.0 - 36.0 04/12/2014 [facility] PTT 46.7 s 22.9 - 35.8 04/12/2014 9Interpretive Data: Heparin Therapeutic Range: 57 - 92 Seconds [facility] INR 0.94 0.85 - 1.17 04/12/2014 7Interpretive Data: RECOMMENDED RANGES FOR PROTIME INR: 2.0-3.0 for most medical and surgical thromboembolic states. 2.5-3.5 for artificial heart valves and recurrent embolism. INR SHOULD BE USED ONLY FOR PATIENTS ON STABLE ANTICOAGULANT THERAPY. [facility] PT 12.5 s 12.0 - 14.7 04/12/2014 [facility] Spine lumbar wo contrast CT Spine lumbar wo contrast CT CT lumbar spine, Apr 11, 2014 08:09:00 PM CLINICAL HISTORY: Weakness ; See Clinic Indication TECHNIQUE: Routine 2.5 mm thick axial images of the lumbar spine were obtained. Coronal and sagittal reformations were created COMPARISON: MRI lumbar spine yesterday FINDINGS and IMPRESSION: 1. No acute fracture, subluxation, or dislocation is present in the lumbar spine. Normal alignment is maintained. Prevertebral soft tissues are normal. 2. L4/5 degenerative disc disease is present. Left L4 old laminectomy changes are suggested. Left paracentral disc protrusion is probably present. 3. L3/4 at L5/S1 posterior broad-based disc protrusions are noted. 4. L3-S1 mild posterior facet joint arthropathy is present bilaterally, with right- sided vacuum phenomenon noted 5. Diffuse fatty infiltration of the partially visualized liver. SL: 14 04/11/2014 - - Read by: Kathy Brink MD Dictated Date/time: 04/11/14 21:04 Electronically Signed by: Kathy Brink MD 04/11/14 21:14 FINAL REPORT [employer] [facility] eGFR 98 mL/min/1.73m2 04/10/2014 3Result Comment: The eGFR is calculated using the CKD-EPI formula. In most young, healthy individuals the eGFR will be >90 mL/min/1.73m2. The eGFR declines with age. An eGFR of 60-89 may be normal in some populations, particularly the elderly, for whom the CKD-EPI formula has not been extensively validated. Use of the eGFR is not recommended in the following populations: Individuals with unstable creatinine concentrations, including patients and those with serious co-morbid conditions. Patients with extremes in muscle mass or diet. The data above are obtained from the National Kidney Disease Education Program (NKDEP) which additionally recommends that when the eGFR is used in patients with extremes of body mass index for purposes of drug dosing, the eGFR should be multiplied by the estimated BMI. [facility] PANEL Creatinine Lvl 0.8 mg/dL 0.5 - 1.4 04/10/2014 [facility] Spine lumbar wo contrast MRI Spine lumbar wo contrast MRI PROCEDURE: Spine lumbar wo contrast MRI REASON FOR EXAM: See Clinic Indication CLINICAL INDICATION: Pain with radiculopathy, back pain, left lower extremity pain COMPARISON: Lumbar spine MRI dated 05/28/2013 FINDINGS: Examination significantly limited by image degradation related to motion artifact. In particular, axial images are severely degraded. There is suggestion of a new left posterior paracentral and foraminal disc extrusion at L4/L5 measuring on the order of 8 mm with possible impingement on the exiting left L4 nerve roots and/or descending left L5 nerve roots. No other change is seen. No fracture is seen. Vertebral body heights are maintained. No aggressive osseous lesion. No discitis/osteomyelitis. Multilevel posterior disc protrusions at L3/L4, L4/L5, and L5/S1 are unchanged from the prior. No canal stenosis. Moderate bilateral neural foraminal narrowing at L4/L5 and L5/S1 appears grossly unchanged from the prior. IMPRESSION: 1. Significantly limited exam due to motion artifact as described. 2. Suspect new left posterior paracentral and foraminal disc extrusion at L4/L5, but evaluation is limited. If indicated, repeat axial and sagittal T2 images after patient's sedation can be obtained for further evaluation and an addendum to this report can be created at that time. 3. Exam is otherwise unchanged from the prior. SL: 12 04/10/2014 - - Read by: Jermain Cameron MD Dictated Date/time: 04/11/14 13:55 Electronically Signed by: Jermain Cameron MD 04/11/14 14:12 FINAL REPORT [facility] Brain wo contrast CT Brain wo contrast CT CT head without contrast. CLINICAL INDICATION: Weakness. COMPARISON: [None]. TECHNIQUE: Multiple contiguous axial images of the brain were performed without IV contrast. FINDINGS: Hyperdense vessel within the left sylvian fissure may be artifact or thrombus. No definite parenchymal changes detected. Ventricles and subarachnoid spaces are appropriate for age. No acute territorial infarction or intracranial hemorrhage. No extra-axial fluid collection. Nava-white distinction is preserved. Expanded sella with intrasellar CSF attenuation may represent empty sella. Pituitary mass is felt less likely. No mass, mass-effect, or midline shift. Visualized paranasal sinuses are unremarkable. IMPRESSION: No definite acute intracranial process detected. Expanded sella with intrasellar CSF attenuation may represent empty sella. Pituitary mass is felt less likely. MRI brain if indicated. SL: 12 04/10/2014 - - Read by: Mitchel Duval MD Dictated Date/time: 04/10/14 05:53 Electronically Signed by: Mitchel Duval MD 04/10/14 05:56 FINAL REPORT [facility] CHEM PANEL Calcium Lvl 8.8 mg/dL 8.5 - 10.5 04/10/2014 [facility] CHEM PANEL CO2 33 meq/L 24 - 32 04/10/2014 [facility] CHEM PANEL Chloride Lvl 102 meq/L 95 - 109 04/10/2014 [facility] CHEM PANEL Glucose Lvl 101 mg/dL 70 - 99 04/10/2014 6Interpretive Data: Adult reference range values reflect the clinical guidelines of the [place] [employer]. [facility] CHEM PANEL BUN 13 mg/dL 7 - 22 04/10/2014 [facility] CHEM PANEL Potassium Lvl 3.6 meq/L 3.5 - 5.1 04/10/2014 [facility] CHEM PANEL Sodium Lvl 139 meq/L 135 - 145 04/10/2014 [facility] CHEM PANEL AGAP 7.6 meq/L 10.0 - 20.0 04/10/2014 [facility] HEMATOLOGY INR 0.83 0.85 - 1.17 04/10/2014 8Interpretive Data: RECOMMENDED RANGES FOR PROTIME INR: 2.0-3.0 for most medical and surgical thromboembolic states. 2.5-3.5 for artificial heart valves and recurrent embolism. INR SHOULD BE USED ONLY FOR PATIENTS ON STABLE ANTICOAGULANT THERAPY. [facility] HEMATOLOGY PT 11.3 s 12.0 - 14.7 04/10/2014 [facility] HEMATOLOGY PTT 42.1 s 22.9 - 35.8 04/10/2014 10Interpretive Data: Heparin Therapeutic Range: 57 - 92 Seconds [facility] HEMATOLOGY Basophils # 0.1 K/CMM 0.0 - 0.2 04/10/2014 [facility] HEMATOLOGY Eosinophils # 0.1 K/CMM 0.0 - 0.5 04/10/2014 [facility] HEMATOLOGY Eosinophils 0.7 % 0.0 - 4.0 04/10/2014 [facility] HEMATOLOGY Basophils 0.8 % 0.0 - 1.0 04/10/2014 [facility] HEMATOLOGY Monocytes # 0.9 K/CMM 0.0 - 0.8 04/10/2014 [facility] HEMATOLOGY Segs-Bands # 4.5 K/CMM 1.5 - 8.1 04/10/2014 [facility] HEMATOLOGY Lymphocytes # 4.3 K/CMM 1.0 - 5.5 04/10/2014 [facility] HEMATOLOGY Monocytes 9.2 % 2.0 - 12.0 04/10/2014 [facility] HEMATOLOGY Segs 45.8 % 45.0 - 75.0 04/10/2014 [facility] HEMATOLOGY Lymphocytes 43.5 % 20.0 - 40.0 04/10/2014 [facility] HEMATOLOGY Platelet 326 K/CMM 133 - 450 04/10/2014 [facility] HEMATOLOGY RDW 14.4 % 11.5 - 14.5 04/10/2014 [facility] HEMATOLOGY MPV 8.5 fL 7.4 - 10.4 04/10/2014 [facility] HEMATOLOGY MCV 86.2 fL 80.0 - 98.0 04/10/2014 [facility] HEMATOLOGY MCH 29.2 pg 27.0 - 31.0 04/10/2014 [facility] HEMATOLOGY Hct 38.9 % 36.0 - 48.0 04/10/2014 [facility] HEMATOLOGY MCHC 33.9 g/dL 32.0 - 36.0 04/10/2014 [facility] HEMATOLOGY RBC 4.51 M/CMM 4.20 - 5.40 04/10/2014 [facility] HEMATOLOGY WBC 9.9 K/CMM 3.7 - 10.4 04/10/2014 [facility] HEMATOLOGY Hgb 13.2 g/dL 12.0 - 16.0 04/10/2014 [facility] URINE AND STOOL UA Hyal Cast 2 /LPF 0 - 2 04/10/2014 [facility] URINE AND STOOL UA RBC 5 /HPF 0 - 2 04/10/2014 [facility] URINE AND STOOL UA Ketones Negative mg/dL Negative mg/dL 04/10/2014 [facility] URINE AND STOOL UA Blood Small *ABN* (04/09/14 8:45 PM) Negative 04/10/2014 [facility] URINE AND STOOL UA Nitrite Negative (04/09/14 8:45 PM) Negative 04/10/2014 [facility] URINE AND STOOL UA Bili Negative *NA* (04/09/14 8:45 PM) Negative 04/10/2014 [facility] URINE AND STOOL UA Urobilinogen 2.0 mg/dL 0.1 - 1.0 04/10/2014 [facility] URINE AND STOOL UA Color Yellow *NA* (04/09/14 8:45 PM) Yellow 04/10/2014 [facility] URINE AND STOOL UA Leuk Est Negative (04/09/14 8:45 PM) Negative 04/10/2014 [facility] URINE AND STOOL UA WBC 1 /HPF 0 - 5 04/10/2014 [facility] URINE AND STOOL UA Sq Epi Occasional /LPF Few /LPF 04/10/2014 [facility] URINE AND STOOL UA Glucose Negative mg/dL Negative mg/dL 04/10/2014 [facility] URINE AND STOOL UA Spec Grav 1.019 <=1.030 04/10/2014 [facility] URINE AND STOOL UA Turbidity Clear (04/09/14 8:45 PM) Clear 04/10/2014 [facility] URINE AND STOOL UA pH 5.0 5.0 - 8.0 04/10/2014 [facility] URINE AND STOOL UA Protein Negative mg/dL Negative mg/dL 04/10/2014 [facility] URINE CHEM U Preg Negative (04/09/14 8:45 PM) Negative 04/10/2014 [facility] Extremity Lower uni CTA Extremity Lower uni CTA AORTOFEMORAL CTA: CLINICAL INFORMATION: Weakness. Cold foot. TECHNIQUE: Multislice helical imaging was done from the aortic bifurcation through the left feet during IV contrast bolus. Sagittal and coronal reformatted images were also done as well as 3-D MIP and volume rendered images. AORTOILIAC: No significant atherosclerotic changes are present. No significant aortoiliac stenosis at or below the bifurcation. The internal iliac trunks are patent bilaterally without evidence of stenosis. LEFT LOWER EXTREMITY: No significant atherosclerotic changes are seen in the femoropopliteal segment. No significant stenosis or occlusion. Limited visualization and contrast opacification of the three-vessel runoff to the left ankle and foot may be due to technique versus poor distal circulation. No definite evidence of significant stenosis or occlusion in the visualized runoff segment. The dorsalis pedis and plantar arteries are not visible at the ankle. Diffuse fatty infiltration is present. The bladder is grossly unremarkable. Grossly normal uterus and adnexa. A 2.1 cm cystic mass is present in the medial aspect of the left knee may represent a Arroyo's cyst. IMPRESSION: 1. No significant atherosclerotic changes in the aortoiliac and femoropopliteal segments. No significant stenotic or occlusive disease. 2. Limited visualization and contrast opacification of the three-vessel runoff to the left ankle and foot may be due to technique versus poor distal circulation. Please correlate clinically and further work-up with ABIs and catheter angiography if clinically warranted. 3. Diffuse fatty liver infiltration. 4. Probable 2.1 cm left Arroyo's cyst. Results were discussed with Dr. Montejo on 04/09/2014 at 10:59 p.m. SL: 12 04/09/2014 - - Read by: Mitchel Duval MD Dictated Date/time: 04/09/14 22:50 Electronically Signed by: Mitchel Duval MD 04/09/14 23:00 FINAL REPORT [facility] Knee wo contrast MRI Knee wo contrast MRI EXAMINATION: MRI of the right knee without contrast. HISTORY: Right knee pain; meniscus tear; degenerative joint disease FINDINGS: There are no radiographs available for review. Multiplanar, multisequence magnetic resonance imaging of the right knee is performed with an extremity coil without contrast. In the medial compartment, there is mild degenerative inner margin fraying without discrete meniscus tear. There is deep partial-thickness chondrosis of the weight-bearing medial femoral condyle and matching medial tibial plateau with subchondral edema within the medial femoral condyle. In the lateral compartment, there is a tiny nondisplaced tear involving the inferior leaflet of the inner margin of the body of the lateral meniscus (series 3, images 17 through 18 ). There is no focal chondrosis or subchondral edema. In the patellofemoral compartment, the articular cartilage is normal without subchondral edema. The cruciate and collateral ligaments are normal. The extensor mechanism is intact. There is a large knee effusion with small Arroyo's cyst. The bone marrow signal intensity is normal. IMPRESSION: 1. Mild degenerative inner margin fraying of the right knee medial meniscus without discrete meniscal tear. 2. Tiny nondisplaced tear involving the inferior leaflet of the inner margin of the body of the right knee lateral meniscus. 3. Moderate medial compartment chondrosis of the right knee with deep partial-thickness chondrosis of the weight-bearing medial femoral condyle and matching medial tibial plateau with substantial subchondral edema within the medial femoral condyle. 4. Large right knee effusion with small Arroyo's cyst. 5. Otherwise, unremarkable MR examination of the right knee. Specifically, the right knee cruciate and collateral ligaments are intact and there is no lateral or patellofemoral compartment chondrosis. 03/24/2014 - - Read by: Tom De Paz MD Dictated Date/time: 03/24/14 15:06 Electronically Signed by: Tom De Paz MD 03/24/14 15:15 FINAL REPORT [facility] CHEM PANEL Magnesium Lvl 2.1 mg/dL 1.8 - 2.4 02/18/2014 [facility] CHEM PANEL Lactic Acid Lvl 0.9 mMol/L 0.5 - 2.2 02/18/2014 [facility] ELECTROLYTES AGAP 8.8 meq/L 10.0 - 20.0 02/18/2014 [facility] ELECTROLYTES eGFR 121 mL/min/1.73m2 02/18/2014 1Result Comment: The eGFR is calculated using the CKD-EPI formula. In most young, healthy individuals the eGFR will be >90 mL/min/1.73m2. The eGFR declines with age. An eGFR of 60-89 may be normal in some populations, particularly the elderly, for whom the CKD-EPI formula has not been extensively validated. Use of the eGFR is not recommended in the following populations: Individuals with unstable creatinine concentrations, including patients and those with serious co-morbid conditions. Patients with extremes in muscle mass or diet. The data above are obtained from the National Kidney Disease Education Program (NKDEP) which additionally recommends that when the eGFR is used in patients with extremes of body mass index for purposes of drug dosing, the eGFR should be multiplied by the estimated BMI. [facility] ELECTROLYTES Chloride Lvl 107 meq/L 95 - 109 02/18/2014 [facility] ELECTROLYTES Potassium Lvl 3.8 meq/L 3.5 - 5.1 02/18/2014 [facility] ELECTROLYTES CO2 26 meq/L 24 - 32 02/18/2014 [facility] ELECTROLYTES Calcium Lvl 8.6 mg/dL 8.5 - 10.5 02/18/2014 [facility] ELECTROLYTES BUN 9 mg/dL 7 - 22 02/18/2014 [facility] ELECTROLYTES Glucose Lvl 91 mg/dL 70 - 99 02/18/2014 3Interpretive Data: Adult reference range values reflect the clinical guidelines of the [place] [employer]. [facility] ELECTROLYTES Creatinine Lvl 0.6 mg/dL 0.5 - 1.4 02/18/2014 [facility] ELECTROLYTES Sodium Lvl 138 meq/L 135 - 145 02/18/2014 [facility] HEMATOLOGY Eosinophils # 0.1 K/CMM 0.0 - 0.5 02/18/2014 [facility] HEMATOLOGY Monocytes # 0.8 K/CMM 0.0 - 0.8 02/18/2014 [facility] HEMATOLOGY Segs 42.9 % 45.0 - 75.0 02/18/2014 [facility] HEMATOLOGY Lymphocytes 44.0 % 20.0 - 40.0 02/18/2014 [facility] HEMATOLOGY Eosinophils 1.4 % 0.0 - 4.0 02/18/2014 [facility] HEMATOLOGY Monocytes 11.1 % 2.0 - 12.0 02/18/2014 [facility] Basophils 0.6 % 0.0 - 1.0 02/18/2014 [facility] Segs-Bands # 3.1 K/CMM 1.5 - 8.1 02/18/2014 [facility] Lymphocytes # 3.2 K/CMM 1.0 - 5.5 02/18/2014 [facility] MCH 29.7 pg 27.0 - 31.0 02/18/2014 [facility] MCV 86.7 fL 80.0 - 98.0 02/18/2014 [facility] RDW 14.0 % 11.5 - 14.5 02/18/2014 [facility] MCHC 34.3 g/dL 32.0 - 36.0 02/18/2014 [facility] Platelet 300 K/CMM 133 - 450 02/18/2014 [facility] MPV 8.6 fL 7.4 - 10.4 02/18/2014 [facility] Hgb 10.6 g/dL 12.0 - 16.0 02/18/2014 [facility] RBC 3.58 M/CMM 4.20 - 5.40 02/18/2014 [facility] Hct 31.0 % 36.0 - 48.0 02/18/2014 [facility] WBC 7.2 K/CMM 3.7 - 10.4 02/18/2014 [facility] Chest w contrast CT Chest w contrast CT EXAM: CT chest with contrast DATE: Feb 16, 2014 09:04:08 PM INDICATION: Coughing COMPARISON: Chest x-ray from today. TECHNIQUE: Helically acquired axial CT images of the chest were obtained with reconstructions in the coronal and sagittal planes. FINDINGS: Limited views the inferior neck soft tissues are normal. Minimal stranding in the anterior mediastinum is nonspecific. Subcentimeter mediastinal and right hilar lymph nodes are seen. No lymphadenopathy is identified. The heart is not enlarged. No pericardial effusion is seen. No aortic aneurysm is identified. Nonenhancing consolidation is seen in the lingula and right upper lobe with air bronchograms. Multiple small centrilobular nodules are also seen in the right upper lobe. Bilateral lower lobe linear atelectasis is present. No pleural effusion or pneumothorax is present. The liver is diffusely fatty and enlarged. Gallbladder is surgically absent. No osseous destructive lesions are seen. IMPRESSION: 1. Right upper lobe and lingula pneumonia. 2. Mighty prominent mediastinal lymph nodes are likely reactive in nature. 3. Hepatic steatosis with hepatomegaly. SL: 12 02/16/2014 - - Read by: Anirudh Crooks MD Dictated Date/time: 02/16/14 21:18 Electronically Signed by: Anirudh Crooks MD 02/16/14 21:23 FINAL REPORT [facility] CARDIAC ENZYMES Troponin-I null 0.00 - 0.40 02/16/2014 [facility] CARDIAC ENZYMES CK MB 1.2 ng/mL 0.5 - 3.6 02/16/2014 [facility] CARDIAC ENZYMES Total CK 189 unit/L 12 - 191 02/16/2014 [facility] CARDIAC ENZYMES CK MB Index 0.6 0.0 - 2.5 02/16/2014 [facility] CHEM PANEL eGFR 67 mL/min/1.73m2 02/16/2014 2Result Comment: The eGFR is calculated using the CKD-EPI formula. In most young, healthy individuals the eGFR will be >90 mL/min/1.73m2. The eGFR declines with age. An eGFR of 60-89 may be normal in some populations, particularly the elderly, for whom the CKD-EPI formula has not been extensively validated. Use of the eGFR is not recommended in the following populations: Individuals with unstable creatinine concentrations, including patients and those with serious co-morbid conditions. Patients with extremes in muscle mass or diet. The data above are obtained from the National Kidney Disease Education Program (NKDEP) which additionally recommends that when the eGFR is used in patients with extremes of body mass index for purposes of drug dosing, the eGFR should be multiplied by the estimated BMI. [facility] CHEM PANEL A/G Ratio 0.7 0.7 - 1.6 02/16/2014 [facility] CHEM PANEL Globulin 5.8 g/dL 2.0 - 4.0 02/16/2014 [facility] CHEM PANEL B/C Ratio 16 6 - 25 02/16/2014 [facility] CHEM PANEL Bili Total 0.5 mg/dL 0.2 - 1.3 02/16/2014 [facility] CHEM PANEL AGAP 9.4 meq/L 10.0 - 20.0 02/16/2014 [facility] CHEM PANEL Alk Phos 96 unit/L 39 - 136 02/16/2014 [facility] CHEM PANEL ALT 37 unit/L 0 - 65 02/16/2014 [facility] CHEM PANEL AST 30 unit/L 0 - 37 02/16/2014 [facility] CHEM PANEL Albumin Lvl 4.1 g/dL 3.5 - 5.0 02/16/2014 [facility] CHEM PANEL Calcium Lvl 9.6 mg/dL 8.5 - 10.5 02/16/2014 [facility] CHEM PANEL Total Protein 9.9 g/dL 6.4 - 8.4 02/16/2014 [facility] CHEM PANEL CO2 29 meq/L 24 - 32 02/16/2014 [facility] CHEM PANEL Chloride Lvl 99 meq/L 95 - 109 02/16/2014 [facility] CHEM PANEL Sodium Lvl 134 meq/L 135 - 145 02/16/2014 [facility] CHEM PANEL Potassium Lvl 3.4 meq/L 3.5 - 5.1 02/16/2014 [facility] CHEM PANEL Creatinine Lvl 1.1 mg/dL 0.5 - 1.4 02/16/2014 [facility] CHEM PANEL BUN 18 mg/dL 7 - 22 02/16/2014 [facility] CHEM PANEL Glucose Lvl 128 mg/dL 70 - 99 02/16/2014 4Interpretive Data: Adult reference range values reflect the clinical guidelines of the [place] [employer]. [facility] HEMATOLOGY INR 1.02 0.85 - 1.17 02/16/2014 5Interpretive Data: RECOMMENDED RANGES FOR PROTIME INR: 2.0-3.0 for most medical and surgical thromboembolic states. 2.5-3.5 for artificial heart valves and recurrent embolism. INR SHOULD BE USED ONLY FOR PATIENTS ON STABLE ANTICOAGULANT THERAPY. [facility] HEMATOLOGY PT 13.4 s 12.0 - 14.7 02/16/2014 [facility] PTT 42.9 s 22.9 - 35.8 02/16/2014 6Interpretive Data: Heparin Therapeutic Range: 57 - 92 Seconds [facility] Platelet 380 K/CMM 133 - 450 02/16/2014 [facility] RDW 14.1 % 11.5 - 14.5 02/16/2014 [facility] MCHC 34.5 g/dL 32.0 - 36.0 02/16/2014 [facility] MPV 8.9 fL 7.4 - 10.4 02/16/2014 [facility] MCH 29.6 pg 27.0 - 31.0 02/16/2014 [facility] Hct 42.2 % 36.0 - 48.0 02/16/2014 [facility] Hgb 14.5 g/dL 12.0 - 16.0 02/16/2014 [facility] MCV 85.8 fL 80.0 - 98.0 02/16/2014 [facility] RBC 4.91 M/CMM 4.20 - 5.40 02/16/2014 [facility] WBC 10.9 K/CMM 3.7 - 10.4 02/16/2014 [facility] Monocytes 11.0 % 2.0 - 12.0 02/16/2014 [facility] Basophils 0.4 % 0.0 - 1.0 02/16/2014 [facility] Eosinophils 0.4 % 0.0 - 4.0 02/16/2014 [facility] Lymphocytes 18.9 % 20.0 - 40.0 02/16/2014 [facility] Lymphocytes # 2.1 K/CMM 1.0 - 5.5 02/16/2014 [facility] Segs-Bands # 7.6 K/CMM 1.5 - 8.1 02/16/2014 [facility] Monocytes # 1.2 K/CMM 0.0 - 0.8 02/16/2014 [facility] Segs 69.3 % 45.0 - 75.0 02/16/2014 [facility] Chest 2 views Chest 2 views CHEST RADIOGRAPH 2 VIEWS INDICATION: Chest pain COMPARISON: None IMPRESSION: 1. There are emphysematous changes of both lungs. 2. There is subsegmental atelectasis of the anterior segment of the right upper lobe and segmental atelectasis or consolidation of the medial right middle lobe. In the proper setting, this appearance may be secondary to pneumonia; however, a central obstructing lesion cannot be excluded. 3. There is prominence of the left parahilar region, a mass or lymphadenopathy cannot be excluded. Contrast enhanced CT of the chest may be beneficial for further evaluation. 4. The cardiac silhouette and pulmonary vasculature are within normal limits. SL: 16 02/16/2014 - - Read by: Keven Powers MD Dictated Date/time: 02/16/14 15:06 Electronically Signed by: Keven Powers MD 02/16/14 15:09 FINAL REPORT [facility] Spine lumbar wo contrast MRI Spine lumbar wo contrast MRI EXAM: MRI lumbar spine. HISTORY: Lumbosacral radiculopathy. COMPARISON: MRI lumbar spine TECHNIQUE: Sagittal and axial images of the lumbar spine obtained utilizing relative T1 and T2-weighting without contrast. FINDINGS: Five lumbar type vertebral bodies are presumed. Normal alignment of the lumbar spine. No compression fracture. Conus medullaris is normally positioned. T12-L1: No significant disc bulge, central canal or foraminal stenosis. L1-L2: No significant disc bulge or central canal stenosis. Mild degenerative facet and ligamentum flavum hypertrophy with mild neuroforaminal stenoses bilaterally. L2-L3: No significant disc bulge. Mild to moderate degenerative facet hypertrophy bilaterally with mild mass effect on the posterior thecal sac. Moderate neuroforaminal stenoses bilaterally. L3-L4: Degenerative disc desiccation and disc space narrowing with annular fissure of the posterior disc with generalized disc bulge, moderate degenerative facet and ligamentum flavum hypertrophy bilaterally with moderate to marked central canal stenosis. The disc extends into the neuroforamina bilaterally and abuts or slightly impinges the left and right L3 nerve roots. Moderate neuroforaminal stenosis on the left and marked foraminal stenosis on the right. L4-L5: Degenerative disc desiccation with disc extrusion, decreased in size since prior study with extruded disc extending to the posterior inferior margin of L4 and impinging the left L5 nerve root. Moderate neuroforaminal stenoses bilaterally. Question of a left hemilaminectomy versus partial volume averaging. L5-S1: Degenerative disc desiccation with annular fissure of the disc with disc protrusion compressing the S1 nerve roots bilaterally. Posterior marginal osteophyte in the right neuroforamen impinges the right L5 nerve root. Degenerative facet and ligamentum flavum hypertrophy contribute to marked canal stenosis. Mild-moderate neuroforaminal stenosis on the right and mild foraminal stenosis on the left. IMPRESSION: 1. Degenerative disease L3-L4, L4-L5 and L5-S1 with disc bulge at L3-L4, extruded disc at L4-L5 and disc protrusion at L5-S1 with impingement of the L3, L5 and S1 nerve roots as described. Canal stenoses at these levels most pronounced at L5-S1. 2. Multilevel degenerative facet and ligamentum flavum hypertrophy with neuroforaminal stenoses. 3. Annular fissures of the L3-L4 and L5-S1 discs. SL: 13 05/28/2013 - - Read by: Nick Coffey Dictated Date/time: 05/29/13 08:28 Electronically Signed by: Nick Coffey MD 05/29/13 09:33 FINAL REPORT [facility] Extremity venous Duplex bilat US Extremity venous Duplex bilat US Venous Doppler examination of both legs: FINDINGS: The popliteal, superficial femoral and common femoral veins were well visualized and were normal in their appearance with no evidence of thrombus within. These veins were demonstrated to be readily compressible. IMPRESSION: There is no Doppler evidence of deep venous thrombosis of either leg. 10/31/2012 - - Read by: Jimmy Murillo Dictated Date/time: 10/31/12 17:36 Electronically Signed by: Jimmy Murillo MD 10/31/12 17:37 FINAL REPORT [facility] Foot series Foot series LEFT FOOT RADIOGRAPH 3 VIEWS INDICATION: Pain COMPARISON: Left foot radiograph 11/20/2011 FINDINGS: There is mild soft tissue swelling of the foot. There is progressed osseous demineralization of the regional bony structures. No fractures or dislocations are seen. The joint spaces are maintained. No osteolytic or sclerotic lesions are visualized. IMPRESSION: 1. Mild soft tissue swelling of the foot. 2. Progressed osseous demineralization. SL: 10/31/2012 - - Read by: Keven Powers Dictated Date/time: 10/31/12 15:10 Electronically Signed by: Keven Powers MD 10/31/12 15:12 FINAL REPORT [facility] Tibia fibula series Tibia fibula series LEFT TIBIA/FIBULA RADIOGRAPH 4 VIEWS INDICATION: Pain COMPARISON: None FINDINGS: No fractures or dislocations are seen. The joint spaces are maintained. No osteolytic or sclerotic lesions are visualized. The regional soft tissues are unremarkable. IMPRESSION: Unremarkable radiographic appearance of the left tibia and fibula. SL: 10/31/2012 - - Read by: Keven Powers Dictated Date/time: 10/31/12 15:09 Electronically Signed by: Keven Powers MD 10/31/12 15:10 FINAL REPORT [facility] Vital Signs Vital Sign Value Date Comments Source Systolic (mm Hg) 148 12/29/2017 [facility] Diastolic (mm Hg) 70 12/29/2017 [facility] Heart Rate 81 12/29/2017 [facility] Respitory Rate 17 12/29/2017 [facility] Temperature Oral (F) 98.4 F 12/29/2017 [facility] Systolic (mm Hg) 144 12/29/2017 [facility] Diastolic (mm Hg) 67 12/29/2017 [facility] Temperature Oral (F) 98 F 12/29/2017 [facility] Heart Rate 82 12/29/2017 [facility] Respitory Rate 16 12/29/2017 [facility] Systolic (mm Hg) 151 12/29/2017 [facility] Diastolic (mm Hg) 67 12/29/2017 [facility] Respitory Rate 16 12/29/2017 [facility] Heart Rate 87 12/29/2017 [facility] Temperature Oral (F) 97.9 F 12/29/2017 [facility] Height 167.64 cm 12/29/2017 [facility] BMI Calculated 32.35 12/29/2017 [facility] Weight 90.909 12/29/2017 [facility] Diastolic (mm Hg) 91 11/30/2017 [facility] Systolic (mm Hg) 147 11/30/2017 [facility] Temperature Oral (F) 98.6 F 11/30/2017 [facility] Respitory Rate 18 11/30/2017 [facility] Heart Rate 88 11/30/2017 [facility] Heart Rate 85 11/30/2017 [facility] Systolic (mm Hg) 147 11/30/2017 [facility] Respitory Rate 18 11/30/2017 [facility] Diastolic (mm Hg) 91 11/30/2017 [facility] Weight 91.818 11/30/2017 [facility] Temperature Oral (F) 99.0 F 11/30/2017 [facility] Respitory Rate 18 11/30/2017 [facility] Systolic (mm Hg) 133 11/30/2017 [facility] Diastolic (mm Hg) 73 11/30/2017 [facility] Heart Rate 103 11/30/2017 [facility] Height 167.64 cm 11/26/2017 [facility] Weight 91.818 11/26/2017 [facility] BMI Calculated 32.67 11/26/2017 [facility] Heart Rate 106 11/26/2017 [facility] Systolic (mm Hg) 113 11/26/2017 [facility] Diastolic (mm Hg) 74 11/26/2017 [facility] Systolic (mm Hg) 134 11/04/2017 [facility] Diastolic (mm Hg) 73 11/04/2017 [facility] Heart Rate 84 11/04/2017 [facility] Temperature Oral (F) 98.2 F 11/04/2017 [facility] Respitory Rate 16 11/04/2017 [facility] Respitory Rate 20 11/04/2017 [facility] Temperature Oral (F) 98.6 F 11/04/2017 [facility] Systolic (mm Hg) 146 11/04/2017 [facility] Diastolic (mm Hg) 81 11/04/2017 [facility] Heart Rate 94 11/04/2017 [facility] Temperature Oral (F) 98.2 F 10/22/2017 [facility] Systolic (mm Hg) 110 10/22/2017 [facility] Diastolic (mm Hg) 57 10/22/2017 [facility] Heart Rate 91 10/22/2017 [facility] Respitory Rate 17 10/22/2017 [facility] Systolic (mm Hg) 167 10/22/2017 [facility] Diastolic (mm Hg) 98 10/22/2017 [facility] Respitory Rate 15 10/22/2017 [facility] Heart Rate 102 10/22/2017 [facility] Respitory Rate 18 10/22/2017 [facility] Systolic (mm Hg) 167 10/22/2017 [facility] Diastolic (mm Hg) 98 10/22/2017 [facility] Weight 89.091 10/22/2017 [facility] Height 167.64 cm 10/22/2017 [facility] BMI Calculated 31.7 10/22/2017 [facility] Heart Rate 103 10/22/2017 [facility] Temperature Oral (F) 98.6 F 10/22/2017 [facility] Systolic (mm Hg) 101 10/08/2017 [facility] Diastolic (mm Hg) 64 10/08/2017 [facility] Respitory Rate 16 10/08/2017 [facility] Heart Rate 80 10/08/2017 [facility] Temperature Oral (F) 98.1 F 10/08/2017 [facility] Systolic (mm Hg) 114 10/08/2017 [facility] Diastolic (mm Hg) 67 10/08/2017 [facility] Temperature Oral (F) 97.9 F 10/08/2017 [facility] Heart Rate 86 10/08/2017 [facility] Respitory Rate 16 10/08/2017 [facility] Heart Rate 90 10/08/2017 [facility] Respitory Rate 16 10/08/2017 [facility] Systolic (mm Hg) 118 10/08/2017 [facility] Diastolic (mm Hg) 69 10/08/2017 [facility] Temperature Oral (F) 98.5 F 10/08/2017 [facility] BMI Calculated 32.03 10/05/2017 [facility] Height 167.64 cm 10/05/2017 [facility] Weight 90.001 10/05/2017 [facility] Weight 109.091 10/05/2017 [facility] Respitory Rate 18 09/24/2017 [facility] Heart Rate 98 09/24/2017 [facility] Systolic (mm Hg) 158 09/24/2017 [facility] Diastolic (mm Hg) 84 09/24/2017 [facility] Temperature Oral (F) 98.3 F 09/24/2017 [facility] Weight 89.545 09/23/2017 [facility] BMI Calculated 31.86 09/23/2017 [facility] Height 167.64 cm 09/23/2017 [facility] Systolic (mm Hg) 73 09/23/2017 [facility] Diastolic (mm Hg) 73 09/23/2017 [facility] Heart Rate 104 09/23/2017 [facility] Respitory Rate 18 09/23/2017 [facility] Temperature Oral (F) 98.4 F 09/23/2017 [facility] Respitory Rate 16 09/07/2017 [facility] Systolic (mm Hg) 133 09/07/2017 [facility] Diastolic (mm Hg) 68 09/07/2017 [facility] Heart Rate 92 09/07/2017 [facility] Temperature Oral (F) 98.5 F 09/07/2017 [facility] Systolic (mm Hg) 120 09/07/2017 [facility] Diastolic (mm Hg) 64 09/07/2017 [facility] Heart Rate 92 09/07/2017 [facility] Respitory Rate 18 09/07/2017 [facility] Temperature Oral (F) 98.7 F 09/07/2017 [facility] Respitory Rate 16 09/07/2017 [facility] Systolic (mm Hg) 147 09/07/2017 [facility] Heart Rate 109 09/07/2017 [facility] Diastolic (mm Hg) 77 09/07/2017 [facility] Temperature Oral (F) 98.7 F 09/06/2017 [facility] Heart Rate 96 06/01/2017 [facility] Respitory Rate 18 06/01/2017 [facility] Systolic (mm Hg) 117 06/01/2017 [facility] Diastolic (mm Hg) 70 06/01/2017 [facility] Temperature Oral (F) 98.6 F 06/01/2017 [facility] Temperature Oral (F) 99.0 F 06/01/2017 [facility] Heart Rate 100 06/01/2017 [facility] Respitory Rate 14 06/01/2017 [facility] Systolic (mm Hg) 121 06/01/2017 [facility] Diastolic (mm Hg) 63 06/01/2017 [facility] Temperature Oral (F) 100.2 F 06/01/2017 [facility] Systolic (mm Hg) 141 06/01/2017 [facility] Diastolic (mm Hg) 83 06/01/2017 [facility] Respitory Rate 20 06/01/2017 [facility] Heart Rate 102 06/01/2017 [facility] Weight 89.545 05/31/2017 [facility] BMI Calculated 31.86 05/31/2017 [facility] Height 167.64 cm 05/31/2017 [facility] Weight 90.909 01/03/2017 [facility] Systolic (mm Hg) 130 01/03/2017 [facility] Diastolic (mm Hg) 77 01/03/2017 [facility] Temperature Oral (F) 98.6 F 01/03/2017 [facility] Respitory Rate 16 01/03/2017 [facility] Heart Rate 111 01/03/2017 [facility] BMI Calculated 32.35 01/03/2017 [facility] Height 167.64 cm 01/03/2017 [facility] Temperature Oral (F) 98.2 F 12/04/2016 [facility] Systolic (mm Hg) 111 12/04/2016 [facility] Diastolic (mm Hg) 84 12/04/2016 [facility] Respitory Rate 19 12/04/2016 [facility] Systolic (mm Hg) 104 12/04/2016 [facility] Diastolic (mm Hg) 86 12/04/2016 [facility] Respitory Rate 16 12/04/2016 [facility] Systolic (mm Hg) 131 12/04/2016 [facility] Diastolic (mm Hg) 84 12/04/2016 [facility] Respitory Rate 14 12/04/2016 [facility] Temperature Oral (F) 98.1 F 12/04/2016 [facility] Weight 85.909 12/04/2016 [facility] BMI Calculated 30.57 12/04/2016 [facility] Heart Rate 102 12/04/2016 [facility] Height 167.64 cm 12/04/2016 [facility] Temperature Oral (F) 98.7 F 12/04/2016 [facility] Temperature Oral (F) 98 F 11/23/2016 [facility] Systolic (mm Hg) 132 11/23/2016 [facility] Diastolic (mm Hg) 78 11/23/2016 [facility] Heart Rate 85 11/23/2016 [facility] Respitory Rate 16 11/23/2016 [facility] Systolic (mm Hg) 138 11/23/2016 [facility] Diastolic (mm Hg) 84 11/23/2016 [facility] Respitory Rate 16 11/23/2016 [facility] Temperature Oral (F) 98.7 F 11/23/2016 [facility] Heart Rate 78 11/23/2016 [facility] Systolic (mm Hg) 170 11/23/2016 [facility] Diastolic (mm Hg) 90 11/23/2016 [facility] Temperature Oral (F) 99 F 11/23/2016 [facility] Respitory Rate 16 11/23/2016 [facility] Heart Rate 86 11/23/2016 [facility] Height 167.64 cm 11/23/2016 [facility] BMI Calculated 30.25 11/23/2016 [facility] Weight 85 11/23/2016 [facility] Heart Rate 99 02/26/2016 [facility] Systolic (mm Hg) 136 02/26/2016 [facility] Diastolic (mm Hg) 77 02/26/2016 [facility] Respitory Rate 18 02/26/2016 [facility] Temperature Oral (F) 97.9 F 02/26/2016 [facility] Height 167.64 cm 02/25/2016 [facility] Weight 85.909 02/25/2016 [facility] BMI Calculated 30.57 02/25/2016 [facility] Systolic (mm Hg) 158 02/25/2016 [facility] Diastolic (mm Hg) 121 02/25/2016 [facility] Temperature Oral (F) 98.1 F 02/25/2016 [facility] Heart Rate 84 02/25/2016 [facility] Respitory Rate 18 02/25/2016 [facility] Heart Rate 94 09/27/2015 [facility] Respitory Rate 16 09/27/2015 [facility] Systolic (mm Hg) 128 09/27/2015 [facility] Diastolic (mm Hg) 77 09/27/2015 [facility] Temperature Oral (F) 98.5 F 09/27/2015 [facility] Temperature Oral (F) 98.4 F 09/27/2015 [facility] Systolic (mm Hg) 132 09/27/2015 [facility] Diastolic (mm Hg) 84 09/27/2015 [facility] Heart Rate 96 09/27/2015 [facility] Respitory Rate 16 09/27/2015 [facility] Height 167.64 cm 09/27/2015 [facility] Weight 85.455 09/27/2015 [facility] BMI Calculated 30.41 09/27/2015 [facility] Temperature Oral (F) 98 F 08/24/2015 [facility] Systolic (mm Hg) 135 08/24/2015 [facility] Diastolic (mm Hg) 81 08/24/2015 [facility] Heart Rate 81 08/24/2015 [facility] Respitory Rate 17 08/24/2015 [facility] Systolic (mm Hg) 155 08/24/2015 [facility] Diastolic (mm Hg) 100 08/24/2015 [facility] Respitory Rate 18 08/24/2015 [facility] Heart Rate 97 08/24/2015 [facility] Temperature Oral (F) 98.1 F 08/24/2015 [facility] Weight 85.909 08/23/2015 [facility] BMI Calculated 31.52 08/23/2015 [facility] Temperature Oral (F) 98.2 F 08/23/2015 [facility] Respitory Rate 17 08/23/2015 [facility] Systolic (mm Hg) 129 08/23/2015 [facility] Diastolic (mm Hg) 80 08/23/2015 [facility] Heart Rate 105 08/23/2015 [facility] Height 165.1 cm 08/23/2015 [facility] Temperature Oral (F) 98.6 F 09/28/2014 [facility] Respitory Rate 18 09/28/2014 [facility] Systolic (mm Hg) 138 09/28/2014 [facility] Diastolic (mm Hg) 80 09/28/2014 [facility] Heart Rate 87 09/28/2014 [facility] BMI Calculated 23.79 09/28/2014 [facility] Height 160.02 cm 09/28/2014 [facility] Weight 60.909 09/28/2014 [facility] Systolic (mm Hg) 152 09/28/2014 [facility] Diastolic (mm Hg) 72 09/28/2014 [facility] Temperature Oral (F) 98.6 F 09/28/2014 [facility] Respitory Rate 20 09/28/2014 [facility] Heart Rate 100 09/28/2014 [facility] Systolic (mm Hg) 157 09/17/2014 [facility] Diastolic (mm Hg) 101 09/17/2014 [facility] Temperature Oral (F) 98.9 F 09/17/2014 [facility] Heart Rate 94 09/17/2014 [facility] Respitory Rate 20 09/17/2014 [facility] Systolic (mm Hg) 157 09/16/2014 [facility] Temperature Oral (F) 99.2 F 09/16/2014 [facility] Diastolic (mm Hg) 90 09/16/2014 [facility] Heart Rate 93 09/16/2014 [facility] Respitory Rate 18 09/16/2014 [facility] Weight 78.636 09/16/2014 [facility] BMI Calculated 29.76 09/16/2014 [facility] Height 162.56 cm 09/16/2014 [facility] Systolic (mm Hg) 149 09/16/2014 [facility] Diastolic (mm Hg) 98 09/16/2014 [facility] Heart Rate 101 09/16/2014 [facility] Respitory Rate 20 09/16/2014 [facility] Temperature Oral (F) 99.2 F 09/16/2014 [facility] Respitory Rate 18 08/30/2014 [facility] Systolic (mm Hg) 134 08/30/2014 [facility] Diastolic (mm Hg) 88 08/30/2014 [facility] Temperature Oral (F) 98.6 F 08/30/2014 [facility] Heart Rate 88 08/30/2014 [facility] Height 160.02 cm 08/30/2014 [facility] BMI Calculated 32.84 08/30/2014 [facility] Weight 84.091 08/30/2014 [facility] Temperature Oral (F) 98.8 F 08/30/2014 [facility] Respitory Rate 20 08/30/2014 [facility] Heart Rate 95 08/30/2014 [facility] Systolic (mm Hg) 139 08/30/2014 [facility] Diastolic (mm Hg) 89 08/30/2014 [facility] Respitory Rate 18 04/14/2014 [facility] Systolic (mm Hg) 114 04/14/2014 [facility] Diastolic (mm Hg) 64 04/14/2014 [facility] Respitory Rate 18 04/14/2014 [facility] Heart Rate 97 04/14/2014 [facility] Temperature Oral (F) 98.8 F 04/14/2014 [facility] Temperature Oral (F) 99.1 F 04/14/2014 [facility] Systolic (mm Hg) 96 04/14/2014 [facility] Heart Rate 109 04/14/2014 [facility] Diastolic (mm Hg) 54 04/14/2014 [facility] Temperature Oral (F) 99.6 F 04/14/2014 [facility] Heart Rate 109 04/14/2014 [facility] Respitory Rate 18 04/14/2014 [facility] Systolic (mm Hg) 104 04/14/2014 [facility] Diastolic (mm Hg) 67 04/14/2014 [facility] Weight 83.182 04/10/2014 [facility] BMI Calculated 29.6 04/10/2014 [facility] Height 167.64 cm 04/10/2014 [facility] Height 172.72 cm 04/10/2014 [facility] BMI Calculated 35.81 04/10/2014 [facility] Weight 106.818 04/10/2014 [facility] Temperature Oral (F) 98.6 F 04/08/2014 [facility] Respitory Rate 18 04/08/2014 [facility] Diastolic (mm Hg) 77 04/08/2014 [facility] Systolic (mm Hg) 109 04/08/2014 [facility] Systolic (mm Hg) 126 04/08/2014 [facility] Diastolic (mm Hg) 81 04/08/2014 [facility] Respitory Rate 18 04/08/2014 [facility] Systolic (mm Hg) 141 04/08/2014 [facility] Diastolic (mm Hg) 80 04/08/2014 [facility] Temperature Oral (F) 98.7 F 04/08/2014 [facility] Respitory Rate 18 04/08/2014 [facility] Heart Rate 101 04/08/2014 [facility] Weight 86.364 04/08/2014 [facility] Temperature Oral (F) 98.1 F 02/18/2014 [facility] Systolic (mm Hg) 111 02/18/2014 [facility] Respitory Rate 17 02/18/2014 [facility] Diastolic (mm Hg) 74 02/18/2014 [facility] Heart Rate 81 02/18/2014 [facility] Respitory Rate 19 02/18/2014 [facility] Diastolic (mm Hg) 83 02/18/2014 [facility] Systolic (mm Hg) 135 02/18/2014 [facility] Temperature Oral (F) 98.3 F 02/18/2014 [facility] Heart Rate 98 02/18/2014 [facility] Weight 82.727 02/16/2014 [facility] BMI Calculated 29.44 02/16/2014 [facility] Height 167.64 cm 02/16/2014 [facility] Heart Rate 77 03/07/2013 [facility] Diastolic (mm Hg) 79 03/07/2013 [facility] Systolic (mm Hg) 139 03/07/2013 [facility] Respitory Rate 20 03/07/2013 [facility] Respitory Rate 18 03/06/2013 [facility] Temperature Oral (F) 98.9 F 03/06/2013 [facility] Height 170.18 cm 03/06/2013 [facility] Heart Rate 68 03/06/2013 [facility] Diastolic (mm Hg) 83 03/06/2013 [facility] Weight 76.364 03/06/2013 [facility] Systolic (mm Hg) 136 03/06/2013 [facility] Weight 73.636 11/21/2011 [facility] Height 165.10 cm 11/21/2011 [facility] Respitory Rate 18 06/17/2011 [facility] Temperature Oral (F) 98.4 F 06/17/2011 [facility] Diastolic (mm Hg) 93 06/17/2011 [facility] Systolic (mm Hg) 137 06/17/2011 [facility] Heart Rate 96 06/17/2011 [facility] Weight 73.636 06/17/2011 [facility] Height 170.18 cm 06/17/2011 [facility] Respitory Rate 18 06/15/2011 [facility] Systolic (mm Hg) 156 06/15/2011 [facility] Heart Rate 70 06/15/2011 [facility] Temperature Oral (F) 98.3 F 06/15/2011 [facility] Diastolic (mm Hg) 54 06/15/2011 [facility] Height 167.64 cm 06/14/2011 [facility] Weight 73.636 06/14/2011 [facility] Diastolic (mm Hg) 89 06/14/2011 [facility] Systolic (mm Hg) 155 06/14/2011 [facility] Temperature Oral (F) 99.0 F 06/14/2011 [facility] Respitory Rate 80 06/14/2011 [facility] Heart Rate 90 06/14/2011 [facility] Encounters Location Location Details Encounter Type Encounter Number Reason For Visit Attending Provider ADM Date DC Date Status Source [facility] Emergency [id number] BACK PAIN TADEO CARLA 06/14/2011 06/14/2011 Active [facility] Emergency [id number] SARA ACOSTA 06/17/2011 06/17/2011 Active [facility] Outpatient [id number] 722.52 TISH RIVERA 07/03/2011 Active [facility] Emergency [id number] FOOT PAIN ASEScot SOUMAN 11/20/2011 11/21/2011 Active [facility] Outpatient [id number] 724.4 COMPRESSION OF LUMBAR NERVE ROOT / LEG PAIN MITCHEL DAVISH 10/31/2012 Active [facility] Emergency [id number] TITI BART 03/06/2013 03/06/2013 Active [facility] Outpatient [id number] 724.4 BASEM MARYANNEID 05/28/2013 Active [facility] Inpatient [id number] Hugo Denny 02/16/2014 02/18/2014 [facility] [id number] Jermain Harris 03/24/2014 03/25/2014 [facility] [id number] Feroz Gutierrez 04/08/2014 04/08/2014 [facility] Inpatient [id number] Cody Luque 04/09/2014 04/14/2014 [facility] [place] [facility] Patients [id number] Mitchel Davish 06/10/2014 07/10/2014 [facility] [id number] Nadim Yazdanism 08/30/2014 08/30/2014 [facility] [id number] Suki Nirmal 09/16/2014 09/16/2014 [facility] Outpatient [id number] Basem Hamid 09/16/2014 09/17/2014 [facility] [id number] Ferozbeny StoutGutierrez 09/17/2014 09/17/2014 [facility] [id number] Cat Duval 09/28/2014 09/28/2014 [facility] [id number] Nadim Yazdanism 08/23/2015 08/24/2015 [facility] [id number] Kerriakash Galindo 09/27/2015 09/27/2015 [facility] Emergency [id number] Javierchet Servinepalov 02/25/2016 02/26/2016 [facility] Emergency [id number] Cat Duval 11/23/2016 11/23/2016 [facility] Emergency [id number] Tadeo Anant 12/04/2016 12/04/2016 [facility] Emergency [id number] Xavier Perales 01/03/2017 01/03/2017 [facility] Emergency [id number] Patricia Tomas 05/31/2017 06/01/2017 [facility] Emergency [id number] Brando Joe 09/06/2017 09/07/2017 [facility] Emergency [id number] Martina Taylor 09/23/2017 09/24/2017 [facility] Inpatient [id number] Ca Piña 10/05/2017 10/08/2017 [facility] Emergency [id number] Cat Duval 10/22/2017 10/22/2017 [facility] Emergency [id number] Mauri Frostsoff 11/04/2017 11/04/2017 [facility] [place] Phone Message [id number] 11/19/2017 11/21/2017 [facility] Phone Message [id number] 11/21/2017 11/23/2017 [facility] [id number] [facility] 11/26/2017 Active [facility] Outpatient [id number] [facility] 11/26/2017 11/27/2017 [facility] Emergency [id number] Tadeo Ny 11/30/2017 11/30/2017 [facility] Emergency [id number] Tadeo Anant 12/29/2017 12/29/2017 [facility] Outpatient [id number] [facility] 01/07/2018 [facility] [id number] [facility] 01[facility]14/2018 [facility] [id number] [facility] 02[facility]14/2018 Active [facility] Outpatient [id number] [facility] 04/08/2018 Active [facility] Outpatient [id number] [facility] 07[facility]03/2018 Active [facility] Procedures Procedure Code Date Perfomer Comments [facility] Laminectomy [id number] 10/06/2016 [facility] Laminectomy [id number] 10/06/2016 [facility] Emergency department visit for the evaluation and management of a patient, which requires these 3 beck components: An expanded problem focused history; An expanded problem focused examination; and Medical decision making of moderate complexity. Counseling [id number] 03/06/2013 [facility] section [id number] [facility] section [id number] [facility]
--- OUTSIDE RECORDS SUMMARY | 2018-06-12 21:23 | XMS REPORT | CCD ---
Author Author Auto Generated Organization [facility] Address Unknown Phone Unavailable Care Team Providers Care Screen Machine Operator Name Role Phone Juancho Escobar RP Allergies, Adverse Reactions, Alerts Substance Reaction Status NKDA Active Problem List Condition Effective Dates Status Gallbladder stones Active
--- OUTSIDE RECORDS SUMMARY | 2018-06-12 21:23 | XMS REPORT | CCD ---
Author Author Auto Generated Organization [facility] Address Unknown Phone Unavailable Care Team Providers Care Sfdc Architect Name Role Phone Mat Johnson CP Allergies, Adverse Reactions, Alerts Substance Reaction Status NKDA Active Problem List Condition Effective Dates Status Gallbladder stones Active Vital Signs Most recent to oldest [Reference Range]: 1 Height 170.18 cm (06/17/2011 17:25:00) Temperature Oral [96.4-99.1 DegF] 98.4 DegF (06/17/2011 17:25:00) Systolic Blood Pressure [90-140 mmHg] 137 mmHg (06/17/2011 17:25:00) Diastolic Blood Pressure [60-90 mmHg] 93 mmHg *HI* (06/17/2011 17:25:00) Respiratory Rate [14-20 BRMIN] 18 BRMIN (06/17/2011 17:25:00) Peripheral Pulse Rate [60-100 bpm] 96 bpm (06/17/2011 17:25:00) Weight 73.636 kg (06/17/2011 17:25:00)
--- OUTSIDE RECORDS SUMMARY | 2018-06-12 21:24 | XMS REPORT | Summary of Care ---
Author Author [facility] Organization [facility] Address Unknown Phone Unavailable Encounter ADRIANNE Amador(TELLY) [id number] Date(s): 08/23/15 - 08/24/15 [facility] [id number] [place] [address]- Discharge Diagnosis: Paresthesia Discharge Disposition: Home Attending Physician: Darvin Acharya MD Vital Signs 1 2 3 Most recent to oldest [Reference Range]: 165.1 cm (08/23/15 3:55 PM) Height 98 DegF (08/24/15 12:02 AM) 98.1 DegF (08/23/15 9:56 PM) 98.2 DegF (08/23/15 3:55 PM) Temperature Oral [96.4-99.1 DegF] 135/81 mmHg (08/24/15 12:02 AM) 129/80 mmHg (08/23/15 3:55 PM) Blood Pressure [90-140/60-90 mmHg] 155 mmHg *HI* (08/23/15 9:56 PM) Systolic Blood Pressure [90-140 mmHg] 100 mmHg *HI* (08/23/15 9:56 PM) Diastolic Blood Pressure [60-90 mmHg] 17 BRMIN (08/24/15 12:02 AM) 18 BRMIN (08/23/15 9:56 PM) 17 BRMIN (08/23/15 3:55 PM) Respiratory Rate [14-20 BRMIN] 81 bpm (08/24/15 12:02 AM) 97 bpm (08/23/15 9:56 PM) 105 bpm *HI* (08/23/15 3:55 PM) Peripheral Pulse Rate [60-100 bpm] 85.909 kg (08/23/15 3:55 PM) Weight 31.52 m2 (08/23/15 3:55 PM) Body Mass Index Problem List Condition Effective Dates Status Health Status Informant Active Active smoker(Confirmed) Back pain(Confirmed) Active Gallbladder Active stones(Confirmed) Gallstone1 11/21/10 Active Hypertension(Confirm Active ed) Sciatica Active neuralgia(Confirmed) 1Data migrated from [facility] on 10/18/14. Allergies, Adverse Reactions, Alerts Substance Reaction Severity Status NKDA Active Medications Saline Flush 0.9% 10 mL, Route: IVP, Drug Form: INJ, Dosing Weight 85.909, kg, PRN, PRN Line Flush , Start date: 08/23/15 16:04:00, Duration: 30 day, Stop date: 09/22/15 16:03:00 Notes: (Same as: BD Posiflush) Start Date: 08/23/15 Stop Date: 08/24/15 Status: Discontinued Sodium Chloride 0.9% (Bolus) IV 1,000 mL, 1,000 ml/hr, Infuse Over: 1 hr, Route: IV, 1,000, Drug form: INJ, ONCE , Priority: STAT, Dosing Weight 85.909 kg, Start date: 08/23/15 22:00:00, Durati on: 1 doses or times, Stop date: 08/23/15 22:00:00 Start Date: 08/23/15 Stop Date: 08/23/15 Status: Completed Results ELECTROLYTES Most recent to 1 oldest [Reference Range]: Sodium Lvl [135-145 136 mEq/L mEq/L] (08/23/15 4:10 PM) Potassium Lvl 3.5 mEq/L [3.5-5.1 mEq/L] (08/23/15 4:10 PM) Chloride Lvl [95-109 102 mEq/L mEq/L] (08/23/15 4:10 PM) CO2 [24-32 mEq/L] 28 mEq/L (08/23/15 4:10 PM) AGAP [10.0-20.0 9.5 mEq/L mEq/L] *LOW* (08/23/15 4:10 PM) CHEM PANEL Most recent to 1 oldest [Reference Range]: Creatinine Lvl 0.74 mg/dL [0.50-1.40 mg/dL] (08/23/15 4:10 PM) eGFR 105 mL/min/1.73m2 1 *NA* (08/23/15 4:10 PM) BUN [7-22 mg/dL] 13 mg/dL (08/23/15 4:10 PM) B/C Ratio [6-25] 18 (08/23/15 4:10 PM) Glucose Lvl [70-99 125 mg/dL mg/dL] *HI* (08/23/15 4:10 PM) Total Protein 9.1 g/dL [6.4-8.4 g/dL] *HI* (08/23/15 4:10 PM) Albumin Lvl [3.5-5.0 4.0 g/dL g/dL] (08/23/15 4:10 PM) Globulin [2.0-4.0 5.1 g/dL g/dL] *HI* (08/23/15 4:10 PM) A/G Ratio [0.7-1.6] 0.8 (08/23/15 4:10 PM) Calcium Lvl 8.6 mg/dL [8.5-10.5 mg/dL] (08/23/15 4:10 PM) Magnesium Lvl 2.4 mg/dL [1.8-2.4 mg/dL] (08/23/15 4:10 PM) ALT [0-65 unit/L] 39 unit/L (08/23/15 4:10 PM) AST [0-37 unit/L] 25 unit/L (08/23/15 4:10 PM) Alk Phos [39-136 92 unit/L unit/L] (08/23/15 4:10 PM) Bili Total [0.2-1.3 0.5 mg/dL mg/dL] (08/23/15 4:10 PM) 1Result Comment: The eGFR is calculated using [...] from the National Kidney Disease Education Program ( NKDEP) which additionally recommends that when the eGFR is used in patients with extremes of body mass index for purposes of drug dosing, the eGFR should be mul tiplied by the estimated BMI. CARDIAC ENZYMES Most recent to 1 oldest [Reference Range]: Total CK [12-191 250 unit/L unit/L] *HI* (08/23/15 4:10 PM) CK MB [0.5-3.6 2.2 ng/mL ng/mL] (08/23/15 4:10 PM) CK MB Index 0.9 [0.0-2.5] (08/23/15 4:10 PM) Troponin-I <0.02 ng/mL [0.00-0.40 ng/mL] (08/23/15 4:10 PM) BNP [<=100 pg/mL] 4 pg/mL (08/23/15 4:10 PM) URINE AND STOOL Most recent to 1 oldest [Reference Range]: UA Turbidity [Clear] Clear (08/23/15 4:10 PM) UA Color [Yellow] Yellow *NA* (08/23/15 4:10 PM) UA pH [5.0-8.0] 5.0 (08/23/15 4:10 PM) UA Spec Grav 1.015 [<=1.030] (08/23/15 4:10 PM) UA Glucose [Negative Negative mg/dL mg/dL] *NA* (08/23/15 4:10 PM) UA Blood [Negative] Negative (08/23/15 4:10 PM) UA Ketones [Negative Negative mg/dL mg/dL] *NA* (08/23/15 4:10 PM) UA Protein [Negative Negative mg/dL mg/dL] (08/23/15 4:10 PM) UA Urobilinogen <=1.0 mg/dL [0.1-1.0 mg/dL] *NA* (08/23/15 4:10 PM) UA Bili [Negative] Negative *NA* (08/23/15 4:10 PM) UA Leuk Est Negative [Negative] (08/23/15 4:10 PM) UA Nitrite Negative [Negative] (08/23/15 4:10 PM) UA WBC [0-5 /HPF] <1 /HPF (08/23/15 4:10 PM) UA RBC [0-2 /HPF] 1 /HPF (08/23/15 4:10 PM) UA Sq Epi [Few /LPF] Occasional /LPF *NA* (08/23/15 4:10 PM) HEMATOLOGY Most recent to 1 oldest [Reference Range]: WBC [3.7-10.4 K/CMM] 8.3 K/CMM (08/23/15 4:10 PM) RBC [4.20-5.40 4.83 M/CMM M/CMM] (08/23/15 4:10 PM) Hgb [12.0-16.0 g/dL] 13.9 g/dL (08/23/15 4:10 PM) Hct [36.0-48.0 %] 41.4 % (08/23/15 4:10 PM) MCV [80.0-98.0 fL] 85.8 fL (08/23/15 4:10 PM) MCH [27.0-31.0 pg] 28.8 pg (08/23/15 4:10 PM) MCHC [32.0-36.0 33.5 g/dL g/dL] (08/23/15 4:10 PM) RDW [11.5-14.5 %] 14.2 % (08/23/15 4:10 PM) Platelet [133-450 343 K/CMM K/CMM] (08/23/15 4:10 PM) MPV [7.4-10.4 fL] 8.5 fL (08/23/15 4:10 PM) Segs [45.0-75.0 %] 59.3 % (08/23/15 4:10 PM) Lymphocytes 31.3 % [20.0-40.0 %] (08/23/15 4:10 PM) Monocytes [2.0-12.0 8.4 % %] (08/23/15 4:10 PM) Eosinophils [0.0-4.0 0.5 % %] (08/23/15 4:10 PM) Basophils [0.0-1.0 0.5 % %] (08/23/15 4:10 PM) Segs-Bands # 4.9 K/CMM [1.5-8.1 K/CMM] (08/23/15 4:10 PM) Lymphocytes # 2.6 K/CMM [1.0-5.5 K/CMM] (08/23/15 4:10 PM) Monocytes # [0.0-0.8 0.7 K/CMM K/CMM] (08/23/15 4:10 PM) PT [12.0-14.7 13.9 seconds seconds] (08/23/15 4:10 PM) INR [0.85-1.17] 1.04 (08/23/15 4:10 PM) PTT [22.9-35.8 37.7 seconds seconds] *HI* (08/23/15 4:10 PM) Immunizations Vaccine Date Refusal Reason influenza virus vaccine, inactivated 04/11/14 Parent Or Guardian Refuses Procedures Procedure Date Related Diagnosis Body Site section Social History Social History Type Response Substance Abuse Use: None. Alcohol Past, Type Wine. Frequency: 1-2 times per week. Previous treatment: None. Drinks more than intended: No. Others hurt by drinking: No. Ready to change: No. Household alcohol concerns: No.1 Smoking Status Current every day smoker; Type: Cigarettes; Tobacco use per day: 4; Number of years: 20; Previous treatment: None; Ready to change: No; Concerns about tobacco use in household: No; Exposure to Tobacco Smoke patient smokes; Cigarette Smoking Last 365 Days Yes; Reg Smoking Cessation Counseling Yes 1drinks occasionaly Assessment and Plan No data available for this section
--- OUTSIDE RECORDS SUMMARY | 2018-06-12 21:24 | XMS REPORT | CCD ---
Author Author Auto Generated Organization [facility] Address Unknown Phone Unavailable Care Team Providers Care Instructional Leader Name Role Phone Jalil Hinojosa CP Allergies, Adverse Reactions, Alerts Substance Reaction Status NKDA Active Problem List Condition Effective Dates Status Gallbladder stones Active Medications Medication Instructions Start Date End Date Status Vicodin ES 7.5/750 1 tab, PO, Q4-6H, PRN, 15 tab, for 06/14/2011 06/18/2011 Ordered oral tablet Pain, Substitution Allowed, Maintenance Flexeril 10 mg oral 10 mg, 1 tab, PO, TID, PRN, 30 tab, 06/14/2011 Ordered tablet for spasm, Substitution Allowed, TAB ondansetron 4 mg, Route: IM, Drug form: INJ, 06/14/2011 06/14/2011 Completed ONCE, Priority: STAT, Start date: 06/14/11 16:11:00, Stop date: 06/14/11 16:11:00 morphine Sulfate 10 mg, Route: IM, ONCE, Priority: 06/14/2011 06/14/2011 Completed STAT, Start date: 06/14/11 16:11:00, Stop date: 06/14/11 16:11:00 Vital Signs Most recent to oldest [Reference Range]: 1 2 Height 167.64 cm (06/14/2011 15:54:00) Temperature Oral [96.4-99.1 DegF] 98.3 DegF (06/14/2011 18:19:00) 99.0 DegF (06/14/2011 15:54:00) Systolic Blood Pressure [90-140 mmHg] 156 mmHg *HI* (06/14/2011 18:19:00) 155 mmHg *HI* (06/14/2011 15:54:00) Diastolic Blood Pressure [60-90 mmHg] 54 mmHg *LOW* (06/14/2011 18:19:00) 89 mmHg (06/14/2011 15:54:00) Respiratory Rate [14-20 BRMIN] 18 BRMIN (06/14/2011 18:19:00) 80 BRMIN *HI* (06/14/2011 15:54:00) Peripheral Pulse Rate [60-100 bpm] 70 bpm (06/14/2011 18:19:00) 90 bpm (06/14/2011 15:54:00) Weight 73.636 kg (06/14/2011 15:54:00)
--- OUTSIDE RECORDS SUMMARY | 2018-06-12 21:24 | XMS REPORT | CCD ---
Author Author Auto Generated Organization [facility] Address Unknown Phone Unavailable Care Team Providers Care Bowstring Maker Name Role Phone Sergey Lopez CP Allergies, Adverse Reactions, Alerts Substance Reaction Status NKDA Active Problem List Condition Effective Dates Status Back pain Resolved Gallbladder stones Active Medications Medication Instructions Start Date End Date Status Protonix 40 mg oral 40 mg, 1 tab, PO, Daily, 30 tab, 03/06/2013 Ordered enteric coated Substitution Allowed, ECTAB tablet Zofran ODT 4 mg oral 4 mg, 1 tab, PO, BID, PRN, Dissolve 03/06/2013 Ordered tablet, tab under tongue, 10 tab, Nausea disintegrating and Vomiting, Substitution Allowed Dissolve tab under tongue Vital Signs Most recent to oldest [Reference Range]: 1 2 Height 170.18 cm (03/06/2013 18:08:00) Temperature Oral [96.4-99.1 DegF] 98.9 DegF (03/06/2013 18:08:00) Systolic Blood Pressure [90-140 mmHg] 139 mmHg (03/06/2013 23:20:00) 136 mmHg (03/06/2013 18:08:00) Diastolic Blood Pressure [60-90 mmHg] 79 mmHg (03/06/2013 23:20:00) 83 mmHg (03/06/2013 18:08:00) Respiratory Rate [14-20 BRMIN] 20 BRMIN (03/06/2013 23:20:00) 18 BRMIN (03/06/2013 18:08:00) Peripheral Pulse Rate [60-100 bpm] 77 bpm (03/06/2013 23:20:00) 68 bpm (03/06/2013 18:08:00) Weight 76.364 kg (03/06/2013 18:08:00) Procedures Procedures Date Related Diagnosis Emergency department visit for the evaluation and management 03/06/2013 00:00:00 of a patient, which requires these 3 beck components: An expanded problem focused history; An expanded problem focused examination; and Medical decision making of moderate complexity. Counseling
--- OUTSIDE RECORDS SUMMARY | 2018-06-12 21:24 | XMS REPORT | Summary of Care ---
Author Organization Unknown Address Unknown Phone Unavailable Encounter ADRIANNE Amador(TELLY) [id number] Date(s): 04/09/14 - 04/14/[address] [facility] [id number] [place] [address] - [facility] Discharge Disposition: Home Physician Attending: Cody Luque DO Physician Admitting: Cody Luque DO Reason for Visit LEFT LOWER EXTREMITY ARTERIAL INSUFFICIENCY Vital Signs 1 2 3 Most recent to oldest [Reference Range]: 167.64 cm (04/10/14 6:17 AM) 172.72 cm (04/10/14 5:19 AM) Height 98.8 DegF (04/14/14 11:52 AM) 99.1 DegF (04/14/14 7:53 AM) 99.6 DegF *HI* (04/14/14 3:46 AM) Temperature Oral [96.4-99.1 DegF] 114 mmHg (04/14/14 11:52 AM) 96 mmHg (04/14/14 7:53 AM) 104 mmHg (04/14/14 3:46 AM) Systolic Blood Pressure [90-140 mmHg] 64 mmHg (04/14/14 11:52 AM) 54 mmHg *LOW* (04/14/14 7:53 AM) 67 mmHg (04/14/14 3:46 AM) Diastolic Blood Pressure [60-90 mmHg] 18 BRMIN (04/14/14 2:42 PM) 18 BRMIN (04/14/14 11:52 AM) 18 BRMIN (04/14/14 3:46 AM) Respiratory Rate [14-20 BRMIN] 97 bpm (04/14/14 11:52 AM) 109 bpm *HI* (04/14/14 7:53 AM) 109 bpm *HI* (04/14/14 3:46 AM) Peripheral Pulse Rate [60-100 bpm] 83.182 kg (04/10/14 6:17 AM) 106.818 kg (04/10/14 5:19 AM) Weight 29.6 m2 (04/10/14 6:17 AM) 35.81 m2 (04/10/14 5:19 AM) Body Mass Index Problem List Condition Effective Dates Status Health Status Informant Active Active smoker(Confirmed) Back pain(Confirmed) Active Gallbladder Active stones(Confirmed) Hypertension(Confirm Active ed) Sciatica Active neuralgia(Confirmed) Allergies, Adverse Reactions, Alerts Substance Reaction Severity Status NKDA Active Medications acetaminophen-hydrocodone 325 mg-5 mg oral tablet 1 tab, Route: PO, Drug Form: TAB, Dosing Weight 83.182, kg, Q4H, PRN Pain Score 4-6, Start date: 04/12/14 12:18:00, Stop date: 05/12/14 12:17:00 Notes: (Same as: Trevorton 325/5) Do not exceed 4gm/day of acetaminophen. Start Date: 04/12/14 Stop Date: 04/14/14 Status: Discontinued acetaminophen-hydrocodone 325 mg-5 mg oral tablet 1 tab, Route: PO, Drug Form: TAB, Dosing Weight 83.182, kg, Q4H, PRN Pain, Start date: 04/12/14 12:18:00, Duration: 30 day, Stop date: 05/12/14 12:17:00 Notes: (Same as: Trevorton 325/5) Do not exceed 4gm/day of acetaminophen. Start Date: 04/12/14 Stop Date: 04/12/14 Status: Deleted Ancef 2 gm, 100 mL, Route: IVPB, Drug form: INJ, ONCE, Dosing Weight 83.182, kg, Start date: 04/12/14 8:14:00, Stop date: 04/12/14 8:14:00 Notes: Same as: Ancef Start Date: 04/12/14 Stop Date: 04/12/14 Status: Completed ceFAZolin (SCIP) 1 gm, 100 mL, Route: IVPB, Drug form: INJ, Q8H, Dosing Weight 83.182, kg, Start date: 04/12/14 16:00:00, Duration: 3 doses or times, Stop date: 04/13/14 8:00:00 Start Date: 04/12/14 Stop Date: 04/13/14 Status: Completed Colace 100 mg oral capsule 100 mg, 1 cap, Route: PO, Drug form: CAP, BID, Dosing Weight 83.182, kg, Start d ate: 04/12/14 17:00:00, Duration: 30 day, Stop date: 05/12/14 9:00:00 Notes: (Same as: Colace) (Do Not Crush) Start Date: 04/12/14 Stop Date: 04/14/14 Status: Discontinued Colace 100 mg oral capsule 100 mg=1 cap, PO, BID, 0 Refill(s) Start Date: 04/14/14 Status: Ordered cyclobenzaprine 10 mg, 1 tab, Route: PO, Drug form: TAB, TID, Dosing Weight 83.182, kg, PRN as n eeded for muscle spasm, Start date: 04/10/14 10:10:00, Stop date: 05/10/14 10:09 :00 Notes: (Same As: Flexeril) Start Date: 04/10/14 Stop Date: 04/14/14 Status: Discontinued cyclobenzaprine 10 mg oral tablet 10 mg=1 tab, PO, TID, for spasm, # 30 tab, 0 Refill(s) Start Date: 04/10/14 Stop Date: 04/14/14 Status: Discontinued D5W 1/2NS + KCL 20mEq/L 1000ml (Premix) 1,000 mL 1,000 mL, Rate: 125 ml/hr, Infuse over: 8 hr, Route: IV, Dosing Weight 86.364 kg , Total Volume: 1,000, Start date: 04/10/14 5:18:00, Duration: 30 day, Stop date : 05/10/14 5:17:00 Notes: PREMIX IV - Do Not Alter Start Date: 04/10/14 Stop Date: 04/12/14 Status: Discontinued Dilaudid 1 mg, Route: IV, Q3H, Dosing Weight 83.182, kg, PRN Pain, Start date: 04/12/14 1 2:18:00, Duration: 30 day, Stop date: 05/12/14 12:17:00 Start Date: 04/12/14 Stop Date: 04/12/14 Status: Discontinued Dilaudid 1 mg, 1 mL, Route: IV, Drug form: INJ, Q3H, Dosing Weight 83.182, kg, PRN Pain S core 7-10, Start date: 04/12/14 12:18:00, Stop date: 05/12/14 12:17:00 Start Date: 04/12/14 Stop Date: 04/14/14 Status: Discontinued Dilaudid 0.5 mg, 0.5 mL, Route: IV, Drug form: INJ, Q4H, Dosing Weight 83.182, kg, PRN Pa in Score 6-10, Start date: 04/10/14 10:12:00, Duration: 30 day, Stop date: 05/10 10:11:00 Start Date: 04/10/14 Stop Date: 04/12/14 Status: Discontinued enoxaparin 40 mg, 0.4 mL, Route: SUB-Q, Drug form: INJ, [id number], Dosing Weight 83.182, kg, Start date: 04/10/14 11:00:00, Duration: 30 day, Stop date: 05/09/14 11:00:00 Notes: (Same as: Lovenox) Start Date: 04/10/14 Stop Date: 04/12/14 Status: Discontinued Heparin - one time bolus for DVT/PE 6,800 unit, Route: IV, Drug form: INJ, ONCE, Dosing Weight 86.364, kg, Priority: STAT, Start date: 04/10/14 4:32:00, Stop date: 04/10/14 4:32:00 Start Date: 04/10/14 Stop Date: 04/10/14 Status: Discontinued Heparin 40 unit/kg Bolus (Heparin Dosing Weight) Pharmacy To Manage, Route: IVP, PRN, Drug form: INJ, PRN, Heparin Protocol, Star t date: 04/10/14 4:32:00 Stop date: 05/10/14 4:31:00, 30 day Start Date: 04/10/14 Stop Date: 04/10/14 Status: Discontinued heparin 5000 units/mL injectable solution 5,000 unit, 1 mL, Route: SUB-Q, Drug form: INJ, Q12H, Dosing Weight 83.182, kg, Start date: 04/13/14 8:00:00, Duration: 30 day, Stop date: 05/12/14 21:00:00 Notes: porcine heparin Start Date: 04/13/14 Stop Date: 04/14/14 Status: Discontinued Heparin 80 unit/kg Bolus (Heparin Dosing Weight) Pharmacy To Manage, Route: IVP, PRN, Drug form: INJ, PRN, Heparin Protocol, Star t date: 04/10/14 4:32:00 Stop date: 05/10/14 4:31:00, 30 day Start Date: 04/10/14 Stop Date: 04/10/14 Status: Discontinued heparin additive 25,000 unit [18 unit/kg/hr] + Premix Diluent Dextrose 5% 500 mL 500 mL, Rate: 31.09 ml/hr, Infuse over: 16.1 hr, Route: IV, Dosing Weight 86.364 kg, Total Volume: 500 mL, Start date: 04/10/14 4:32:00, Duration: 30 day, Stop date: 05/10/14 4:31:00 Start Date: 04/10/14 Stop Date: 04/10/14 Status: Discontinued hydrochlorothiazide 25 mg oral tablet 12.5 mg, 0.5 tab, Route: PO, Drug form: TAB, Daily, Start date: 04/11/14 9:00:00 , Duration: 30 day, Stop date: 05/10/14 9:00:00 Notes: (Same as: Hydrodiuril) With food. Start Date: 04/11/14 Stop Date: 04/14/14 Status: Discontinued hydrochlorothiazide-lisinopril 12.5 mg-10 mg oral tablet 1 tab, PO, Daily, # 30 tab, 0 Refill(s) Start Date: 04/10/14 Stop Date: 04/14/14 Status: Discontinued hydrochlorothiazide-lisinopril 12.5 mg-10 mg oral tablet 1 tab, Route: PO, Drug Form: TAB, Dosing Weight 83.182, kg, Daily, Start date: 06/11/13 9:00:00, Duration: 30 day, Stop date: 05/10/14 9:00:00 Start Date: 04/11/14 Stop Date: 04/10/14 Status: Discontinued influenza virus vaccine, inactivated 0.5 mL, Route: IM, Drug Form: SUSP, Daily, Start date: 04/10/14 9:00:00, Yajiaratio n: 1 doses or times, Stop date: 04/10/14 9:00:00 Notes: (Same as: Fluzone Quadrivalent) Start Date: 04/10/14 Stop Date: 04/10/14 Status: Completed Lactated Ringers IV 1,000 mL 1,000 mL, Rate: 25 ml/hr, Infuse over: 40 hr, Route: IV, Dosing Weight 83.182 kg , Total Volume: 1,000, Start date: 04/12/14 7:32:00, Duration: 30 day, Stop date : 05/12/14 7:31:00 Start Date: 04/12/14 Stop Date: 04/14/14 Status: Discontinued magnesium citrate 300 ml, Route: PO, Drug Form: LIQ, Dosing Weight 83.182, kg, ONCE, PRN Constipat ion, Start date: 04/12/14 12:18:00 Notes: (Same as: Citrate of Magnesia) Start Date: 04/12/14 Stop Date: 04/14/14 Status: Discontinued methadone 5 mg, 5 mL, Route: PO, Drug form: SOLN, Q8H, Dosing Weight 83.182, kg, Start adam e: 04/10/14 16:00:00, Duration: 30 day, Stop date: 05/10/14 8:00:00 Notes: (Same as: Dolophine) Start Date: 04/10/14 Stop Date: 04/14/14 Status: Discontinued methadone 5 mg oral tablet 5 mg=1 tab, PO, Q6H, Pain, 0 Refill(s) Start Date: 04/10/14 Stop Date: 04/14/14 Status: Discontinued morphine Sulfate 4 mg, Route: IVP, Drug form: INJ, ONCE, Dosing Weight 86.364, kg, Priority: STAT , Start date: 04/09/14 22:00:00, Stop date: 04/09/14 22:00:00 Start Date: 04/09/14 Stop Date: 04/09/14 Status: Completed morphine Sulfate 4 mg, Route: IVP, ONCE, Dosing Weight 106.818, kg, Start date: 04/10/14 5:24:00, Stop date: 04/10/14 5:24:00 Start Date: 04/10/14 Stop Date: 04/10/14 Status: Completed Neurontin 600 mg oral tablet 600 mg=1 tab, PO, TID, # 90 tab, 0 Refill(s) Start Date: 04/10/14 Status: Ordered Neurontin 600 mg oral tablet 600 mg, 2 cap, Route: PO, Drug form: CAP, TID, Dosing Weight 83.182, kg, Start d ate: 04/10/14 13:00:00, Duration: 30 day, Stop date: 05/10/14 9:00:00 Notes: (Same as: Neurontin) Start Date: 04/10/14 Stop Date: 04/14/14 Status: Discontinued Trevorton 10/325 oral tablet 1 tab, PO, Q4H, for pain, # 24 tab, 0 Refill(s) Start Date: 04/10/14 Stop Date: 04/14/14 Status: Discontinued Trevorton 10/325 oral tablet 1 tab, Route: PO, Drug Form: TAB, Dosing Weight 83.182, kg, Q4H, PRN Pain Score 7-10, Start date: 04/10/14 10:10:00, Stop date: 05/10/14 10:09:00 Notes: Do not exceed 4gm/day of acetaminophen. (Same as: Trevorton 325/10) Start Date: 04/10/14 Stop Date: 04/14/14 Status: Discontinued ondansetron 4 mg, 2 mL, Route: IVP, Drug form: INJ, Q8H, Dosing Weight 86.364, kg, PRN Nause a & Vomiting, Start date: 04/10/14 5:18:00, Duration: 30 day, Stop date: 05/10/14 5:17:00 Notes: (Same as: Zofran) Start Date: 04/10/14 Stop Date: 04/12/14 Status: Voided With Results Pepcid 20 mg oral tablet 20 mg, 1 tab, Route: PO, Drug form: TAB, Q12H, Dosing Weight 83.182, kg, Start d ate: 04/12/14 21:00:00, Duration: 30 day, Stop date: 05/12/14 9:00:00 Notes: (Same as: Pepcid) Start Date: 04/12/14 Stop Date: 04/14/14 Status: Discontinued Prinivil 10 mg, 1 tab, Route: PO, Drug form: TAB, Daily, Start date: 04/11/14 9:00:00, Du ration: 30 day, Stop date: 05/10/14 9:00:00 Notes: (Same as: Yaniv Isaacs) Start Date: 04/11/14 Stop Date: 04/14/14 Status: Discontinued Saline Flush 0.9% 10 ml, Route: IVP, Drug Form: INJ, Dosing Weight 86.364, kg, PRN, PRN Line Flush , Start date: 04/10/14 5:18:00, Duration: 30 day, Stop date: 05/10/14 5:17:00 Notes: (Same as: BD Posiflush) Start Date: 04/10/14 Stop Date: 04/14/14 Status: Discontinued senna 8.6 mg oral tablet 17.2 mg=2 tab, PO, Daily, 0 Refill(s) Start Date: 04/14/14 Status: Ordered Senokot 17.2 mg, 2 tab, Route: PO, Drug Form: TAB, Dosing Weight 83.182, kg, Daily, Star t date: 04/13/14 9:00:00, Duration: 30 day, Stop date: 05/12/14 9:00:00 Notes: (Same as: Senokot) Start Date: 04/13/14 Stop Date: 04/14/14 Status: Discontinued Sodium Chloride 0.9% (Bolus) IV 500 mL, 500 ml/hr, Infuse Over: 1 Hour, Route: IV, ONCE, Priority: STAT, Dosing Weight 86.364 kg, Start date: 04/09/14 20:14:00, Duration: 1 doses or times, Sto p date: 04/09/14 20:14:00 Start Date: 04/09/14 Stop Date: 04/09/14 Status: Completed Sodium Chloride 0.9% IV 1,000 mL 1,000 mL, Rate: 75 ml/hr, Infuse over: 13.3 hr, Route: IV, Dosing Weight 83.182 kg, Total Volume: 1,000, Start date: 04/12/14 12:18:00, Duration: 30 day, Stop d ate: 05/12/14 12:17:00 Start Date: 04/12/14 Stop Date: 04/14/14 Status: Discontinued Tylenol 650 mg, 2 tab, Route: PO, Drug form: TAB, Q4H, Dosing Weight 83.182, kg, PRN Ernesto n Score 1-3, Start date: 04/12/14 12:18:00, Stop date: 05/12/14 12:17:00 Notes: Do not exceed 4 gm/day. (Same as: Tylenol) Start Date: 04/12/14 Stop Date: 04/14/14 Status: Discontinued Zofran 4 mg, Route: IVP, Drug form: INJ, ONCE, Dosing Weight 86.364, kg, Priority: STAT , Start date: 04/09/14 22:01:00, Stop date: 04/09/14 22:01:00 Start Date: 04/09/14 Stop Date: 04/09/14 Status: Completed Zofran 4 mg, 2 mL, Route: IV, Drug form: INJ, Q8H, Dosing Weight 83.182, kg, PRN Nausea , Start date: 04/12/14 12:18:00, Duration: 30 day, Stop date: 05/12/14 12:17:00 Notes: (Same as: Zofran) Start Date: 04/12/14 Stop Date: 04/14/14 Status: Discontinued Results ELECTROLYTES 1 2 3 Most recent to oldest [Reference Range]: 143 mEq/L (04/13/14 7:12 AM) 141 mEq/L (04/12/14 4:16 AM) 139 mEq/L (04/09/14 8:49 PM) Sodium Lvl [135-145 mEq/L] 4.1 mEq/L (04/13/14 7:12 AM) 4.5 mEq/L (04/12/14 4:16 AM) 3.6 mEq/L (04/09/14 8:49 PM) Potassium Lvl [3.5-5.1 mEq/L] 107 mEq/L (04/13/14 7:12 AM) 105 mEq/L (04/12/14 4:16 AM) 102 mEq/L (04/09/14 8:49 PM) Chloride Lvl [95-109 mEq/L] 27 mEq/L (04/13/14 7:12 AM) 27 mEq/L (04/12/14 4:16 AM) 33 mEq/L *HI* (04/09/14 8:49 PM) CO2 [24-32 mEq/L] 13.1 mEq/L (04/13/14 7:12 AM) 13.5 mEq/L (04/12/14 4:16 AM) 7.6 mEq/L *LOW* (04/09/14 8:49 PM) AGAP [10.0-20.0 mEq/L] CHEM PANEL 1 2 3 Most recent to oldest [Reference Range]: 0.8 mg/dL (04/13/14 7:12 AM) 0.7 mg/dL (04/12/14 4:16 AM) 0.8 mg/dL (04/10/14 11:20 AM) Creatinine Lvl [0.5-1.4 mg/dL] 98 mL/min/1.73m2 1 *NA* (04/13/14 7:12 AM) 115 mL/min/1.73m2 2 *NA* (04/12/14 4:16 AM) 98 mL/min/1.73m2 3 *NA* (04/10/14 11:20 AM) eGFR 8 mg/dL (04/13/14 7:12 AM) 12 mg/dL (04/12/14 4:16 AM) 13 mg/dL (04/09/14 8:49 PM) BUN [7-22 mg/dL] 94 mg/dL 4 (04/13/14 7:12 AM) 113 mg/dL 5 *HI* (04/12/14 4:16 AM) 101 mg/dL 6 *HI* (04/09/14 8:49 PM) Glucose Lvl [70-99 mg/dL] 8.0 mg/dL *LOW* (04/13/14 7:12 AM) 8.7 mg/dL (04/12/14 4:16 AM) 8.8 mg/dL (04/09/14 8:49 PM) Calcium Lvl [8.5-10.5 mg/dL] 2.2 mg/dL (04/13/14 7:12 AM) Magnesium Lvl [1.8-2.4 mg/dL] 1Result Comment: The eGFR is calculated using [...] be mul tiplied by the estimated BMI. 2Result Comment: The eGFR is calculated using [...] be mul tiplied by the estimated BMI. 3Result Comment: The eGFR is calculated using [...] be mul tiplied by the estimated BMI. 4Interpretive Data: Adult reference range values reflect the clinical guidelines of the [employer]. 5Interpretive Data: Adult reference range values reflect the clinical guidelines of the [employer]. 6Interpretive Data: Adult reference range values reflect the clinical guidelines of the [employer]. URINE CHEM 1 2 3 Most recent to oldest [Reference Range]: Negative (04/09/14 8:45 PM) U Preg [Negative] URINE AND STOOL 1 2 3 Most recent to oldest [Reference Range]: Clear (04/09/14 8:45 PM) UA Turbidity [Clear] Yellow *NA* (04/09/14 8:45 PM) UA Color [Yellow] 5.0 (04/09/14 8:45 PM) UA pH [5.0-8.0] 1.019 (04/09/14 8:45 PM) UA Spec Grav [<=1.030] Negative mg/dL *NA* (04/09/14 8:45 PM) UA Glucose [Negative mg/dL] Small *ABN* (04/09/14 8:45 PM) UA Blood [Negative] Negative mg/dL *NA* (04/09/14 8:45 PM) UA Ketones [Negative mg/dL] Negative mg/dL (04/09/14 8:45 PM) UA Protein [Negative mg/dL] 2.0 mg/dL *HI* (04/09/14 8:45 PM) UA Urobilinogen [0.1-1.0 mg/dL] Negative *NA* (04/09/14 8:45 PM) UA Bili [Negative] Negative (04/09/14 8:45 PM) UA Leuk Est [Negative] Negative (04/09/14 8:45 PM) UA Nitrite [Negative] 1 /HPF (04/09/14 8:45 PM) UA WBC [0-5 /HPF] 5 /HPF *HI* (04/09/14 8:45 PM) UA RBC [0-2 /HPF] Occasional /LPF *NA* (04/09/14 8:45 PM) UA Sq Epi [Few /LPF] 2 /LPF (04/09/14 8:45 PM) UA Hyal Cast [0-2 /LPF] HEMATOLOGY 1 2 3 Most recent to oldest [Reference Range]: 9.0 K/CMM (04/13/14 7:12 AM) 8.1 K/CMM (04/12/14 4:16 AM) 9.9 K/CMM (04/09/14 8:49 PM) WBC [3.7-10.4 K/CMM] 3.69 M/CMM *LOW* (04/13/14 7:12 AM) 3.89 M/CMM *LOW* (04/12/14 4:16 AM) 4.51 M/CMM (04/09/14 8:49 PM) RBC [4.20-5.40 M/CMM] 11.3 g/dL *LOW* (04/13/14 7:12 AM) 11.8 g/dL *LOW* (04/12/14 4:16 AM) 13.2 g/dL (04/09/14 8:49 PM) Hgb [12.0-16.0 g/dL] 32.3 % *LOW* (04/13/14 7:12 AM) 34.0 % *LOW* (04/12/14 4:16 AM) 38.9 % (04/09/14 8:49 PM) Hct [36.0-48.0 %] 87.3 fL (04/13/14 7:12 AM) 87.4 fL (04/12/14 4:16 AM) 86.2 fL (04/09/14 8:49 PM) MCV [80.0-98.0 fL] 30.5 pg (04/13/14 7:12 AM) 30.4 pg (04/12/14 4:16 AM) 29.2 pg (04/09/14 8:49 PM) MCH [27.0-31.0 pg] 34.9 g/dL (04/13/14 7:12 AM) 34.8 g/dL (04/12/14 4:16 AM) 33.9 g/dL (04/09/14 8:49 PM) MCHC [32.0-36.0 g/dL] 14.0 % (04/13/14 7:12 AM) 14.6 % *HI* (04/12/14 4:16 AM) 14.4 % (04/09/14 8:49 PM) RDW [11.5-14.5 %] 270 K/CMM (04/13/14 7:12 AM) 276 K/CMM (04/12/14 4:16 AM) 326 K/CMM (04/09/14 8:49 PM) Platelet [133-450 K/CMM] 8.7 fL (04/13/14 7:12 AM) 9.2 fL (04/12/14 4:16 AM) 8.5 fL (04/09/14 8:49 PM) MPV [7.4-10.4 fL] 50.9 % (04/13/14 7:12 AM) 43.7 % *LOW* (04/12/14 4:16 AM) 45.8 % (04/09/14 8:49 PM) Segs [45.0-75.0 %] 36.9 % (04/13/14 7:12 AM) 44.0 % *HI* (04/12/14 4:16 AM) 43.5 % *HI* (04/09/14 8:49 PM) Lymphocytes [20.0-40.0 %] 11.2 % (04/13/14 7:12 AM) 10.7 % (04/12/14 4:16 AM) 9.2 % (04/09/14 8:49 PM) Monocytes [2.0-12.0 %] 0.7 % (04/13/14 7:12 AM) 0.9 % (04/12/14 4:16 AM) 0.7 % (04/09/14 8:49 PM) Eosinophils [0.0-4.0 %] 0.3 % (04/13/14 7:12 AM) 0.7 % (04/12/14 4:16 AM) 0.8 % (04/09/14 8:49 PM) Basophils [0.0-1.0 %] 4.6 K/CMM (04/13/14 7:12 AM) 3.5 K/CMM (04/12/14 4:16 AM) 4.5 K/CMM (04/09/14 8:49 PM) Segs-Bands # [1.5-8.1 K/CMM] 3.3 K/CMM (04/13/14 7:12 AM) 3.5 K/CMM (04/12/14 4:16 AM) 4.3 K/CMM (04/09/14 8:49 PM) Lymphocytes # [1.0-5.5 K/CMM] 1.0 K/CMM *HI* (04/13/14 7:12 AM) 0.9 K/CMM *HI* (04/12/14 4:16 AM) 0.9 K/CMM *HI* (04/09/14 8:49 PM) Monocytes # [0.0-0.8 K/CMM] 0.1 K/CMM (04/13/14 7:12 AM) 0.1 K/CMM (04/12/14 4:16 AM) 0.1 K/CMM (04/09/14 8:49 PM) Eosinophils # [0.0-0.5 K/CMM] 0.1 K/CMM (04/12/14 4:16 AM) 0.1 K/CMM (04/09/14 8:49 PM) Basophils # [0.0-0.2 K/CMM] 12.5 seconds (04/11/14 7:13 PM) 11.3 seconds *LOW* (04/09/14 8:49 PM) PT [12.0-14.7 seconds] 0.94 7 (04/11/14 7:13 PM) 0.83 8 *LOW* (04/09/14 8:49 PM) INR [0.85-1.17] 46.7 seconds 9 *HI* (04/11/14 7:13 PM) 42.1 seconds 10 *HI* (04/09/14 8:49 PM) PTT [22.9-35.8 seconds] 7Interpretive Data: RECOMMENDED RANGES FOR PROTIME INR: 2.0-3.0 for most medical and surgical thromboembolic states. 2.5-3.5 for artificial heart valves and recurrent embolism. INR SHOULD BE USED ONLY FOR PATIENTS ON STABLE ANTICOAGULANT THERAPY. 8Interpretive Data: RECOMMENDED RANGES FOR PROTIME INR: 2.0-3.0 for most medical and surgical thromboembolic states. 2.5-3.5 for artificial heart valves and recurrent embolism. INR SHOULD BE USED ONLY FOR PATIENTS ON STABLE ANTICOAGULANT THERAPY. 9Interpretive Data: Heparin Therapeutic Range: 57 - 92 Seconds 10Interpretive Data: Heparin Therapeutic Range: 57 - 92 Seconds Medications Administered During Your Visit No data available for this section Immunizations Vaccine Date Refusal Reason influenza virus vaccine, inactivated 04/11/14 Parent Or Guardian Refuses Procedures Procedure Type Body Site Date of Procedure Related Diagnosis section Social History Social History Type Response Substance Abuse Use: None Alcohol Use: Past, Type: Wine, Frequency: 1-2 times per week, Previous treatment: None, Do you ever drink more than intended? No, Has anyone been hurt or at risk by your drinking? No, Ready to change: No, Concerns about alcohol use in household: No1 Smoking Status Current every day smoker, Type: Cigarettes, Lives with someone who smokes, Cigarette Smoking Last 365 Days Yes, Reg Smoking Cessation Counseling Yes 1drinks occasionaly Assessment and Plan Extracted from: Title: Clinical Document Author: Mitchel Blankenship MD Date: 04/12/14 PATIENT NAME: GEETA CHAVARRIA DATE OF OPERATION/PROCEDURE: 04/12/2014 *_*_* PREOPERATIVE DIAGNOSIS: 1. Left L4 and L5 radiculopathy secondary to a left L4-L5 herniated nucleus pulposus causing lateral recess and foraminal stenosis. 2. Left S1 radiculopathy due to L5-S1 lateral recess stenosis causing compression on the traversing S1 nerve root. POSTOPERATIVE DIAGNOSIS: 1. Left L4 and L5 radiculopathy secondary to a left L4-L5 herniated nucleus pulposus causing lateral recess and foraminal stenosis. 2. Left S1 radiculopathy due to L5-S1 lateral recess stenosis causing compression on the traversing S1 nerve root. PROCEDURES PERFORMED: 1. Revision posterior midline approach to the lumbar spine from L4-S1. 2. Left laminotomy, medial facetectomy and foraminotomy at L4-S1. 3. Left microdiskectomy at L4-L5. 4. Use of microscope for decompression. 5. Use of radiographs vertebral level localization and for confirmation. SURGEON: Mitchel Blankenship M.D. AGENT SPA DESK: Karena Girard ANESTHESIA: General endotracheal tube anesthesia. COMPLICATIONS: None. IV FLUIDS: 1500 cc URINE OUTPUT: 200 cc ESTIMATED BLOOD LOSS: 100 cc INDICATIONS FOR SURGERY: Patient is a 53 year old female h/o left L4-5 laminotomy (possible microdiscectomy) for left leg pain, presenting with 5 days worth of foot drop. Patient experienced severe weakness and pain in the left leg. Exam showed Quadriceps 4-, AT 0, EHL 1, Gastrocnemius 4-. MRI showed L4-5 left herniated disc with compression of the exiting L4 nerve root (foraminal stenosis) and traversing L5 nerve root (lateral recess stenosis) and L5-S1 lateral recess stenosis with compression of the traversing S1 nerve root. Given her severe neurologic injury with drop foot, we recommend: Left L4-L5 microdiskectomy, left L5-S1 laminotomy. We discussed the risks and benefits of surgery. Risks include bleeding, infection, neurologic injury including weakness, numbness, paralysis, , spinal fluid leak, instability, and need for reoperation or fusion. There is a risk of disk reherniation of 10% in the first year, and 4% every year thereafter. The patient expressed understanding of the risks and benefits of the procedure and wished to proceed. All questions were answered. No guarantees were made to the outcome of the case. DESCRIPTION OF OPERATION: The patient was appropriately identified with all markers. Patient was brought back by anesthesia where the patient underwent general endotracheal tube anesthesia with the neck in neutral position. The patient was then dosed with preoperative antibiotics, specifically Ancef 2 grams. The patient was then turned prone onto a regular table with a Osvaldo frame at the flat setting. All bony prominences were padded. SCDs were placed on bilateral lower extremities. The lumbar spine was then prepped and draped in sterile fashion including alcohol, ChloraPrep and Betadine scrub and paint. Operative timeout was performed. The incision was planned for a left L4-L5 microdiskectomy with L5-S1 laminotomy, mesial facetectomy and foraminotomy. Skin was injected with 0.5% Marcaine with epinephrine. A 10 blade and scalpel was then used to make a vertical longitudinal incision spanning the spinous processes from L4 to S1 through the prior surgical scar with care not to invade the thecal sac. Bovie cautery was used to deepen the incision through subcutaneous tissue and fascia with incision down to the spinous processes from L4 to S1. A curet was then applied to the lamina and lateral radiographs were taken to confirm vertebral level. Radiographic position confirmed the posterior elements from the inferior half of L4 superior half of S1 were exposed in subperiosteal fashion using Bovie Cautery, marie, curettes and rongeurs to skeletonize posterior elements, taking care to preserve the facet joint capsule and overlying muscle attachments. This dissection was only done on the left. Self-retaining retractors were then placed for self-retaining exposure. Decompression was then begun. The operating microscope was brought into the field. First a left L5-S1 laminotomy was performed with the pneumatic Jann drill with a matchstick drill bit, kerrisons and curettes. The ligamentum flavum was removed with a dental, upgoing curet, and kerrison. After removal of the ligamentum flavum, the S1 traversing nerve root was visualized and found and freed Laminotomy was then completed at L4-5. At this level, there was found to be a complete prior L4 laminotomy. After extensive dissection through scar, the L4 and L5 nerve roots were found to be draped over a superiorly herniated L4-L5 disk. These nerve roots were skeletonized from its takeoff from the central canal. The nerve root was gently retracted medially with a nerve root retractor. Microdiskectomy was then performed. Annulotomy was made with a #15 blade, an extensive amount disk material was then removed with a series of pituitaries, curettes and nerve hooks. After extensive preparation, the herniated disk as well as residual loose disk within the disk space was all removed. Inspection was performed medially, laterally, superiorly and inferiorly such that ultimately the posterior ridge of disc was flush residual posterior longitudinal ligament. The vertebral body was found to be flattened without any additionally ridging or bumps to irritate the nerve root. All excess of disk was irrigated away with antibiotic irrigation. A ball-tipped probe was also passed out the L4-L5 foramen and found to be completely free and not compressed. By the end of the decompression, the central canal and lateral recess were palpated and felt to be widely patent and the nerve roots were found to be free without any compression. The wound was copiously irrigated and temporarily filled with Surgiflo. The wound was then copiously irrigated with bacitracin irrigation. Hemostasis was then achieved with bipolar electrocautery, thrombin- soaked Gelfoam and FloSeal. 1000 mg of vancomycin powder was then sprinkled into the wound. A medium hemovac drain was placed in the subfascial space. Closure was then commenced. The fascia was closed with 0 Vicryl in interrupted fashion. The dermis was closed with 2-0 Vicryl in interrupted fashion. Skin was approximated with Mastisol, Steri-Strips, followed by Telfa and Hypafix dressing. The drain was secured with hypafix tape. All needle and sponge counts were correct. There were no complications during the surgery. The patient was then carefully rolled supine onto a hospital bed. The patient was revived, extubated and taken to recovery room in stable condition, moving all 4 extremities postoperatively with baseline strength. Dr. Mitchel Blankenship was scrubbed and present for the entire case. We discussed the completion of the case patient's family. They were very grateful for the care and information. All questions were answered.
--- OUTSIDE RECORDS SUMMARY | 2018-06-12 21:24 | XMS REPORT | Summary of Care ---
Author Organization Unknown Address Unknown Phone Unavailable Encounter ADRIANNE Amador(TELLY) [id number] Date(s): 06/10/14 - 07/09/14 [facility] Discharge Disposition: Home Physician Attending: Mitchel Blankenship MD Vital Signs No data available for this section Problem List Condition Effective Dates Status Health Status Informant Active Active smoker(Confirmed) Back pain(Confirmed) Active Gallbladder Active stones(Confirmed) Hypertension(Confirm Active ed) Sciatica Active neuralgia(Confirmed) Allergies, Adverse Reactions, Alerts Substance Reaction Severity Status NKDA Active Medications No data available for this section Results No data available for this section Immunizations Vaccine Date Refusal Reason influenza virus vaccine, inactivated 04/11/14 Parent Or Guardian Refuses Procedures No data available for this section Social History Social History Type Response Substance Abuse Use: None. Alcohol Past, Type Wine. Frequency: 1-2 times per week. Previous treatment: None. Drinks more than intended: No. Others hurt by drinking: No. Ready to change: No. Household alcohol concerns: No.1 Smoking Status Current every day smoker; Type: Cigarettes; Lives with someone who smokes; Cigarette Smoking Last 365 Days Yes; Reg Smoking Cessation Counseling Yes 1drinks occasionaly Assessment and Plan No data available for this section
--- OUTSIDE RECORDS SUMMARY | 2018-06-12 21:24 | XMS REPORT | CCD ---
Author Author Auto Generated Organization [facility] Address Unknown Phone Unavailable Care Team Providers Care Journeyman Molder Name Role Phone Peg Boss RP Allergies, Adverse Reactions, Alerts Substance Reaction Status NKDA Active Problem List Condition Effective Dates Status Back pain Resolved Gallbladder stones Active
--- OUTSIDE RECORDS SUMMARY | 2018-06-12 21:24 | XMS REPORT | Summary of Care ---
Author Organization Unknown Address Unknown Phone Unavailable Encounter HQ Marjorie(TELLY) [id number] Date(s): 03/24/14 - 03/24/14 [facility] Outpatient Imaging - [address] [address]- [place] Discharge Disposition: Home Physician Attending: Jermain Harris MD Reason for Visit 836.1 - TEAR LAT MENISC Problem List Condition Effective Dates Status Health Status Informant Active Resolved smoker(Confirmed) Back pain(Confirmed) Resolved Gallbladder Active stones(Confirmed) Allergies, Adverse Reactions, Alerts Substance Reaction Severity Status NKDA Active Medications No data available for this section Medications Administered During Your Visit No data available for this section Immunizations No data available for this section Social History Social History Type Response Alcohol Use: Current, Type: Wine, Previous treatment: None, Do you ever drink more than intended? No, Has anyone been hurt or at risk by your drinking? No, Ready to change: No, Concerns about alcohol use in household: No1 Smoking Status Current every day smoker, Type: Cigarettes, Previous treatment: None, Ready to change: No, Concerns about tobacco use in household: No, Exposure to Tobacco Smoke patient smokes, Cigarette Smoking Last 365 Days Yes, Reg Smoking Cessation Counseling Yes 1drinks occasionaly
--- OUTSIDE RECORDS SUMMARY | 2018-06-12 21:24 | XMS REPORT | CCD ---
Author Author Auto Generated Organization [facility] Address Unknown Phone Unavailable Care Team Providers Care Woodworking Shop Hand Name Role Phone Sergey Lopez CP Allergies, [...]
--- OUTSIDE RECORDS SUMMARY | 2018-06-12 21:24 | XMS REPORT | Summary of Care ---
Author Organization Unknown Address Unknown Phone Unavailable Encounter ADRIANNE Amador(TELLY) [id number] Date(s): 09/16/14 - 09/16/14 [facility] [address] [place] [address]- Discharge Disposition: Home Physician Attending: Suki Kinney DO Vital Signs Most recent to 1 2 oldest [Reference Range]: Height 162.56 cm (09/16/14 4:25 AM) Temperature Oral 99.2 DegF 99.2 DegF [96.4-99.1 DegF] *HI* *HI* (09/16/14 4:43 AM) (09/16/14 4:25 AM) Blood Pressure 149/98 mmHg [90-140/60-90 mmHg] *HI* (09/16/14 4:25 AM) Systolic Blood 157 mmHg Pressure [90-140 *HI* mmHg] (09/16/14 4:43 AM) Diastolic Blood 90 mmHg Pressure [60-90 (09/16/14 4:43 AM) mmHg] Respiratory Rate 18 BRMIN 20 BRMIN [14-20 BRMIN] (09/16/14 4:43 AM) (09/16/14 4:25 AM) Peripheral Pulse 93 bpm 101 bpm Rate [60-100 bpm] (09/16/14 4:43 AM) *HI* (09/16/14 4:25 AM) Weight 78.636 kg (09/16/14 4:25 AM) Body Mass Index 29.76 m2 (09/16/14 4:25 AM) Problem List Condition Effective Dates Status Health [...]
--- OUTSIDE RECORDS SUMMARY | 2018-06-12 21:24 | XMS REPORT | CCD ---
Author Author Auto Generated Organization [facility] Address Unknown Phone Unavailable Care Team Providers Care Cnc Router Operator Name Role Phone Sergey Lopez CP Allergies, [...]
--- OUTSIDE RECORDS SUMMARY | 2018-06-12 21:24 | XMS REPORT | Summary of Care ---
Author Organization Unknown Address Unknown Phone Unavailable Encounter ADRIANNE Amador(TELLY) [id number] Date(s): 09/28/14 - 09/28/14 [facility] [address] [place] [address]- Discharge Diagnosis: Chronic lumbar radiculopathy Discharge Disposition: Home Physician Attending: Ceci Duval DO Vital Signs Most recent to 1 2 oldest [Reference Range]: Height 160.02 cm (09/28/14 3:17 PM) Temperature Oral 98.6 DegF 98.6 DegF [96.4-99.1 DegF] (09/28/14 5:50 PM) (09/28/14 3:17 PM) Blood Pressure 138/80 mmHg 152/72 mmHg [90-140/60-90 mmHg] (09/28/14 5:50 PM) *HI* (09/28/14 3:17 PM) Respiratory Rate 18 BRMIN 20 BRMIN [14-20 BRMIN] (09/28/14 5:50 PM) (09/28/14 3:17 PM) Peripheral Pulse 87 bpm 100 bpm Rate [60-100 bpm] (09/28/14 5:50 PM) (09/28/14 3:17 PM) Weight 60.909 kg (09/28/14 3:17 PM) Body Mass Index 23.79 m2 (09/28/14 3:17 PM) Problem List Condition Effective Dates Status Health Status Informant Active Active smoker(Confirmed) Back pain(Confirmed) Active Gallbladder Active stones(Confirmed) Hypertension(Confirm Active ed) Sciatica Active neuralgia(Confirmed) Allergies, Adverse Reactions, Alerts Substance Reaction Severity Status NKDA Active Medications Anaprox-DS 550 mg oral tablet 550 mg=1 tab, PO, BID, PRN for pain, X 10 day, # 20 tab, 0 Refill(s) Start Date: 09/28/14 Stop Date: 10/08/14 Status: Ordered dexamethasone 10 mg, 2.5 mL, Route: IM, Drug form: INJ, ONCE, Dosing Weight 60.909, kg, Priori ty: STAT, Start date: 09/28/14 15:52:00, Stop date: 09/28/14 15:52:00 Notes: Concentration: 4mg/ml Start Date: 09/28/14 Stop Date: 09/28/14 Status: Completed ketOROLAC 60 mg, 2 mL, Route: IM, Drug form: INJ, ONCE, Dosing Weight 60.909, kg, Priority : STAT, Start date: 09/28/14 15:52:00, Stop date: 09/28/14 15:52:00 Notes: (Same as:Toradol) IV bolus must be given >15 seconds. Give IM administration slowly and deeply into the muscle.Not for use > 4 days MEDICATION WASTE Product Size: 60 mgProduct Wasted: ___ mg Start Date: 09/28/14 Stop Date: 09/28/14 Status: Completed Results No data available for this section [...]
--- OUTSIDE RECORDS SUMMARY | 2018-06-12 21:24 | XMS REPORT | Summary of Care ---
Author Organization Unknown Address Unknown Phone Unavailable Encounter ADRIANNE Amador(TELLY) [id number] Date(s): 09/17/14 - 09/17/14 [facility] [address] [place] [address]- Discharge Disposition: Non-Emergent Physician Attending: Feroz Gutierrez MD Vital Signs Most recent to 1 oldest [Reference Range]: Temperature Oral 98.9 DegF [96.4-99.1 DegF] (09/17/14 1:33 AM) Blood Pressure 157/101 mmHg [90-140/60-90 mmHg] *HI* (09/17/14 1:33 AM) Respiratory Rate 20 BRMIN [14-20 BRMIN] (09/17/14 1:33 AM) Peripheral Pulse 94 bpm Rate [60-100 bpm] (09/17/14 1:33 AM) Problem List Condition Effective Dates Status [...]
--- OUTSIDE RECORDS SUMMARY | 2018-06-12 21:24 | XMS REPORT | Summary of Care ---
Author Organization Unknown Address Unknown Phone Unavailable Encounter ADRIANNE Amador(TELLY) [id number] Date(s): 08/29/14 - 08/30/14 [facility] [address] [place] [address]- Discharge Diagnosis: Sciatica of left side Discharge Disposition: Home Physician Attending: Darvin Acharya MD Vital Signs Most recent to 1 2 oldest [Reference Range]: Height 160.02 cm (08/29/14 11:53 PM) Temperature Oral 98.6 DegF 98.8 DegF [96.4-99.1 DegF] (08/30/14 2:14 AM) (08/29/14 11:53 PM) Blood Pressure 134/88 mmHg 139/89 mmHg [90-140/60-90 mmHg] (08/30/14 2:14 AM) (08/29/14 11:53 PM) Respiratory Rate 18 BRMIN 20 BRMIN [14-20 BRMIN] (08/30/14 2:14 AM) (08/29/14 11:53 PM) Peripheral Pulse 88 bpm 95 bpm Rate [60-100 bpm] (08/30/14 2:14 AM) (08/29/14 11:53 PM) Weight 84.091 kg (08/29/14 11:53 PM) Body Mass Index 32.84 m2 (08/29/14 11:53 PM) Problem List Condition Effective Dates Status Health Status Informant Active Active smoker(Confirmed) Back pain(Confirmed) Active Gallbladder Active stones(Confirmed) Hypertension(Confirm Active ed) Sciatica Active neuralgia(Confirmed) Allergies, Adverse Reactions, Alerts Substance Reaction Severity Status NKDA Active Medications morphine Sulfate 4 mg, Route: IM, Drug form: INJ, ONCE, Dosing Weight 84.091, kg, Priority: STAT, Start date: 08/30/14 0:50:00, Stop date: 08/30/14 0:50:00 Start Date: 08/30/14 Stop Date: 08/30/14 Status: Completed orphenadrine 60 mg, Route: IM, ONCE, Dosing Weight 84.091, kg, Priority: STAT, Start date: 0:51:00, Stop date: 08/30/14 0:51:00 Start Date: 08/30/14 Stop Date: 08/30/14 Status: Completed Results No data available for [...]
--- OUTSIDE RECORDS SUMMARY | 2018-06-12 21:24 | XMS REPORT | CCD ---
Author Author Auto Generated Organization [facility] Address Unknown Phone Unavailable Care Team Providers Care Procedures Tech Name Role Phone Sergey Lopez CP Allergies, [...]
--- OUTSIDE RECORDS SUMMARY | 2018-06-12 21:24 | XMS REPORT | CCD ---
Author Author Auto Generated Organization [facility] Address Unknown Phone Unavailable Care Team Providers Care Permit Coordinator Name Role Phone Mitchel Blankenship RP Allergies, Adverse Reactions, Alerts Substance Reaction Status NKDA Active Problem List Condition Effective Dates Status Back pain Resolved Gallbladder stones Active
--- OUTSIDE RECORDS SUMMARY | 2018-06-12 21:24 | XMS REPORT | Summary of Care ---
Author Organization Unknown Address Unknown Phone Unavailable Encounter ADRIANNE Amador(TELLY) [id number] Date(s): 09/16/14 - 09/16/14 [facility] [address] [place] [address]- Discharge Disposition: Home Physician Attending: Peg Boss MD Vital Signs No data available for [...]
--- OUTSIDE RECORDS SUMMARY | 2018-06-12 21:24 | XMS REPORT | Summary of Care ---
Author Organization Unknown Address Unknown Phone Unavailable Encounter HQ Marjorie(TELLY) [id number] Date(s): 02/16/14 - 02/18/14 [facility] [address] [address] - [facility] Discharge Disposition: Home Physician Attending: Hugo Denny MD Physician Admitting: Hugo Denny MD Reason for Visit RIGHT UPPER LOBE PNEUMONIA Vital Signs 1 2 3 Most recent to oldest [Reference Range]: 167.64 cm (02/16/14 2:26 PM) Height 98.1 DegF (02/18/14 12:00 PM) 98.1 DegF (02/18/14 12:00 PM) 98.3 DegF (02/18/14 4:00 AM) Temperature Oral [96.4-99.1 DegF] 111 mmHg (02/18/14 12:00 PM) 101 mmHg (02/18/14 12:00 PM) 135 mmHg (02/18/14 4:00 AM) Systolic Blood Pressure [90-140 mmHg] 74 mmHg (02/18/14 12:00 PM) 66 mmHg (02/18/14 12:00 PM) 83 mmHg (02/18/14 4:00 AM) Diastolic Blood Pressure [60-90 mmHg] 17 BRMIN (02/18/14 12:00 PM) 17 BRMIN (02/18/14 12:00 PM) 19 BRMIN (02/18/14 9:40 AM) Respiratory Rate [14-20 BRMIN] 81 bpm (02/18/14 12:00 PM) 90 bpm (02/18/14 12:00 PM) 98 bpm (02/18/14 4:00 AM) Peripheral Pulse Rate [60-100 bpm] 82.727 kg (02/16/14 2:26 PM) Weight 29.44 m2 (02/16/14 2:26 PM) Body Mass Index Problem List Condition Effective Dates Status Health Status Informant Active Resolved smoker(Confirmed) Back pain(Confirmed) Resolved Gallbladder Active stones(Confirmed) Allergies, Adverse Reactions, Alerts Substance Reaction Severity Status NKDA Active Medications acetaminophen 650 mg, 2 tab, Route: PO, Drug form: TAB, Q4H, Dosing Weight 82.727, kg, PRN Ernesto n Score 1-3, For fever > 100.4. Not to exceed 4 grams in 24 hours, Start date: 02/17/14 4:30:00, Duration: 30 day, Stop date: 03/19/14 4:29:00 Notes: Do not exceed 4 gm/day. (Same as: Tylenol) Start Date: 02/17/14 Stop Date: 02/18/14 Status: Discontinued azithromycin + Sodium Chloride 0.9% IV 250 mL 500 mg, Route: IVPB, [id number], Dosing Weight 82.727, kg, Priority: Routine, Start date: 02/17/14 21:00:00, Duration: 5 day, Stop date: 02/21/14 21:00:00 Notes: (Same As: Zithromax IV) Start Date: 02/17/14 Stop Date: 02/18/14 Status: Discontinued Azithromycin 5 Day Dose Pack 250 mg oral tablet See Instructions, as directed on package labeling, # 6 tab, 0 Refill(s) Special Instructions: as directed on package labeling Start Date: 02/18/14 Status: Ordered benzonatate 100 mg oral capsule 100 mg=1 cap, PO, TID, Cough, # 10 cap, 0 Refill(s) Start Date: 02/18/14 Status: Ordered cefTRIAXone + Sodium Chloride 0.9% IV 100 mL 1 gm, Route: IVPB, [id number], Dosing Weight 82.727, kg, Priority: Routine, Start d ate: 02/17/14 20:00:00, Duration: 30 day, Stop date: 03/18/14 20:00:00 Notes: (Same As: Rocephin). Use with 100ml NS mini-bag PLUS and infuse over 30 min Start Date: 02/17/14 Stop Date: 02/18/14 Status: Discontinued cyclobenzaprine 10 mg, 1 tab, Route: PO, Drug form: TAB, TID, Dosing Weight 82.727, kg, PRN as n eeded for muscle spasm, Start date: 02/17/14 10:43:00, Duration: 30 day, Stop da te: 03/19/14 10:42:00 Notes: (Same As: Flexeril) Start Date: 02/17/14 Stop Date: 02/18/14 Status: Discontinued cyclobenzaprine 10 mg oral tablet 10 mg=1 tab, PO, TID, as needed for muscle spasm, # 30 tab, 0 Refill(s) Start Date: 02/17/14 Status: Ordered DuoNeb inhalation solution 3 ml, Route: INHALATION, Drug Form: SOLN, Dosing Weight 82.727, kg, PRN, PRN Res piratory Protocol, Start date: 02/17/14 1:11:00, Duration: 30 day, Stop date: 1:10:00 Notes: (Same as: Duoneb) Start Date: 02/17/14 Stop Date: 02/18/14 Status: Discontinued DuoNeb inhalation solution 3 ml, Route: INHALATION, Drug Form: SOLN, Dosing Weight 82.727, kg, PRN, PRN Res piratory Protocol, Start date: 02/16/14 19:08:00, Duration: 30 day, Stop date: 19:07:00 Notes: (Same as: Duoneb) Start Date: 02/16/14 Stop Date: 02/18/14 Status: Discontinued gabapentin 600 mg oral tablet 600 mg=1 tab, PO, Q12H, # 270 tab, 0 Refill(s) Start Date: 02/17/14 Status: Ordered guaiFENesin 200 mg, 10 mL, Route: PO, Drug form: LIQ, Q4H, Dosing Weight 82.727, kg, PRN Cou gh, Start date: 02/17/14 4:30:00, Duration: 30 day, Stop date: 03/19/14 4:29:00 Notes: (Same as: Robitussin) Start Date: 02/17/14 Stop Date: 02/18/14 Status: Discontinued hydrochlorothiazide-lisinopril 12.5 mg-10 mg oral tablet 1 tab, Route: PO, Drug Form: TAB, Dosing Weight 82.727, kg, Daily, Start date: 1 9:00:00, Duration: 30 day, Stop date: 03/19/14 9:00:00 Start Date: 02/18/14 Stop Date: 02/17/14 Status: Deleted hydrochlorothiazide-lisinopril 12.5 mg-10 mg oral tablet 1 tab, PO, Daily, # 30 tab, 0 Refill(s) Start Date: 02/17/14 Status: Ordered methadone 5 mg, 5 mL, Route: PO, Drug form: SOLN, Q8H, Dosing Weight 82.727, kg, Start adam e: 02/17/14 16:00:00, Duration: 30 day, Stop date: 03/19/14 8:00:00 Notes: (Same as: Dolophine) Start Date: 02/17/14 Stop Date: 02/18/14 Status: Discontinued methadone 5 mg, PO, Q8H, 0 Refill(s) Start Date: 02/17/14 Status: Ordered Microzide 12.5 mg, 1 cap, Route: PO, Drug form: CAP, Daily, Start date: 02/18/14 9:00:00, Duration: 30 day, Stop date: 03/19/14 9:00:00 Notes: (Same as: Microzide) With food. Start Date: 02/18/14 Stop Date: 02/18/14 Status: Discontinued Neurontin 600 mg, 2 cap, Route: PO, Drug form: CAP, Q12H, Dosing Weight 82.727, kg, Start date: 02/17/14 21:00:00, Duration: 30 day, Stop date: 03/19/14 9:00:00 Notes: (Same as: Neurontin) Start Date: 02/17/14 Stop Date: 02/18/14 Status: Discontinued nicotine 14 mg, 1 patch, Route: TOP, Drug form: ERFILM, Daily, Dosing Weight 82.727, kg, Start date: 02/17/14 17:00:00, Duration: 30 day, Stop date: 03/19/14 9:00:00 Start Date: 02/17/14 Stop Date: 02/18/14 Status: Discontinued Merritt 10/325 oral tablet 1 tab, Route: PO, Drug Form: TAB, Dosing Weight 82.727, kg, TID, PRN Pain Score 4-6, Start date: 02/17/14 10:43:00, Duration: 30 day, Stop date: 03/19/14 10:42: 00 Start Date: 02/17/14 Stop Date: 02/18/14 Status: Discontinued Merritt 10/325 oral tablet 1 tab, PO, TID, as needed for pain, # 24 tab, 0 Refill(s) Start Date: 02/17/14 Status: Ordered ondansetron 4 mg, 2 mL, Route: IVP, Drug form: INJ, Q6H, Dosing Weight 82.727, kg, PRN Nause a & Vomiting, Start date: 02/17/14 4:30:00, Duration: 30 day, Stop date: 03/19/14 4:29:00 Notes: (Same as: Zofran) Start Date: 02/17/14 Stop Date: 02/18/14 Status: Discontinued Prinivil 10 mg, 1 tab, Route: PO, Drug form: TAB, Daily, Start date: 02/18/14 9:00:00, Du ration: 30 day, Stop date: 03/19/14 9:00:00 Notes: (Same as: Prinivil, Zestril) Start Date: 02/18/14 Stop Date: 02/18/14 Status: Discontinued Rocephin 1 gm, Route: IVPB, Drug form: PDR/INJ, ONCE, Dosing Weight 82.727, kg, Priority: STAT, Start date: 02/16/14 19:08:00, Stop date: 02/16/14 19:08:00 Start Date: 02/16/14 Stop Date: 02/16/14 Status: Completed Saline Flush 0.9% 10 ml, Route: IVP, Drug Form: INJ, Dosing Weight 82.727, kg, PRN, PRN Line Flush , Start date: 02/17/14 4:30:00, Duration: 30 day, Stop date: 03/19/14 4:29:00 Notes: (Same as: BD Posiflush) Start Date: 02/17/14 Stop Date: 02/18/14 Status: Discontinued Sodium Chloride 0.9% (Bolus) IV 1,000 mL, 1,000 ml/hr, Infuse Over: 1 hr, Route: IV, ONCE, Priority: STAT, Dosin g Weight 82.727 kg, Start date: 02/16/14 19:10:00, Duration: 1 doses or times, S top date: 02/16/14 19:10:00 Start Date: 02/16/14 Stop Date: 02/16/14 Status: Completed Sodium Chloride 0.9% IV 1,000 mL 1,000 mL, Rate: 75 ml/hr, Infuse over: 13.3 hr, Route: IV, Dosing Weight 82.727 kg, Total Volume: 1,000, Start date: 02/17/14 4:30:00, Duration: 30 day, Stop da te: 03/19/14 4:29:00 Start Date: 02/17/14 Stop Date: 02/18/14 Status: Discontinued Tessalon Perles 100 mg, 1 cap, Route: PO, Drug form: CAP, TID, Dosing Weight 82.727, kg, PRN Cou gh, Start date: 02/17/14 10:45:00, Duration: 30 day, Stop date: 03/19/14 10:44:0 0 Start Date: 02/17/14 Stop Date: 02/18/14 Status: Discontinued Tylenol 975 mg, Route: PO, Drug form: TAB, ONCE, Dosing Weight 82.727, kg, Priority: STA T, Start date: 02/16/14 19:08:00, Stop date: 02/16/14 19:08:00 Start Date: 02/16/14 Stop Date: 02/16/14 Status: Completed Vantin 200 mg oral tablet 200 mg=1 tab, PO, Q12H, # 20 tab, 0 Refill(s) Start Date: 02/18/14 Stop Date: 02/28/14 Status: Ordered Zithromax 1 gm, Route: PO, ONCE, Dosing Weight 82.727, kg, Start date: 02/16/14 19:08:00, Stop date: 02/16/14 19:08:00 Start Date: 02/16/14 Stop Date: 02/16/14 Status: Completed Results ELECTROLYTES Most recent to 1 2 oldest [Reference Range]: Sodium Lvl [135-145 138 mEq/L 134 mEq/L mEq/L] (02/18/14 5:45 AM) *LOW* (02/16/14 3:13 PM) Potassium Lvl 3.8 mEq/L 3.4 mEq/L [3.5-5.1 mEq/L] (02/18/14 5:45 AM) *LOW* (02/16/14 3:13 PM) Chloride Lvl [95-109 107 mEq/L 99 mEq/L mEq/L] (02/18/14 5:45 AM) (02/16/14 3:13 PM) CO2 [24-32 mEq/L] 26 mEq/L 29 mEq/L (02/18/14 5:45 AM) (02/16/14 3:13 PM) AGAP [10.0-20.0 8.8 mEq/L 9.4 mEq/L mEq/L] *LOW* *LOW* (02/18/14 5:45 AM) (02/16/14:13 PM) CHEM PANEL Most recent to 1 2 oldest [Reference Range]: Creatinine Lvl 0.6 mg/dL 1.1 mg/dL [0.5-1.4 mg/dL] (02/18/14 5:45 AM) (02/16/14 3:13 PM) eGFR 121 mL/min/1.73m2 1 67 mL/min/1.73m2 2 *NA* *NA* (02/18/14 5:45 AM) (02/16/14 3:13 PM) BUN [7-22 mg/dL] 9 mg/dL 18 mg/dL (02/18/14 5:45 AM) (02/16/14 3:13 PM) B/C Ratio [6-25] 16 (02/16/14 3:13 PM) Glucose Lvl [70-99 91 mg/dL 3 128 mg/dL 4 mg/dL] (02/18/14 5:45 AM) *HI* (02/16/14 3:13 PM) Total Protein 9.9 g/dL [6.4-8.4 g/dL] *HI* (02/16/14 3:13 PM) Albumin Lvl [3.5-5.0 4.1 g/dL g/dL] (02/16/14 3:13 PM) Globulin [2.0-4.0 5.8 g/dL g/dL] *HI* (02/16/14 3:13 PM) A/G Ratio [0.7-1.6] 0.7 (02/16/14 3: PM) Calcium Lvl 8.6 mg/dL 9.6 mg/dL [8.5-10.5 mg/dL] (02/18/14 5:45 AM) (02/16/14 3:13 PM) Magnesium Lvl 2.1 mg/dL [1.8-2.4 mg/dL] (02/18/14 5:45 AM) ALT [0-65 unit/L] 37 unit/L (02/16/14 3: PM) AST [0-37 unit/L] 30 unit/L (02/16/14 3: PM) Alk Phos [39-136 96 unit/L unit/L] (02/16/14 3: PM) Bili Total [0.2-1.3 0.5 mg/dL mg/dL] (02/16/14 3: PM) Lactic Acid Lvl 0.9 mMol/L [0.5-2.2 mMol/L] (02/18/14 5:45 AM) 1Result Comment: The eGFR is calculated using [...] be mul tiplied by the estimated BMI. 3Interpretive Data: Adult reference range values reflect the clinical guidelines of the [place] [employer]. 4Interpretive Data: Adult reference range values reflect the clinical guidelines of the [place] [employer]. CARDIAC ENZYMES Most recent to 1 2 oldest [Reference Range]: Total CK [12-191 189 unit/L unit/L] (02/16/14 3:13 PM) CK MB [0.5-3.6 1.2 ng/mL ng/mL] (02/16/14 3:13 PM) CK MB Index 0.6 [0.0-2.5] (02/16/14 3:13 PM) Troponin-I <0.02 ng/mL [0.00-0.40 ng/mL] (02/16/14 3:13 PM) HEMATOLOGY Most recent to 1 2 oldest [Reference Range]: WBC [3.7-10.4 K/CMM] 7.2 K/CMM 10.9 K/CMM (02/18/14 5:45 AM) *HI* (02/16/14 3:13 PM) RBC [4.20-5.40 3.58 M/CMM 4.91 M/CMM M/CMM] *LOW* (02/16/14 3:13 PM) (02/18/14 5:45 AM) Hgb [12.0-16.0 g/dL] 10.6 g/dL 14.5 g/dL *LOW* (02/16/14:13 PM) (02/18/14 5:45 AM) Hct [36.0-48.0 %] 31.0 % 42.2 % *LOW* (02/16/14 3:13 PM) (02/18/14 5:45 AM) MCV [80.0-98.0 fL] 86.7 fL 85.8 fL (02/18/14 5:45 AM) (02/16/14:13 PM) MCH [27.0-31.0 pg] 29.7 pg 29.6 pg (02/18/14 5:45 AM) (02/16/14:13 PM) MCHC [32.0-36.0 34.3 g/dL 34.5 g/dL g/dL] (02/18/14 5:45 AM) (02/16/14:13 PM) RDW [11.5-14.5 %] 14.0 % 14.1 % (02/18/14 5:45 AM) (02/16/14 3:13 PM) Platelet [133-450 300 K/CMM 380 K/CMM K/CMM] (02/18/14 5:45 AM) (02/16/14:13 PM) MPV [7.4-10.4 fL] 8.6 fL 8.9 fL (02/18/14 5:45 AM) (02/16/14: PM) Segs [45.0-75.0 %] 42.9 % 69.3 % *LOW* (02/16/14:13 PM) (02/18/14 5:45 AM) Lymphocytes 44.0 % 18.9 % [20.0-40.0 %] *HI* *LOW* (02/18/14 5:45 AM) (02/16/14:13 PM) Monocytes [2.0-12.0 11.1 % 11.0 % %] (02/18/14 5:45 AM) (02/16/14:13 PM) Eosinophils [0.0-4.0 1.4 % 0.4 % %] (02/18/14 5:45 AM) (02/16/14 3:13 PM) Basophils [0.0-1.0 0.6 % 0.4 % %] (02/18/14 5:45 AM) (02/16/14:13 PM) Segs-Bands # 3.1 K/CMM 7.6 K/CMM [1.5-8.1 K/CMM] (02/18/14 5:45 AM) (02/16/14 3:13 PM) Lymphocytes # 3.2 K/CMM 2.1 K/CMM [1.0-5.5 K/CMM] (02/18/14 5:45 AM) (02/16/14 3:13 PM) Monocytes # [0.0-0.8 0.8 K/CMM 1.2 K/CMM K/CMM] (02/18/14 5:45 AM) *HI* (02/16/14 3:13 PM) Eosinophils # 0.1 K/CMM [0.0-0.5 K/CMM] (02/18/14 5:45 AM) PT [12.0-14.7 13.4 seconds seconds] (02/16/14 3:13 PM) INR [0.85-1.17] 1.02 5 (02/16/14 3: PM) PTT [22.9-35.8 42.9 seconds 6 seconds] *HI* (02/16/14 3:13 PM) 5Interpretive Data: RECOMMENDED RANGES FOR PROTIME INR: 2.0-3.0 for most medical and surgical thromboembolic states. 2.5-3.5 for artificial heart valves and recurrent embolism. INR SHOULD BE USED ONLY FOR PATIENTS ON STABLE ANTICOAGULANT THERAPY. 6Interpretive Data: Heparin Therapeutic Range: 57 - [...]
--- OUTSIDE RECORDS SUMMARY | 2018-06-12 21:24 | XMS REPORT | CCD ---
Author Author Auto Generated Organization [facility] Address Unknown Phone Unavailable Care Team Providers Care Nutritional Services Host Name Role Phone Sergey Lopez CP Allergies, [...]
--- OUTSIDE RECORDS SUMMARY | 2018-06-12 21:24 | XMS REPORT | CCD ---
Author Author Auto Generated Organization [facility] Address Unknown Phone Unavailable Care Team Providers Care Program Manager Slp Name Role Phone Huey Bailey CP Allergies, Adverse Reactions, Alerts Substance Reaction Status NKDA Active Problem List Condition Effective Dates Status Gallbladder stones Active Vital Signs Most recent to oldest [Reference Range]: 1 Height 165.10 cm (11/20/2011 22:34:00) Weight 73.636 kg (11/20/2011 22:34:00)
--- OUTSIDE RECORDS SUMMARY | 2018-06-12 21:24 | XMS REPORT | Summary of Care ---
Author Organization Unknown Address Unknown Phone Unavailable Encounter ADRIANNE Amador(TELLY) [id number] Date(s): 04/08/14 - 04/08/14 [facility] [address] [address] [address] - [facility] Discharge Diagnosis: Sciatica Discharge Disposition: Home Physician Attending: Feroz Gutierrez MD Reason for Visit LEFT SIDE AND FOOT PAIN Vital Signs 1 2 3 Most recent to oldest [Reference Range]: 98.6 DegF (04/08/14 6:52 AM) 98.7 DegF (04/08/14 2:45 AM) Temperature Oral [96.4-99.1 DegF] 109 mmHg (04/08/14 6:52 AM) 126 mmHg (04/08/14 5:45 AM) 141 mmHg *HI* (04/08/14 4:55 AM) Systolic Blood Pressure [90-140 mmHg] 77 mmHg (04/08/14 6:52 AM) 81 mmHg (04/08/14 5:45 AM) 80 mmHg (04/08/14 4:55 AM) Diastolic Blood Pressure [60-90 mmHg] 18 BRMIN (04/08/14 6:52 AM) 18 BRMIN (04/08/14 4:55 AM) 18 BRMIN (04/08/14 2:45 AM) Respiratory Rate [14-20 BRMIN] 101 bpm *HI* (04/08/14 2:45 AM) Peripheral Pulse Rate [60-100 bpm] 86.364 kg (04/08/14 2:45 AM) Weight Problem List Condition Effective Dates Status Health Status Informant Active Active smoker(Confirmed) Back pain(Confirmed) Active Gallbladder Active stones(Confirmed) Hypertension(Confirm Active ed) Sciatica Active neuralgia(Confirmed) Allergies, Adverse Reactions, Alerts Substance Reaction Severity Status NKDA Active Medications ketorolac 30 mg, Route: IVP, Drug form: INJ, ONCE, Dosing Weight 86.364, kg, Priority: STA T, Start date: 04/08/14 6:28:00, Stop date: 04/08/14 6:28:00 Start Date: 04/08/14 Stop Date: 04/08/14 Status: Completed morphine Sulfate 4 mg, Route: IM, Drug form: INJ, ONCE, Dosing Weight 86.364, kg, Priority: STAT, Start date: 04/08/14 4:13:00, Stop date: 04/08/14 4:13:00 Start Date: 04/08/14 Stop Date: 04/08/14 Status: Completed morphine Sulfate 6 mg, Route: IVP, Drug form: INJ, ONCE, Dosing Weight 86.364, kg, Priority: STAT , Start date: 04/08/14 5:26:00, Stop date: 04/08/14 5:26:00 Start Date: 04/08/14 Stop Date: 04/08/14 Status: Completed Motrin 800 mg oral tablet 800 mg=1 tab, PO, Q8H, Pain, Take with food, # 30 tab, 0 Refill(s) Special Instructions: Take with food Start Date: 04/08/14 Status: Suspended tramadol 50 mg oral tablet 50 mg=1 tab, PO, Q6H, # 12 tab, 0 Refill(s) Start Date: 04/08/14 Status: Suspended Zofran 4 mg, Route: IVP, Drug form: INJ, ONCE, Dosing Weight 86.364, kg, Priority: STAT , Start date: 04/08/14 5:27:00, Stop date: 04/08/14 5:27:00 Start Date: 04/08/14 Stop Date: 04/08/14 Status: Completed Zofran ODT 4 mg, Route: PO, Drug form: TABDIS, ONCE, Dosing Weight 86.364, kg, Priority: ST AT, Start date: 04/08/14 4:13:00, Stop date: 04/08/14 4:13:00 Start Date: 04/08/14 Stop Date: 04/08/14 Status: Completed Medications Administered During Your Visit No data [...]
--- OUTSIDE RECORDS SUMMARY | 2018-06-12 21:25 | XMS REPORT | Summary of Care ---
Author Author [facility] Organization [facility] Address Unknown Phone Unavailable Encounter ADRIANNE Amador(TELLY) [id number] Date(s): 12/03/16 - 12/04/16 [facility] [address] [place] [address]- [phone] Discharge Diagnosis: Dizziness Discharge Disposition: Home or Self Care Attending Physician: Tadeo Ny DO Vital Signs 1 2 3 Most recent to oldest [Reference Range]: 167.64 cm (12/03/16 11:10 PM) Height 98.2 DegF (12/04/16 7:13 AM) 98.1 DegF (12/04/16 3:55 AM) 98.7 DegF (12/03/16 11:10 PM) Temperature Oral [96.4-99.1 DegF] 111/84 mmHg (12/04/16 7:13 AM) 104/86 mmHg (12/04/16 6:00 AM) 131/84 mmHg (12/04/16 4:31 AM) Blood Pressure [90-140/60-90 mmHg] 19 BRMIN (12/04/16 7:13 AM) 16 BRMIN (12/04/16 6:00 AM) 14 BRMIN (12/04/16 4:31 AM) Respiratory Rate [14-20 BRMIN] 102 bpm *HI* (12/03/16 11:10 PM) Peripheral Pulse Rate [60-100 bpm] 85.909 kg (12/03/16 11:10 PM) Weight 30.57 m2 (12/03/16 11:10 PM) Body Mass Index Problem List Condition Effective Dates Status Health Status Informant Active Active smoker(Confirmed) Back pain(Confirmed) Active Gall Resolved stone(Confirmed) Gallbladder Active stones(Confirmed) Gallstone1 11/21/10 Active Hypertension(Confirm Active ed) Sciatica Active neuralgia(Confirmed) 1Data migrated from [facility] on 10/18/14. Allergies, Adverse Reactions, Alerts Substance Reaction Severity Status NKDA Active Medications diphenhydrAMINE 25 mg, Route: IVP, ONCE, Dosing Weight 85.909, kg, Priority: STAT, Start date: 0 12/04/16 4:19:00 CDT, Stop date: 12/04/16 4:19:00 CDT Start Date: 12/04/16 Stop Date: 12/04/16 Status: Completed meclizine 50 mg, Route: PO, Drug form: TAB, ONCE, Dosing Weight 85.909, kg, Priority: STAT , Start date: 12/04/16 4:19:00 CDT, Stop date: 12/04/16 4:19:00 CDT Start Date: 12/04/16 Stop Date: 12/04/16 Status: Completed meclizine 50 mg oral tablet 25 mg=1 tab, PO, TID, X 7 day, # 21 tab, 0 Refill(s) Start Date: 12/04/16 Stop Date: 12/11/16 Status: Ordered ondansetron 4 mg, Route: IVP, Drug form: INJ, ONCE, Dosing Weight 85.909, kg, Priority: STAT , Start date: 12/04/16 4:19:00 CDT, Stop date: 12/04/16 4:19:00 CDT Start Date: 12/04/16 Stop Date: 12/04/16 Status: Completed Saline Flush 0.9% 10 mL, Route: IVP, Drug Form: INJ, Dosing Weight 85.909, kg, PRN, PRN Line Flush , Start date: 12/03/16 23:44:00 CDT, Duration: 30 day, Stop date: 01/02/17 23:43 :00 CDT Notes: (Same as: BD Posiflush) Start Date: 12/03/16 Stop Date: 12/04/16 Status: Discontinued Sodium Chloride 0.9% (Bolus) IV 1,000 mL, Infuse Over: 1 hr, Route: IV, ONCE, Priority: STAT, Dosing Weight 85.9 09 kg, Start date: 12/04/16 4:19:00 CDT, Duration: 1 doses or times, Stop date: 12/04/16 4:19:00 CDT Start Date: 12/04/16 Stop Date: 12/04/16 Status: Completed Results ELECTROLYTES Most recent to 1 oldest [Reference Range]: Sodium Lvl [135-145 136 mEq/L mEq/L] (12/04/16 4:21 AM) Potassium Lvl 3.3 mEq/L [3.5-5.1 mEq/L] *LOW* (12/04/16 4:21 AM) Chloride Lvl [95-109 100 mEq/L mEq/L] (12/04/16 4:21 AM) CO2 [24-32 mEq/L] 33 mEq/L *HI* (12/04/16 4:21 AM) AGAP [10.0-20.0 6.3 mEq/L mEq/L] *LOW* (12/04/16 4:21 AM) CHEM PANEL Most recent to 1 oldest [Reference Range]: Creatinine Lvl 0.70 mg/dL [0.50-1.40 mg/dL] (12/04/16 4:21 AM) eGFR 113 mL/min/1.73m2 1 *NA* (12/04/16 4:21 AM) BUN [7-22 mg/dL] 7 mg/dL (12/04/16 4:21 AM) B/C Ratio [6-25] 10 (12/04/16 4:21 AM) Glucose Lvl [70-99 111 mg/dL mg/dL] *HI* (12/04/16 4:21 AM) Total Protein 8.8 g/dL [6.4-8.4 g/dL] *HI* (12/04/16 4:21 AM) Albumin Lvl [3.5-5.0 3.7 g/dL g/dL] (12/04/16 4:21 AM) Globulin [2.7-4.2 5.1 g/dL g/dL] *HI* (12/04/16 4:21 AM) A/G Ratio [0.7-1.6] 0.7 (12/04/16 4:21 AM) Calcium Lvl 9.3 mg/dL [8.5-10.5 mg/dL] (12/04/16 4:21 AM) ALT [0-65 unit/L] 35 unit/L (7/18/17 4:21 AM) AST [0-37 unit/L] 25 unit/L (12/04/16 4:21 AM) Alk Phos [39-136 96 unit/L unit/L] (12/04/16 4:21 AM) Bili Total [0.2-1.3 0.6 mg/dL mg/dL] (12/04/16 4:21 AM) 1Result Comment: The eGFR is calculated [...] 1 oldest [Reference Range]: Total CK [12-191 124 unit/L unit/L] (12/04/16 4:21 AM) CK MB [0.5-3.6 0.9 ng/mL ng/mL] (12/04/16 4:21 AM) CK MB Index 0.7 [0.0-2.5] (12/04/16 4:21 AM) Troponin-I <0.02 ng/mL [0.00-0.40 ng/mL] (12/04/16 4:21 AM) URINE AND STOOL Most recent to 1 oldest [Reference Range]: UA Turbidity [Clear] Clear (12/04/16 4:09 AM) UA Color Ltyellow *NA* (12/04/16 4:09 AM) UA pH [5.0-8.0] 5.0 (12/04/16 4:09 AM) UA Spec Grav 1.014 [<=1.030] (12/04/16 4:09 AM) UA Glucose [Negative Negative mg/dL mg/dL] *NA* (12/04/16 4:09 AM) UA Blood [Negative] Small *ABN* (12/04/16 4:09 AM) UA Ketones [Negative Negative mg/dL mg/dL] *NA* (12/04/16 4:09 AM) UA Protein [Negative Negative mg/dL mg/dL] (12/04/16 4:09 AM) UA Urobilinogen <=1.0 mg/dL [0.1-1.0 mg/dL] *NA* (12/04/16 4:09 AM) UA Bili [Negative] Negative *NA* (12/04/16 4:09 AM) UA Leuk Est Negative [Negative] (12/04/16 4:09 AM) UA Nitrite Negative [Negative] (12/04/16 4:09 AM) UA WBC [0-5 /HPF] 1 /HPF (12/04/16 4:09 AM) UA RBC [0-2 /HPF] 2 /HPF (12/04/16 4:09 AM) UA Sq Epi [Few /LPF] Occasional /LPF *NA* (12/04/16 4:09 AM) HEMATOLOGY Most recent to 1 oldest [Reference Range]: WBC [3.7-10.4 K/CMM] 9.9 K/CMM (12/04/16 4:21 AM) RBC [4.20-5.40 4.47 M/CMM M/CMM] (12/04/16 4:21 AM) Hgb [12.0-16.0 g/dL] 13.3 g/dL (12/04/16 4:21 AM) Hct [36.0-48.0 %] 38.9 % (12/04/16 4:21 AM) MCV [80.0-98.0 fL] 86.9 fL (12/04/16 4:21 AM) MCH [27.0-31.0 pg] 29.7 pg (12/04/16 4:21 AM) MCHC [32.0-36.0 34.1 g/dL g/dL] (12/04/16 4:21 AM) RDW [11.5-14.5 %] 14.3 % (12/04/16 4:21 AM) Platelet [133-450 338 K/CMM K/CMM] (12/04/16 4:21 AM) MPV [7.4-10.4 fL] 8.4 fL (12/04/16 4:21 AM) Segs [45.0-75.0 %] 45.4 % (12/04/16 4:21 AM) Lymphocytes 43.7 % [20.0-40.0 %] *HI* (12/04/16 4:21 AM) Monocytes [2.0-12.0 9.5 % %] (12/04/16 4:21 AM) Eosinophils [0.0-4.0 1.0 % %] (12/04/16 4:21 AM) Basophils [0.0-1.0 0.4 % %] (12/04/16 4:21 AM) Segs-Bands # 4.5 K/CMM [1.5-8.1 K/CMM] (12/04/16 4:21 AM) Lymphocytes # 4.3 K/CMM [1.0-5.5 K/CMM] (12/04/16 4:21 AM) Monocytes # [0.0-0.8 0.9 K/CMM K/CMM] *HI* (12/04/16 4:21 AM) Eosinophils # 0.1 K/CMM [0.0-0.5 K/CMM] (12/04/16 4:21 AM) Immunizations Not Given Vaccine Date Status Refusal Reason influenza virus vaccine, inactivated 04/11/14 Not Given Parent Or Guardian Refuses Procedures Procedure Date Related Diagnosis Body Site Laminectomy 10/06/16 section Social History Social History Type Response [...]
--- OUTSIDE RECORDS SUMMARY | 2018-06-12 21:25 | XMS REPORT | Summary of Care ---
Author Author [facility] Organization [facility] Address Unknown Phone Unavailable Encounter ADRIANNE Amador(TELLY) [id number] Date(s): 01/03/17 - 01/03/17 [facility] [address] [place] [address]- [phone] Discharge Diagnosis: Acute exacerbation of chronic low back pain Discharge Disposition: Elopement Attending Physician: Xavier Perales MD Vital Signs Most recent to 1 oldest [Reference Range]: Height 167.64 cm (01/03/17 1:26 PM) Temperature Oral 98.6 DegF [96.4-99.1 DegF] (01/03/17 1:26 PM) Blood Pressure 130/77 mmHg [90-140/60-90 mmHg] (01/03/17 1:26 PM) Respiratory Rate 16 BRMIN [14-20 BRMIN] (01/03/17 1:26 PM) Peripheral Pulse 111 bpm Rate [60-100 bpm] *HI* (01/03/17 1:26 PM) Weight 90.909 kg (01/03/17 1:26 PM) Body Mass Index 32.35 m2 (01/03/17 1:26 PM) Problem List Condition Effective Dates Status Health Status Informant Active Active smoker(Confirmed) Back pain(Confirmed) Active Gall Resolved stone(Confirmed) Gallbladder Active stones(Confirmed) Gallstone1 11/21/10 Active Hypertension(Confirm Active ed) Sciatica Active neuralgia(Confirmed) 1Data migrated from [facility] on 10/18/14. Allergies, Adverse Reactions, Alerts Substance Reaction Severity Status NKDA Active Medications No data available for this section Results No data available for this section Immunizations Not Given Vaccine Date Status Refusal [...]
--- OUTSIDE RECORDS SUMMARY | 2018-06-12 21:25 | XMS REPORT | Summary of Care ---
Author Author [facility] Organization [facility] Address Unknown Phone Unavailable Encounter ADRIANNE Amador(TELLY) [id number] Date(s): 10/04/17 - 10/08/17 [facility] [address] [place] [address]- [phone] Encounter Diagnosis Pain in leg, unspecified (Final) - Discharge Disposition: Home or Self Care Attending Physician: Roby Piña MD Admitting Physician: Roby Piña MD Vital Signs 1 2 3 Most recent to oldest [Reference Range]: 167.64 cm (10/05/17 2:02 AM) Height 98.1 DegF (10/08/17 11:57 AM) 97.9 DegF (10/08/17 8:04 AM) 98.5 DegF (10/08/17 4:05 AM) Temperature Oral [96.4-99.1 DegF] 101/64 mmHg (10/08/17 11:57 AM) 114/67 mmHg (10/08/17 8:04 AM) 118/69 mmHg (10/08/17 4:05 AM) Blood Pressure [90-140/60-90 mmHg] 16 BRMIN (10/08/17 11:57 AM) 16 BRMIN (10/08/17 8:04 AM) 16 BRMIN (10/08/17 4:05 AM) Respiratory Rate [14-20 BRMIN] 80 bpm (10/08/17 11:57 AM) 86 bpm (10/08/17 8:04 AM) 90 bpm (10/08/17 4:05 AM) Peripheral Pulse Rate [60-100 bpm] 90.001 kg (10/05/17 2:02 AM) 109.091 kg (10/04/17 7:53 PM) Weight 32.03 m2 (10/05/17 2:02 AM) Body Mass Index Problem List Condition Effective Dates Status Health Status Informant Active Active smoker(Confirmed) Back pain(Confirmed) Active Gall Resolved stone(Confirmed) Gallbladder Active stones(Confirmed) Gallstone1 11/21/10 Active Hypertension(Confirm Active ed) Sciatica Active neuralgia(Confirmed) Simple Active obesity(Confirmed) 1Data migrated from [facility] on 10/18/14. Allergies, Adverse Reactions, Alerts Substance Reaction Severity Status NKDA Active Medications acetaminophen-hydrocodone 325 mg-5 mg oral tablet 2 tab, Route: PO, Drug Form: TAB, Dosing Weight 90.001, kg, Q4H, PRN Pain Score 7-10, Start date: 10/05/17 2:17:00 CDT, Duration: 30 day, Stop date: 11/04/17 2: 16:00 CDT Notes: (Same as: [place] 325/5) Do not exceed 4gm/day of acetaminophen. Start Date: 10/05/17 Stop Date: 10/05/17 Status: Discontinued aspirin 325 mg tablet, enteric coated 325 mg, 1 tab, Route: PO, Drug form: ECTAB, Daily, Dosing Weight 90.001, kg, Sta rt date: 10/09/17 9:00:00 CDT, Duration: 30 day, Stop date: 11/07/17 9:00:00 CDT Notes: (Do Not Crush) Do not crush or chew. Start Date: 10/09/17 Stop Date: 10/08/17 Status: Canceled aspirin 325 mg tablet, enteric coated 325 mg=1 tab, PO, Daily, take with food, # 30 tab, 0 Refill(s), Pharmacy: [facility] [id number] Start Date: 10/08/17 Status: Ordered bisacodyl 5 mg oral enteric coated tablet 10 mg=2 tab, PO, Daily, # 24 tab, 0 Refill(s), [facility]acy: [id number] Start Date: 10/08/17 Stop Date: 10/09/17 Status: Completed Colace 100 mg oral capsule 100 mg=1 cap, PO, BID, # 30 cap, 0 Refill(s), [facility]acy: [id number] Start Date: 10/08/17 Status: Ordered cyclobenzaprine 10 mg, 1 tab, Route: PO, Drug form: TAB, TID, Dosing Weight 90.001, kg, Start da te: 10/05/17 13:00:00 CDT, Duration: 30 day, Stop date: 11/04/17 9:00:00 CDT Notes: (Same As: Flexeril) Start Date: 10/05/17 Stop Date: 10/08/17 Status: Discontinued dexamethasone 10 mg, 2.5 mL, Route: IVP, Drug form: INJ, ONCE, Dosing Weight 90.001, kg, Start date: 10/06/17 9:48:00 CDT, Stop date: 10/06/17 9:48:00 CDT Start Date: 10/06/17 Stop Date: 10/06/17 Status: Completed docusate sodium 100 mg oral capsule 100 mg, 1 cap, Route: PO, Drug form: CAP, BID, Dosing Weight 90.001, kg, Start d ate: 10/06/17 17:00:00 CDT, Duration: 30 day, Stop date: 11/05/17 9:00:00 CDT Notes: (Same as: Colace) (Do Not Crush) Start Date: 10/06/17 Stop Date: 10/08/17 Status: Discontinued Dulcolax Laxative 10 mg, 2 tab, Route: PO, Drug form: ECTAB, Daily, Dosing Weight 90.001, kg, Star t date: 10/07/17 9:00:00 CDT, Duration: 30 day, Stop date: 11/05/17 9:00:00 CDT Notes: (Same As: Dulcolax, Correctol) (Do Not Crush) "Do Not Crush" Start Date: 10/07/17 Stop Date: 10/08/17 Status: Discontinued Eliquis 5 mg, 1 tab, Route: PO, Drug form: TAB, Q12H, Dosing Weight 90.001, kg, Start da te: 10/05/17 21:00:00 CDT, Duration: 30 day, Stop date: 11/04/17 9:00:00 CDT Notes: Same as: Eliquis Start Date: 10/05/17 Stop Date: 10/08/17 Status: Discontinued Eliquis 5 mg oral tablet 5 mg, PO, Q12H, 0 Refill(s) Start Date: 10/05/17 Stop Date: 10/08/17 Status: Discontinued fentaNYL 50 microgram, 1 mL, Route: IVP, Drug form: INJ, ONCE, Dosing Weight 109.091, kg, Priority: STAT, Start date: 10/04/17 22:08:00 CDT, Stop date: 10/04/17 22:08:00 CDT Notes: (Same as: Sublimaze) Preservative free. Start Date: 10/04/17 Stop Date: 10/04/17 Status: Completed gabapentin 300 mg, 1 cap, Route: PO, Drug form: CAP, TID, Dosing Weight 90.001, kg, Start d ate: 10/05/17 13:00:00 CDT, Duration: 30 day, Stop date: 11/04/17 9:00:00 CDT Notes: (Same as: Neurontin) Start Date: 10/05/17 Stop Date: 10/05/17 Status: Canceled gabapentin 600 mg, 2 cap, Route: PO, Drug form: CAP, TID, Dosing Weight 90.001, kg, Start d ate: 10/05/17 13:00:00 CDT, Duration: 30 day, Stop date: 11/04/17 9:00:00 CDT Notes: (Same as: Neurontin) Start Date: 10/05/17 Stop Date: 10/08/17 Status: Discontinued gabapentin 300 mg oral capsule 300 mg, PO, TID, # 90 tab, 0 Refill(s), Pharmacy: [id number] Start Date: 10/08/17 Status: Ordered hydrochlorothiazide 25 mg oral tablet 12.5 mg, 0.5 tab, Route: PO, Drug form: TAB, Daily, Start date: 10/06/17 9:00:00 CDT, Duration: 30 day, Stop date: 11/04/17 9:00:00 CDT Notes: (Same as: Hydrodiuril) With food. Start Date: 10/06/17 Stop Date: 10/08/17 Status: Discontinued hydrochlorothiazide-lisinopril 12.5 mg-10 mg oral tablet 1 tab, Route: PO, Drug Form: TAB, Dosing Weight 90.001, kg, Daily, Start date: 0 10/06/17 9:00:00 CDT, Duration: 30 day, Stop date: 11/04/17 9:00:00 CDT Start Date: 10/06/17 Stop Date: 10/05/17 Status: Deleted lisinopril 10 mg, 2 tab, Route: PO, Drug form: TAB, Daily, Start date: 10/06/17 9:00:00 CDT , Duration: 30 day, Stop date: 11/04/17 9:00:00 CDT Notes: (Same as: Prinivil, Zestril) Start Date: 10/06/17 Stop Date: 10/08/17 Status: Discontinued magnesium citrate 1.745 g/30 mL oral liquid 300 ml, Route: PO, Drug Form: LIQ, Dosing Weight 90.001, kg, ONCE, Start date: 0 10/05/17 10:04:00 CDT, Stop date: 10/05/17 10:04:00 CDT Notes: (Same as: Citrate of Magnesia)Concentration: 1.745 gm / 30 mL Start Date: 10/05/17 Stop Date: 10/05/17 Status: Completed morphine Sulfate 6 mg, 3 mL, Route: PO, Drug form: SOLN, Q4H, Dosing Weight 90.001, kg, PRN Pain Score 7-10, Start date: 10/05/17 2:17:00 CDT, Stop date: 11/04/17 2:16:00 CDT Notes: (Same as:MORPhine Sulfate) Start Date: 10/05/17 Stop Date: 10/08/17 Status: Discontinued [place] 10/325 oral tablet 2 tab, Route: PO, Drug Form: TAB, Dosing Weight 90.001, kg, Q4H, PRN Pain Score 6-10, Start date: 10/05/17 10:30:00 CDT, Duration: 2 day, Stop date: 10/07/17 10 :29:00 CDT Notes: Do not exceed 4gm/day of acetaminophen. (Same as: [place] 325/10) Start Date: 10/05/17 Stop Date: 10/07/17 Status: Completed [place] 10/325 oral tablet 1 tab, Route: PO, Drug Form: TAB, Dosing Weight 90.001, kg, Q4H, PRN Pain Score 4-6, Start date: 10/05/17 10:30:00 CDT, Duration: 30 day, Stop date: 11/04/17 10 :29:00 CDT Notes: Do not exceed 4gm/day of acetaminophen. (Same as: [place] 325/10) Start Date: 10/05/17 Stop Date: 10/08/17 Status: Discontinued ondansetron 4 mg, 2 mL, Route: IVP, Drug form: INJ, Q6H, Dosing Weight 90.001, kg, PRN Nause a & Vomiting, Start date: 10/05/17 2:17:00 CDT, Duration: 30 day, Stop date: 11/04/17 2:16:00 CDT Notes: (Same as: Yeimy) MEDICATION WASTE Product Size: 4 mgProduct Was inna: ___ mg Start Date: 10/05/17 Stop Date: 10/08/17 Status: Discontinued potassium chloride 20 mEq, 15 mL, Route: PO, Drug form: LIQ, ONCE, Dosing Weight 90.001, kg, Start date: 10/05/17 10:29:00 CDT, Stop date: 10/05/17 10:29:00 CDT Notes: (Same as: Potassium Chloride) Start Date: 10/05/17 Stop Date: 10/05/17 Status: Completed Saline Flush 0.9% 10 ml, Route: IVP, Drug Form: INJ, Dosing Weight 90.001, kg, PRN, PRN Line Flush , Start date: 10/05/17 2:17:00 CDT, Duration: 30 day, Stop date: 11/04/17 2:16:0 0 CDT Notes: (Same as: BD Posiflush) Start Date: 10/05/17 Stop Date: 10/08/17 Status: Discontinued Saline Flush 0.9% 10 mL, Route: IVP, Drug Form: INJ, Dosing Weight 109.091, kg, PRN, PRN Line Flus h, Start date: 10/04/17 22:08:00 CDT, Duration: 30 day, Stop date: 11/03/17 22:0 7:00 CDT Notes: (Same as: BD Posiflush) Start Date: 10/04/17 Stop Date: 10/05/17 Status: Discontinued simvastatin 20 mg, 1 tab, Route: PO, Drug form: TAB, Bedtime, Dosing Weight 90.001, kg, Star t date: 10/05/17 21:00:00 CDT, Duration: 30 day, Stop date: 11/03/17 21:00:00 CD T Notes: (Same as: Zocor) Start Date: 10/05/17 Stop Date: 10/08/17 Status: Discontinued simvastatin 20 mg oral tablet 20 mg=1 tab, PO, Bedtime, # 30 tab, 1 Refill(s) Start Date: 10/05/17 Status: Ordered Sodium Chloride 0.9% IV 1,000 mL 1,000 mL, Rate: 75 ml/hr, Infuse over: 13.3 hr, Route: IV, Dosing Weight 90.001 kg, Total Volume: 1,000, Start date: 10/05/17 2:17:00 CDT, Duration: 30 day, Sto p date: 11/04/17 2:16:00 CDT, 2.07, m2 Start Date: 10/05/17 Stop Date: 10/05/17 Status: Discontinued Tylenol with Codeine #3 oral tablet 1 tab, Route: PO, Drug Form: TAB, Dosing Weight 90.001, kg, Q6H, PRN Pain Score 1-3, Start date: 10/08/17 11:28:00 CDT, Duration: 7 day, Stop date: 10/15/17 11: 27:00 CDT Notes: Do not exceed 4gm/day of acetaminophen. (Same as: Tylenol with Codeine # 3) Start Date: 10/08/17 Stop Date: 10/08/17 Status: Discontinued Tylenol with Codeine #3 oral tablet 1 tab, PO, Q6H, PRN Pain Score 1-3, # 24 tab, 0 Refill(s) Start Date: 10/08/17 Stop Date: 10/09/17 Status: Completed Results ELECTROLYTES 1 2 3 Most recent to oldest [Reference Range]: 138 mEq/L (10/07/17 4:18 AM) 143 mEq/L (10/05/17 6:14 AM) 138 mEq/L (10/04/17 10:13 PM) Sodium Lvl [135-145 mEq/L] 4.4 mEq/L (10/07/17 4:18 AM) 3.4 mEq/L *LOW* (10/05/17 6:14 AM) 4.4 mEq/L (10/04/17 10:13 PM) Potassium Lvl [3.5-5.1 mEq/L] 104 mEq/L (10/07/17 4:18 AM) 106 mEq/L (10/05/17 6:14 AM) 104 mEq/L (10/04/17 10:13 PM) Chloride Lvl [95-109 mEq/L] 27 mEq/L (10/07/17 4:18 AM) 32 mEq/L (10/05/17 6:14 AM) 29 mEq/L (10/04/17 10:13 PM) CO2 [24-32 mEq/L] 11.4 mEq/L (10/07/17 4:18 AM) 8.4 mEq/L *LOW* (10/05/17 6:14 AM) 9.4 mEq/L *LOW* (10/04/17 10:13 PM) AGAP [10.0-20.0 mEq/L] CHEM PANEL 1 2 3 Most recent to oldest [Reference Range]: 0.83 mg/dL (10/07/17 4:18 AM) 0.69 mg/dL (10/05/17 6:14 AM) 0.72 mg/dL (10/04/17 10:13 PM) Creatinine Lvl [0.50-1.40 mg/dL] 92 mL/min/1.73m2 1 *NA* (10/07/17 4:18 AM) 112 mL/min/1.73m2 2 *NA* (10/05/17 6:14 AM) 109 mL/min/1.73m2 3 *NA* (10/04/17 10:13 PM) eGFR 13 mg/dL (10/07/17 4:18 AM) 10 mg/dL (10/05/17 6:14 AM) 10 mg/dL (10/04/17 10:13 PM) BUN [7-22 mg/dL] 14 (10/05/17 6:14 AM) 14 (10/04/17 10:13 PM) B/C Ratio [6-25] 225 mg/dL *HI* (10/07/17 4:18 AM) 123 mg/dL *HI* (10/05/17 6:14 AM) 177 mg/dL *HI* (10/04/17 10:13 PM) Glucose Lvl [70-99 mg/dL] 7.8 g/dL (10/05/17 6:14 AM) 8.7 g/dL *HI* (10/04/17 10:13 PM) Total Protein [6.4-8.4 g/dL] 3.3 g/dL *LOW* (10/05/17 6:14 AM) 3.7 g/dL (10/04/17 10:13 PM) Albumin Lvl [3.5-5.0 g/dL] 4.5 g/dL *HI* (10/05/17 6:14 AM) 5.0 g/dL *HI* (10/04/17 10:13 PM) Globulin [2.7-4.2 g/dL] 0.7 (10/05/17 6:14 AM) 0.7 (10/04/17 10:13 PM) A/G Ratio [0.7-1.6] 8.9 mg/dL (10/07/17 4:18 AM) 8.7 mg/dL (10/05/17 6:14 AM) 8.8 mg/dL (10/04/17 10:13 PM) Calcium Lvl [8.5-10.5 mg/dL] 2.3 mg/dL (10/05/17 6:14 AM) Magnesium Lvl [1.8-2.4 mg/dL] 29 unit/L (10/05/17 6:14 AM) 33 unit/L (10/04/17 10:13 PM) ALT [0-65 unit/L] 20 unit/L (10/05/17 6:14 AM) 38 unit/L *HI* (10/04/17 10:13 PM) AST [0-37 unit/L] 86 unit/L (10/05/17 6:14 AM) 86 unit/L (10/04/17 10:13 PM) Alk Phos [39-136 unit/L] 0.3 mg/dL (10/05/17 6:14 AM) 0.3 mg/dL (10/04/17 10:13 PM) Bili Total [0.2-1.3 mg/dL] 1Result Comment: The eGFR is calculated [...] tiplied by the estimated BMI. CARDIAC ENZYMES 1 2 3 Most recent to oldest [Reference Range]: 114 unit/L (10/04/17 10:13 PM) Total CK [12-191 unit/L] 1.2 ng/mL (10/04/17 10:13 PM) CK MB [0.5-3.6 ng/mL] 1.1 (10/04/17 10:13 PM) CK MB Index [0.0-2.5] <0.02 ng/mL (10/04/17 10:13 PM) Troponin-I [0.00-0.40 ng/mL] URINE AND STOOL 1 2 3 Most recent to oldest [Reference Range]: Clear (10/04/17 11:08 PM) UA Turbidity [Clear] Yellow *NA* (10/04/17 11:08 PM) UA Color [Yellow] 5.0 (10/04/17 11:08 PM) UA pH [5.0-8.0] 1.020 (10/04/17 11:08 PM) UA Spec Grav [<=1.030] Negative mg/dL *NA* (10/04/17 11:08 PM) UA Glucose [Negative mg/dL] Negative (10/04/17 11:08 PM) UA Blood [Negative] Negative mg/dL *NA* (10/04/17 11:08 PM) UA Ketones [Negative mg/dL] Negative mg/dL (10/04/17 11:08 PM) UA Protein [Negative mg/dL] 4.0 mg/dL *HI* (10/04/17 11:08 PM) UA Urobilinogen [0.1-1.0 mg/dL] Negative *NA* (10/04/17 11:08 PM) UA Bili [Negative] Negative (10/04/17 11:08 PM) UA Leuk Est [Negative] Negative (10/04/17 11:08 PM) UA Nitrite [Negative] 4 /HPF (10/04/17 11:08 PM) UA WBC [0-5 /HPF] 15 /HPF *HI* (10/04/17 11:08 PM) UA RBC [0-2 /HPF] Occasional /HPF *NA* (10/04/17 11:08 PM) UA Bacteria [None Seen /HPF] None Seen *NA* (10/04/17 11:08 PM) UA Sq Epi Few /HPF *NA* (10/04/17 11:08 PM) UA Amorph Analisa [None Seen /HPF] HEMATOLOGY 1 2 3 Most recent to oldest [Reference Range]: 14.2 K/CMM *HI* (10/07/17 4:18 AM) 9.7 K/CMM (10/05/17 6:14 AM) 11.0 K/CMM *HI* (10/04/17 10:13 PM) WBC [3.7-10.4 K/CMM] 3.95 M/CMM *LOW* (10/07/17 4:18 AM) 3.73 M/CMM *LOW* (10/05/17 6:14 AM) 4.08 M/CMM *LOW* (10/04/17 10:13 PM) RBC [4.20-5.40 M/CMM] 11.8 g/dL *LOW* (10/07/17 4:18 AM) 11.3 g/dL *LOW* (10/05/17 6:14 AM) 11.3 g/dL *LOW* (10/05/17 6:14 AM) Hgb [12.0-16.0 g/dL] 34.3 % *LOW* (10/07/17 4:18 AM) 32.1 % *LOW* (10/05/17 6:14 AM) 32.1 % *LOW* (10/05/17 6:14 AM) Hct [36.0-48.0 %] 86.9 fL (10/07/17 4:18 AM) 86.3 fL (10/05/17 6:14 AM) 87.7 fL (10/04/17 10:13 PM) MCV [80.0-98.0 fL] 29.9 pg (10/07/17 4:18 AM) 30.3 pg (10/05/17 6:14 AM) 30.4 pg (10/04/17 10:13 PM) MCH [27.0-31.0 pg] 34.5 g/dL (10/07/17 4:18 AM) 35.2 g/dL (10/05/17 6:14 AM) 34.6 g/dL (10/04/17 10:13 PM) MCHC [32.0-36.0 g/dL] 14.8 % *HI* (10/07/17 4:18 AM) 14.9 % *HI* (10/05/17 6:14 AM) 15.0 % *HI* (10/04/17 10:13 PM) RDW [11.5-14.5 %] 8.8 fL (10/07/17 4:18 AM) 8.7 fL (10/05/17 6:14 AM) 8.7 fL (10/04/17 10:13 PM) MPV [7.4-10.4 fL] 332 K/CMM (10/07/17 4:18 AM) 297 K/CMM (10/05/17 6:14 AM) 307 K/CMM (10/04/17 10:13 PM) Platelet [133-450 K/CMM] 80.0 % *HI* (10/07/17 4:18 AM) 55.2 % (10/05/17 6:14 AM) 52.1 % (10/04/17 10:13 PM) Segs [45.0-75.0 %] 12.9 % *LOW* (10/07/17 4:18 AM) 35.2 % (10/05/17 6:14 AM) 39.1 % (10/04/17 10:13 PM) Lymphocytes [20.0-40.0 %] 6.9 % (10/07/17 4:18 AM) 8.0 % (10/05/17 6:14 AM) 7.6 % (10/04/17 10:13 PM) Monocytes [2.0-12.0 %] 0.8 % (10/05/17 6:14 AM) 0.5 % (10/04/17 10:13 PM) Eosinophils [0.0-4.0 %] 0.2 % (10/07/17 4:18 AM) 0.8 % (10/05/17 6:14 AM) 0.7 % (10/04/17 10:13 PM) Basophils [0.0-1.0 %] 11.3 K/CMM *HI* (10/07/17 4:18 AM) 5.3 K/CMM (10/05/17 6:14 AM) 5.7 K/CMM (10/04/17 10:13 PM) Segs-Bands # [1.5-8.1 K/CMM] 1.8 K/CMM (10/07/17 4:18 AM) 3.4 K/CMM (10/05/17 6:14 AM) 4.3 K/CMM (10/04/17 10:13 PM) Lymphocytes # [1.0-5.5 K/CMM] 1.0 K/CMM *HI* (10/07/17 4:18 AM) 0.8 K/CMM (10/05/17 6:14 AM) 0.8 K/CMM (10/04/17 10:13 PM) Monocytes # [0.0-0.8 K/CMM] 0.1 K/CMM (10/05/17 6:14 AM) 0.1 K/CMM (10/04/17 10:13 PM) Eosinophils # [0.0-0.5 K/CMM] 0.1 K/CMM (10/05/17 6:14 AM) 0.1 K/CMM (10/04/17 10:13 PM) Basophils # [0.0-0.2 K/CMM] 13.7 seconds (10/05/17 6:14 AM) 14.1 seconds (10/04/17 10:13 PM) PT [12.0-14.7 seconds] 1.05 (10/05/17 6:14 AM) 1.09 (10/04/17 10:13 PM) INR [0.85-1.17] 50.6 seconds *HI* (10/05/17 6:14 AM) 41.0 seconds *HI* (10/04/17 10:13 PM) PTT [22.9-35.8 seconds] Immunizations Not Given Vaccine Date Status Refusal Reason influenza virus vaccine, inactivated 04/11/14 Not Given Parent Or Guardian Refuses Procedures Procedure Date Related Diagnosis Body Site Status Laminectomy 10/06/16 Completed section Completed Social History Social History Type Response Substance Abuse Use: None. Alcohol Past, Type Wine. Frequency: 1-2 times per week. Previous treatment: None. Drinks more than intended: No. Others hurt by drinking: No. Ready to change: No. Household alcohol concerns: No.1 Smoking Status Current every day smoker; Type: Cigarettes; Previous treatment: None; Ready to change: No; Concerns about tobacco use in household: No; Exposure to Tobacco Smoke patient smokes; Cigarette Smoking Last 365 Days Yes; Reg Smoking Cessation Counseling Yes; Tobacco use per day: 4; Number of years: 20; entered on: 10/04/17 1drinks occasionaly Assessment and Plan Extracted from: Title: Clinical Document Author: Jourdan Canales MD Date: 10/08/17 Progress Note Cardiology [facility] Impression: Preop CV risk assessment Ejection fraction 60-65%, impaired relaxation Hypertension L5-S1 herniation with root impingement Tobacco use disorder Acute limb ischemia in July 2017 with left 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 she is being planned for dc today and outpt eval Objective: Telemetry NSR Vitals and Temp: VitalsTmp(F)[id number] 10/08 11:[id number]--- 10/08 08:[id number]--- 10/08 04:[id number]--- 10/08 00:[id number]--- 10/07 20:[id number]--- 24 Hr Tmax: 98.5F (36.94c) at 10/08 04:05Vital Signs are the last 5 in the past 48 hours. HEENT: Neck Supple, No JVD CVS: Regular rate, Normal S1S2 no murmur LUNGS: Clear to auscultation ABD: Soft, Non-tender, + BS EXT: No ankle edema Skin: No ulcers Neuro: Grossly non-focal Labs (Last four charted values) WBC H 14.2(OCTOBER 07)9.7(OCTOBER 05)H 11.0(OCTOBER 04) Hgb L 11.8(OCTOBER 07)L 11.3(OCTOBER 05)L 11.3(OCTOBER 05)12.4(OCTOBER 04) Hct L 34.3(OCTOBER 07)L 32.1(OCTOBER 05)L 32.1(OCTOBER 05)L 35.8(OCTOBER 04) Plt 332(OCTOBER 07)297(OCTOBER 05)307(OCTOBER 04) Na 138(OCTOBER 07)143(OCTOBER 05)138(OCTOBER 04) K 4.4(OCTOBER 07)L 3.4(OCTOBER 05)4.4(OCTOBER 04) CO2 27(OCTOBER 07)32(OCTOBER 05)29(OCTOBER 04) Cl 104(OCTOBER 07)106(OCTOBER 05)104(OCTOBER 04) Cr 0.83(OCTOBER 07)0.69(OCTOBER 05)0.72(OCTOBER 04) BUN 13(OCTOBER 07)10(OCTOBER 05)10(OCTOBER 04) Glucose Random H 225(OCTOBER 07)H 123(OCTOBER 05)H 177(OCTOBER 04) Mg 2.3(OCTOBER 05) Ca 8.9(OCTOBER 07)8.7(OCTOBER 05)8.8(OCTOBER 04) PT 13.7(OCTOBER 05)14.1(OCTOBER 04) INR 1.05(OCTOBER 05)1.09(OCTOBER 04) PTT H 50.6(OCTOBER 05)H 41.0(OCTOBER 04) Troponin <0.02(OCTOBER 04) CK MB 1.2(OCTOBER 04) Total CK 114(OCTOBER 04) Scheduled Meds (9): 10/06/17 (Suspended) apixaban (Eliquis) 5 mg PO Q12H 10/09/17 aspirin (aspirin 325 mg tablet, enteric coated) 325 mg PO Daily 10/07/17 bisacodyl (Dulcolax Laxative) 10 mg PO Daily 10/05/17 cyclobenzaprine 10 mg PO TID 10/06/17 docusate (docusate sodium 100 mg oral capsule) 100 mg PO BID 10/05/17 gabapentin 600 mg PO TID 10/06/17 hydrochlorothiazide (hydrochlorothiazide 25 mg oral tablet) 12.5 mg PO Daily 10/06/17 lisinopril 10 mg PO Daily 10/05/17 simvastatin 20 mg PO Bedtime Continuous Infusions: None Extracted from: Title: Clinical Document Author: Karena Chand NP Date: 10/07/17 CONSU DATE OF CONSULT: 10/07/2017 REFERRING PHYSICIAN: CONSULTING PHYSICIAN: Karena Murphy APPLICATION SECURITY ARCHITECT REASON FOR CONSULTATION: LEFT leg radiculopathy HISTORY OF PRESENT ILLNESS: Ms. Ham, a 57-year-old woman, was seen today as a consultation regarding her LEFT leg pain. She presents to the hospital with lower leg and lower back pain radiating into the left leg, which is quite severe. She reports that this pain started in late May, after she underwent surgery for a LEFT leg blood clot. She reports the pain is in the lateral aspect of her LEFT leg, radiating from he r lower back, down her LEFT leg and into her LEFT foot. Her pain is 100% LEFT and 0% RIGHT. She has a history of 4 prior lumbar surgeries (2011, 2013, 2015 and 2017 - the last two with Dr. Florencio Sandoval, the last of which was a PSF). She reports she was started on Eliquis following her DVT surgery in May, and last was given this medication on Saturday. She describes her pain as starting in her leg, particularly the calf, and radiating up and into her back. PREVIOUS MEDICAL HISTORY: HTN, chronic back pain, obesity, tobacco use, peripheral vascular disease/DVT SURGICAL HISTORY: 4 x lumbar surgery (including PSF) in 2011, 2013, 2015 and 2016, C-sections surgery x 2, cholecystectomy, and vascular procedure in May REVIEW OF SYSTEMS: Constitutional: Negative Eye: Negative. Ear/Nose/Mouth/Throat: Negative. Respiratory: Negative. Cardiovascular: Negative. Gastrointestinal: Negative. Genitourinary: Negative. Hematology/Lymphatics: Negative. Endocrine: Negative. Immunologic: Negative. Musculoskeletal: LEFT leg pain, swelling. Integumentary: Negative. Neurologic: Negative. Psychiatric: Negative. PHYSICAL EXAMINATION: VITAL SIGNS: She is afebrile, blood pressure is 109/73, pulse of 76, respirations 15, oxygen saturations of 97%. GENERAL: A well-developed, well-nourished woman who is in moderate distress because of leg pain. NEUROLOGICAL: AAO x 3, CN II - XII grossly intact, sensation intact, reflexes 2+, tone WNL. [id number] RADIOLOGY DATA: Lumbar MRI: New moderately large left paracentral to left foraminal disc extrusion at L5-S1 with suspected impingement of the exiting left L5 nerve root. Interval posterior and interbody fusion of L4-L5. There remains mild to moderate narrowing of the left neural foramen. Mild to moderate narrowing of the neural foramina bilaterally at L3-L4 due to a small disc bulge and facet arthropathy. LABORATORY DATA: CO2: 27 mEq/L (10/07/17 05:22:17) Chloride Lvl: 104 mEq/L (10/07/17 05:22:17) Sodium Lvl: 138 mEq/L (10/07/17 05:22:17) Glucose Lvl: 225 mg/dL High (10/07/17 05:22:17) Calcium Lvl: 8.9 mg/dL (10/07/17 05:22:17) Potassium Lvl: 4.4 mEq/L (10/07/17 05:22:17) BUN: 13 mg/dL (10/07/17 05:22:17) AGAP: 11.4 mEq/L (10/07/17 05:22:17) Creatinine Lvl: 0.83 mg/dL (10/07/17 05:22:17) Hct: 34.3 % Low (10/07/17 05:29:50) Hgb: 11.8 g/dL Low (10/07/17 05:29:50) MCH: 29.9 pg (10/07/17 05:29:50) MCHC: 34.5 g/dL (10/07/17 05:29:50) MCV: 86.9 fL (10/07/17 05:29:50) MPV: 8.8 fL (10/07/17 05:29:50) Platelet: 332 K/CMM (10/07/17 05:29:50) RBC: 3.95 M/CMM Low (10/07/17 05:29:50) RDW: 14.8 % High (10/07/17 05:29:50) WBC: 14.2 K/CMM High (10/07/17 05:29:50) Basophils: 0.2 % (10/07/17 05:29:51) Basophils #: 0.1 K/CMM (10/05/17 07:31:39) Eosinophils: 0.8 % (10/05/17 07:31:39) Eosinophils #: 0.1 K/CMM (10/05/17 07:31:39) Lymphocytes: 12.9 % Low (10/07/17 05:29:51) Lymphocytes #: 1.8 K/CMM (10/07/17 05:29:51) Monocytes: 6.9 % (10/07/17 05:29:51) Monocytes #: 1 K/CMM High (10/07/17 05:29:51) Segs: 80 % High (10/07/17 05:29:51) Segs-Bands #: 11.3 K/CMM High (10/07/17 05:29:51) INR: 1.05 (10/05/17 07:51:31) IMPRESSION: 1. LEFT leg pain, possibly to L5-s1 LEFT disc extrusion with foraminal stenosis vs vascular etiology 2. 4 prior back surgeries with resulting L4-L5 PSF, L4-S1 decompression. Ms. Ham, a 57 year old female, was seen today as a consultation regarding her LEFT leg radiculopathy. SHe describes 4-5 months of severe LEFT lateral leg pain. On lumbar MRI we can see new moderately large left paracentral to left foraminal disc extrusion at L5-S1 with suspected impingement of the exiting left L5 nerve root. On physical exam she displays weakness, most notable in her LEFT anterior tibialis, however her EHL is largley preserved, thus not a typical L5 radiculopathy weakness. For her at this time we have asked for cardiology clearance. She has been on Eliquis, and last received a dose on Saturday (10/06/17). It would appear to be most appropriate for her to follow up with Dr. Sandoval regarding her current leg radiculopathy, as he has performed her previous two surgeries (most recently last year). However, as he no longer accepts her insurance, we are available to provide neurosurigcal interventions. For surgical management, she will likely at least need a LEFT L5-S1 far lateral foraminotomy/microdiscectomy. However, given the prior laminotomies done there, it is possible this will destabilize her to an unacceptable extent. If this is the case, she will require an extension of her prior L4-L5 PSF to a L4-S1 PSF. At this time it appears she has been seen by vascular (Dr. Pagan) and her symptoms have been ruled out as not secondary to vascular etiology. For her we now recommend PLAN: 1. Cardiac clearance 2. Vascular evaluation 3. Discuss with Dr. Piña regarding timing of intervention given patient anticoagulation, plan for possible LEFT L5-S1 far lateral foraminotomy/microdiscectomy, possible revision L4-S1 posterior spinal fusion. Karena Chand APRN I, Mitchel Blankenship, personally evaluated this patient
--- OUTSIDE RECORDS SUMMARY | 2018-06-12 21:25 | XMS REPORT | Summary of Care ---
Author Author [facility] Organization [facility] Address Unknown Phone Unavailable Encounter ADRIANNE Amador(TELLY) [id number] Date(s): 05/31/17 - 06/01/17 [facility] [address] [place] [address]- Encounter Diagnosis Chronic back pain (Discharge Diagnosis) - 06/01/17 Acute URI (Discharge Diagnosis) - 06/01/17 Discharge Disposition: Home or Self Care Attending Physician: Patricia Tomas MD Vital Signs 1 2 3 Most recent to oldest [Reference Range]: 167.64 cm (05/31/17 5:34 PM) Height 98.6 DegF (06/01/17 6:27 AM) 99.0 DegF (06/01/17 4:30 AM) 100.2 DegF *HI* (06/01/17 1:25 AM) Temperature Oral [96.4-99.1 DegF] 117/70 mmHg (06/01/17 6:27 AM) 121/63 mmHg (06/01/17 4:30 AM) 141/83 mmHg *HI* (06/01/17 1:25 AM) Blood Pressure [90-140/60-90 mmHg] 18 BRMIN (06/01/17 6:27 AM) 14 BRMIN (06/01/17 4:30 AM) 20 BRMIN (06/01/17 1:25 AM) Respiratory Rate [14-20 BRMIN] 96 bpm (06/01/17 6:27 AM) 100 bpm (06/01/17 4:30 AM) 102 bpm *HI* (06/01/17 1:25 AM) Peripheral Pulse Rate [60-100 bpm] 89.545 kg (05/31/17 5:34 PM) Weight 31.86 m2 (05/31/17 5:34 PM) Body Mass Index Problem List Condition Effective Dates Status Health Status Informant Active Active smoker(Confirmed) Back pain(Confirmed) Active Gall Resolved stone(Confirmed) Gallbladder Active stones(Confirmed) Gallstone1 11/21/10 Active Hypertension(Confirm Active ed) Sciatica Active neuralgia(Confirmed) 1Data migrated from [facility] on 10/18/14. Allergies, Adverse Reactions, Alerts Substance Reaction Severity Status NKDA Active Medications acetaminophen 650 mg, Route: PO, Drug form: TAB, ONCE, Dosing Weight 89.545, kg, Priority: STA T, Start date: 06/01/17 1:58:00 [employer]IST, Stop date: 06/01/17 1:58:00 [employer] SUP[employer]Y [employer]IST Start Date: 06/01/17 Stop Date: 06/01/17 Status: Completed acetaminophen-hydrocodone 325 mg-5 mg oral tablet 1 tab, Route: PO, Drug Form: TAB, Dosing Weight 89.545, kg, ONCE, STAT, Start da te: 06/01/17 5:25:00 [employer]Y SUPPLY SPECIALIST, Stop date: 06/01/17 5:25:00 PARTY SUPPLY SPECIALIST Start Date: 06/01/17 Stop Date: 06/01/17 Status: Completed Sodium Chloride 0.9% (Bolus) IV 1,000 mL, Infuse Over: 1 hr, Route: IV, ONCE, Priority: STAT, Dosing Weight 89.5 45 kg, Start date: 06/01/17 1:58:00 PARTY SUPPLY SPECIALIST, Stop date: 06/01/17 1:58:00 PARTY SUPPLY SPECIALIST Start Date: 06/01/17 Stop Date: 06/01/17 Status: Completed Tylenol with Codeine #3 oral tablet 1 - 2 tab, PO, Q4H, PRN Pain, not to exceed 4000 mg acetaminophen per day, X 3 d ay, # 20 tab, 0 Refill(s) Start Date: 06/01/17 Stop Date: 06/04/17 Status: Ordered Results ELECTROLYTES Most recent to 1 oldest [Reference Range]: Sodium Lvl [135-145 136 mEq/L mEq/L] (05/31/17 5:52 PM) Potassium Lvl 3.6 mEq/L [3.5-5.1 mEq/L] (05/31/17 5:52 PM) Chloride Lvl [95-109 101 mEq/L mEq/L] (05/31/17 5:52 PM) CO2 [24-32 mEq/L] 30 mEq/L (05/31/17 5:52 PM) AGAP [10.0-20.0 8.6 mEq/L mEq/L] *LOW* (05/31/17 5:52 PM) CHEM PANEL Most recent to 1 oldest [Reference Range]: Creatinine Lvl 0.73 mg/dL [0.50-1.40 mg/dL] (05/31/17 5:52 PM) eGFR 107 mL/min/1.73m2 1 *NA* (05/31/17 5:52 PM) BUN [7-22 mg/dL] 11 mg/dL (05/31/17 5:52 PM) B/C Ratio [6-25] 15 (05/31/17 5:52 PM) Glucose Lvl [70-99 106 mg/dL mg/dL] *HI* (05/31/17 5:52 PM) Total Protein 9.6 g/dL [6.4-8.4 g/dL] *HI* (05/31/17 5:52 PM) Albumin Lvl [3.5-5.0 4.1 g/dL g/dL] (05/31/17 5:52 PM) Globulin [2.7-4.2 5.5 g/dL g/dL] *HI* (05/31/17 5:52 PM) A/G Ratio [0.7-1.6] 0.7 (05/31/17 5:52 PM) Calcium Lvl 8.9 mg/dL [8.5-10.5 mg/dL] (05/31/17 5:52 PM) ALT [0-65 unit/L] 33 unit/L (05/31/17 5:52 PM) AST [0-37 unit/L] 32 unit/L (05/31/17 5:52 PM) Alk Phos [39-136 106 unit/L unit/L] (05/31/17 5:52 PM) Bili Total [0.2-1.3 0.5 mg/dL mg/dL] (05/31/17 5:52 PM) 1Result Comment: The eGFR is calculated [...] be mul tiplied by the estimated BMI. URINE AND STOOL Most recent to 1 oldest [Reference Range]: UA Turbidity [Clear] Clear (06/01/17 1:24 AM) UA Color [Yellow] Yellow *NA* (06/01/17 1:24 AM) UA pH [5.0-8.0] 5.0 (06/01/17 1:24 AM) UA Spec Grav 1.027 [<=1.030] (06/01/17 1:24 AM) UA Glucose [Negative Negative mg/dL mg/dL] *NA* (06/01/17 1:24 AM) UA Blood [Negative] Small *ABN* (06/01/17 1:24 AM) UA Ketones [Negative Negative mg/dL mg/dL] *NA* (06/01/17 1:24 AM) UA Protein [Negative 30 mg/dL mg/dL] *ABN* (06/01/17 1:24 AM) UA Urobilinogen 4.0 mg/dL [0.1-1.0 mg/dL] *HI* (06/01/17 1:24 AM) UA Bili [Negative] Negative *NA* (06/01/17 1:24 AM) UA Leuk Est Negative [Negative] (06/01/17 1:24 AM) UA Nitrite Negative [Negative] (06/01/17 1:24 AM) UA WBC [0-5 /HPF] 1 /HPF (06/01/17 1:24 AM) UA RBC [0-2 /HPF] 5 /HPF *HI* (06/01/17 1:24 AM) UA Bacteria [None Occasional /HPF Seen /HPF] *NA* (06/01/17 1:24 AM) UA Sq Epi [Few /LPF] Occasional /LPF *NA* (06/01/17 1:24 AM) UA Mucus [None Seen Few /LPF /LPF] *NA* (06/01/17 1:24 AM) HEMATOLOGY Most recent to 1 oldest [Reference Range]: WBC [3.7-10.4 K/CMM] 5.7 K/CMM (05/31/17 5:52 PM) RBC [4.20-5.40 4.46 M/CMM M/CMM] (05/31/17 5:52 PM) Hgb [12.0-16.0 g/dL] 13.6 g/dL (05/31/17 5:52 PM) Hct [36.0-48.0 %] 38.9 % (05/31/17 5:52 PM) MCV [80.0-98.0 fL] 87.2 fL (05/31/17 5:52 PM) MCH [27.0-31.0 pg] 30.5 pg (05/31/17 5:52 PM) MCHC [32.0-36.0 34.9 g/dL g/dL] (05/31/17 5:52 PM) RDW [11.5-14.5 %] 14.2 % (05/31/17 5:52 PM) Platelet [133-450 311 K/CMM K/CMM] (05/31/17 5:52 PM) MPV [7.4-10.4 fL] 8.4 fL (05/31/17 5:52 PM) Segs [45.0-75.0 %] 57.9 % (05/31/17 5:52 PM) Lymphocytes 24.7 % [20.0-40.0 %] (05/31/17 5:52 PM) Monocytes [2.0-12.0 16.4 % %] *HI* (05/31/17 5:52 PM) Eosinophils [0.0-4.0 0.3 % %] (05/31/17 5:52 PM) Basophils [0.0-1.0 0.7 % %] (05/31/17 5:52 PM) Segs-Bands # 3.3 K/CMM [1.5-8.1 K/CMM] (05/31/17 5:52 PM) Lymphocytes # 1.4 K/CMM [1.0-5.5 K/CMM] (05/31/17 5:52 PM) Monocytes # [0.0-0.8 0.9 K/CMM K/CMM] *HI* (05/31/17 5:52 PM) PT [12.0-14.7 12.9 seconds seconds] (06/01/17 1:24 AM) INR [0.85-1.17] 0.97 (06/01/17 1:24 AM) D-Dimer 0.73 ug/mL FEU *NA* (06/01/17 1:24 AM) PTT [22.9-35.8 36.5 seconds seconds] *HI* (06/01/17 1:24 AM) VIRAL - SEROLOGY Most recent to 1 oldest [Reference Range]: Influ A [Negative] Negative (06/01/17 2:56 AM) Influ B [Negative] Negative (06/01/17 2:56 AM) Immunizations Not Given Vaccine Date Status [...] 4; Number of years: 20; entered on: 06/01/17 1drinks occasionaly Assessment and Plan No data available for this section
--- OUTSIDE RECORDS SUMMARY | 2018-06-12 21:25 | XMS REPORT | Summary of Care ---
Author Author [facility] Organization [facility] Address Unknown Phone Unavailable Encounter ADRIANNE Amador(TELLY) [id number] Date(s): 11/23/16 - 11/23/16 [facility] [address] [place] [address]- [phone] Discharge Diagnosis: Low back pain Discharge Diagnosis: S/P diskectomy Discharge Diagnosis: H/O laminectomy Discharge Disposition: Home or Self Care Attending Physician: Ceci Duval DO Vital Signs 1 2 3 Most recent to oldest [Reference Range]: 167.64 cm (11/23/16 1:33 AM) Height 98 DegF (11/23/16 8:28 AM) 98.7 DegF (11/23/16 4:22 AM) 99 DegF (11/23/16 3:26 AM) Temperature Oral [96.4-99.1 DegF] 132/78 mmHg (11/23/16 8:28 AM) 138/84 mmHg (11/23/16 4:22 AM) Blood Pressure [90-140/60-90 mmHg] 170 mmHg *HI* (11/23/16 3:26 AM) Systolic Blood Pressure [90-140 mmHg] 90 mmHg (11/23/16 3:26 AM) Diastolic Blood Pressure [60-90 mmHg] 16 BRMIN (11/23/16 8:28 AM) 16 BRMIN (11/23/16 4:22 AM) 16 BRMIN (11/23/16 3:26 AM) Respiratory Rate [14-20 BRMIN] 85 bpm (11/23/16 8:28 AM) 78 bpm (11/23/16 4:22 AM) 86 bpm (11/23/16 3:26 AM) Peripheral Pulse Rate [60-100 bpm] 85 kg (11/23/16 1:33 AM) Weight 30.25 m2 (11/23/16 1:33 AM) Body Mass Index Problem List Condition Effective Dates Status Health Status Informant Active Active smoker(Confirmed) Back pain(Confirmed) Active Gall Resolved stone(Confirmed) Gallbladder Active stones(Confirmed) Gallstone1 11/21/10 Active Hypertension(Confirm Active ed) Sciatica Active neuralgia(Confirmed) 1Data migrated from [facility] on 10/18/14. Allergies, Adverse Reactions, Alerts Substance Reaction Severity Status NKDA Active Medications gabapentin 300 mg, PO, TID, 0 Refill(s) Start Date: 11/23/16 Status: Ordered Percocet 10/325 oral tablet 2 tab, PO, Q8H, 0 Refill(s) Start Date: 11/23/16 Status: Ordered Sodium Chloride 0.9% (Bolus) IV 1,000 mL, 1000 ml/hr, Infuse Over: 1 hr, Route: IV, 1,000, Drug form: INJ, ONCE, Priority: STAT, Dosing Weight 85 kg, Start date: 11/23/16 3:19:00 CDT, Duration: 1 doses or times, Stop date: 11/23/16 3:19:00 CDT Start Date: 11/23/16 Stop Date: 11/23/16 Status: Completed Results ELECTROLYTES Most recent to 1 oldest [Reference Range]: Sodium Lvl [135-145 136 mEq/L mEq/L] (11/23/16 4:15 AM) Potassium Lvl 4.3 mEq/L [3.5-5.1 mEq/L] (11/23/16 4:15 AM) Chloride Lvl [95-109 102 mEq/L mEq/L] (11/23/16 4:15 AM) CO2 [24-32 mEq/L] 29 mEq/L (11/23/16 4:15 AM) AGAP [10.0-20.0 9.3 mEq/L mEq/L] *LOW* (11/23/16 4:15 AM) CHEM PANEL Most recent to 1 oldest [Reference Range]: Creatinine Lvl 0.73 mg/dL [0.50-1.40 mg/dL] (11/23/16 4:15 AM) eGFR 107 mL/min/1.73m2 1 *NA* (11/23/16 4:15 AM) BUN [7-22 mg/dL] 8 mg/dL (11/23/16 4:15 AM) Glucose Lvl [70-99 109 mg/dL mg/dL] *HI* (11/23/16 4:15 AM) Calcium Lvl 9.0 mg/dL [8.5-10.5 mg/dL] (11/23/16 4:15 AM) Procalcitonin Lvl <0.05 ng/mL [0.00-0.10 ng/mL] (11/23/16 4:15 AM) 1Result Comment: The eGFR is calculated [...] be mul tiplied by the estimated BMI. ENDOCRINOLOGY Most recent to 1 oldest [Reference Range]: S Preg [Negative] Negative *NA* (11/23/16 4:15 AM) URINE CHEM Most recent to 1 oldest [Reference Range]: U Preg [Negative] Negative (11/23/16 4:06 AM) URINE AND STOOL Most recent to 1 oldest [Reference Range]: UA Turbidity [Clear] Clear (11/23/16 4:06 AM) UA Color Ltyellow *NA* (11/23/16 4:06 AM) UA pH [5.0-8.0] 6.0 (11/23/16 4:06 AM) UA Spec Grav 1.013 [<=1.030] (11/23/16 4:06 AM) UA Glucose [Negative Negative mg/dL mg/dL] *NA* (11/23/16 4:06 AM) UA Blood [Negative] Small *ABN* (11/23/16 4:06 AM) UA Ketones [Negative Negative mg/dL mg/dL] *NA* (11/23/16 4:06 AM) UA Protein [Negative Negative mg/dL mg/dL] (11/23/16 4:06 AM) UA Urobilinogen 2.0 mg/dL [0.1-1.0 mg/dL] *HI* (11/23/16 4:06 AM) UA Bili [Negative] Negative *NA* (11/23/16 4:06 AM) UA Leuk Est Negative [Negative] (11/23/16 4:06 AM) UA Nitrite Negative [Negative] (11/23/16 4:06 AM) UA WBC [0-5 /HPF] 1 /HPF (11/23/16 4:06 AM) UA RBC [0-2 /HPF] 1 /HPF (11/23/16 4:06 AM) UA Sq Epi [Few /LPF] Occasional /LPF *NA* (11/23/16 4:06 AM) HEMATOLOGY Most recent to 1 oldest [Reference Range]: WBC [3.7-10.4 K/CMM] 9.0 K/CMM (11/23/16 4:15 AM) RBC [4.20-5.40 4.07 M/CMM M/CMM] *LOW* (11/23/16 4:15 AM) Hgb [12.0-16.0 g/dL] 12.2 g/dL (11/23/16 4:15 AM) Hct [36.0-48.0 %] 35.2 % *LOW* (11/23/16 4:15 AM) MCV [80.0-98.0 fL] 86.5 fL (11/23/16 4:15 AM) MCH [27.0-31.0 pg] 30.1 pg (11/23/16 4:15 AM) MCHC [32.0-36.0 34.8 g/dL g/dL] (11/23/16 4:15 AM) RDW [11.5-14.5 %] 14.4 % (11/23/16 4:15 AM) Platelet [133-450 333 K/CMM K/CMM] (11/23/16 4:15 AM) MPV [7.4-10.4 fL] 8.2 fL (11/23/16 4:15 AM) Segs [45.0-75.0 %] 50.0 % (11/23/16 4:15 AM) Lymphocytes 39.8 % [20.0-40.0 %] (11/23/16 4:15 AM) Monocytes [2.0-12.0 8.7 % %] (11/23/16 4:15 AM) Eosinophils [0.0-4.0 0.9 % %] (11/23/16 4:15 AM) Basophils [0.0-1.0 0.6 % %] (11/23/16 4:15 AM) Segs-Bands # 4.5 K/CMM [1.5-8.1 K/CMM] (11/23/16 4:15 AM) Lymphocytes # 3.6 K/CMM [1.0-5.5 K/CMM] (11/23/16 4:15 AM) Monocytes # [0.0-0.8 0.8 K/CMM K/CMM] (11/23/16 4:15 AM) Eosinophils # 0.1 K/CMM [0.0-0.5 K/CMM] (11/23/16 4:15 AM) Basophils # [0.0-0.2 0.1 K/CMM K/CMM] (11/23/16 4:15 AM) Immunizations Not Given Vaccine Date Status [...]
--- OUTSIDE RECORDS SUMMARY | 2018-06-12 21:25 | XMS REPORT | Summary of Care ---
Author Author [facility] Organization [facility] Address Unknown Phone Unavailable Encounter ADRIANNE Amador(TELLY) [id number] Date(s): 10/21/17 - 10/22/17 [facility] [address] [place] [address]- Encounter Diagnosis Left leg pain (Discharge Diagnosis) - 10/22/17 Discharge Disposition: Home or Self Care Attending Physician: Ceci Duval DO Vital Signs 1 2 3 Most recent to oldest [Reference Range]: 167.64 cm (10/21/17 7:43 PM) Height 98.2 DegF (10/22/17 1:18 AM) 98.6 DegF (10/21/17 7:43 PM) Temperature Oral [96.4-99.1 DegF] 110/57 mmHg (10/22/17 1:18 AM) 167/98 mmHg *HI* (10/21/17 11:02 PM) 167/98 mmHg *HI* (10/21/17 10:53 PM) Blood Pressure [90-140/60-90 mmHg] 17 BRMIN (10/22/17 1:18 AM) 15 BRMIN (10/21/17 11:02 PM) 18 BRMIN (10/21/17 10:53 PM) Respiratory Rate [14-20 BRMIN] 91 bpm (10/22/17 1:18 AM) 102 bpm *HI* (10/21/17 10:53 PM) 103 bpm *HI* (10/21/17 7:43 PM) Peripheral Pulse Rate [60-100 bpm] 89.091 kg (10/21/17 7:43 PM) Weight 31.7 m2 (10/21/17 7:43 PM) Body Mass Index Problem List Condition Effective Dates Status Health Status Informant Active Active smoker(Confirmed) Back pain(Confirmed) Active Gall Resolved stone(Confirmed) Gallbladder Active stones(Confirmed) Gallstone1 11/21/10 Active Hypertension(Confirm Active ed) Sciatica Active neuralgia(Confirmed) Simple Active obesity(Confirmed) 1Data migrated from [facility] on 10/18/14. Allergies, Adverse Reactions, Alerts Substance Reaction Severity Status NKDA Active Medications [place] 5/325 oral tablet 1 tab, Route: PO, Drug Form: TAB, Dosing Weight 89.091, kg, ONCE, STAT, Start da te: 10/22/17 1:24:00 CDT, Stop date: 10/22/17 1:24:00 CDT Start Date: 10/22/17 Stop Date: 10/22/17 Status: Completed Saline Flush 0.9% 10 mL, Route: IVP, Drug Form: INJ, Dosing Weight 90.001, kg, PRN, PRN Line Flush , Start date: 10/21/17 19:45:00 CDT, Duration: 30 day, Stop date: 11/20/17 19:44 :00 CDT Notes: (Same as: BD Posiflush) Start Date: 10/21/17 Stop Date: 10/22/17 Status: Discontinued Results ELECTROLYTES Most recent to 1 oldest [Reference Range]: Sodium Lvl [135-145 141 mEq/L mEq/L] (10/21/17 11:00 PM) Potassium Lvl 3.5 mEq/L [3.5-5.1 mEq/L] (10/21/17 11:00 PM) Chloride Lvl [95-109 105 mEq/L mEq/L] (10/21/17 11:00 PM) CO2 [24-32 mEq/L] 31 mEq/L (10/21/17 11:00 PM) AGAP [10.0-20.0 8.5 mEq/L mEq/L] *LOW* (10/21/17 11:00 PM) CHEM PANEL Most recent to 1 oldest [Reference Range]: Creatinine Lvl 0.82 mg/dL [0.50-1.40 mg/dL] (10/21/17 11:00 PM) eGFR 92 mL/min/1.73m2 1 *NA* (10/21/17 11:00 PM) BUN [7-22 mg/dL] 10 mg/dL (10/21/17 11:00 PM) B/C Ratio [6-25] 12 (10/21/17 11:00 PM) Glucose Lvl [70-99 140 mg/dL mg/dL] *HI* (10/21/17 11:00 PM) Total Protein 8.4 g/dL [6.4-8.4 g/dL] (10/21/17 11:00 PM) Albumin Lvl [3.5-5.0 3.6 g/dL g/dL] (10/21/17 11:00 PM) Globulin [2.7-4.2 4.8 g/dL g/dL] *HI* (10/21/17 11:00 PM) A/G Ratio [0.7-1.6] 0.8 (10/21/17 11:00 PM) Calcium Lvl 8.5 mg/dL [8.5-10.5 mg/dL] (10/21/17 11:00 PM) ALT [0-65 unit/L] 34 unit/L (10/21/17 11:00 PM) AST [0-37 unit/L] 21 unit/L (10/21/17 11:00 PM) Alk Phos [39-136 91 unit/L unit/L] (10/21/17 11:00 PM) Bili Total [0.2-1.3 0.2 mg/dL mg/dL] (10/21/17 11:00 PM) 1Result Comment: The eGFR is calculated [...] 1 oldest [Reference Range]: Total CK [12-191 92 unit/L unit/L] (10/21/17 11:00 PM) CK MB [0.5-3.6 2.3 ng/mL ng/mL] (10/21/17 11:00 PM) CK MB Index 2.5 [0.0-2.5] (10/21/17 11:00 PM) Troponin-I <0.02 ng/mL [0.00-0.40 ng/mL] (10/21/17 11:00 PM) HEMATOLOGY Most recent to 1 oldest [Reference Range]: WBC [3.7-10.4 K/CMM] 11.9 K/CMM *HI* (10/21/17 11:00 PM) RBC [4.20-5.40 4.16 M/CMM M/CMM] *LOW* (10/21/17 11:00 PM) Hgb [12.0-16.0 g/dL] 12.3 g/dL (10/21/17:00 PM) Hct [36.0-48.0 %] 36.2 % (10/21/17 11:00 PM) MCV [80.0-98.0 fL] 87.1 fL (10/21/17 11:00 PM) MCH [27.0-31.0 pg] 29.5 pg (10/21/17 11:00 PM) MCHC [32.0-36.0 33.8 g/dL g/dL] (10/21/17 11:00 PM) RDW [11.5-14.5 %] 14.5 % (10/21/17 11:00 PM) MPV [7.4-10.4 fL] 8.1 fL (10/21/17 11:00 PM) Platelet [133-450 351 K/CMM K/CMM] (10/21/17 11:00 PM) Segs [45.0-75.0 %] 54.8 % (10/21/17 11:00 PM) Lymphocytes 35.8 % [20.0-40.0 %] (10/21/17 11:00 PM) Monocytes [2.0-12.0 8.3 % %] (10/21/17 11:00 PM) Eosinophils [0.0-4.0 0.5 % %] (10/21/17 11:00 PM) Basophils [0.0-1.0 0.6 % %] (10/21/17 11:00 PM) Segs-Bands # 6.5 K/CMM [1.5-8.1 K/CMM] (10/21/17 11:00 PM) Lymphocytes # 4.3 K/CMM [1.0-5.5 K/CMM] (10/21/17 11:00 PM) Monocytes # [0.0-0.8 1.0 K/CMM K/CMM] *HI* (10/21/17 11:00 PM) Eosinophils # 0.1 K/CMM [0.0-0.5 K/CMM] (10/21/17 11:00 PM) Basophils # [0.0-0.2 0.1 K/CMM K/CMM] (10/21/17 11:00 PM) PT [12.0-14.7 13.1 seconds seconds] (10/21/17 11:00 PM) INR [0.85-1.17] 0.99 (10/21/17 11:00 PM) PTT [22.9-35.8 36.0 seconds seconds] *HI* (10/21/17 11:00 PM) Immunizations Not Given Vaccine Date Status Refusal [...] 4; Number of years: 20; entered on: 10/21/17 1drinks occasionaly Assessment and Plan No data available for this section
--- OUTSIDE RECORDS SUMMARY | 2018-06-12 21:25 | XMS REPORT | Summary of Care ---
Author Author [facility] Organization [facility] Address Unknown Phone Unavailable Encounter HQ Marjorie(FIN) [id number] Date(s): 09/06/17 - 09/07/17 [facility] [address] [place] [address]- Encounter Diagnosis Chronic leg pain (Discharge Diagnosis) - 09/07/17 SOB (shortness of breath) (Discharge Diagnosis) - 09/07/17 Discharge Disposition: Home or Self Care Attending Physician: Brando Diaz MD Vital Signs 1 2 3 Most recent to oldest [Reference Range]: 98.5 DegF (09/07/17 2:40 AM) 98.7 DegF (09/06/17 9:40 PM) 98.7 DegF (09/06/17 5:45 PM) Temperature Oral [96.4-99.1 DegF] 133/68 mmHg (09/07/17 2:40 AM) 120/64 mmHg (09/07/17 12:40 AM) Blood Pressure [90-140/60-90 mmHg] 147 mmHg *HI* (09/06/17 9:40 PM) Systolic Blood Pressure [90-140 mmHg] 77 mmHg (09/06/17 9:40 PM) Diastolic Blood Pressure [60-90 mmHg] 16 BRMIN (09/07/17 2:40 AM) 18 BRMIN (09/07/17 12:40 AM) 16 BRMIN (09/06/17 9:40 PM) Respiratory Rate [14-20 BRMIN] 92 bpm (09/07/17 2:40 AM) 92 bpm (09/07/17 12:40 AM) 109 bpm *HI* (09/06/17 9:40 PM) Peripheral Pulse Rate [60-100 bpm] Problem List Condition Effective Dates Status Health Status Informant Active Active smoker(Confirmed) Back pain(Confirmed) Active Gall Resolved stone(Confirmed) Gallbladder Active stones(Confirmed) Gallstone1 11/21/10 Active Hypertension(Confirm Active ed) Sciatica Active neuralgia(Confirmed) 1Data migrated from [facility] on 10/18/14. Allergies, Adverse Reactions, Alerts Substance Reaction Severity Status NKDA Active Medications morphine Sulfate 4 mg, Route: IVP, Drug form: INJ, ONCE, Dosing Weight 89.545, kg, Priority: STAT , Start date: 09/07/17 0:27:00 CDT, Stop date: 09/07/17 0:27:00 CDT Start Date: 09/07/17 Stop Date: 09/07/17 Status: Completed [place] 10/325 oral tablet 1 tab, Route: PO, Drug Form: TAB, Dosing Weight 89.545, kg, ONCE, STAT, Start da te: 09/06/17 22:06:00 CDT, Stop date: 09/06/17 22:06:00 CDT Notes: Do not exceed 4gm/day of acetaminophen. (Same as: [place] 325/10) Start Date: 09/06/17 Stop Date: 09/06/17 Status: Completed Ultram 50 mg oral tablet 50 mg=1 tab, PO, Q4H, PRN pain, X 5 day, # 30 tab, 0 Refill(s) Start Date: 09/07/17 Stop Date: 09/12/17 Status: Ordered Results ELECTROLYTES Most recent to 1 oldest [Reference Range]: Sodium Lvl [135-145 142 mEq/L mEq/L] (09/06/17 11:51 PM) Potassium Lvl 3.5 mEq/L [3.5-5.1 mEq/L] (09/06/17 11:51 PM) Chloride Lvl [95-109 105 mEq/L mEq/L] (09/06/17 11:51 PM) CO2 [24-32 mEq/L] 30 mEq/L (09/06/17 11:51 PM) AGAP [10.0-20.0 10.5 mEq/L mEq/L] (09/06/17 11:51 PM) CHEM PANEL Most recent to 1 oldest [Reference Range]: Creatinine Lvl 0.54 mg/dL [0.50-1.40 mg/dL] (09/06/17 11:51 PM) eGFR 122 mL/min/1.73m2 1 *NA* (09/06/17 11:51 PM) BUN [7-22 mg/dL] 9 mg/dL (09/06/17 11:51 PM) B/C Ratio [6-25] 17 (09/06/17 11:51 PM) Glucose Lvl [70-99 92 mg/dL mg/dL] (09/06/17 11:51 PM) Total Protein 8.6 g/dL [6.4-8.4 g/dL] *HI* (09/06/17 11:51 PM) Albumin Lvl [3.5-5.0 3.7 g/dL g/dL] (09/06/17 11:51 PM) Globulin [2.7-4.2 4.9 g/dL g/dL] *HI* (09/06/17 11:51 PM) A/G Ratio [0.7-1.6] 0.8 (09/06/17 11:51 PM) Calcium Lvl 9.0 mg/dL [8.5-10.5 mg/dL] (09/06/17 11:51 PM) ALT [0-65 unit/L] 28 unit/L (09/06/17 11:51 PM) AST [0-37 unit/L] 21 unit/L (09/06/17 11:51 PM) Alk Phos [39-136 91 unit/L unit/L] (09/06/17 11:51 PM) Bili Total [0.2-1.3 0.3 mg/dL mg/dL] (09/06/17 11:51 PM) 1Result Comment: The eGFR is calculated [...] 1 oldest [Reference Range]: Total CK [12-191 73 unit/L unit/L] (09/06/17 11:51 PM) CK MB [0.5-3.6 1.0 ng/mL ng/mL] (09/06/17 11:51 PM) CK MB Index 1.4 [0.0-2.5] (09/06/17 11:51 PM) Troponin-I <0.02 ng/mL [0.00-0.40 ng/mL] (09/06/17 11:51 PM) BNP [<=100 pg/mL] 24 pg/mL (09/06/17 11:51 PM) HEMATOLOGY Most recent to 1 oldest [Reference Range]: WBC [3.7-10.4 K/CMM] 10.4 K/CMM (09/06/17 11:51 PM) RBC [4.20-5.40 4.12 M/CMM M/CMM] *LOW* (09/06/17 11:51 PM) Hgb [12.0-16.0 g/dL] 12.3 g/dL (09/06/17 11:51 PM) Hct [36.0-48.0 %] 35.4 % *LOW* (09/06/17 11:51 PM) MCV [80.0-98.0 fL] 86.1 fL (09/06/17 11:51 PM) MCH [27.0-31.0 pg] 29.8 pg (09/06/17 11:51 PM) MCHC [32.0-36.0 34.6 g/dL g/dL] (09/06/17 11:51 PM) RDW [11.5-14.5 %] 14.1 % (09/06/17 11:51 PM) MPV [7.4-10.4 fL] 8.2 fL (09/06/17 11:51 PM) Platelet [133-450 312 K/CMM K/CMM] (09/06/17 11:51 PM) Segs [45.0-75.0 %] 55.0 % (09/06/17 11:51 PM) Lymphocytes 36.0 % [20.0-40.0 %] (09/06/17 11:51 PM) Monocytes [2.0-12.0 7.6 % %] (09/06/17 11:51 PM) Eosinophils [0.0-4.0 0.9 % %] (09/06/17 11:51 PM) Basophils [0.0-1.0 0.5 % %] (09/06/17 11:51 PM) Segs-Bands # 5.7 K/CMM [1.5-8.1 K/CMM] (09/06/17 11:51 PM) Lymphocytes # 3.7 K/CMM [1.0-5.5 K/CMM] (09/06/17 11:51 PM) Monocytes # [0.0-0.8 0.8 K/CMM K/CMM] (09/06/17 11:51 PM) Eosinophils # 0.1 K/CMM [0.0-0.5 K/CMM] (09/06/17 11:51 PM) PT [12.0-14.7 13.5 seconds seconds] (09/06/17 11:51 PM) INR [0.85-1.17] 1.03 (09/06/17 11:51 PM) PTT [22.9-35.8 40.1 seconds seconds] *HI* (09/06/17 11:51 PM) Immunizations Not Given Vaccine Date Status [...] 4; Number of years: 20; entered on: 09/06/17 [email or web address] Assessment and Plan No data available for this section
--- OUTSIDE RECORDS SUMMARY | 2018-06-12 21:25 | XMS REPORT | Summary of Care ---
Author Author [facility] Organization [facility] Address Unknown Phone Unavailable Encounter HQ Marjorie(TELLY) [id number] Date(s): 05/31/17 - 06/01/17 [facility] [address] [place] [address]- Encounter Diagnosis Chronic back pain (Discharge Diagnosis) - 06/01/17 Acute URI (Discharge Diagnosis) - 06/01/17 Acute upper respiratory infection, unspecified (Final) - 06/06/17 Low back pain (Final) - Other chronic pain (Final) - Essential (primary) hypertension (Final) - Nicotine dependence, cigarettes, uncomplicated (Final) - Tobacco abuse counseling (Final) - Discharge Disposition: Home or Self [...] ed) Sciatica Active neuralgia(Confirmed) 1Data migrated from [employer] on 10/18/14. Allergies, Adverse Reactions, Alerts Substance Reaction Severity Status NKDA Active Medications acetaminophen 650 mg, Route: PO, Drug form: TAB, ONCE, Dosing Weight 89.545, kg, Priority: STA T, Start date: 06/01/17 1:58:00 RECREATIONAL ASSISTANT, Stop date: 06/01/17 1:58:00 RECREATIONAL ASSISTANT Start Date: 06/01/17 Stop Date: 06/01/17 Status: Completed acetaminophen-hydrocodone 325 mg-5 mg oral tablet 1 tab, Route: PO, Drug Form: TAB, Dosing Weight 89.545, kg, ONCE, STAT, Start da te: 06/01/17 5:25:00 RECREATIONAL ASSISTANT, Stop date: 06/01/17 5:25:00 RECREATIONAL ASSISTANT Start Date: 06/01/17 Stop Date: 06/01/17 Status: Completed Sodium Chloride 0.9% (Bolus) IV 1,000 mL, Infuse Over: 1 hr, Route: IV, ONCE, Priority: STAT, Dosing Weight 89.5 45 kg, Start date: 06/01/17 1:58:00 RECREATIONAL ASSISTANT, Stop date: 06/01/17 1:58:00 RECREATIONAL ASSISTANT Start Date: 06/01/17 Stop Date: 06/01/17 Status: Completed Tylenol with Codeine #3 oral tablet 1 - 2 tab, PO, Q4H, PRN Pain, not to exceed 4000 mg acetaminophen per day, X 3 d ay, # 20 tab, 0 Refill(s) Start Date: 06/01/17 Stop Date: 06/04/17 Status: Completed Results ELECTROLYTES Most recent to [...] [11.5-14.5 %] 14.2 % (05/31/17 5:52 PM) MPV [7.4-10.4 fL] 8.4 fL (05/31/17 5:52 PM) Platelet [133-450 311 K/CMM K/CMM] (05/31/17 5:52 PM) Segs [45.0-75.0 %] 57.9 [...]
--- OUTSIDE RECORDS SUMMARY | 2018-06-12 21:25 | XMS REPORT | Summary of Care ---
Author Author [facility] Organization [facility] Address Unknown Phone Unavailable Encounter ADRIANNE Amador(TELLY) [id number] Date(s): 09/27/15 - 09/27/15 [facility] [address] [place] [address]- Discharge Diagnosis: Syncope and collapse Discharge Disposition: Home Attending Physician: Kerri Galindo DO Vital Signs Most recent to 1 2 oldest [Reference Range]: Height 167.64 cm (09/27/15 1:44 AM) Temperature Oral 98.5 DegF 98.4 DegF [96.4-99.1 DegF] (09/27/15 4:21 AM) (09/27/15 1:44 AM) Blood Pressure 128/77 mmHg 132/84 mmHg [90-140/60-90 mmHg] (09/27/15 4:21 AM) (09/27/15 1:44 AM) Respiratory Rate 16 BRMIN 16 BRMIN [14-20 BRMIN] (09/27/15 4:21 AM) (09/27/15 1:44 AM) Peripheral Pulse 94 bpm 96 bpm Rate [60-100 bpm] (09/27/15 4:21 AM) (09/27/15 1:44 AM) Weight 85.455 kg (09/27/15 1:44 AM) Body Mass Index 30.41 m2 (09/27/15 1:44 AM) Problem List Condition Effective Dates Status Health Status Informant Active Active smoker(Confirmed) Back pain(Confirmed) Active Gallbladder Active stones(Confirmed) Gallstone1 11/21/10 Active Hypertension(Confirm Active ed) Sciatica Active neuralgia(Confirmed) 1Data migrated from [facility] on 10/18/14. Allergies, Adverse Reactions, Alerts Substance Reaction Severity Status NKDA Active Medications Saline Flush 0.9% 10 mL, Route: IVP, Drug Form: INJ, Dosing Weight 85.455, kg, PRN, PRN Line Flush , Start date: 09/27/15 2:38:00 CDT, Duration: 30 day, Stop date: 10/27/15 2:37:0 0 CDT Notes: (Same as: BD Posiflush) Start Date: 09/27/15 Stop Date: 09/27/15 Status: Discontinued Results ELECTROLYTES Most recent to 1 oldest [Reference Range]: Sodium Lvl [135-145 138 mEq/L mEq/L] (09/27/15 2:58 AM) Potassium Lvl 3.9 mEq/L [3.5-5.1 mEq/L] (09/27/15 2:58 AM) Chloride Lvl [95-109 105 mEq/L mEq/L] (09/27/15 2:58 AM) CO2 [24-32 mEq/L] 27 mEq/L (09/27/15 2:58 AM) AGAP [10.0-20.0 9.9 mEq/L mEq/L] *LOW* (09/27/15 2:58 AM) CHEM PANEL Most recent to 1 oldest [Reference Range]: Creatinine Lvl 0.74 mg/dL [0.50-1.40 mg/dL] (09/27/15 2:58 AM) eGFR 107 mL/min/1.73m2 1 *NA* (09/27/15 2:58 AM) BUN [7-22 mg/dL] 8 mg/dL (09/27/15 2:58 AM) B/C Ratio [6-25] 11 (09/27/15 2:58 AM) Glucose Lvl [70-99 123 mg/dL mg/dL] *HI* (09/27/15 2:58 AM) Total Protein 8.6 g/dL [6.4-8.4 g/dL] *HI* (09/27/15 2:58 AM) Albumin Lvl [3.5-5.0 3.7 g/dL g/dL] (09/27/15 2:58 AM) Globulin [2.0-4.0 4.9 g/dL g/dL] *HI* (09/27/15 2:58 AM) A/G Ratio [0.7-1.6] 0.8 (09/27/15 2:58 AM) Calcium Lvl 9.1 mg/dL [8.5-10.5 mg/dL] (09/27/15 2:58 AM) ALT [0-65 unit/L] 34 unit/L (09/27/15 2:58 AM) AST [0-37 unit/L] 20 unit/L (09/27/15 2:58 AM) Alk Phos [39-136 97 unit/L unit/L] (09/27/15 2:58 AM) Bili Total [0.2-1.3 0.3 mg/dL mg/dL] (09/27/15 2:58 AM) 1Result Comment: The eGFR is calculated [...] oldest [Reference Range]: UA Turbidity [Clear] Clear (09/27/15 2:58 AM) UA Color Ltyellow *NA* (09/27/15 2:58 AM) UA pH [5.0-8.0] 5.0 (09/27/15 2:58 AM) UA Spec Grav 1.013 [<=1.030] (09/27/15 2:58 AM) UA Glucose [Negative Negative mg/dL mg/dL] *NA* (09/27/15 2:58 AM) UA Blood [Negative] Negative (09/27/15 2:58 AM) UA Ketones [Negative Negative mg/dL mg/dL] *NA* (09/27/15 2:58 AM) UA Protein [Negative Negative mg/dL mg/dL] (09/27/15 2:58 AM) UA Urobilinogen <=1.0 mg/dL [0.1-1.0 mg/dL] *NA* (09/27/15 2:58 AM) UA Bili [Negative] Negative *NA* (09/27/15 2:58 AM) UA Leuk Est Negative [Negative] (09/27/15 2:58 AM) UA Nitrite Negative [Negative] (09/27/15 2:58 AM) UA WBC [0-5 /HPF] 1 /HPF (09/27/15 2:58 AM) UA RBC [0-2 /HPF] 2 /HPF (09/27/15 2:58 AM) UA Sq Epi [Few /LPF] Occasional /LPF *NA* (09/27/15 2:58 AM) HEMATOLOGY Most recent to 1 oldest [Reference Range]: WBC [3.7-10.4 K/CMM] 8.5 K/CMM (09/27/15 2:58 AM) RBC [4.20-5.40 4.41 M/CMM M/CMM] (09/27/15 2:58 AM) Hgb [12.0-16.0 g/dL] 12.8 g/dL (09/27/15 2:58 AM) Hct [36.0-48.0 %] 38.6 % (09/27/15 2:58 AM) MCV [80.0-98.0 fL] 87.6 fL (09/27/15 2:58 AM) MCH [27.0-31.0 pg] 29.1 pg (09/27/15 2:58 AM) MCHC [32.0-36.0 33.2 g/dL g/dL] (09/27/15 2:58 AM) RDW [11.5-14.5 %] 14.4 % (09/27/15 2:58 AM) Platelet [133-450 320 K/CMM K/CMM] (09/27/15 2:58 AM) MPV [7.4-10.4 fL] 8.5 fL (09/27/15 2:58 AM) Segs [45.0-75.0 %] 47.0 % (09/27/15 2:58 AM) Lymphocytes 43.2 % [20.0-40.0 %] *HI* (09/27/15 2:58 AM) Monocytes [2.0-12.0 7.9 % %] (09/27/15 2:58 AM) Eosinophils [0.0-4.0 1.5 % %] (09/27/15 2:58 AM) Basophils [0.0-1.0 0.4 % %] (09/27/15 2:58 AM) Segs-Bands # 4.0 K/CMM [1.5-8.1 K/CMM] (09/27/15 2:58 AM) Lymphocytes # 3.7 K/CMM [1.0-5.5 K/CMM] (09/27/15 2:58 AM) Monocytes # [0.0-0.8 0.7 K/CMM K/CMM] (09/27/15 2:58 AM) Eosinophils # 0.1 K/CMM [0.0-0.5 K/CMM] (09/27/15 2:58 AM) Immunizations Vaccine Date Refusal Reason influenza virus [...]
--- OUTSIDE RECORDS SUMMARY | 2018-06-12 21:25 | XMS REPORT | Summary of Care ---
Author Author [facility] Organization [facility] Address Unknown Phone Unavailable Encounter HQ Marjorie(TELLY) [id number] Date(s): 09/23/17 - 09/23/17 [facility] [address] [place] [address]- Encounter Diagnosis Chronic left hip pain (Discharge Diagnosis) - 09/23/17 Chronic left-sided low back pain (Discharge Diagnosis) - 09/23/17 Discharge Disposition: Home or Self Care Attending Physician: Martina Taylor MD Vital Signs Most recent to 1 2 oldest [Reference Range]: Height 167.64 cm (09/23/17 6:22 PM) Temperature Oral 98.3 DegF 98.4 DegF [96.4-99.1 DegF] (09/23/17 11:49 PM) (09/23/17 6:22 PM) Blood Pressure 158/84 mmHg 73/73 mmHg [90-140/60-90 mmHg] *HI* *LOW* (09/23/17 11:49 PM) (09/23/17 6:22 PM) Respiratory Rate 18 BRMIN 18 BRMIN [14-20 BRMIN] (09/23/17 11:49 PM) (09/23/17 6:22 PM) Peripheral Pulse 98 bpm 104 bpm Rate [60-100 bpm] (09/23/17 11:49 PM) *HI* (09/23/17 6:22 PM) Weight 89.545 kg (09/23/17 6:22 PM) Body Mass Index 31.86 m2 (09/23/17 6:22 PM) Problem List Condition Effective Dates Status Health Status Informant Active Active smoker(Confirmed) Back pain(Confirmed) Active Gall Resolved stone(Confirmed) Gallbladder Active stones(Confirmed) Gallstone1 11/21/10 Active Hypertension(Confirm Active ed) Sciatica Active neuralgia(Confirmed) 1Data migrated from [facility] on 10/18/14. Allergies, Adverse Reactions, Alerts Substance Reaction Severity Status NKDA Active Medications morphine Sulfate 4 mg, Route: IVP, ONCE, Dosing Weight 89.545, kg, Priority: STAT, Start date: 22:56:00 CDT, Stop date: 09/23/17 22:56:00 CDT Start Date: 09/23/17 Stop Date: 09/23/17 Status: Completed Saline Flush 0.9% 10 mL, Route: IVP, Drug Form: INJ, Dosing Weight 89.545, kg, PRN, PRN Line Flush , Start date: 09/23/17 18:28:00 CDT, Duration: 30 day, Stop date: 10/23/17 18:27 :00 CDT Notes: (Same as: BD Posiflush) Start Date: 09/23/17 Stop Date: 09/24/17 Status: Discontinued Results ELECTROLYTES Most recent to 1 oldest [Reference Range]: Sodium Lvl [135-145 139 mEq/L mEq/L] (09/23/17 6:42 PM) Potassium Lvl 3.7 mEq/L [3.5-5.1 mEq/L] (09/23/17 6:42 PM) Chloride Lvl [95-109 104 mEq/L mEq/L] (09/23/17 6:42 PM) CO2 [24-32 mEq/L] 30 mEq/L (09/23/17 6:42 PM) AGAP [10.0-20.0 8.7 mEq/L mEq/L] *LOW* (09/23/17 6:42 PM) CHEM PANEL Most recent to 1 oldest [Reference Range]: Creatinine Lvl 0.84 mg/dL [0.50-1.40 mg/dL] (09/23/17 6:42 PM) eGFR 90 mL/min/1.73m2 1 *NA* (09/23/17 6:42 PM) BUN [7-22 mg/dL] 9 mg/dL (09/23/17 6:42 PM) B/C Ratio [6-25] 11 (09/23/17 6:42 PM) Glucose Lvl [70-99 106 mg/dL mg/dL] *HI* (09/23/17 6:42 PM) Total Protein 9.2 g/dL [6.4-8.4 g/dL] *HI* (09/23/17 6:42 PM) Albumin Lvl [3.5-5.0 3.9 g/dL g/dL] (09/23/17 6:42 PM) Globulin [2.7-4.2 5.3 g/dL g/dL] *HI* (09/23/17 6:42 PM) A/G Ratio [0.7-1.6] 0.7 (09/23/17 6:42 PM) Calcium Lvl 9.4 mg/dL [8.5-10.5 mg/dL] (09/23/17 6:42 PM) ALT [0-65 unit/L] 32 unit/L (09/23/17 6:42 PM) AST [0-37 unit/L] 22 unit/L (09/23/17 6:42 PM) Alk Phos [39-136 98 unit/L unit/L] (09/23/17 6:42 PM) Bili Total [0.2-1.3 0.4 mg/dL mg/dL] (09/23/17 6:42 PM) Lipase Lvl [73-393 135 unit/L unit/L] (09/23/17 6:42 PM) 1Result Comment: The eGFR is calculated [...] be mul tiplied by the estimated BMI. HEMATOLOGY Most recent to 1 oldest [Reference Range]: WBC [3.7-10.4 K/CMM] 11.3 K/CMM *HI* (09/23/17 6:42 PM) RBC [4.20-5.40 4.18 M/CMM M/CMM] *LOW* (09/23/17 6:42 PM) Hgb [12.0-16.0 g/dL] 12.8 g/dL (09/23/17 6:42 PM) Hct [36.0-48.0 %] 36.2 % (09/23/17 6:42 PM) MCV [80.0-98.0 fL] 86.5 fL (09/23/17 6:42 PM) MCH [27.0-31.0 pg] 30.6 pg (09/23/17:42 PM) MCHC [32.0-36.0 35.4 g/dL g/dL] (09/23/17 6:42 PM) RDW [11.5-14.5 %] 14.4 % (09/23/17 6:42 PM) MPV [7.4-10.4 fL] 8.2 fL (09/23/17 6:42 PM) Platelet [133-450 370 K/CMM K/CMM] (09/23/17 6:42 PM) Segs [45.0-75.0 %] 61.5 % (09/23/17 6:42 PM) Lymphocytes 30.2 % [20.0-40.0 %] (09/23/17 6:42 PM) Monocytes [2.0-12.0 6.8 % %] (09/23/17 6:42 PM) Eosinophils [0.0-4.0 0.6 % %] (09/23/17 6:42 PM) Basophils [0.0-1.0 0.9 % %] (09/23/17 6:42 PM) Segs-Bands # 6.9 K/CMM [1.5-8.1 K/CMM] (09/23/17 6:42 PM) Lymphocytes # 3.4 K/CMM [1.0-5.5 K/CMM] (09/23/17 6:42 PM) Monocytes # [0.0-0.8 0.8 K/CMM K/CMM] (09/23/17 6:42 PM) Eosinophils # 0.1 K/CMM [0.0-0.5 K/CMM] (09/23/17 6:42 PM) Basophils # [0.0-0.2 0.1 K/CMM K/CMM] (09/23/17 6:42 PM) PT [12.0-14.7 14.6 seconds seconds] (09/23/17 6:42 PM) INR [0.85-1.17] 1.14 (09/23/17 6:42 PM) PTT [22.9-35.8 43.8 seconds seconds] *HI* (09/23/17 6:42 PM) Immunizations Not Given Vaccine Date Status [...] 4; Number of years: 20; entered on: 09/23/17 1drinks occasionaly Assessment and Plan No data available for this section
--- OUTSIDE RECORDS SUMMARY | 2018-06-12 21:25 | XMS REPORT | Summary of Care ---
Author Author [facility] Organization [facility] Address Unknown Phone Unavailable Encounter ADRIANNE Amador(TELLY) [id number] Date(s): 02/25/16 - 02/25/16 [facility] [address] [place] [address]- [phone] Discharge Diagnosis: Acute low back pain Discharge Disposition: Home or Self Care Attending Physician: Javier Kessler MD Vital Signs Most recent to 1 2 oldest [Reference Range]: Height 167.64 cm (02/25/16 4:36 PM) Temperature Oral 97.9 DegF 98.1 DegF [96.4-99.1 DegF] (02/25/16 7:28 PM) (02/25/16 4:36 PM) Blood Pressure 136/77 mmHg 158/121 mmHg [90-140/60-90 mmHg] (02/25/16 7:28 PM) *HI* (02/25/16 4:36 PM) Respiratory Rate 18 BRMIN 18 BRMIN [14-20 BRMIN] (02/25/16 7:28 PM) (02/25/16 4:36 PM) Peripheral Pulse 99 bpm 84 bpm Rate [60-100 bpm] (02/25/16 7:28 PM) (02/25/16 4:36 PM) Weight 85.909 kg (02/25/16 4:36 PM) Body Mass Index 30.57 m2 (02/25/16 4:36 PM) Problem List Condition Effective Dates Status Health Status Informant Active Active smoker(Confirmed) Back pain(Confirmed) Active Gallbladder Active stones(Confirmed) Gallstone1 11/21/10 Active Hypertension(Confirm Active ed) Sciatica Active neuralgia(Confirmed) 1Data migrated from [employer] on 10/18/14. Allergies, Adverse Reactions, Alerts Substance Reaction Severity Status NKDA Active Medications dexamethasone 10 mg, 2.5 mL, Route: IM, Drug form: INJ, ONCE, Dosing Weight 85.455, kg, Priori ty: STAT, Start date: 02/25/16 16:38:00 CDT, Stop date: 02/25/16 16:38:00 CDT Notes: Concentration: 4mg/ml Start Date: 02/25/16 Stop Date: 02/25/16 Status: Completed ibuprofen 800 mg, 2 tab, Route: PO, Drug form: TAB, ONCE, Dosing Weight 85.455, kg, Priori ty: STAT, Start date: 02/25/16 16:38:00 CDT, Stop date: 02/25/16 16:38:00 CDT Notes: (Same as: Motrin)"Do Not Crush" Give with food. Start Date: 02/25/16 Stop Date: 02/25/16 Status: Completed predniSONE 20 mg oral tablet 40 mg=2 tab, PO, Daily, X 5 day, # 10 tab, 0 Refill(s) Start Date: 02/25/16 Stop Date: 03/01/16 Status: Ordered Valium 5 mg, 1 tab, Route: PO, Drug form: TAB, ONCE, Dosing Weight 85.909, kg, Priority : STAT, Start date: 02/25/16 17:51:00 CDT, Stop date: 02/25/16 17:51:00 CDT Notes: (Same as: Valium) Start Date: 02/25/16 Stop Date: 02/25/16 Status: Completed Valium 5 mg oral tablet 5 mg=1 tab, PO, BID, PRN Spasm, X 7 day, # 14 tab, 0 Refill(s) Start Date: 02/25/16 Stop Date: 03/03/16 Status: Ordered Results URINE CHEM Most recent to 1 oldest [Reference Range]: U Preg [Negative] Negative (02/25/16 6:09 PM) URINE AND STOOL Most recent to 1 oldest [Reference Range]: UA Turbidity [Clear] Clear (02/25/16 6:09 PM) UA Color [Yellow] Yellow *NA* (02/25/16 6:09 PM) UA pH [5.0-8.0] 5.0 (02/25/16 6:09 PM) UA Spec Grav 1.021 [<=1.030] (02/25/16 6:09 PM) UA Glucose [Negative Negative mg/dL mg/dL] *NA* (02/25/16 6:09 PM) UA Blood [Negative] Small *ABN* (02/25/16 6:09 PM) UA Ketones [Negative Negative mg/dL mg/dL] *NA* (02/25/16 6:09 PM) UA Protein [Negative Negative mg/dL mg/dL] (02/25/16 6:09 PM) UA Urobilinogen <=1.0 mg/dL [0.1-1.0 mg/dL] *NA* (02/25/16 6:09 PM) UA Bili [Negative] Negative *NA* (02/25/16 6:09 PM) UA Leuk Est Negative [Negative] (02/25/16 6:09 PM) UA Nitrite Negative [Negative] (02/25/16 6:09 PM) UA WBC [0-5 /HPF] 2 /HPF (02/25/16 6:09 PM) UA RBC [0-2 /HPF] 5 /HPF *HI* (02/25/16 6:09 PM) UA Sq Epi [Few /LPF] Occasional /LPF *NA* (02/25/16 6:09 PM) UA Mucus [None Seen Few /LPF /LPF] *NA* (02/25/16 6:09 PM) Immunizations Not Given Vaccine Date Status [...] who smokes; Cigarette Smoking Last 365 Days No; Reg Smoking Cessation Counseling No 1drinks occasionaly Assessment and Plan No data available for this section
--- OUTSIDE RECORDS SUMMARY | 2018-06-12 21:26 | XMS REPORT | Summary of Care ---
Author Author [facility] Organization [facility] Address Unknown Phone Unavailable Encounter ADRIANNE Amador(TELLY) [id number] Date(s): 11/26/17 - 11/26/17 [facility] [address] [place], [place] [address] [place] [address] [phone] Discharge Disposition: Home or Self Care Attending Physician: Mitchel Blankenship MD Vital Signs Most recent to 1 oldest [Reference Range]: Height 167.64 cm (11/26/17 9:55 AM) Blood Pressure 113/74 mmHg [90-140/60-90 mmHg] (11/26/17 9:55 AM) Peripheral Pulse 106 bpm Rate [60-100 bpm] *HI* (11/26/17 9:55 AM) Weight 91.818 kg (11/26/17 9:55 AM) Body Mass Index 32.67 m2 (11/26/17 9:55 AM) Problem List Condition Effective Dates Status Health Status Informant Active Active smoker(Confirmed) Back pain(Confirmed) Active Gall Resolved stone(Confirmed) Gallbladder Active stones(Confirmed) Gallstone1 11/21/10 Active Hypertension(Confirm Active ed) Sciatica Active neuralgia(Confirmed) Simple Active obesity(Confirmed) 1Data migrated from [employer] on 10/18/14. Allergies, Adverse Reactions, Alerts Substance [...] 4; Number of years: 20; entered on: 11/26/17 1drinks occasionaly Assessment and Plan No data available for this section
--- OUTSIDE RECORDS SUMMARY | 2018-06-12 21:26 | XMS REPORT | Summary of Care ---
Author Author [facility] Organization [facility] Address Unknown Phone Unavailable Encounter ADRIANNE Amador(FIN) [id number] Date(s): 11/19/17 - 11/20/17 [facility] [address] [phone] Vital Signs No data available for this section Problem List Condition Effective Dates Status Health Status Informant Active Active smoker(Confirmed) Back pain(Confirmed) Active Gall Resolved stone(Confirmed) Gallbladder Active stones(Confirmed) Gallstone1 11/21/10 Active Hypertension(Confirm Active ed) Sciatica Active neuralgia(Confirmed) Simple Active obesity(Confirmed) 1Data migrated from [employer] on 10/18/14. Allergies, Adverse Reactions, Alerts Substance [...] 4; Number of years: 20; entered on: 11/04/17 1drinks occasionaly Assessment and Plan No data available for this section
--- OUTSIDE RECORDS SUMMARY | 2018-06-12 21:26 | XMS REPORT | Summary of Care ---
Author Author [facility] Organization [facility] Address Unknown Phone Unavailable Encounter HQ Marjorie(FIN) [id number] Date(s): 11/04/17 - 11/04/17 [facility] [address] [place] [address]- Encounter Diagnosis Sciatica (Discharge Diagnosis) - 11/04/17 Leg pain (Discharge Diagnosis) - 11/04/17 Discharge Disposition: Home or Self Care Attending Physician: Mauri Lackey MD Vital Signs Most recent to 1 2 oldest [Reference Range]: Temperature Oral 98.2 DegF 98.6 DegF [96.4-99.1 DegF] (11/04/17 8:26 AM) (11/04/17 4:01 AM) Blood Pressure 134/73 mmHg 146/81 mmHg [90-140/60-90 mmHg] (11/04/17 8:26 AM) *HI* (11/04/17 4:01 AM) Respiratory Rate 16 BRMIN 20 BRMIN [14-20 BRMIN] (11/04/17 8:26 AM) (11/04/17 4:01 AM) Peripheral Pulse 84 bpm 94 bpm Rate [60-100 bpm] (11/04/17 8:26 AM) (11/04/17 4:01 AM) Problem List Condition Effective Dates Status Health Status Informant Active Active smoker(Confirmed) Back pain(Confirmed) Active Gall Resolved stone(Confirmed) Gallbladder Active stones(Confirmed) Gallstone1 11/21/10 Active Hypertension(Confirm Active ed) Sciatica Active neuralgia(Confirmed) Simple Active obesity(Confirmed) 1Data migrated from [facility] on 10/18/14. Allergies, Adverse Reactions, Alerts Substance Reaction Severity Status NKDA Active Medications Millry 5/325 oral tablet 1 tab, Route: PO, Drug Form: TAB, Dosing Weight 89.091, kg, ONCE, STAT, Start da te: 11/04/17 5:48:00 CDT, Stop date: 11/04/17 5:48:00 CDT Start Date: 11/04/17 Stop Date: 11/04/17 Status: Completed Results No data available for [...]
--- OUTSIDE RECORDS SUMMARY | 2018-06-12 21:26 | XMS REPORT | Summary of Care ---
Author Author [facility] Organization [facility] Address Unknown Phone Unavailable Encounter HQ Marjorie(TELLY) [id number] Date(s): 12/28/17 - 12/29/17 [facility] [address] [place] [address]- Encounter Diagnosis Left leg pain (Discharge Diagnosis) - 12/29/17 Discharge Disposition: Home or Self Care Attending Physician: Tadeo Ny DO Vital Signs 1 2 3 Most recent to oldest [Reference Range]: 167.64 cm (12/28/17 10:00 PM) Height 98.4 DegF (12/29/17 2:10 AM) 98 DegF (12/29/17 1:00 AM) 97.9 DegF (12/28/17 10:00 PM) Temperature Oral [96.4-99.1 DegF] 148/70 mmHg *HI* (12/29/17 2:10 AM) 144/67 mmHg *HI* (12/29/17 1:00 AM) 151/67 mmHg *HI* (12/28/17 11:28 PM) Blood Pressure [90-140/60-90 mmHg] 17 BRMIN (12/29/17 2:10 AM) 16 BRMIN (12/29/17 1:00 AM) 16 BRMIN (12/28/17 11:28 PM) Respiratory Rate [14-20 BRMIN] 81 bpm (12/29/17 2:10 AM) 82 bpm (12/29/17 1:00 AM) 87 bpm (12/28/17 11:28 PM) Peripheral Pulse Rate [60-100 bpm] 90.909 kg (12/28/17 10:00 PM) Weight 32.35 m2 (12/28/17 10:00 PM) Body Mass Index Problem List Condition Effective Dates Status Health Status Informant Active Active smoker(Confirmed) Back pain(Confirmed) Active Gall Resolved stone(Confirmed) Gallbladder Active stones(Confirmed) Gallstone1 11/21/10 Active Hypertension(Confirm Active ed) Sciatica Active neuralgia(Confirmed) Simple Active obesity(Confirmed) 1Data migrated from [facility] on 10/18/14. Allergies, Adverse Reactions, Alerts Substance Reaction Severity Status NKDA Active Medications morphine Sulfate 4 mg, Route: IVP, ONCE, Dosing Weight 90.909, kg, Priority: STAT, Start date: 23:36:00 CDT, Stop date: 12/28/17 23:36:00 CDT Start Date: 12/28/17 Stop Date: 12/28/17 Status: Completed Results ELECTROLYTES Most recent to 1 oldest [Reference Range]: Sodium Lvl [135-145 139 mEq/L mEq/L] (12/28/17 11:01 PM) Potassium Lvl 3.7 mEq/L [3.5-5.1 mEq/L] (12/28/17 11:01 PM) Chloride Lvl [95-109 104 mEq/L mEq/L] (12/28/17 11:01 PM) CO2 [24-32 mEq/L] 28 mEq/L (12/28/17 11:01 PM) AGAP [10.0-20.0 10.7 mEq/L mEq/L] (12/28/17 11:01 PM) CHEM PANEL Most recent to 1 oldest [Reference Range]: Creatinine Lvl 0.68 mg/dL [0.50-1.40 mg/dL] (12/28/17 11:01 PM) eGFR 113 mL/min/1.73m2 1 *NA* (12/28/17 11:01 PM) BUN [7-22 mg/dL] 9 mg/dL (12/28/17 11:01 PM) B/C Ratio [6-25] 13 (12/28/17 11:01 PM) Glucose Lvl [70-99 103 mg/dL mg/dL] *HI* (12/28/17 11:01 PM) Total Protein 8.9 g/dL [6.4-8.4 g/dL] *HI* (12/28/17 11:01 PM) Albumin Lvl [3.5-5.0 3.9 g/dL g/dL] (12/28/17 11: PM) Globulin [2.7-4.2 5.0 g/dL g/dL] *HI* (12/28/17 PM) A/G Ratio [0.7-1.6] 0.8 (12/28/17: PM) Calcium Lvl 9.1 mg/dL [8.5-10.5 mg/dL] (12/28/17 PM) ALT [0-65 unit/L] 40 unit/L (12/28/17 PM) AST [0-37 unit/L] 32 unit/L (12/28/17: PM) Alk Phos [39-136 101 unit/L unit/L] (12/28/17 PM) Bili Total [0.2-1.3 0.3 mg/dL mg/dL] (12/28/17: PM) 1Result Comment: The eGFR is calculated [...] 1 oldest [Reference Range]: WBC [3.7-10.4 K/CMM] 9.4 K/CMM (12/28/17 11: PM) RBC [4.20-5.40 4.34 M/CMM M/CMM] (12/28/17: PM) Hgb [12.0-16.0 g/dL] 12.9 g/dL (12/28/17 PM) Hct [36.0-48.0 %] 37.6 % (12/28/17 11: PM) MCV [80.0-98.0 fL] 86.5 fL (12/28/17 PM) MCH [27.0-31.0 pg] 29.7 pg (12/28/17 PM) MCHC [32.0-36.0 34.3 g/dL g/dL] (12/28/17 PM) RDW [11.5-14.5 %] 14.1 % (12/28/17 PM) MPV [7.4-10.4 fL] 8.7 fL (12/28/17 PM) Platelet [133-450 322 K/CMM K/CMM] (12/28/17 PM) Segs [45.0-75.0 %] 52.0 % (12/28/17: PM) Lymphocytes 38.9 % [20.0-40.0 %] (12/28/17: PM) Monocytes [2.0-12.0 8.0 % %] (12/28/17: PM) Eosinophils [0.0-4.0 0.7 % %] (12/28/17: PM) Basophils [0.0-1.0 0.4 % %] (12/28/17 11: PM) Segs-Bands # 4.9 K/CMM [1.5-8.1 K/CMM] (12/28/17 11: PM) Lymphocytes # 3.7 K/CMM [1.0-5.5 K/CMM] (12/28/17 11: PM) Monocytes # [0.0-0.8 0.8 K/CMM K/CMM] (12/28/17 11: PM) Eosinophils # 0.1 K/CMM [0.0-0.5 K/CMM] (12/28/17: PM) PT [12.0-14.7 13.9 seconds seconds] (12/28/17: PM) INR [0.85-1.17] 1.07 (12/28/17:01 PM) PTT [22.9-35.8 38.9 seconds seconds] *HI* (12/28/17 11:01 PM) Immunizations Not Given Vaccine Date Status [...] in household: No; Exposure to Tobacco Smoke None; Exposure to Tobacco Smoke patient smokes; Cigarette Smoking Last 365 Days Yes; Reg Smoking Cessation Counseling Yes; Tobacco use per day: 4; Number of years: 20; entered on: 12/30/17 1drinks occasionaly Assessment and Plan No data available for this section
--- OUTSIDE RECORDS SUMMARY | 2018-06-12 21:26 | XMS REPORT | Summary of Care ---
Author Author [facility] Organization [facility] Address Unknown Phone Unavailable Encounter ADRIANNE Amador(FIN) [id number] Date(s): 11/29/17 - 11/30/17 [facility] [address] [place] [address]- Encounter Diagnosis Radiculopathy (Discharge Diagnosis) - 11/30/17 Discharge Disposition: Home or Self Care Attending Physician: Tadeo Ny DO Vital Signs 1 2 3 Most recent to oldest [Reference Range]: 98.6 DegF (11/30/17 4:48 AM) 99.0 DegF (11/29/17 8:37 PM) Temperature Oral [96.4-99.1 DegF] 133/73 mmHg (11/29/17 8:37 PM) Blood Pressure [90-140/60-90 mmHg] 147 mmHg *HI* (11/30/17 4:48 AM) 147 mmHg *HI* (11/30/17 3:50 AM) Systolic Blood Pressure [90-140 mmHg] 91 mmHg *HI* (11/30/17 4:48 AM) 91 mmHg *HI* (11/30/17 3:50 AM) Diastolic Blood Pressure [60-90 mmHg] 18 BRMIN (11/30/17 4:48 AM) 18 BRMIN (11/30/17 3:50 AM) 18 BRMIN (11/29/17 8:37 PM) Respiratory Rate [14-20 BRMIN] 88 bpm (11/30/17 4:48 AM) 85 bpm (11/30/17 3:50 AM) 103 bpm *HI* (11/29/17 8:37 PM) Peripheral Pulse Rate [60-100 bpm] 91.818 kg (11/29/17 8:37 PM) Weight Problem List Condition Effective Dates Status Health Status Informant Active Active smoker(Confirmed) Back pain(Confirmed) Active Gall Resolved stone(Confirmed) Gallbladder Active stones(Confirmed) Gallstone1 11/21/10 Active Hypertension(Confirm Active ed) Sciatica Active neuralgia(Confirmed) Simple Active obesity(Confirmed) 1Data migrated from [facility] on 10/18/14. Allergies, Adverse Reactions, Alerts Substance Reaction Severity Status NKDA Active Medications acetaminophen-hydrocodone 325 mg-5 mg oral tablet 1 tab, Route: PO, Drug Form: TAB, Dosing Weight 91.818, kg, ONCE, STAT, Start da te: 11/30/17 4:26:00 CDT, Stop date: 11/30/17 4:26:00 CDT Start Date: 11/30/17 Stop Date: 11/30/17 Status: Completed methylPREDNISolone SODium SUCCinate 125 mg, Route: IVP, ONCE, Dosing Weight 91.818, kg, Priority: STAT, Start date: 11/30/17 1:05:00 CDT, Stop date: 11/30/17 1:05:00 CDT Start Date: 11/30/17 Stop Date: 11/30/17 Status: Completed morphine Sulfate 4 mg, Route: IVP, ONCE, Dosing Weight 91.818, kg, Priority: STAT, Start date: 1:05:00 CDT, Stop date: 11/30/17 1:04:00 CDT Start Date: 11/30/17 Stop Date: 11/30/17 Status: Completed ondansetron 4 mg, 2 mL, Route: IVP, Drug form: INJ, ONCE, Dosing Weight 91.818, kg, Priority : STAT, Start date: 11/30/17 1:05:00 CDT, Stop date: 11/30/17 1:05:00 CDT Notes: (Same as: Yeimy) MEDICATION WASTE Product Size: 4 mgProduct Was inna: ___ mg Start Date: 11/30/17 Stop Date: 11/30/17 Status: Completed Results ELECTROLYTES Most recent to 1 oldest [Reference Range]: Sodium Lvl [135-145 141 mEq/L mEq/L] (11/30/17 1:46 AM) Potassium Lvl 3.5 mEq/L [3.5-5.1 mEq/L] (11/30/17 1:46 AM) Chloride Lvl [95-109 105 mEq/L mEq/L] (11/30/17 1:46 AM) CO2 [24-32 mEq/L] 32 mEq/L (11/30/17 1:46 AM) AGAP [10.0-20.0 7.5 mEq/L mEq/L] *LOW* (11/30/17 1:46 AM) CHEM PANEL Most recent to 1 oldest [Reference Range]: Creatinine Lvl 0.73 mg/dL [0.50-1.40 mg/dL] (11/30/17 1:46 AM) eGFR 106 mL/min/1.73m2 1 *NA* (11/30/17 1:46 AM) BUN [7-22 mg/dL] 10 mg/dL (11/30/17 1:46 AM) B/C Ratio [6-25] 14 (11/30/17 1:46 AM) Glucose Lvl [70-99 140 mg/dL mg/dL] *HI* (11/30/17 1:46 AM) Total Protein 8.2 g/dL [6.4-8.4 g/dL] (11/30/17 1:46 AM) Albumin Lvl [3.5-5.0 3.6 g/dL g/dL] (11/30/17 1:46 AM) Globulin [2.7-4.2 4.6 g/dL g/dL] *HI* (11/30/17 1:46 AM) A/G Ratio [0.7-1.6] 0.8 (11/30/17 1:46 AM) Calcium Lvl 8.7 mg/dL [8.5-10.5 mg/dL] (11/30/17 1:46 AM) ALT [0-65 unit/L] 34 unit/L (11/30/17 1:46 AM) AST [0-37 unit/L] 32 unit/L (11/30/17 1:46 AM) Alk Phos [39-136 90 unit/L unit/L] (11/30/17 1:46 AM) Bili Total [0.2-1.3 0.3 mg/dL mg/dL] (11/30/17 1:46 AM) 1Result Comment: The eGFR is calculated [...] 1 oldest [Reference Range]: WBC [3.7-10.4 K/CMM] 8.4 K/CMM (11/30/17 1:46 AM) RBC [4.20-5.40 3.96 M/CMM M/CMM] *LOW* (11/30/17 1:46 AM) Hgb [12.0-16.0 g/dL] 11.9 g/dL *LOW* (11/30/17 1:46 AM) Hct [36.0-48.0 %] 34.2 % *LOW* (11/30/17 1:46 AM) MCV [80.0-98.0 fL] 86.2 fL (11/30/17 1:46 AM) MCH [27.0-31.0 pg] 30.1 pg (11/30/17 1:46 AM) MCHC [32.0-36.0 34.9 g/dL g/dL] (11/30/17 1:46 AM) RDW [11.5-14.5 %] 14.4 % (11/30/17 1:46 AM) MPV [7.4-10.4 fL] 8.4 fL (11/30/17 1:46 AM) Platelet [133-450 306 K/CMM K/CMM] (11/30/17 1:46 AM) Segs [45.0-75.0 %] 47.2 % (11/30/17 1:46 AM) Lymphocytes 42.5 % [20.0-40.0 %] *HI* (11/30/17 1:46 AM) Monocytes [2.0-12.0 8.6 % %] (11/30/17 1:46 AM) Eosinophils [0.0-4.0 0.7 % %] (11/30/17 1:46 AM) Basophils [0.0-1.0 1.0 % %] (11/30/17 1:46 AM) Segs-Bands # 4.0 K/CMM [1.5-8.1 K/CMM] (11/30/17 1:46 AM) Lymphocytes # 3.6 K/CMM [1.0-5.5 K/CMM] (11/30/17 1:46 AM) Monocytes # [0.0-0.8 0.7 K/CMM K/CMM] (11/30/17 1:46 AM) Eosinophils # 0.1 K/CMM [0.0-0.5 K/CMM] (11/30/17 1:46 AM) Basophils # [0.0-0.2 0.1 K/CMM K/CMM] (11/30/17 1:46 AM) Immunizations Not Given Vaccine Date Status [...] 4; Number of years: 20; entered on: 11/30/17 1drinks occasionaly Assessment and Plan No data available for this section
--- OUTSIDE RECORDS SUMMARY | 2018-06-12 21:26 | XMS REPORT | Summary of Care ---
Author Author [facility] Organization [facility] Address Unknown Phone Unavailable Encounter ADRIANNE Amador(FIN) [id number] Date(s): 11/21/17 - 11/22/17 [facility] [address] [facility] [address] [phone] Vital Signs No data available for this section Problem List Condition Effective Dates Status Health Status Informant Active Active smoker(Confirmed) Back pain(Confirmed) Active Gall Resolved stone(Confirmed) Gallbladder Active stones(Confirmed) Gallstone1 11/21/10 Active Hypertension(Confirm Active ed) Sciatica Active neuralgia(Confirmed) Simple Active obesity(Confirmed) 1Data migrated from [facility] on 10/18/14. Allergies, Adverse Reactions, Alerts Substance [...]
[2018-06-12 23:00] LABS: BASOPHILS % 0.3 % (0.0-1.0); EOSINOPHILS # (AUTO) 0.1 (0.0-0.4); EOSINOPHILS % 0.7 % (0.0-6.0); HEMATOCRIT 34.7 % (34.2-44.1); HEMOGLOBIN 12.4 g/dL (12.0-16.0); LYMPHOCYTES # (AUTO) 4.2 (1.0-3.2); LYMPHOCYTES % 39.8 % (18.0-39.1); MEAN CORPUSCULAR HEMOGLOBIN 29.9 pg (28-32); MEAN CORPUSCULAR HGB CONC 35.7 g/dL (31-35); MEAN CORPUSCULAR VOLUME 83.6 fL (81-99); MONOCYTES # (AUTO) 0.6 (0.2-0.8); MONOCYTES % 5.8 % (4.4-11.3); NEUTROPHILS # (AUTO) 5.5 (2.1-6.9); PLATELET COUNT 340 x10e3/uL (140-360); RED BLOOD COUNT 4.15 x10e6/uL (3.6-5.1)
[2018-06-12 23:18] LABS: ALANINE AMINOTRANSFERASE 26 IU/L (0-55); ALBUMIN 4.1 g/dL (3.5-5.0); ALKALINE PHOSPHATASE 89 IU/L (40-150); ANION GAP 15.6 mmol/L (8-16); BLOOD UREA NITROGEN 10 mg/dL (7-26); BUN/CREATININE RATIO 12 (6-25); CALCIUM 9.5 mg/dL (8.4-10.2); CARBON DIOXIDE 26 mmol/L (22-29); CHLORIDE 102 mmol/L (98-107); CREATININE, SERUM 0.83 mg/dL (0.57-1.11); EST GLOMERULAR FILTRATION RATE > 60 ML/MIN (60-); GLUCOSE 155 mg/dL (74-118); POTASSIUM 3.6 mmol/L (3.5-5.1); SODIUM 140 mmol/L (136-145)
[2018-06-12] MEDS ORDERED: IOPAMIDOL 370 MG/ML 200 ML INFUS..BTL INJ ONE (23:31)
[2018-06-12] MEDS ORDERED: SODIUM CHLORIDE 0.9% 100 ML 100 ML ONE (23:31)
--- NOTE | 2018-06-13 00:13 | Diagnostic Imaging Report ---
EXAM: CT Chest WITH contrast (PE Protocol) INDICATION: sob COMPARISON: None TECHNIQUE: Chest was scanned utilizing a multidetector helical scanner from the lung apex through the level of the diaphragm after administration of IV contrast. Thin section reconstructions were obtained with special concentration on the pulmonary arteries. Coronal and sagittal reformations were obtained. Pulmonary embolism protocol was performed. IV CONTRAST: 100 mL of Isovue 370 COMPLICATIONS: None RADIATION DOSE: Total DLP: 477.7 mGy*cm Estimated effective dose: (DLP x 0.014 x size factor) mSv Dose modulation, iterative reconstruction, and/or weight based adjustment of the mA/kV was utilized to reduce the radiation dose to as low as reasonably achievable. FINDINGS: LINES/ TUBES: None. LUNGS AND AIRWAYS: No filling defect is identified within the pulmonary arteries to the segmental level. Mild apical paraseptal emphysematous changes. Subsegmental atelectasis in the lower lobes. No consolidations. Airways are normal. PLEURA: The pleural spaces are clear. HEART AND MEDIASTINUM: The thyroid gland is normal. No mediastinal, hilar or axillary lymphadenopathy. The heart is normal in size.. There is no pericardial effusion. Scattered mild aortic and coronary artery calcifications.. Main pulmonary artery measures 2.9 cm in diameter and the ascending aorta measures 2.7 cm. UPPER ABDOMEN: Please refer to same-day CT abdomen and pelvis. BONES: There are degenerative changes in the thoracic spine. SOFT TISSUES: Unremarkable. IMPRESSION: No pulmonary emboli or acute thoracic abnormalities.. Signed by: DR. Yohannes George MD on 06/13/2018 12:10 AM
--- NOTE | 2018-06-13 00:21 | Diagnostic Imaging Report ---
EXAM: CT Abdomen and Pelvis WITH contrast INDICATION: assess for retroperitoneal hematoma ^[id number] ^[id number] COMPARISON: None. TECHNIQUE: Abdomen and pelvis were scanned utilizing a multidetector helical scanner from the lung base to the pubic symphysis after administration of IV contrast. Coronal and sagittal reformations were obtained. Routine protocol was performed. Scan was performed when during portal venous phase. IV CONTRAST: 100 mL of Isovue-370 ORAL CONTRAST: Water COMPLICATIONS: None RADIATION DOSE: Total DLP: 704.1 mGy*cm Estimated effective dose: (DLP x 0.015 x size factor) mSv Dose modulation, iterative reconstruction, and/or weight based adjustment of the mA/kV was utilized to reduce the radiation dose to as low as reasonably achievable. FINDINGS: LINES and TUBES: None. LOWER THORAX: Please refer to same-day chest CT. HEPATOBILIARY: Hepatomegaly and hepatic steatosis. No focal hepatic lesions. No biliary ductal dilation. GALLBLADDER: Absent SPLEEN: No splenomegaly. PANCREAS: No focal masses or ductal dilatation. ADRENALS: No adrenal nodules KIDNEYS/URETERS: Kidneys enhance symmetrically. No hydronephrosis. Hyperattenuating 1.1 cm lesion in the interpolar region of the left kidney (axial image 32, coronal image 80). No stones. GI TRACT: No abnormal distention, wall thickening, or evidence of bowel obstruction. Appendix is normal. PELVIC ORGANS/BLADDER: Unremarkable. LYMPH NODES: No lymphadenopathy. VESSELS: Unremarkable. Soft tissue stranding in the right inguinal region likely related to vascular access. No evidence of hematoma or pseudoaneurysm. PERITONEUM / RETROPERITONEUM: No free air or fluid. BONES: L4-L5 fusion with left laminectomies. SOFT TISSUES: Soft tissue stranding in the right groin. IMPRESSION: 1. No evidence of retroperitoneal hematoma. Changes of vascular access in the right groin. 2. Left renal 1.1 cm lesion concerning for renal cell carcinoma. 3. Hepatic steatosis and hepatomegaly. Signed by: DR. Yohannes George MD on 06/13/2018 12:18 AM
== END 2018-06-13 02:09 | disposition home or self-care (01) ==
LOC: ER 21:16
DX: R06.09 Other forms of dyspnea (principal); R07.89 Other chest pain
CPT/HCPCS: 36415; 71260; 74177; 80053; 85025; 93005; 99283; Q9967

== ENCOUNTER 2018-07-31 21:54 | Emergency (ER) | payer OTHER ==
[~2018-07-31] VITALS: Ht 167.6 cm; Wt 91.6 kg
--- OUTSIDE RECORDS SUMMARY | 2018-07-31 22:01 | XMS REPORT | Continuity of Care Document ---
Author Author Sangeeta [facility] Interface Address Unknown Phone Unavailable Problems Problem Status Onset Date Classification Date Reported Comments Source LEG PAIN Active 02/24/2018 [facility] KNEE PAIN Active 01/30/2018 [facility] DX: DVT, LOWER EXTREMITY Active 01/27/2018 [facility] BACK PAIN Active 01/14/2018 [facility] BACTERIAL COLITIS Active 01/04/2018 [facility] DIARRHEA Active 01/04/2018 [facility] Left leg pain 12/29/2017 12/31/2017 [facility] CHEST PAIN Active 12/29/2017 [facility] Radiculopathy 11/30/2017 12/03/2017 [facility] Sciatica 11/04/2017 11/07/2017 [facility] Leg pain 11/04/2017 11/07/2017 [facility] HX BLOOD CLOT, SOB AND BACK PAIN Active 10/21/2017 [facility] ACUTE LEG PAIN Active 10/04/2017 [facility] Chronic left hip pain 09/23/2017 09/26/2017 [facility] Chronic left-sided low back pain 09/23/2017 09/26/2017 [facility] LEG AND HIP PAIN Active 09/23/2017 [facility] Chronic leg pain 09/07/2017 09/10/2017 [facility] SOB 09/07/2017 09/10/2017 [facility] Acute upper respiratory infection, unspecified 06/07/2017 09/07/2017 [facility] Chronic back pain 06/01/2017 09/07/2017 [facility] Acute URI 06/01/2017 09/07/2017 [facility] SOB, COUGH, LEG SWELLING Active 05/31/2017 [facility] Discharge Diagnosis: Acute exacerbation of chronic low back pain 01/03/2017 01/06/2017 [facility] Discharge Diagnosis: Dizziness 12/04/2016 12/07/2016 [facility] LIGHT HEADED Active 12/03/2016 [facility] Discharge Diagnosis: Low back pain 11/23/2016 11/26/2016 [facility] Discharge Diagnosis: S/P diskectomy 11/23/2016 11/26/2016 [facility] Discharge Diagnosis: H/O laminectomy 11/23/2016 11/26/2016 [facility] Discharge Diagnosis: Acute low back pain 02/25/2016 02/28/2016 [facility] Discharge Diagnosis: Syncope and collapse 09/27/2015 09/30/2015 [facility] DIZZY Active 09/27/2015 [facility] Discharge Diagnosis: Paresthesia 08/23/2015 08/27/2015 [facility] PAIN IN BODY Active 08/23/2015 [facility] Discharge Diagnosis: Chronic lumbar radiculopathy 09/28/2014 10/01/2014 [facility] LT LEG PAIN Active 09/28/2014 [facility] SWOLLEN FEET Active 09/17/2014 [facility] Discharge Diagnosis: Sciatica of left side 08/30/2014 09/01/2014 [facility] 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4 Active 05/26/2013 [facility] ABD PAIN Active 03/06/2013 [facility] 724.4 COMPRESSION OF LUMBAR NERVE ROOT / Active 10/28/2012 [facility] FOOT PAIN Active 11/20/2011 [facility] 722.52 Active 06/26/2011 [facility] [place]<sup>1</sup> Active 11/21/2010 Problem 12/31/2017 Data migrated from [facility] on 10/18/14. [facility] Active [facility] Active Problem [facility]/31[facility]2017 [facility] [place] Back pain Active Problem 12/31/2017 [facility], [facility] [place],[facility] Gall stone Resolved Problem 12/31/2017 [facility] Gallbladder stones Active Problem 12/31/2017 [facility] [place] Hypertension Active Problem 12/31/2017 [facility] Sciatica neuralgia Active Problem 12/31/2017 [facility] Low back pain 09/07/2017 [facility] Other chronic pain 09/07/2017 [facility] Essential hypertension 09/07/2017 [facility] Nicotine dependence, cigarettes, uncomplicated 09/07/2017 [facility] Tobacco abuse counseling 09/07/2017 [facility] Simple obesity Active Problem 12/31/2017 [facility] Pain in leg, unspecified 10/11/2017 [facility] Gallbladder stones Active Problem 11/02/2012 [facility] Back pain Resolved Problem 11/02/2012 [facility] PNEUMONIA, ORGANISM NOS Active [facility] PERIPH VASCULAR DIS NOS Active [facility] CORD COMPRESS NEC-UNSPEC Active [facility] 719.46 Active [facility] PAIN IN LEG, UNSPECIFIED Active [facility] CHEST PAIN, UNSPECIFIED Active [facility] BACTERIAL INTESTINAL INFECTION, UNSPECIF Active [facility] Medications Medication Details Route Status Patient Instructions Ordering Provider Order Date Source Omeprazole (Prilosec) 20 Mg Capsule.dr, 20 Mg Oral Rt Daily Active 06/10/2018 [facility] Sucralfate (Carafate Susp 1GM/10ML) 1 G/10 Ml Susp, 1000 Mg Oral Rqid Active 06/10/2018 [facility] Morphine 4 mg, Route: IVP, ONCE, Dosing Weight 90.909, kg, Priority: STAT, Start date: 12/28/17 23:36:00 CDT, Stop date: 12/28/17 23:36:00 CDT Inactive 12/29/2017 [facility] Acetaminophen 325 MG / Hydrocodone Bitartrate 5 MG Oral Tablet 1 tab, Route: PO, Drug Form: TAB, Dosing Weight 91.818, kg, ONCE, STAT, Start date: 11/30/17 4:26:00 CDT, Stop date: 11/30/17 4:26:00 CDT Inactive 11/30/2017 [facility] methylPREDNISolone SODium SUCCinate 125 mg, Route: IVP, ONCE, Dosing Weight 91.818, kg, Priority: STAT, Start date: 11/30/17 1:05:00 CDT, Stop date: 11/30/17 1:05:00 CDT Inactive 11/30/2017 [facility] Ondansetron 4 mg, 2 mL, Route: IVP, Drug form: INJ, ONCE, Dosing Weight 91.818, kg, Priority: STAT, Start date: 11/30/17 1:05:00 CDT, Stop date: 11/30/17 1:05:00 CDTNotes: (Same as: [place]y) MEDICATION WASTE * Product Size: 4 mg Product Wasted: ___ mg Inactive 11/30/2017 [facility] Morphine 4 mg, Route: IVP, ONCE, Dosing Weight 91.818, kg, Priority: STAT, Start date: 11/30/17 1:05:00 CDT, Stop date: 11/30/17 1:04:00 CDT Inactive 11/30/2017 [facility] Acetaminophen 325 MG / Hydrocodone Bitartrate 5 MG Oral Tablet [[place] 5/325] 1 tab, Route: PO, Drug Form: TAB, Dosing Weight 89.091, kg, ONCE, STAT, Start date: 11/04/17 5:48:00 CDT, Stop date: 11/04/17 5:48:00 CDT Inactive 11/04/2017 [facility] Acetaminophen 325 MG / Hydrocodone Bitartrate 5 MG Oral Tablet [[place] 5/325] 1 tab, Route: PO, Drug Form: TAB, Dosing Weight 89.091, kg, ONCE, STAT, Start date: 10/22/17 1:24:00 CDT, Stop date: 10/22/17 1:24:00 CDT Inactive 10/22/2017 [facility] Saline Flush 0.9% 10 mL, Route: IVP, Drug Form: INJ, Dosing Weight 90.001, kg, PRN, PRN Line Flush, Start date: 10/21/17 19:45:00 CDT, Duration: 30 day, Stop date: 11/20/17 19:44:00 CDTNotes: (Same as: BD Posiflush) No Longer Active 10/22/2017 [facility] Aspirin 325 MG Enteric Coated Tablet 325 mg, 1 tab, Route: PO, Drug form: ECTAB, Daily, Dosing Weight 90.001, kg, Start date: 10/09/17 9:00:00 CDT, Duration: 30 day, Stop date: 11/07/17 9:00:00 CDTNotes: (Do Not Crush) Do not crush or chew. No Longer Active 10/09/2017 [facility] bisacodyl 5 mg oral enteric coated tablet 10 mg=2 tab, PO, Daily, # 24 tab, 0 Refill(s), Pharmacy: [facility] [id number] No Longer Active 10/08/2017 [facility] Aspirin 325 MG Enteric Coated Tablet 325 mg=1 tab, PO, Daily, take with food, # 30 tab, 0 Refill(s), Pharmacy: [facility] [id number] Active 10/08/2017 [facility] Acetaminophen 300 MG / Codeine Phosphate 30 MG Oral Tablet [Tylenol with Codeine #3] 1 tab, PO, Q6H, PRN Pain Score 1-3, # 24 tab, 0 Refill(s) No Longer Active 10/08/2017 [facility] gabapentin 300 MG Oral Capsule 300 mg, PO, TID, # 90 tab, 0 Refill(s), Pharmacy: [facility] [id number] Active 10/08/2017 [facility] Docusate Sodium 100 MG Oral Capsule [Colace] 100 mg=1 cap, PO, BID, # 30 cap, 0 Refill(s), Pharmacy: [facility] [place] [id number] Active 10/08/2017 [facility] Acetaminophen 300 MG / Codeine Phosphate 30 MG Oral Tablet [Tylenol with Codeine #3] 1 tab, Route: PO, Drug Form: TAB, Dosing Weight 90.001, kg, Q6H, PRN Pain Score 1-3, Start date: 10/08/17 11:28:00 CDT, Duration: 7 day, Stop date: 10/15/17 11:27:00 CDTNotes: Do not exceed 4gm/day of a cetaminophen. (Same as: Tylenol with Codeine # 3) Inactive 10/08/2017 [facility] Dulcolax Laxative 10 mg, 2 tab, Route: PO, Drug form: ECTAB, Daily, Dosing Weight 90.001, kg, Start date: 10/07/17 9:00:00 CDT, Duration: 30 day, Stop date: 11/05/17 9:00:00 CDTNotes: (Same As: Dulcolax, Correctol) (Do Not Crush) "Do Not Crush" No Longer Active 10/07/2017 [facility] Docusate Sodium 100 MG Oral Capsule 100 mg, 1 cap, Route: PO, Drug form: CAP, BID, Dosing Weight 90.001, kg, Start date: 10/06/17 17:00:00 CDT, Duration: 30 day, Stop date: 11/05/17 9:00:00 CDTNotes: (Same as: Colace) (Do Not Crush) No Longer Active 10/06/2017 [facility] Dexamethasone 10 mg, 2.5 mL, Route: IVP, Drug form: INJ, ONCE, Dosing Weight 90.001, kg, Start date: 10/06/17 9:48:00 CDT, Stop date: 10/06/17 9:48:00 CDT Inactive 10/06/2017 [facility] lisinopril 10 mg, 2 tab, Route: PO, Drug form: TAB, Daily, Start date: 10/06/17 9:00:00 CDT, Duration: 30 day, Stop date: 11/04/17 9:00:00 CDTNotes: (Same as: Prinivil, Zestril) No Longer Active 10/06/2017 [facility] hydrochlorothiazide 25 mg oral tablet 12.5 mg, 0.5 tab, Route: PO, Drug form: TAB, Daily, Start date: 10/06/17 9:00:00 CDT, Duration: 30 day, Stop date: 11/04/17 9:00:00 CDTNotes: (Same as: Hydrodiuril) With food. No Longer Active 10/06/2017 [facility] Hydrochlorothiazide 12.5 MG / Lisinopril 10 MG Oral Tablet 1 tab, Route: PO, Drug Form: TAB, Dosing Weight 90.001, kg, Daily, Start date: 10/06/17 9:00:00 CDT, Duration: 30 day, Stop date: 11/04/17 9:00:00 CDT No Longer Active 10/06/2017 [facility] Simvastatin 20 mg, 1 tab, Route: PO, Drug form: TAB, Bedtime, Dosing Weight 90.001, kg, Start date: 10/05/17 21:00:00 CDT, Duration: 30 day, Stop date: 11/03/17 21:00:00 CDTNotes: (Same as: Zocor) No Longer Active 10/06/2017 [facility] Eliquis 5 mg, 1 tab, Route: PO, Drug form: TAB, Q12H, Dosing Weight 90.001, kg, Start date: 10/05/17 21:00:00 CDT, Duration: 30 day, Stop date: 11/04/17 9:00:00 CDTNotes: Same as: Eliquis No Longer Active 10/06/2017 [facility] gabapentin 300 mg, 1 cap, Route: PO, Drug form: CAP, TID, Dosing Weight 90.001, kg, Start date: 10/05/17 13:00:00 CDT, Duration: 30 day, Stop date: 11/04/17 9:00:00 CDTNotes: (Same as: Neurontin) Inactive 10/05/2017 [facility] cyclobenzaprine 10 mg, 1 tab, Route: PO, Drug form: TAB, TID, Dosing Weight 90.001, kg, Start date: 10/05/17 13:00:00 CDT, Duration: 30 day, Stop date: 11/04/17 9:00:00 CDTNotes: (Same As: Flexeril) No Longer Active 10/05/2017 [facility] Acetaminophen 325 MG / Hydrocodone Bitartrate 10 MG Oral Tablet [[place] 10/325] 2 tab, Route: PO, Drug Form: TAB, Dosing Weight 90.001, kg, Q4H, PRN Pain Score 6-10, Start date: 10/05/17 10:30:00 CDT, Duration: 2 day, Stop date: 10/07/17 10:29:00 CDTNotes: Do not exceed 4gm/day of acetaminophen. (Same as: [place] 325/10) No Longer Active 10/05/2017 [facility] Potassium Chloride 20 mEq, 15 mL, Route: PO, Drug form: LIQ, ONCE, Dosing Weight 90.001, kg, Start date: 10/05/17 10:29:00 CDT, Stop date: 10/05/17 10:29:00 CDTNotes: (Same as: Potassium Chloride) Inactive 10/05/2017 [facility] magnesium citrate 58.2 MG/ML Oral Solution 300 ml, Route: PO, Drug Form: LIQ, Dosing Weight 90.001, kg, ONCE, Start date: 10/05/17 10:04:00 CDT, Stop date: 10/05/17 10:04:00 CDTNotes: (Same as: Citrate of Magnesia) Concentration: 1.745 gm / 30 mL Inactive 10/05/2017 [facility] Saline Flush 0.9% 10 ml, Route: IVP, Drug Form: INJ, Dosing Weight 90.001, kg, PRN, PRN Line Flush, Start date: 10/05/17 2:17:00 CDT, Duration: 30 day, Stop date: 11/04/17 2:16:00 CDTNotes: (Same as: BD Posiflush) No Longer Active 10/05/2017 [facility] Ondansetron 4 mg, 2 mL, Route: IVP, Drug form: INJ, Q6H, Dosing Weight 90.001, kg, PRN Nausea & Vomiting, Start date: 10/05/17 2:17:00 CDT, Duration: 30 day, Stop date: 11/04/17 2:16:00 CDTNotes: (Same as: Zofran) MEDICATION WASTE Product Size: 4 mg Product Wasted: ___ mg No Longer Active 10/05/2017 [facility] Acetaminophen 325 MG / Hydrocodone Bitartrate 5 MG Oral Tablet 2 tab, Route: PO, Drug Form: TAB, Dosing Weight 90.001, kg, Q4H, PRN Pain Score 7-10, Start date: 10/05/17 2:17:00 CDT, Duration: 30 day, Stop date: 11/04/17 2:16:00 CDTNotes: (Same as: [place] 325/5) Do not exceed 4gm/day of acetaminophen. Inactive 10/05/2017 [facility] Morphine 6 mg, 3 mL, Route: PO, Drug form: SOLN, Q4H, Dosing Weight 90.001, kg, PRN Pain Score 7-10, Start date: 10/05/17 2:17:00 CDT, Stop date: 11/04/17 2:16:00 CDTNotes: (Same as:MORPhine Sulfate) No Longer Active 10/05/2017 [facility] Sodium Chloride 0.9% IV 1,000 mL 1,000 mL, Rate: 75 ml/hr, Infuse over: 13.3 hr, Route: IV, Dosing Weight 90.001 kg, Total Volume: 1,000, Start date: 10/05/17 2:17:00 CDT, Duration: 30 day, Stop date: 11/04/17 2:16:00 CDT, 2.07, m2 Inactive 10/05/2017 [facility] apixaban 5 MG Oral Tablet [Eliquis] 5 mg, PO, Q12H, 0 Refill(s) No Longer Active 10/05/2017 [facility] simvastatin 20 mg oral tablet 20 mg=1 tab, PO, Bedtime, # 30 tab, 1 Refill(s) Active 10/05/2017 [facility] Fentanyl 50 microgram, 1 mL, Route: IVP, Drug form: INJ, ONCE, Dosing Weight 109.091, kg, Priority: STAT, Start date: 10/04/17 22:08:00 CDT, Stop date: 10/04/17 22:08:00 CDTNotes: (Same as: Sublimaze) Preservative free. Inactive 10/05/2017 [facility] Saline Flush 0.9% 10 mL, Route: IVP, Drug Form: INJ, Dosing Weight 109.091, kg, PRN, PRN Line Flush, Start date: 10/04/17 22:08:00 CDT, Duration: 30 day, Stop date: 11/03/17 22:07:00 CDTNotes: (Same as: BD Posiflush) No Longer Active 10/05/2017 [facility] Morphine 4 mg, Route: IVP, ONCE, Dosing Weight 89.545, kg, Priority: STAT, Start date: 09/23/17 22:56:00 CDT, Stop date: 09/23/17 22:56:00 CDT Inactive 09/24/2017 [facility] Saline Flush 0.9% 10 mL, Route: IVP, Drug Form: INJ, Dosing Weight 89.545, kg, PRN, PRN Line Flush, Start date: 09/23/17 18:28:00 CDT, Duration: 30 day, Stop date: 10/23/17 18:27:00 CDTNotes: (Same as: BD Posiflush) No Longer Active 09/23/2017 [facility] tramadol hydrochloride 50 MG Oral Tablet [Ultram] 50 mg=1 tab, PO, Q4H, PRN pain, X 5 day, # 30 tab, 0 Refill(s) Active 09/07/2017 [facility] Morphine 4 mg, Route: IVP, Drug form: INJ, ONCE, Dosing Weight 89.545, kg, Priority: STAT, Start date: 09/07/17 0:27:00 CDT, Stop date: 09/07/17 0:27:00 CDT Inactive 09/07/2017 [facility] Acetaminophen 325 MG / Hydrocodone Bitartrate 10 MG Oral Tablet [[place] 10/325] 1 tab, Route: PO, Drug Form: TAB, Dosing Weight 89.545, kg, ONCE, STAT, Start date: 09/06/17 22:06:00 CDT, Stop date: 09/06/17 22:06:00 CDTNotes: Do not exceed 4gm/day of acetaminophen. (Same as: [place] 325/10) Inactive 09/07/2017 [facility] Acetaminophen 300 MG / Codeine Phosphate 30 MG Oral Tablet [Tylenol with Codeine #3] 1 - 2 tab, PO, Q4H, PRN Pain, not to exceed 4000 mg acetaminophen per day, X 3 day, # 20 tab, 0 Refill(s) No Longer Active 06/01/2017 [facility] Acetaminophen 325 MG / Hydrocodone Bitartrate 5 MG Oral Tablet 1 tab, Route: PO, Drug Form: TAB, Dosing Weight 89.545, kg, ONCE, STAT, Start date: 06/01/17 5:25:00 TOOL PROCUREMENT COORDINATOR, Stop date: 06/01/17 5:25:00 TOOL PROCUREMENT COORDINATOR Inactive 06/01/2017 [facility] Sodium Chloride 0.9% (Bolus) IV 1,000 mL, Infuse Over: 1 hr, Route: IV, ONCE, Priority: STAT, Dosing Weight 89.545 kg, Start date: 06/01/17 1:58:00 TOOL PROCUREMENT COORDINATOR, Stop date: 06/01/17 1:58:00 TOOL PROCUREMENT COORDINATOR Inactive 06/01/2017 [facility] Acetaminophen 650 mg, Route: PO, Drug form: TAB, ONCE, Dosing Weight 89.545, kg, Priority: STAT, Start date: 06/01/17 1:58:00 TOOL PROCUREMENT COORDINATOR, Stop date: 06/01/17 1:58:00 TOOL PROCUREMENT COORDINATOR Inactive 06/01/2017 [facility] meclizine 50 mg oral tablet 25 mg=1 tab, PO, TID, X 7 day, # 21 tab, 0 Refill(s) Active 12/04/2016 [facility] Meclizine 50 mg, Route: PO, Drug form: TAB, ONCE, Dosing Weight 85.909, kg, Priority: STAT, Start date: 12/04/16 4:19:00 CDT, Stop date: 12/04/16 4:19:00 CDT Inactive 12/04/2016 [facility] Diphenhydramine 25 mg, Route: IVP, ONCE, Dosing Weight 85.909, kg, Priority: STAT, Start date: 12/04/16 4:19:00 CDT, Stop date: 12/04/16 4:19:00 CDT Inactive 12/04/2016 [facility] Ondansetron 4 mg, Route: IVP, Drug form: INJ, ONCE, Dosing Weight 85.909, kg, Priority: STAT, Start date: 12/04/16 4:19:00 CDT, Stop date: 12/04/16 4:19:00 CDT Inactive 12/04/2016 [facility] Sodium Chloride 0.154 MEQ/ML Injectable Solution 1,000 mL, Infuse Over: 1 hr, Route: IV, ONCE, Priority: STAT, Dosing Weight 85.909 kg, Start date: 12/04/16 4:19:00 CDT, Duration: 1 doses or times, Stop date: 12/04/16 4:19:00 CDT Inactive 12/04/2016 [facility] Saline Flush 0.9% 10 mL, Route: IVP, Drug Form: INJ, Dosing Weight 85.909, kg, PRN, PRN Line Flush, Start date: 12/03/16 23:44:00 CDT, Duration: 30 day, Stop date: 01/02/17 23:43:00 CDTNotes: (Same as: BD Posiflush) No Longer Active 12/04/2016 [facility] Acetaminophen 325 MG / Oxycodone Hydrochloride 10 MG Oral Tablet [Percocet 10/325] 2 tab, PO, Q8H, 0 Refill(s) Active 11/23/2016 [facility] gabapentin 300 mg, PO, TID, 0 Refill(s) Active 11/23/2016 [facility] Sodium Chloride 0.154 MEQ/ML Injectable Solution 1,000 mL, 1000 ml/hr, Infuse Over: 1 hr, Route: IV, 1,000, Drug form: INJ, ONCE, Priority: STAT, Dosing Weight 85 kg, Start date: 11/23/16 3:19:00 CDT, Duration: 1 doses or times, Stop date: 11/23/16 3:19:00 CDT Inactive 11/23/2016 [facility] predniSONE 20 mg oral tablet 40 mg=2 tab, PO, Daily, X 5 day, # 10 tab, 0 Refill(s) Active 02/26/2016 [facility] Diazepam 5 MG Oral Tablet [Valium] 5 mg=1 tab, PO, BID, PRN Spasm, X 7 day, # 14 tab, 0 Refill(s) Active 02/26/2016 [facility] Valium 5 mg, 1 tab, Route: PO, Drug form: TAB, ONCE, Dosing Weight 85.909, kg, Priority: STAT, Start date: 02/25/16 17:51:00 CDT, Stop date: 02/25/16 17:51:00 CDTNotes: (Same as: Valium) Inactive 02/25/2016 [facility] Ibuprofen 800 mg, 2 tab, Route: PO, Drug form: TAB, ONCE, Dosing Weight 85.455, kg, Priority: STAT, Start date: 02/25/16 16:38:00 CDT, Stop date: 02/25/16 16:38:00 CDTNotes: (Same as: Motrin) "Do Not Crush" Give with food. Inactive 02/25/2016 [facility] Dexamethasone 10 mg, 2.5 mL, Route: IM, Drug form: INJ, ONCE, Dosing Weight 85.455, kg, Priority: STAT, Start date: 02/25/16 16:38:00 CDT, Stop date: 02/25/16 16:38:00 CDTNotes: Concentration: 4mg/ml Inactive 02/25/2016 [facility] Saline Flush 0.9% 10 mL, Route: IVP, Drug Form: INJ, Dosing Weight 85.455, kg, PRN, PRN Line Flush, Start date: 09/27/15 2:38:00 CDT, Duration: 30 day, Stop date: 10/27/15 2:37:00 CDTNotes: (Same as: BD Posiflush) Inactive 09/27/2015 [facility] Sodium Chloride 0.154 MEQ/ML Injectable Solution 1,000 mL, 1,000 ml/hr, Infuse Over: 1 hr, Route: IV, 1,000, Drug form: INJ, ONCE, Priority: STAT, Dosing Weight 85.909 kg, Start date: 08/23/15 22:00:00, Duration: 1 doses or times, Stop date: 08/23/15 22:00:00 Inactive 08/24/2015 [facility] Saline Flush 0.9% 10 mL, Route: IVP, Drug Form: INJ, Dosing Weight 85.909, kg, PRN, PRN Line Flush, Start date: 08/23/15 16:04:00, Duration: 30 day, Stop date: 09/22/15 16:03:00Notes: (Same as: BD Posiflush) No Longer Active 08/23/2015 [facility] Naproxen sodium 550 MG Oral Tablet [Anaprox] 550 mg=1 tab, PO, BID, PRN for pain, X 10 day, # 20 tab, 0 Refill(s) Active 09/28/2014 [facility] Dexamethasone 10 mg, 2.5 mL, Route: IM, Drug form: INJ, ONCE, Dosing Weight 60.909, kg, Priority: STAT, Start date: 09/28/14 15:52:00, Stop date: 09/28/14 15:52:00Notes: Concentration: 4mg/ml Inactive 09/28/2014 [facility] Ketorolac 60 mg, 2 mL, Route: IM, Drug form: INJ, ONCE, Dosing Weight 60.909, kg, Priority: STAT, Start date: 09/28/14 15:52:00, Stop date: 09/28/14 15:52:00Notes: (Same as:Toradol) IV bolus must be given >15 seconds. Give IM administration slowly and deeply into the muscle. Not for use > 4 days MEDICATION WASTE Product Size: 60 mg Product Wasted: ___ mg Inactive 09/28/2014 [facility] Orphenadrine 60 mg, Route: IM, ONCE, Dosing Weight 84.091, kg, Priority: STAT, Start date: 08/30/14 0:51:00, Stop date: 08/30/14 0:51:00 Inactive 08/30/2014 [facility] Morphine 4 mg, Route: IM, Drug form: INJ, ONCE, Dosing Weight 84.091, kg, Priority: STAT, Start date: 08/30/14 0:50:00, Stop date: 08/30/14 0:50:00 Inactive 08/30/2014 [facility] sennosides, ASSISTED 8.6 MG Oral Tablet 17.2 mg=2 tab, PO, Daily, 0 Refill(s) Active 04/14/2014 [facility] Docusate Sodium 100 MG Oral Capsule [Colace] 100 mg=1 cap, PO, BID, 0 Refill(s) Active 04/14/2014 [facility] Senokot 17.2 mg, 2 tab, Route: PO, Drug Form: TAB, Dosing Weight 83.182, kg, Daily, Start date: 04/13/14 9:00:00, Duration: 30 day, Stop date: 05/12/14 9:00:00Notes: (Same as: Senokot) No Longer Active 04/13/2014 [facility] heparin sodium, porcine 2500 UNT/ML Injectable Solution 5,000 unit, 1 mL, Route: SUB-Q, Drug form: INJ, Q12H, Dosing Weight 83.182, kg, Start date: 04/13/14 8:00:00, Duration: 30 day, Stop date: 05/12/14 21:00:00Notes: porcine heparin No Longer Active 04/13/2014 [facility] Famotidine 20 MG Oral Tablet [Pepcid] 20 mg, 1 tab, Route: PO, Drug form: TAB, Q12H, Dosing Weight 83.182, kg, Start date: 04/12/14 21:00:00, Duration: 30 day, Stop date: 05/12/14 9:00:00Notes: (Same as: Pepcid) No Longer Active 04/13/2014 [facility] Docusate Sodium 100 MG Oral Capsule [Colace] 100 mg, 1 cap, Route: PO, Drug form: CAP, BID, Dosing Weight 83.182, kg, Start date: 04/12/14 17:00:00, Duration: 30 day, Stop date: 05/12/14 9:00:00Notes: (Same as: Colace) (Do Not Crush) No Longer Active 04/12/2014 [facility] 10 ML Cefazolin 100 MG/ML Prefilled Syringe 1 gm, 100 mL, Route: IVPB, Drug form: INJ, Q8H, Dosing Weight 83.182, kg, Start date: 04/12/14 16:00:00, Duration: 3 doses or times, Stop date: 04/13/14 8:00:00 No Longer Active 04/12/2014 [facility] magnesium citrate 300 ml, Route: PO, Drug Form: LIQ, Dosing Weight 83.182, kg, ONCE, PRN Constipation, Start date: 04/12/14 12:18:00Notes: (Same as: Citrate of Magnesia) No Longer Active 04/12/2014 [facility] Zofran 4 mg, 2 mL, Route: IV, Drug form: INJ, Q8H, Dosing Weight 83.182, kg, PRN Nausea, Start date: 04/12/14 12:18:00, Duration: 30 day, Stop date: 05/12/14 12:17:00Notes: (Same as: Zofran) No Longer Active 04/12/2014 [facility] Acetaminophen 325 MG / Hydrocodone Bitartrate 5 MG Oral Tablet 1 tab, Route: PO, Drug Form: TAB, Dosing Weight 83.182, kg, Q4H, PRN Pain Score 4-6, Start date: 04/12/14 12:18:00, Stop date: 05/12/14 12:17:00Notes: (Same as: [place] 325/5) Do not exceed 4gm/day of acetaminophen. No Longer Active 04/12/2014 [facility] Dilaudid 1 mg, Route: IV, Q3H, Dosing Weight 83.182, kg, PRN Pain, Start date: 04/12/14 12:18:00, Duration: 30 day, Stop date: 05/12/14 12:17:00 Inactive 04/12/2014 [facility] Tylenol 650 mg, 2 tab, Route: PO, Drug form: TAB, Q4H, Dosing Weight 83.182, kg, PRN Pain Score 1-3, Start date: 04/12/14 12:18:00, Stop date: 05/12/14 12:17:00Notes: Do not exceed 4 gm/day. (Same as: Tylenol) No Longer Active 04/12/2014 [facility] Sodium Chloride 0.154 MEQ/ML Injectable Solution 1,000 mL, Rate: 75 ml/hr, Infuse over: 13.3 hr, Route: IV, Dosing Weight 83.182 kg, Total Volume: 1,000, Start date: 04/12/14 12:18:00, Duration: 30 day, Stop date: 05/12/14 12:17:00 No Longer Active 04/12/2014 [facility] Ancef 2 gm, 100 mL, Route: IVPB, Drug form: INJ, ONCE, Dosing Weight 83.182, kg, Start date: 04/12/14 8:14:00, Stop date: 04/12/14 8:14:00Notes: Same as: Ancef Inactive 04/12/2014 [facility] Lactated Ringers IV 1,000 mL 1,000 mL, Rate: 25 ml/hr, Infuse over: 40 hr, Route: IV, Dosing Weight 83.182 kg, Total Volume: 1,000, Start date: 04/12/14 7:32:00, Duration: 30 day, Stop date: 05/12/14 7:31:00 No Longer Active 04/12/2014 [facility] hydrochlorothiazide 25 mg oral tablet 12.5 mg, 0.5 tab, Route: PO, Drug form: TAB, Daily, Start date: 04/11/14 9:00:00, Duration: 30 day, Stop date: 05/10/14 9:00:00Notes: (Same as: Hydrodiuril) With food. No Longer Active 04/11/2014 [facility] Hydrochlorothiazide 12.5 MG / Lisinopril 10 MG Oral Tablet 1 tab, Route: PO, Drug Form: TAB, Dosing Weight 83.182, kg, Daily, Start date: 04/11/14 9:00:00, Duration: 30 day, Stop date: 05/10/14 9:00:00 No Longer Active 04/11/2014 [facility] Prinivil 10 mg, 1 tab, Route: PO, Drug form: TAB, Daily, Start date: 04/11/14 9:00:00, Duration: 30 day, Stop date: 05/10/14 9:00:00Notes: (Same as: Prinivil, Zestril) No Longer Active 04/11/2014 [facility] Methadone 5 mg, 5 mL, Route: PO, Drug form: SOLN, Q8H, Dosing Weight 83.182, kg, Start date: 04/10/14 16:00:00, Duration: 30 day, Stop date: 05/10/14 8:00:00Notes: (Same as: Dolophine) No Longer Active 04/10/2014 [facility] gabapentin 600 MG Oral Tablet [Neurontin] 600 mg, 2 cap, Route: PO, Drug form: CAP, TID, Dosing Weight 83.182, kg, Start date: 04/10/14 13:00:00, Duration: 30 day, Stop date: 05/10/14 9:00:00Notes: (Same as: Neurontin) No Longer Active 04/10/2014 [facility] Enoxaparin 40 mg, 0.4 mL, Route: SUB-Q, Drug form: INJ, [id number], Dosing Weight 83.182, kg, Start date: 04/10/14 11:00:00, Duration: 30 day, Stop date: 05/09/14 11:00:00Notes: (Same as: Lovenox) No Longer Active 04/10/2014 [facility] Dilaudid 0.5 mg, 0.5 mL, Route: IV, Drug form: INJ, Q4H, Dosing Weight 83.182, kg, PRN Pain Score 6-10, Start date: 04/10/14 10:12:00, Duration: 30 day, Stop date: 05/10/14 10:11:00 No Longer Active 04/10/2014 [facility] cyclobenzaprine 10 mg, 1 tab, Route: PO, Drug form: TAB, TID, Dosing Weight 83.182, kg, PRN as needed for muscle spasm, Start date: 04/10/14 10:10:00, Stop date: 05/10/14 10:09:00Notes: (Same As: Flexeril) No Longer Active 04/10/2014 [facility] Acetaminophen 325 MG / Hydrocodone Bitartrate 10 MG Oral Tablet [[place] 10/325] 1 tab, Route: PO, Drug Form: TAB, Dosing Weight 83.182, kg, Q4H, PRN Pain Score 7-10, Start date: 04/10/14 10:10:00, Stop date: 05/10/14 10:09:00Notes: Do not exceed 4gm/day of acetaminophen. (Same as: [place] 325/10) No Longer Active 04/10/2014 [facility] Influenza Virus Vaccine, Inactivated W-Npzlroot-27-2007 (H3N2)-like virus (G-[id number] [facility] X-175C) strain / Influenza Virus Vaccine, Inactivated L-Nquxzicm-00-2007, IVR-148 (H1N1) strain / Influenza Virus Vaccine, Inactivated, I-Sthoufa-7-lik 0.5 mL, Route: IM, Drug Form: SUSP, Daily, Start date: 04/10/14 9:00:00, Duration: 1 doses or times, Stop date: 04/10/14 9:00:00Notes: (Same as: Fluzone Quadrivalent) Inactive 04/10/2014 [facility] Morphine 4 mg, Route: IVP, ONCE, Dosing Weight 106.818, kg, Start date: 04/10/14 5:24:00, Stop date: 04/10/14 5:24:00 Inactive 04/10/2014 [facility] Saline Flush 0.9% 10 ml, Route: IVP, Drug Form: INJ, Dosing Weight 86.364, kg, PRN, PRN Line Flush, Start date: 04/10/14 5:18:00, Duration: 30 day, Stop date: 05/10/14 5:17:00Notes: (Same as: BD Posiflush) No Longer Active 04/10/2014 [facility] D5W 1/2NS + KCL 20mEq/L 1000ml (Premix) 1,000 mL 1,000 mL, Rate: 125 ml/hr, Infuse over: 8 hr, Route: IV, Dosing Weight 86.364 kg, Total Volume: 1,000, Start date: 04/10/14 5:18:00, Duration: 30 day, Stop date: 05/10/14 5:17:00Notes: PREMIX IV - Do Not Alter No Longer Active 04/10/2014 [facility] Ondansetron 4 mg, 2 mL, Route: IVP, Drug form: INJ, Q8H, Dosing Weight 86.364, kg, PRN Nausea & Vomiting, Start date: 04/10/14 5:18:00, Duration: 30 day, Stop date: 05/10/14 5:17:00Notes: (Same as: Zofran) No Longer Active 04/10/2014 [facility] Acetaminophen 325 MG / Hydrocodone Bitartrate 10 MG Oral Tablet [[place] 10/325] 1 tab, PO, Q4H, for pain, # 24 tab, 0 Refill(s) No Longer Active 04/10/2014 [facility] Hydrochlorothiazide 12.5 MG / Lisinopril 10 MG Oral Tablet 1 tab, PO, Daily, # 30 tab, 0 Refill(s) No Longer Active 04/10/2014 [facility] cyclobenzaprine 10 mg oral tablet 10 mg=1 tab, PO, TID, for spasm, # 30 tab, 0 Refill(s) No Longer Active 04/10/2014 [facility] methadone 5 mg oral tablet 5 mg=1 tab, PO, Q6H, Pain, 0 Refill(s) No Longer Active 04/10/2014 [facility] gabapentin 600 MG Oral Tablet [Neurontin] 600 mg=1 tab, PO, TID, # 90 tab, 0 Refill(s) Active 04/10/2014 [facility] heparin sodium, porcine 1000 UNT/ML Injectable Solution Pharmacy To Manage, Route: IVP, PRN, Drug form: INJ, PRN, Heparin Protocol, Start date: 04/10/14 4:32:00 Stop date: 05/10/14 4:31:00, 30 day Inactive 04/10/2014 [facility] Heparin - one time bolus for DVT/PE 6,800 unit, Route: IV, Drug form: INJ, ONCE, Dosing Weight 86.364, kg, Priority: STAT, Start date: 04/10/14 4:32:00, Stop date: 04/10/14 4:32:00 Inactive 04/10/2014 [facility] heparin additive 25,000 unit [18 unit/kg/hr] + Premix Diluent Dextrose 5% 500 mL 500 mL, Rate: 31.09 ml/hr, Infuse over: 16.1 hr, Route: IV, Dosing Weight 86.364 kg, Total Volume: 500 mL, Start date: 04/10/14 4:32:00, Duration: 30 day, Stop date: 05/10/14 4:31:00 Inactive 04/10/2014 [facility] Zofran 4 mg, Route: IVP, Drug form: INJ, ONCE, Dosing Weight 86.364, kg, Priority: STAT, Start date: 04/09/14 22:01:00, Stop date: 04/09/14 22:01:00 Inactive 04/10/2014 [facility] Morphine 4 mg, Route: IVP, Drug form: INJ, ONCE, Dosing Weight 86.364, kg, Priority: STAT, Start date: 04/09/14 22:00:00, Stop date: 04/09/14 22:00:00 Inactive 04/10/2014 [facility] Sodium Chloride 0.154 MEQ/ML Injectable Solution 500 mL, 500 ml/hr, Infuse Over: 1 Hour, Route: IV, ONCE, Priority: STAT, Dosing Weight 86.364 kg, Start date: 04/09/14 20:14:00, Duration: 1 doses or times, Stop date: 04/09/14 20:14:00 Inactive 04/10/2014 [facility] tramadol hydrochloride 50 MG Oral Tablet 50 mg=1 tab, PO, Q6H, # 12 tab, 0 Refill(s) On Hold 04/08/2014 [facility] Ibuprofen 800 MG Oral Tablet [Motrin] 800 mg=1 tab, PO, Q8H, Pain, Take with food, # 30 tab, 0 Refill(s)Special Instructions: Take with food On Hold 04/08/2014 [facility] Ketorolac 30 mg, Route: IVP, Drug form: INJ, ONCE, Dosing Weight 86.364, kg, Priority: STAT, Start date: 04/08/14 6:28:00, Stop date: 04/08/14 6:28:00 Inactive 04/08/2014 [facility] Zofran 4 mg, Route: IVP, Drug form: INJ, ONCE, Dosing Weight 86.364, kg, Priority: STAT, Start date: 04/08/14 5:27:00, Stop date: 04/08/14 5:27:00 Inactive 04/08/2014 [facility] Morphine 6 mg, Route: IVP, Drug form: INJ, ONCE, Dosing Weight 86.364, kg, Priority: STAT, Start date: 04/08/14 5:26:00, Stop date: 04/08/14 5:26:00 Inactive 04/08/2014 [facility] Zofran ODT 4 mg, Route: PO, Drug form: TABDIS, ONCE, Dosing Weight 86.364, kg, Priority: STAT, Start date: 04/08/14 4:13:00, Stop date: 04/08/14 4:13:00 Inactive 04/08/2014 [facility] Morphine 4 mg, Route: IM, Drug form: INJ, ONCE, Dosing Weight 86.364, kg, Priority: STAT, Start date: 04/08/14 4:13:00, Stop date: 04/08/14 4:13:00 Inactive 04/08/2014 [facility] cefpodoxime 200 MG Oral Tablet [Vantin] 200 mg=1 tab, PO, Q12H, # 20 tab, 0 Refill(s) Active 02/18/2014 [facility] benzonatate 100 mg oral capsule 100 mg=1 cap, PO, TID, Cough, # 10 cap, 0 Refill(s) Active 02/18/2014 [facility] Azithromycin 5 Day Dose Pack 250 mg oral tablet See Instructions, as directed on package labeling, # 6 tab, 0 Refill(s)Special Instructions: as directed on package labeling Active 02/18/2014 [facility] Hydrochlorothiazide 12.5 MG / Lisinopril 10 MG Oral Tablet 1 tab, Route: PO, Drug Form: TAB, Dosing Weight 82.727, kg, Daily, Start date: 02/18/14 9:00:00, Duration: 30 day, Stop date: 03/19/14 9:00:00 No Longer Active 02/18/2014 [facility] Prinivil 10 mg, 1 tab, Route: PO, Drug form: TAB, Daily, Start date: 02/18/14 9:00:00, Duration: 30 day, Stop date: 03/19/14 9:00:00Notes: (Same as: Prinivil, Zestril) Inactive 02/18/2014 [facility] Microzide 12.5 mg, 1 cap, Route: PO, Drug form: CAP, Daily, Start date: 02/18/14 9:00:00, Duration: 30 day, Stop date: 03/19/14 9:00:00Notes: (Same as: Microzide) With food. Inactive 02/18/2014 [facility] gabapentin 600 MG Oral Tablet 600 mg, 2 cap, Route: PO, Drug form: CAP, Q12H, Dosing Weight 82.727, kg, Start date: 02/17/14 21:00:00, Duration: 30 day, Stop date: 03/19/14 9:00:00Notes: (Same as: Neurontin) No Longer Active 02/18/2014 [facility] Azithromycin 500 mg, Route: IVPB, [id number], Dosing Weight 82.727, kg, Priority: Routine, Start date: 02/17/14 21:00:00, Duration: 5 day, Stop date: 02/21/14 21:00:00Notes: (Same As: Zithromax IV) No Longer Active 02/18/2014 [facility] Ceftriaxone 1 gm, Route: IVPB, [id number], Dosing Weight 82.727, kg, Priority: Routine, Start date: 02/17/14 20:00:00, Duration: 30 day, Stop date: 03/18/14 20:00:00Notes: (Same As: Rocephin). Use with 100ml NS mini-bag PLUS and infuse over 30 min No Longer Active 02/18/2014 [facility] Nicotine 14 mg, 1 patch, Route: TOP, Drug form: ERFILM, Daily, Dosing Weight 82.727, kg, Start date: 02/17/14 17:00:00, Duration: 30 day, Stop date: 03/19/14 9:00:00 No Longer Active 02/17/2014 [facility] Methadone 5 mg, 5 mL, Route: PO, Drug form: SOLN, Q8H, Dosing Weight 82.727, kg, Start date: 02/17/14 16:00:00, Duration: 30 day, Stop date: 03/19/14 8:00:00Notes: (Same as: Dolophine) No Longer Active 02/17/2014 [facility] Tessalon Perles 100 mg, 1 cap, Route: PO, Drug form: CAP, TID, Dosing Weight 82.727, kg, PRN Cough, Start date: 02/17/14 10:45:00, Duration: 30 day, Stop date: 03/19/14 10:44:00 No Longer Active 02/17/2014 [facility] cyclobenzaprine 10 mg, 1 tab, Route: PO, Drug form: TAB, TID, Dosing Weight 82.727, kg, PRN as needed for muscle spasm, Start date: 02/17/14 10:43:00, Duration: 30 day, Stop date: 03/19/14 10:42:00Notes: (Same As: Flexeril) No Longer Active 02/17/2014 [facility] Acetaminophen 325 MG / Hydrocodone Bitartrate 10 MG Oral Tablet [[place] 10/325] 1 tab, Route: PO, Drug Form: TAB, Dosing Weight 82.727, kg, TID, PRN Pain Score 4-6, Start date: 02/17/14 10:43:00, Duration: 30 day, Stop date: 03/19/14 10:42:00 No Longer Active 02/17/2014 [facility] gabapentin 600 MG Oral Tablet 600 mg=1 tab, PO, Q12H, # 270 tab, 0 Refill(s) Active 02/17/2014 [facility] Methadone 5 mg, PO, Q8H, 0 Refill(s) Active 02/17/2014 [facility] cyclobenzaprine 10 mg oral tablet 10 mg=1 tab, PO, TID, as needed for muscle spasm, # 30 tab, 0 Refill(s) Active 02/17/2014 [facility] Hydrochlorothiazide 12.5 MG / Lisinopril 10 MG Oral Tablet 1 tab, PO, Daily, # 30 tab, 0 Refill(s) Active 02/17/2014 [facility] Acetaminophen 325 MG / Hydrocodone Bitartrate 10 MG Oral Tablet [[place] 10/325] 1 tab, PO, TID, as needed for pain, # 24 tab, 0 Refill(s) Active 02/17/2014 [facility] Saline Flush 0.9% 10 ml, Route: IVP, Drug Form: INJ, Dosing Weight 82.727, kg, PRN, PRN Line Flush, Start date: 02/17/14 4:30:00, Duration: 30 day, Stop date: 03/19/14 4:29:00Notes: (Same as: BD Posiflush) No Longer Active 02/17/2014 [facility] Sodium Chloride 0.154 MEQ/ML Injectable Solution 1,000 mL, Rate: 75 ml/hr, Infuse over: 13.3 hr, Route: IV, Dosing Weight 82.727 kg, Total Volume: 1,000, Start date: 02/17/14 4:30:00, Duration: 30 day, Stop date: 03/19/14 4:29:00 No Longer Active 02/17/2014 [facility] Guaifenesin 200 mg, 10 mL, Route: PO, Drug form: LIQ, Q4H, Dosing Weight 82.727, kg, PRN Cough, Start date: 02/17/14 4:30:00, Duration: 30 day, Stop date: 03/19/14 4:29:00Notes: (Same as: Robitussin) No Longer Active 02/17/2014 [facility] Ondansetron 4 mg, 2 mL, Route: IVP, Drug form: INJ, Q6H, Dosing Weight 82.727, kg, PRN Nausea & Vomiting, Start date: 02/17/14 4:30:00, Duration: 30 day, Stop date: 03/19/14 4:29:00Notes: (Same as: Zofran) No Longer Active 02/17/2014 [facility] Acetaminophen 650 mg, 2 tab, Route: PO, Drug form: TAB, Q4H, Dosing Weight 82.727, kg, PRN Pain Score 1-3, For fever > 100.4. Not to exceed 4 grams in 24 hours, Start date: 02/17/14 4:30:00, Duration: 30 day, Stop date: 03/19/14 4:29:00Notes: Do not exceed 4 gm/day. (Same as: Tylenol) No Longer Active 02/17/2014 [facility] Albuterol 0.833 MG/ML / Ipratropium [place] 0.167 MG/ML Inhalant Solution [DuoNeb] 3 ml, Route: INHALATION, Drug Form: SOLN, Dosing Weight 82.727, kg, PRN, PRN Respiratory Protocol, Start date: 02/17/14 1:11:00, Duration: 30 day, Stop date: 03/19/14 1:10:00Notes: (Same as: Duoneb) No Longer Active 02/17/2014 [facility] Sodium Chloride 0.154 MEQ/ML Injectable Solution 1,000 mL, 1,000 ml/hr, Infuse Over: 1 hr, Route: IV, ONCE, Priority: STAT, Dosing Weight 82.727 kg, Start date: 02/16/14 19:10:00, Duration: 1 doses or times, Stop date: 02/16/14 19:10:00 Inactive 02/17/2014 [facility] Zithromax 1 gm, Route: PO, ONCE, Dosing Weight 82.727, kg, Start date: 02/16/14 19:08:00, Stop date: 02/16/14 19:08:00 Inactive 02/17/2014 [facility] Rocephin 1 gm, Route: IVPB, Drug form: PDR/INJ, ONCE, Dosing Weight 82.727, kg, Priority: STAT, Start date: 02/16/14 19:08:00, Stop date: 02/16/14 19:08:00 Inactive 02/17/2014 [facility] Tylenol 975 mg, Route: PO, Drug form: TAB, ONCE, Dosing Weight 82.727, kg, Priority: STAT, Start date: 02/16/14 19:08:00, Stop date: 02/16/14 19:08:00 Inactive 02/17/2014 [facility] Albuterol 0.833 MG/ML / Ipratropium [place] 0.167 MG/ML Inhalant Solution [DuoNeb] 3 ml, Route: INHALATION, Drug Form: SOLN, Dosing Weight 82.727, kg, PRN, PRN Respiratory Protocol, Start date: 02/16/14 19:08:00, Duration: 30 day, Stop date: 03/18/14 19:07:00Notes: (Same as: Duoneb) No Longer Active 02/17/2014 [facility] Protonix 40 mg oral enteric coated tablet 40 mg, 1 tab, PO, Daily, 30 tab, Substitution Allowed, ECTAB Active [facility] 03/07/2013 [facility] Zofran ODT 4 mg oral tablet, disintegrating 4 mg, 1 tab, PO, BID, PRN, Dissolve tab under tongue, 10 tab, Nausea and Vomiting, Substitution AllowedDissolve tab under tongue Active [facility] 03/07/2013 [facility] Flexeril 10 mg oral tablet 10 mg, 1 tab, PO, TID, PRN, 30 tab, for spasm, Substitution Allowed, TAB PO Active [facility] 06/14/2011 [facility] Vicodin ES 7.5/750 oral tablet 1 tab, PO, Q4-6H, PRN, 15 tab, for Pain, Substitution Allowed, Maintenance PO Active [facility] 06/14/2011 [facility] ondansetron 4 mg, Route: IM, Drug form: INJ, ONCE, Priority: STAT, Start date: 06/14/11 16:11:00, Stop date: 06/14/11 16:11:00 IM No Longer Active [facility] 06/14/2011 [facility] morphine Sulfate 10 mg, Route: IM, ONCE, Priority: STAT, Start date: 06/14/11 16:11:00, Stop date: 06/14/11 16:11:00 IM No Longer Active [facility] 06/14/2011 [facility] Cyclobenzaprine Hcl 10 Mg Tablet Three Times A Day Active [facility] Eliquis Twice A Day Active [facility] Gabapentin 300 Mg Capsule Three Times A Day Active [facility] Hydrocodone Bit/Acetaminophen ([place] 10-325 Tablet) 1 Each Tablet Every 8 Hours as needed for Pain Active [facility] Lisinopril/Hydrochlorothiazide (Lisinopril-Hctz 10-12.5 Mg Tab) 1 Each Tablet Daily Active [facility] Metoprolol Tartrate 25 Mg Tablet Every 12 Hours Active [facility] Nitroglycerin 0.4 Mg Tab.subl Every 5 Minutes as needed for Chest Pain Active [facility] Simvastatin 20 Mg Tablet Daily Active [facility] Allergies, Adverse Reactions, Alerts Substance Category Reaction Severity Reaction type Status Date Reported Comments Source Immunizations Immunization Date Given Site Status Last Updated Comments Source influenza virus vaccine, inactivated 04/11/2014 [facility] Results Order Name Results Value Reference Range Date Interpretation Comments Source Blood leukocytes automated count (number/volume) 10.44 4.8 - 10.8 06/12/2018 [facility] Blood erythrocytes automated count (number/volume) 4.15 3.6 - 5.1 06/12/2018 [facility] Blood hemoglobin measurement (moles/volume) 12.4 12.0 - 16.0 06/12/2018 [facility] Automated blood hematocrit (volume fraction) 34.7 34.2 - 44.1 06/12/2018 [facility] Automated erythrocyte mean corpuscular volume 83.6 81 - 99 06/12/2018 [facility] Automated erythrocyte mean corpuscular hemoglobin (mass per erythrocyte) 29.9 28 - 32 06/12/2018 [facility] Automated erythrocyte mean corpuscular hemoglobin concentration measurement (mass/volume) 35.7 31 - 35 06/12/2018 [facility] RDW BldCo-Rto 14.0 11.7 - 14.4 06/12/2018 [facility] Automated blood platelet count (count/volume) 340 140 - 360 06/12/2018 [facility] Automated blood segmented neutrophil count as percentage of total leukocytes 53.0 38.7 - 80.0 06/12/2018 [facility] Automated blood lymphocyte count as percentage ot total leukocytes 39.8 18.0 - 39.1 06/12/2018 [facility] Automated blood monocyte count as percentage of total leukocytes 5.8 4.4 - 11.3 06/12/2018 [facility] Automated blood eosinophil count as percentage of total leukocytes 0.7 0.0 - 6.0 06/12/2018 [facility] Automated blood basophil count as percentage of total leukocytes 0.3 0.0 - 1.0 06/12/2018 [facility] IM GRANULOCYTES % 0.4 0.0 - 1.0 06/12/2018 [facility] Automated blood neutrophil count 5.5 2.1 - 6.9 06/12/2018 [facility] Blood lymphocytes count (number/volume) 4.2 1.0 - 3.2 06/12/2018 [facility] Blood monocytes automated count (number/volume) 0.6 0.2 - 0.8 06/12/2018 [facility] Automated blood eosinophil count 0.1 0.0 - 0.4 06/12/2018 [facility] Automated blood basophil count (count/volume) 0.0 0.0 - 0.1 06/12/2018 [facility] Absolute Immature Granulocyte (auto 0.04 0 - 0.1 06/12/2018 [facility] Serum or plasma sodium measurement (moles/volume) 140 136 - 145 06/12/2018 [facility] Serum or plasma potassium measurement (moles/volume) 3.6 3.5 - 5.1 06/12/2018 [facility] Serum or plasma chloride measurement (moles/volume) 102 98 - 107 06/12/2018 [facility] Serum or plasma carbon dioxide, total measurement (moles/volume) 26 22 - 29 06/12/2018 [facility] Serum or plasma anion gap 15.6 8 - 16 06/12/2018 [facility] Serum or plasma urea nitrogen measurement (mass/volume) 10 7 - 26 06/12/2018 [facility] Serum or plasma creatinine measurement (mass/volume) 0.83 0.57 - 1.11 06/12/2018 [facility] Serum or plasma urea nitrogen/creatinine mass ratio 12 6 - 25 06/12/2018 [facility] Estimated glomerular filtration rate (GFR) determination > 60 60 06/12/2018 [facility] Glucose measurement 155 74 - 118 06/12/2018 [facility] Serum or plasma calcium measurement (mass/volume) 9.5 8.4 - 10.2 06/12/2018 [facility] Serum or plasma total bilirubin measurement (mass/volume) 0.4 0.2 - 1.2 06/12/2018 [facility] Aspartate Amino Transf (AST/SGOT) 25 5 - 34 06/12/2018 [facility] Serum or plasma alanine aminotransferase measurement (enzymatic activity/volume) 26 0 - 55 06/12/2018 [facility] Serum or plasma protein measurement (mass/volume) 8.3 6.5 - 8.1 06/12/2018 [facility] Serum or plasma albumin measurement (mass/volume) 4.1 3.5 - 5.0 06/12/2018 [facility] Plasma globulin measurement (mass/volume) 4.2 2.3 - 3.5 06/12/2018 [facility] Serum or plasma albumin/globulin mass ratio 1.0 0.8 - 2.0 06/12/2018 [facility] Serum or plasma alkaline phosphatase measurement (enzymatic activity/volume) 89 40 - 150 06/12/2018 [facility] Prothrombin time (PT) in platelet poor plasma by coagulation assay 13.2 11.9 - 14.5 06/10/2018 [facility] INR in Platelet poor plasma by Coagulation assay 0.92 06/10/2018 [facility] Activated partial thromboplastin time (aPTT) in platelet poor plasma bycoagulation assay 32.9 23.8 - 35.5 06/10/2018 [facility] ED Abdomen/Pelvis IV contrast only CT ED [...] 2. Hepatomegaly. Hepatic steatosis. 3. Cholecystectomy. 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 SL: [id number] 01/30/2018 - - Read by: Toñito Julian MD Dictated Date/time: 01/30/18 10:19 Electronically Signed by: Toñito Julian MD 01/30/18 10:42 FINAL REPORT [facility] Abdomen/Pelvis IV contrast only CT ED Abdomen/Pelvis [...] 2. Diffuse fatty infiltration of liver. SL: [id number] 01/04/2018 - - Read by: Kathy Brink MD Dictated Date/time: 01/04/18 14:51 Electronically Signed by: Kathy Brink MD 01/04/18 14:57 FINAL REPORT [facility] Pulmonary Embolism CTA Chest Pulmonary Embolism [...] [id number] 12/30/2017 - - Read by: Mitchel Duavl MD Dictated Date/time: 12/30/17 04:47 Electronically Signed by: Mitchel Duval MD 12/30/17 04:51 FINAL REPORT [facility] 1view DX Chest 1view DX Clinical Indication: - cp Comparison: 10/21/2017 FINDINGS: AP chest radiograph was obtained. MEDIASTINUM: The cardiac silhouette is normal in size. The aorta is unremarkable. LUNGS: Lung volumes are maintained. There are no focal infiltrates or effusions. There are no pneumothoraces noted. BONES: The visualized osseous structures are unremarkable. IMPRESSION: No acute infiltrates or effusions. SL: [id number] 12/30/2017 - - Read by: King Alford MD Dictated Date/time: 12/30/17 02:32 Electronically Signed by: King Alford MD 12/30/17 02:33 FINAL REPORT [facility] CHEM PANEL Globulin 5.0 g/dL 2.7 - 4.2 12/29/2017 [facility] CHEM PANEL B/C Ratio 13 6 - 25 12/29/2017 [facility] CHEM PANEL AGAP 10.7 meq/L 10.0 - 20.0 12/29/2017 [facility] CHEM PANEL A/G Ratio 0.8 0.7 - 1.6 12/29/2017 [facility] CHEM PANEL eGFR 113 mL/min/1.73m2 12/29/2017 Result [...] by the estimated BMI. [facility] CHEM PANEL Bili Total 0.3 mg/dL 0.2 - 1.3 12/29/2017 [facility] CHEM PANEL Sodium Lvl 139 meq/L 135 - 145 12/29/2017 [facility] CHEM PANEL Alk Phos 101 unit/L 39 - 136 12/29/2017 [facility] CHEM PANEL AST 32 unit/L 0 - 37 12/29/2017 [facility] CHEM PANEL ALT 40 unit/L 0 - 65 12/29/2017 [facility] CHEM PANEL Potassium Lvl 3.7 meq/L 3.5 - 5.1 12/29/2017 [facility] CHEM PANEL Calcium Lvl 9.1 mg/dL 8.5 - 10.5 12/29/2017 [facility] CHEM PANEL CO2 28 meq/L 24 - 32 12/29/2017 [facility] CHEM PANEL Chloride Lvl 104 meq/L 95 - 109 12/29/2017 [facility] CHEM PANEL Albumin Lvl 3.9 g/dL 3.5 - 5.0 12/29/2017 [facility] CHEM PANEL Total Protein 8.9 g/dL 6.4 - 8.4 12/29/2017 [facility] CHEM PANEL Glucose Lvl 103 mg/dL 70 - 99 12/29/2017 [facility] CHEM PANEL Creatinine Lvl 0.68 mg/dL 0.50 - 1.40 12/29/2017 [facility] CHEM PANEL BUN 9 mg/dL 7 - 22 12/29/2017 [facility] HEMATOLOGY Eosinophils # 0.1 K/CMM 0.0 - 0.5 12/29/2017 [facility] HEMATOLOGY Monocytes # 0.8 K/CMM 0.0 - 0.8 12/29/2017 [facility] HEMATOLOGY Lymphocytes # 3.7 K/CMM 1.0 - 5.5 12/29/2017 [facility] HEMATOLOGY Segs-Bands # 4.9 K/CMM 1.5 - 8.1 12/29/[address] [facility] Monocytes 8.0 % 2.0 - 12.0 12/29/[address] [facility] Eosinophils 0.7 % 0.0 - 4.0 12/29/[address] [facility] Segs 52.0 % 45.0 - 75.0 12/29/[address] [facility] Basophils 0.4 % 0.0 - 1.0 12/29/[address] [facility] Lymphocytes 38.9 % 20.0 - 40.0 12/29/[address] [facility] PTT 38.9 s 22.9 - 35.8 12/29/[address] [facility] MPV 8.7 fL 7.4 - 10.4 12/29/[address] [facility] Hgb 12.9 g/dL 12.0 - 16.0 12/29/[address] [facility] Hct 37.6 % 36.0 - 48.0 12/29/[address] [facility] MCV 86.5 fL 80.0 - 98.0 12/29/[address] [facility] MCH 29.7 pg 27.0 - 31.0 12/29/[address] [facility] MCHC 34.3 g/dL 32.0 - 36.0 12/29/[address] [facility] RDW 14.1 % 11.5 - 14.5 12/29/[address] [facility] WBC 9.4 K/CMM 3.7 - 10.4 12/29/[address] [facility] RBC 4.34 M/CMM 4.20 - 5.40 12/29/[address] [facility] Platelet 322 K/CMM 133 - 450 12/29/2017 [facility] HEMATOLOGY INR 1.07 0.85 - 1.17 12/29/2017 [facility] HEMATOLOGY PT 13.9 s 12.0 - 14.7 12/29/2017 [facility] Ext Lower Venous Doppler Unilat US Ext [...] thrombosis of the left lower extremity. SL: [id number] 12/28/2017 - - Read by: Ab Cifuentes MD Dictated Date/time: 12/29/17 02:18 Electronically Signed by: Ab Cifuentes MD 12/29/17 02:19 FINAL REPORT [facility] CHEM PANEL A/G Ratio 0.8 0.7 - 1.6 11/30/2017 [facility] CHEM PANEL B/C Ratio 14 6 - 25 11/30/2017 [facility] CHEM PANEL Globulin 4.6 g/dL 2.7 - 4.2 11/30/2017 [facility] CHEM PANEL AGAP 7.5 meq/L 10.0 - 20.0 11/30/2017 [facility] CHEM PANEL eGFR 106 mL/min/1.73m2 11/30/2017 Result [...] should be multiplied by the estimated BMI. [facility] CHEM PANEL Alk Phos 90 unit/L 39 - 136 11/30/2017 [facility] CHEM PANEL Bili Total 0.3 mg/dL 0.2 - 1.3 11/30/2017 [facility] CHEM PANEL AST 32 unit/L 0 - 37 11/30/2017 [facility] CHEM PANEL Potassium Lvl 3.5 meq/L 3.5 - 5.1 11/30/2017 [facility] CHEM PANEL Chloride Lvl 105 meq/L 95 - 109 11/30/2017 [facility] CHEM PANEL CO2 32 meq/L 24 - 32 11/30/2017 [facility] CHEM PANEL Calcium Lvl 8.7 mg/dL 8.5 - 10.5 11/30/2017 [facility] CHEM PANEL Sodium Lvl 141 meq/L 135 - 145 11/30/2017 [facility] CHEM PANEL Albumin Lvl 3.6 g/dL 3.5 - 5.0 11/30/2017 [facility] CHEM PANEL ALT 34 unit/L 0 - 65 11/30/2017 [facility] CHEM PANEL Total Protein 8.2 g/dL 6.4 - 8.4 11/30/2017 [facility] CHEM PANEL Glucose Lvl 140 mg/dL 70 - 99 11/30/2017 [facility] CHEM PANEL BUN 10 mg/dL 7 - 22 11/30/2017 [facility] CHEM PANEL Creatinine Lvl 0.73 mg/dL 0.50 - 1.40 11/30/[address] [facility] MCH 30.1 pg 27.0 - 31.0 11/30/2017 [facility] HEMATOLOGY RBC 3.96 M/CMM 4.20 - 5.40 11/30/2017 [facility] HEMATOLOGY WBC 8.4 K/CMM 3.7 - 10.4 11/30/2017 [facility] HEMATOLOGY Platelet 306 K/CMM 133 - 450 11/30/2017 [facility] HEMATOLOGY MPV 8.4 fL 7.4 - 10.4 11/30/2017 [facility] HEMATOLOGY MCV 86.2 fL 80.0 - 98.0 11/30/2017 [facility] HEMATOLOGY Hct 34.2 % 36.0 - 48.0 11/30/2017 [facility] HEMATOLOGY Hgb 11.9 g/dL 12.0 - 16.0 11/30/[address] [facility] MCHC 34.9 g/dL 32.0 - 36.0 11/30/2017 [facility] HEMATOLOGY RDW 14.4 % 11.5 - 14.5 11/30/2017 [facility] HEMATOLOGY Segs 47.2 % 45.0 - 75.0 11/30/[address] [facility] Monocytes 8.6 % 2.0 - 12.0 11/30/[address] [facility] Lymphocytes 42.5 % 20.0 - 40.0 11/30/[address] [facility] Basophils 1.0 % 0.0 - 1.0 11/30/[address] [facility] Eosinophils 0.7 % 0.0 - 4.0 11/30/[address] [facility] Segs-Bands # 4.0 K/CMM 1.5 - 8.1 11/30/[address] [facility] Monocytes # 0.7 K/CMM 0.0 - 0.8 11/30/[address] [facility] Lymphocytes # 3.6 K/CMM 1.0 - 5.5 11/30/[address] [facility] Basophils # 0.1 K/CMM 0.0 - 0.2 11/30/[address] [facility] Eosinophils # 0.1 K/CMM 0.0 - 0.5 11/30/2017 [facility] Ext Lower Venous Doppler Unilat US Ext [...] No evidence of deep venous thrombosis. SL: [id number] 11/29/2017 - - Read by: Tammy Abbasi MD Dictated Date/time: 11/29/17 21:18 Electronically Signed by: Tammy Abbasi MD 11/29/17 21:19 FINAL REPORT [facility] Ext Lower Venous Doppler Unilat US Ext Lower Venous Doppler Unilat US Patient Name: GEETA CHAVARRIA : 1960; Age: 57 years y/o Female MR: [id number] Study: Ext Lower Venous Doppler Unilat US [...] left lower extremity deep vein thrombosis. SL: [id number] 11/04/2017 - - Read by: Fer Zuniga MD Dictated Date/time: 11/04/17 07:40 Electronically Signed by: Fer Zuniga MD 11/04/17 07:41 FINAL REPORT [facility] CARDIAC ENZYMES Troponin-I null 0.00 - 0.40 10/22/2017 [facility] CARDIAC ENZYMES Total CK 92 unit/L 12 - 191 10/22/2017 [facility] CARDIAC ENZYMES CK MB 2.3 ng/mL 0.5 - 3.6 10/22/2017 [facility] CARDIAC ENZYMES CK MB Index 2.5 0.0 - 2.5 10/22/2017 [facility] CHEM PANEL eGFR 92 mL/min/1.73m2 10/22/2017 Result [...] should be multiplied by the estimated BMI. [facility] CHEM PANEL Total Protein 8.4 g/dL 6.4 - 8.4 10/22/2017 [facility] CHEM PANEL Albumin Lvl 3.6 g/dL 3.5 - 5.0 10/22/2017 [facility] CHEM PANEL Alk Phos 91 unit/L 39 - 136 10/22/2017 [facility] CHEM PANEL Bili Total 0.2 mg/dL 0.2 - 1.3 10/22/2017 [facility] CHEM PANEL AST 21 unit/L 0 - 37 10/22/2017 [facility] CHEM PANEL ALT 34 unit/L 0 - 65 10/22/2017 [facility] CHEM PANEL Glucose Lvl 140 mg/dL 70 - 99 10/22/2017 [facility] CHEM PANEL BUN 10 mg/dL 7 - 22 10/22/2017 [facility] CHEM PANEL CO2 31 meq/L 24 - 32 10/22/2017 [facility] CHEM PANEL Chloride Lvl 105 meq/L 95 - 109 10/22/2017 [facility] CHEM PANEL Sodium Lvl 141 meq/L 135 - 145 10/22/2017 [facility] CHEM PANEL Creatinine Lvl 0.82 mg/dL 0.50 - 1.40 10/22/2017 [facility] CHEM PANEL Potassium Lvl 3.5 meq/L 3.5 - 5.1 10/22/2017 [facility] CHEM PANEL A/G Ratio 0.8 0.7 - 1.6 10/22/2017 [facility] CHEM PANEL Globulin 4.8 g/dL 2.7 - 4.2 10/22/2017 [facility] CHEM PANEL B/C Ratio 12 6 - 25 10/22/2017 [facility] CHEM PANEL AGAP 8.5 meq/L 10.0 - 20.0 10/22/2017 [facility] CHEM PANEL Calcium Lvl 8.5 mg/dL 8.5 - 10.5 10/22/2017 [facility] HEMATOLOGY INR 0.99 0.85 - 1.17 10/22/2017 [facility] HEMATOLOGY PTT 36.0 s 22.9 - 35.8 10/22/2017 [facility] HEMATOLOGY PT 13.1 s 12.0 - 14.7 10/22/2017 [facility] HEMATOLOGY MPV 8.1 fL 7.4 - 10.4 10/22/2017 [facility] HEMATOLOGY Platelet 351 K/CMM 133 - 450 10/22/2017 [facility] HEMATOLOGY RDW 14.5 % 11.5 - 14.5 10/22/2017 [facility] HEMATOLOGY RBC 4.16 M/CMM 4.20 - 5.40 10/22/2017 [facility] HEMATOLOGY WBC 11.9 K/CMM 3.7 - 10.4 10/22/2017 [facility] HEMATOLOGY MCHC 33.8 g/dL 32.0 - 36.0 10/22/2017 [facility] HEMATOLOGY Hgb 12.3 g/dL 12.0 - 16.0 10/22/[address] [facility] MCH 29.5 pg 27.0 - 31.0 10/22/2017 [facility] HEMATOLOGY Hct 36.2 % 36.0 - 48.0 10/22/2017 [facility] HEMATOLOGY MCV 87.1 fL 80.0 - 98.0 10/22/2017 [facility] HEMATOLOGY Monocytes # 1.0 K/CMM 0.0 - 0.8 10/22/2017 [facility] HEMATOLOGY Eosinophils # 0.1 K/CMM 0.0 - 0.5 10/22/2017 [facility] HEMATOLOGY Lymphocytes # 4.3 K/CMM 1.0 - 5.5 10/22/2017 [facility] HEMATOLOGY Basophils # 0.1 K/CMM 0.0 - 0.2 10/22/2017 [facility] HEMATOLOGY Eosinophils 0.5 % 0.0 - 4.0 10/22/2017 [facility] HEMATOLOGY Segs 54.8 % 45.0 - 75.0 10/22/2017 [facility] HEMATOLOGY Monocytes 8.3 % 2.0 - 12.0 10/22/[address] [facility] Lymphocytes 35.8 % 20.0 - 40.0 10/22/[address] [facility] Basophils 0.6 % 0.0 - 1.0 10/22/[address] [facility] Segs-Bands # 6.5 K/CMM 1.5 - 8.1 10/22/2017 [facility] Chest 1view DX Chest 1view DX Study: [...] Xavier Amor MD 10/21/17 20:24 FINAL REPORT [facility] ELECTROLYTES AGAP 11.4 meq/L 10.0 - 20.0 10/07/2017 [facility] ELECTROLYTES eGFR 92 mL/min/1.73m2 10/07/2017 Result Comment: [...] should be multiplied by the estimated BMI. [facility] ELECTROLYTES BUN 13 mg/dL 7 - 22 10/07/2017 [facility] ELECTROLYTES Glucose Lvl 225 mg/dL 70 - 99 10/07/2017 [facility] ELECTROLYTES CO2 27 meq/L 24 - 32 10/07/2017 [facility] ELECTROLYTES Calcium Lvl 8.9 mg/dL 8.5 - 10.5 10/07/2017 [facility] ELECTROLYTES Potassium Lvl 4.4 meq/L 3.5 - 5.1 10/07/2017 [facility] ELECTROLYTES Chloride Lvl 104 meq/L 95 - 109 10/07/2017 [facility] ELECTROLYTES Creatinine Lvl 0.83 mg/dL 0.50 - 1.40 10/07/2017 [facility] ELECTROLYTES Sodium Lvl 138 meq/L 135 - 145 10/07/[address] [facility] Platelet 332 K/CMM 133 - 450 10/07/[address] [facility] MPV 8.8 fL 7.4 - 10.4 10/07/[address] [facility] MCH 29.9 pg 27.0 - 31.0 10/07/[address] [facility] MCHC 34.5 g/dL 32.0 - 36.0 10/07/[address] [facility] RDW 14.8 % 11.5 - 14.5 10/07/[address] [facility] Hgb 11.8 g/dL 12.0 - 16.0 10/07/[address] [facility] Hct 34.3 % 36.0 - 48.0 10/07/[address] [facility] MCV 86.9 fL 80.0 - 98.0 10/07/[address] [facility] WBC 14.2 K/CMM 3.7 - 10.4 10/07/[address] [facility] RBC 3.95 M/CMM 4.20 - 5.40 10/07/[address] [facility] Monocytes # 1.0 K/CMM 0.0 - 0.8 10/07/2017 [facility] HEMATOLOGY Segs 80.0 % 45.0 - 75.0 10/07/[address] [facility] Lymphocytes 12.9 % 20.0 - 40.0 10/07/[address] [facility] Segs-Bands # 11.3 K/CMM 1.5 - 8.1 10/07/[address] [facility] Lymphocytes # 1.8 K/CMM 1.0 - 5.5 10/07/[address] [facility] Monocytes 6.9 % 2.0 - 12.0 10/07/[address] [facility] Basophils 0.2 % 0.0 - 1.0 10/07/2017 [facility] Spine lumbar wo contrast CT Spine lumbar wo contrast CT Patient Name: GEETA CHAVARRIA : 1960; Age: 57 years y/o Female MR: [id number] Study: Spine lumbar wo contrast CT 10/06/2017 [...] foraminal narrowing at L3-L4 and L5-S1. SL: [id number] 10/06/2017 - - Read by: Emiliano Harris MD Dictated Date/time: 10/06/17 11:21 Electronically Signed by: Emiliano Harris MD 10/06/17 11:28 FINAL REPORT [facility] Spine lumbar wo contrast MRI Spine lumbar [...] Hung Owusu MD 10/06/17 05:17 FINAL REPORT [facility] CHEM PANEL eGFR 112 mL/min/1.73m2 10/05/2017 Result [...] should be multiplied by the estimated BMI. [facility] CHEM PANEL Creatinine Lvl 0.69 mg/dL 0.50 - 1.40 10/05/2017 [facility] CHEM PANEL BUN 10 mg/dL 7 - 22 10/05/2017 [facility] CHEM PANEL Glucose Lvl 123 mg/dL 70 [...] Protein 7.8 g/dL 6.4 - 8.4 10/05/2017 [facility] CHEM PANEL Globulin 4.5 g/dL 2.7 - 4.2 10/05/2017 [facility] CHEM PANEL B/C Ratio 14 6 - 25 10/05/2017 [facility] CHEM PANEL CO2 32 meq/L 24 - 32 10/05/2017 [facility] CHEM PANEL AGAP 8.4 meq/L 10.0 - 20.0 10/05/2017 [facility] CHEM PANEL Calcium Lvl 8.7 mg/dL 8.5 - 10.5 10/05/2017 [facility] CHEM PANEL Alk Phos 86 unit/L 39 - 136 10/05/2017 [facility] CHEM PANEL Bili Total 0.3 mg/dL 0.2 - 1.3 10/05/2017 [facility] CHEM PANEL Magnesium Lvl 2.3 mg/dL 1.8 - 2.4 10/05/2017 [facility] HEMATOLOGY Hgb 11.3 g/dL 12.0 - 16.0 10/05/2017 [facility] HEMATOLOGY Hct 32.1 % 36.0 - 48.0 10/05/2017 [facility] HEMATOLOGY INR 1.05 0.85 - 1.17 10/05/2017 [facility] HEMATOLOGY PT 13.7 s 12.0 - 14.7 10/05/2017 [facility] HEMATOLOGY PTT 50.6 s 22.9 - 35.8 10/05/2017 [facility] HEMATOLOGY MCH 30.3 pg 27.0 - 31.0 10/05/2017 [facility] HEMATOLOGY Hct 32.1 % 36.0 - 48.0 10/05/2017 [facility] HEMATOLOGY MCV 86.3 fL 80.0 - 98.0 10/05/[address] [facility] MCHC 35.2 g/dL 32.0 - 36.0 10/05/[address] [facility] Hgb 11.3 g/dL 12.0 - 16.0 10/05/2017 [facility] HEMATOLOGY Platelet 297 K/CMM 133 - 450 10/05/[address] [facility] RDW 14.9 % 11.5 - 14.5 10/05/[address] [facility] MPV 8.7 fL 7.4 - 10.4 10/05/[address] [facility] RBC 3.73 M/CMM 4.20 - 5.40 10/05/[address] [facility] WBC 9.7 K/CMM 3.7 - 10.4 10/05/[address] [facility] Segs-Bands # 5.3 K/CMM 1.5 - 8.1 10/05/[address] [facility] Lymphocytes # 3.4 K/CMM 1.0 - 5.5 10/05/2017 [facility] HEMATOLOGY Basophils 0.8 % 0.0 - 1.0 10/05/2017 [facility] HEMATOLOGY Monocytes # 0.8 K/CMM 0.0 - 0.8 10/05/2017 [facility] HEMATOLOGY Eosinophils # 0.1 K/CMM 0.0 - 0.5 10/05/[address] [facility] Basophils # 0.1 K/CMM 0.0 - 0.2 10/05/[address] [facility] Eosinophils 0.8 % 0.0 - 4.0 10/05/[address] [facility] Segs 55.2 % 45.0 - 75.0 10/05/[address] [facility] Lymphocytes 35.2 % 20.0 - 40.0 10/05/[address] [facility] Monocytes 8.0 % 2.0 - 12.0 10/05/2017 [facility] URINE AND STOOL UA Sq Epi None Seen 10/05/2017 [facility] URINE AND STOOL UA Bacteria Occasional /HPF None Seen /HPF 10/05/2017 [facility] URINE AND STOOL UA Amorph Analisa Few /HPF None Seen /HPF 10/05/2017 [facility] URINE AND STOOL UA WBC 4 /HPF 0 - 5 10/05/2017 [facility] URINE AND STOOL UA Nitrite Negative (10/04/17 11:08 PM) Negative 10/05/2017 [facility] URINE AND STOOL UA RBC 15 /HPF 0 - 2 10/05/2017 [facility] URINE AND STOOL UA Leuk Est Negative (10/04/17 11:08 PM) Negative 10/05/2017 [facility] URINE AND STOOL UA Urobilinogen 4.0 mg/dL 0.1 - 1.0 10/05/2017 [facility] URINE AND STOOL UA Blood Negative (10/04/17 11:08 PM) Negative 10/05/2017 [facility] URINE AND STOOL UA Bili Negative *NA* (10/04/17 11:08 PM) Negative 10/05/2017 [facility] URINE AND STOOL UA Ketones Negative mg/dL Negative mg/dL 10/05/2017 [facility] URINE AND STOOL UA Protein Negative mg/dL Negative mg/dL 10/05/2017 [facility] URINE AND STOOL UA pH 5.0 5.0 - 8.0 10/05/2017 [facility] URINE AND STOOL UA Glucose Negative mg/dL Negative mg/dL 10/05/2017 [facility] URINE AND STOOL UA Turbidity Clear (10/04/17 11:08 PM) Clear 10/05/2017 [facility] URINE AND STOOL UA Spec Grav 1.020 <=1.030 10/05/2017 [facility] URINE AND STOOL UA Color Yellow *NA* (10/04/17 11:08 PM) Yellow 10/05/2017 [facility] CARDIAC ENZYMES CK MB Index 1.1 0.0 - 2.5 10/05/2017 [facility] CARDIAC ENZYMES Troponin-I null 0.00 - 0.40 10/05/2017 [facility] CARDIAC ENZYMES CK MB 1.2 ng/mL 0.5 - 3.6 10/05/2017 [facility] CARDIAC ENZYMES Total CK 114 unit/L 12 - 191 10/05/2017 [facility] CHEM PANEL A/G Ratio 0.7 0.7 - 1.6 10/05/2017 [facility] CHEM PANEL AST 38 unit/L 0 - 37 10/05/2017 [facility] CHEM PANEL ALT 33 unit/L 0 - 65 10/05/2017 [facility] CHEM PANEL Sodium Lvl 138 meq/L 135 - 145 10/05/2017 [facility] CHEM PANEL Creatinine Lvl 0.72 mg/dL 0.50 - 1.40 10/05/2017 [facility] CHEM PANEL Globulin 5.0 g/dL 2.7 - 4.2 10/05/2017 [facility] CHEM PANEL B/C Ratio 14 6 - 25 10/05/2017 [facility] CHEM PANEL BUN 10 mg/dL 7 - 22 10/05/2017 [facility] CHEM PANEL Glucose Lvl 177 mg/dL 70 - 99 10/05/2017 [facility] CHEM PANEL Total Protein 8.7 g/dL 6.4 - 8.4 10/05/2017 [facility] CHEM PANEL Calcium Lvl 8.8 mg/dL 8.5 - 10.5 10/05/2017 [facility] CHEM PANEL CO2 29 meq/L 24 - 32 10/05/2017 [facility] CHEM PANEL Chloride Lvl 104 meq/L 95 - 109 10/05/2017 [facility] CHEM PANEL Potassium Lvl 4.4 meq/L 3.5 - 5.1 10/05/2017 [facility] CHEM PANEL eGFR 109 mL/min/1.73m2 10/05/2017 Result [...] should be multiplied by the estimated BMI. [facility] CHEM PANEL AGAP 9.4 meq/L 10.0 - 20.0 10/05/2017 [facility] CHEM PANEL Bili Total 0.3 mg/dL 0.2 - 1.3 10/05/2017 [facility] CHEM PANEL Alk Phos 86 unit/L 39 - 136 10/05/2017 [facility] CHEM PANEL Albumin Lvl 3.7 g/dL 3.5 - 5.0 10/05/2017 [facility] HEMATOLOGY Lymphocytes # 4.3 K/CMM 1.0 - 5.5 10/05/2017 [facility] HEMATOLOGY Eosinophils 0.5 % 0.0 - 4.0 10/05/2017 [facility] HEMATOLOGY Basophils 0.7 % 0.0 - 1.0 10/05/2017 [facility] HEMATOLOGY Segs-Bands # 5.7 K/CMM 1.5 - 8.1 10/05/[address] [facility] Monocytes 7.6 % 2.0 - 12.0 10/05/[address] [facility] Eosinophils # 0.1 K/CMM 0.0 - 0.5 10/05/[address] [facility] Basophils # 0.1 K/CMM 0.0 - 0.2 10/05/[address] [facility] Monocytes # 0.8 K/CMM 0.0 - 0.8 10/05/[address] [facility] Lymphocytes 39.1 % 20.0 - 40.0 10/05/[address] [facility] Segs 52.1 % 45.0 - 75.0 10/05/[address] [facility] PTT 41.0 s 22.9 - 35.8 10/05/[address] [facility] INR 1.09 0.85 - 1.17 10/05/[address] [facility] PT 14.1 s 12.0 - 14.7 10/05/[address] [facility] WBC 11.0 K/CMM 3.7 - 10.4 10/05/[address] [facility] RBC 4.08 M/CMM 4.20 - 5.40 10/05/[address] [facility] MPV 8.7 fL 7.4 - 10.4 10/05/[address] [facility] RDW 15.0 % 11.5 - 14.5 10/05/[address] [facility] MCHC 34.6 g/dL 32.0 - 36.0 10/05/[address] [facility] Platelet 307 K/CMM 133 - 450 10/05/[address] [facility] MCH 30.4 pg 27.0 - 31.0 10/05/[address] [facility] MCV 87.7 fL 80.0 - 98.0 10/05/2017 [facility] Ext Lower Arterial Doppler unilat US Ext [...] Otherwise unremarkable left extremity arterial ultrasound. SL: [id number] 10/04/2017 - - Read by: Hung Owusu MD Dictated Date/time: 10/04/17 23:25 Electronically Signed by: Hung Owusu MD 10/04/17 23:28 FINAL REPORT [facility] Ext Lower Venous Doppler Unilat US Ext [...] DVT in the left lower extremity. SL: [id number] 10/04/2017 - - Read by: Karen Damico MD Dictated Date/time: 10/04/17 23:09 Electronically Signed by: Karen Damico MD 10/04/17 23:10 FINAL REPORT [facility] CHEM PANEL A/G Ratio 0.7 0.7 - 1.6 09/23/2017 [facility] CHEM PANEL Globulin 5.3 g/dL 2.7 - 4.2 09/23/2017 [facility] CHEM PANEL B/C Ratio 11 6 - 25 09/23/2017 [facility] CHEM PANEL AGAP 8.7 meq/L 10.0 - 20.0 09/23/2017 [facility] CHEM PANEL eGFR 90 mL/min/1.73m2 09/23/2017 Result [...] should be multiplied by the estimated BMI. [facility] CHEM PANEL Albumin Lvl 3.9 g/dL 3.5 - 5.0 09/23/2017 [facility] CHEM PANEL Alk Phos 98 unit/L 39 - 136 09/23/2017 [facility] CHEM PANEL ALT 32 unit/L 0 - 65 09/23/2017 [facility] CHEM PANEL Bili Total 0.4 mg/dL 0.2 - 1.3 09/23/2017 [facility] CHEM PANEL AST 22 unit/L 0 - 37 09/23/2017 [facility] CHEM PANEL Potassium Lvl 3.7 meq/L 3.5 - 5.1 09/23/2017 [facility] CHEM PANEL Total Protein 9.2 g/dL 6.4 - 8.4 09/23/2017 [facility] CHEM PANEL Calcium Lvl 9.4 mg/dL 8.5 - 10.5 09/23/2017 [facility] CHEM PANEL CO2 30 meq/L 24 - 32 09/23/2017 [facility] CHEM PANEL Chloride Lvl 104 meq/L 95 - 109 09/23/2017 [facility] CHEM PANEL Sodium Lvl 139 meq/L 135 - 145 09/23/2017 [facility] CHEM PANEL Creatinine Lvl 0.84 mg/dL 0.50 - 1.40 09/23/2017 [facility] CHEM PANEL Glucose Lvl 106 mg/dL 70 - 99 09/23/2017 [facility] CHEM PANEL BUN 9 mg/dL 7 - 22 09/23/2017 [facility] CHEM PANEL Lipase Lvl 135 unit/L 73 - 393 09/23/2017 [facility] HEMATOLOGY MCHC 35.4 g/dL 32.0 - 36.0 09/23/[address] [facility] Platelet 370 K/CMM 133 - 450 09/23/[address] [facility] MPV 8.2 fL 7.4 - 10.4 09/23/[address] [facility] RDW 14.4 % 11.5 - 14.5 09/23/[address] [facility] RBC 4.18 M/CMM 4.20 - 5.40 09/23/[address] [facility] Hgb 12.8 g/dL 12.0 - 16.0 09/23/[address] [facility] Hct 36.2 % 36.0 - 48.0 09/23/[address] [facility] MCV 86.5 fL 80.0 - 98.0 09/23/[address] [facility] MCH 30.6 pg 27.0 - 31.0 09/23/[address] [facility] WBC 11.3 K/CMM 3.7 - 10.4 09/23/[address] [facility] PTT 43.8 s 22.9 - 35.8 09/23/[address] [facility] PT 14.6 s 12.0 - 14.7 09/23/[address] [facility] INR 1.14 0.85 - 1.17 09/23/[address] [facility] Monocytes # 0.8 K/CMM 0.0 - 0.8 09/23/[address] [facility] Eosinophils # 0.1 K/CMM 0.0 - 0.5 09/23/[address] [facility] Monocytes 6.8 % 2.0 - 12.0 09/23/[address] [facility] Eosinophils 0.6 % 0.0 - 4.0 09/23/[address] [facility] Segs 61.5 % 45.0 - 75.0 09/23/[address] [facility] Lymphocytes 30.2 % 20.0 - 40.0 09/23/[address] [facility] Segs-Bands # 6.9 K/CMM 1.5 - 8.1 09/23/[address] [facility] Lymphocytes # 3.4 K/CMM 1.0 - 5.5 09/23/[address] [facility] Basophils # 0.1 K/CMM 0.0 - 0.2 09/23/[address] [facility] Basophils 0.9 % 0.0 - 1.0 09/23/2017 [facility] ED Abdomen/Pelvis IV contrast only CT ED Abdomen/Pelvis IV contrast only CT Patient Name: GEETA CHAVARRIA : 1960; Age: 57 years y/o Female MR: [id number] Study: ED Abdomen/Pelvis IV contrast only CT [...] Bertha Shepherd MD 09/23/17 21:23 FINAL REPORT [facility] CARDIAC ENZYMES CK MB Index 1.4 0.0 - 2.5 09/07/2017 [facility] CARDIAC ENZYMES Troponin-I null 0.00 - 0.40 09/07/2017 [facility] CARDIAC ENZYMES CK MB 1.0 ng/mL 0.5 - 3.6 09/07/2017 [facility] CARDIAC ENZYMES Total CK 73 unit/L 12 - 191 09/07/2017 [facility] CARDIAC ENZYMES BNP 24 pg/mL <=100 pg/mL 09/07/2017 [facility] CHEM PANEL eGFR 122 mL/min/1.73m2 09/07/2017 Result [...] should be multiplied by the estimated BMI. [facility] CHEM PANEL Chloride Lvl 105 meq/L 95 - 109 09/07/2017 [facility] CHEM PANEL Potassium Lvl 3.5 meq/L 3.5 - 5.1 09/07/2017 [facility] CHEM PANEL Sodium Lvl 142 meq/L 135 - 145 09/07/2017 [facility] CHEM PANEL CO2 30 meq/L 24 - 32 09/07/2017 [facility] CHEM PANEL BUN 9 mg/dL 7 - 22 09/07/2017 [facility] CHEM PANEL Glucose Lvl 92 mg/dL 70 - 99 09/07/2017 [facility] CHEM PANEL Creatinine Lvl 0.54 mg/dL 0.50 - 1.40 09/07/2017 [facility] CHEM PANEL Alk Phos 91 unit/L 39 - 136 09/07/2017 [facility] CHEM PANEL ALT 28 unit/L 0 - 65 09/07/2017 [facility] CHEM PANEL AST 21 unit/L 0 - 37 09/07/2017 [facility] CHEM PANEL Albumin Lvl 3.7 g/dL 3.5 - 5.0 09/07/2017 [facility] CHEM PANEL Total Protein 8.6 g/dL 6.4 - 8.4 09/07/2017 [facility] CHEM PANEL Calcium Lvl 9.0 mg/dL 8.5 - 10.5 09/07/2017 [facility] CHEM PANEL Globulin 4.9 g/dL 2.7 - 4.2 09/07/2017 [facility] CHEM PANEL A/G Ratio 0.8 0.7 - 1.6 09/07/2017 [facility] CHEM PANEL AGAP 10.5 meq/L 10.0 - 20.0 09/07/2017 [facility] CHEM PANEL B/C Ratio 17 6 - 25 09/07/2017 [facility] CHEM PANEL Bili Total 0.3 mg/dL 0.2 - 1.3 09/07/2017 [facility] HEMATOLOGY Eosinophils # 0.1 K/CMM 0.0 - 0.5 09/07/2017 [facility] HEMATOLOGY Monocytes # 0.8 K/CMM 0.0 - 0.8 09/07/2017 [facility] HEMATOLOGY Segs 55.0 % 45.0 - 75.0 09/07/[address] [facility] Lymphocytes 36.0 % 20.0 - 40.0 09/07/[address] [facility] Eosinophils 0.9 % 0.0 - 4.0 09/07/[address] [facility] Basophils 0.5 % 0.0 - 1.0 09/07/[address] [facility] Segs-Bands # 5.7 K/CMM 1.5 - 8.1 09/07/[address] [facility] Lymphocytes # 3.7 K/CMM 1.0 - 5.5 09/07/[address] [facility] Monocytes 7.6 % 2.0 - 12.0 09/07/[address] [facility] INR 1.03 0.85 - 1.17 09/07/[address] [facility] PTT 40.1 s 22.9 - 35.8 09/07/[address] [facility] PT 13.5 s 12.0 - 14.7 09/07/[address] [facility] MCV 86.1 fL 80.0 - 98.0 09/07/[address] [facility] MCH 29.8 pg 27.0 - 31.0 09/07/[address] [facility] MCHC 34.6 g/dL 32.0 - 36.0 09/07/[address] [facility] Platelet 312 K/CMM 133 - 450 09/07/[address] [facility] RDW 14.1 % 11.5 - 14.5 09/07/[address] [facility] MPV 8.2 fL 7.4 - 10.4 09/07/[address] [facility] WBC 10.4 K/CMM 3.7 - 10.4 09/07/[address] [facility] Hct 35.4 % 36.0 - 48.0 09/07/[address] [facility] RBC 4.12 M/CMM 4.20 - 5.40 09/07/[address] [facility] Hgb 12.3 g/dL 12.0 - 16.0 09/07/2017 [facility] Chest Pulmonary Embolism CTA Chest Pulmonary Embolism CTA Patient Name: GEETA CHAVARRIA : 1960; Age: 57 years y/o Female MR: [id number] Study: Chest Pulmonary Embolism CTA 09/06/2017 11:05 PM CDT Ordering Physician: Todd Mcdowell Clinical Indication: - SOB, leg pain and swelling. Comparison: 1/13/18 TECHNIQUE: Sequential trans-axial images were obtained thru the chest and upper abdomen after administration of iodinated contrast. Coronal, sagittal and MIP reconstructions were obtained. 100 mL of Omnipaque intravenously were used for the exam. Dose: VVB=865.39 mGy-cm FINDINGS: LUNG PARENCHYMA AND PLEURA: The [...] Bertha Shepherd MD 09/07/17 01:48 FINAL REPORT [facility] Ext Lower Venous Doppler Unilat US Ext [...] lower extremity. 2. Left groin lymphadenopathy. SL: [id number] 09/06/2017 - - Read by: George Bach MD Dictated Date/time: 09/06/17 23:01 Electronically Signed by: George Bach MD 09/06/17 23:03 FINAL REPORT [facility] Chest 1view DX Chest 1view DX Clinical Indication: Chest pain - SOB Comparison: 05/31/2017 FINDINGS: Single AP view of the chest is submitted for interpretation. There is mild pulmonary vascular congestion. The lungs are otherwise clear and there are no effusions. There is no visible pneumothorax. Cardiomediastinal contours are stable. No gross bony normalities are identified. IMPRESSION: 1. Mild pulmonary vascular congestion. SL: [id number] 09/06/2017 - - Read by: George Bach MD Dictated Date/time: 09/06/17 22:37 Electronically Signed by: George Bach MD 09/06/17 22:37 FINAL REPORT [facility] VIRAL - SEROLOGY Influ A Negative (06/01/17 2:56 AM) Negative 06/01/2017 [facility] VIRAL - SEROLOGY Influ B Negative (06/01/17 2:56 AM) Negative 06/01/2017 [facility] HEMATOLOGY D-Dimer 0.73 ug/mL FEU 06/01/2017 [facility] HEMATOLOGY PT 12.9 s 12.0 - 14.7 06/01/2017 [facility] HEMATOLOGY INR 0.97 0.85 - 1.17 06/01/2017 [facility] HEMATOLOGY PTT 36.5 s 22.9 - 35.8 06/01/2017 [facility] URINE AND STOOL UA Mucus Few /LPF None Seen /LPF 06/01/2017 [facility] URINE AND STOOL UA Leuk Est Negative (06/01/17 1:24 AM) Negative 06/01/2017 [facility] URINE AND STOOL UA WBC 1 /HPF 0 - 5 06/01/2017 [facility] URINE AND STOOL UA Sq Epi Occasional /LPF Few /LPF 06/01/2017 [facility] URINE AND STOOL UA Nitrite Negative (06/01/17 1:24 AM) Negative 06/01/2017 [facility] URINE AND STOOL UA Urobilinogen 4.0 mg/dL 0.1 - 1.0 06/01/2017 [facility] URINE AND STOOL UA Bacteria Occasional /HPF None Seen /HPF 06/01/2017 [facility] URINE AND STOOL UA RBC 5 /HPF 0 - 2 06/01/2017 [facility] URINE AND STOOL UA Color Yellow *NA* (06/01/17 1:24 AM) Yellow 06/01/2017 [facility] URINE AND STOOL UA Bili Negative *NA* (06/01/17 1:24 AM) Negative 06/01/2017 [facility] URINE AND STOOL UA Blood Small *ABN* (06/01/17 1:24 AM) Negative 06/01/2017 [facility] URINE AND STOOL UA Ketones Negative mg/dL Negative mg/dL 06/01/2017 [facility] URINE AND STOOL UA Spec Grav 1.027 <=1.030 06/01/2017 [facility] URINE AND STOOL UA Protein 30 mg/dL Negative mg/dL 06/01/2017 [facility] URINE AND STOOL UA pH 5.0 5.0 - 8.0 06/01/2017 [facility] URINE AND STOOL UA Glucose Negative mg/dL Negative mg/dL 06/01/2017 [facility] URINE AND STOOL UA Turbidity Clear (06/01/17 1:24 AM) Clear 06/01/2017 [facility] Chest Pulmonary Embolism CTA Chest Pulmonary Embolism [...] Susan Reina MD 06/01/17 04:16 FINAL REPORT [facility] Ext Lower Venous Doppler Unilat US Ext [...] thrombosis of the left lower extremity. SL: [id number] 06/01/2017 - - Read by: Susan Reina MD Dictated Date/time: 06/01/17 02:19 Electronically Signed by: Susan Reina MD 06/01/17 02:20 FINAL REPORT [facility] CHEM PANEL Globulin 5.5 g/dL 2.7 - 4.2 05/31/2017 [facility] CHEM PANEL AGAP 8.6 meq/L 10.0 - 20.0 05/31/2017 [facility] CHEM PANEL B/C Ratio 15 6 - 25 05/31/2017 [facility] CHEM PANEL A/G Ratio 0.7 0.7 - 1.6 05/31/2017 [facility] CHEM PANEL eGFR 107 mL/min/1.73m2 05/31/2017 Result [...] Phos 106 unit/L 39 - 136 05/31/2017 [facility] CHEM PANEL AST 32 unit/L 0 - 37 05/31/2017 [facility] CHEM PANEL ALT 33 unit/L 0 - 65 05/31/2017 [facility] CHEM PANEL Bili Total 0.5 mg/dL 0.2 - 1.3 05/31/2017 [facility] CHEM PANEL Sodium Lvl 136 meq/L 135 - 145 05/31/2017 [facility] CHEM PANEL Potassium Lvl 3.6 meq/L 3.5 - 5.1 05/31/2017 [facility] CHEM PANEL Creatinine Lvl 0.73 mg/dL 0.50 - 1.40 05/31/2017 [facility] CHEM PANEL CO2 30 meq/L 24 - 32 05/31/2017 [facility] CHEM PANEL BUN 11 mg/dL 7 - 22 05/31/2017 [facility] CHEM PANEL Chloride Lvl 101 meq/L 95 - 109 05/31/2017 [facility] CHEM PANEL Glucose Lvl 106 mg/dL 70 - 99 05/31/2017 [facility] CHEM PANEL Albumin Lvl 4.1 g/dL 3.5 - 5.0 05/31/2017 [facility] CHEM PANEL Total Protein 9.6 g/dL 6.4 - 8.4 05/31/2017 [facility] CHEM PANEL Calcium Lvl 8.9 mg/dL 8.5 - 10.5 05/31/2017 [facility] HEMATOLOGY Segs-Bands # 3.3 K/CMM 1.5 - 8.1 05/31/2017 [facility] HEMATOLOGY Lymphocytes # 1.4 K/CMM 1.0 - 5.5 05/31/2017 [facility] HEMATOLOGY Monocytes # 0.9 K/CMM 0.0 - 0.8 05/31/2017 [facility] HEMATOLOGY Segs 57.9 % 45.0 - 75.0 05/31/2017 [facility] HEMATOLOGY Basophils 0.7 % 0.0 - 1.0 05/31/2017 [facility] HEMATOLOGY Eosinophils 0.3 % 0.0 - 4.0 05/31/2017 [facility] HEMATOLOGY Monocytes 16.4 % 2.0 - 12.0 05/31/2017 [facility] HEMATOLOGY Lymphocytes 24.7 % 20.0 - 40.0 05/31/2017 [facility] HEMATOLOGY Hct 38.9 % 36.0 - 48.0 05/31/2017 [facility] HEMATOLOGY Hgb 13.6 g/dL 12.0 - 16.0 05/31/2017 [facility] HEMATOLOGY RBC 4.46 M/CMM 4.20 - 5.40 05/31/2017 [facility] HEMATOLOGY MPV 8.4 fL 7.4 - 10.4 05/31/[address] [facility] Platelet 311 K/CMM 133 - 450 05/31/2017 [facility] HEMATOLOGY RDW 14.2 % 11.5 - 14.5 05/31/2017 [facility] HEMATOLOGY WBC 5.7 K/CMM 3.7 - 10.4 05/31/2017 [facility] HEMATOLOGY MCHC 34.9 g/dL 32.0 - 36.0 05/31/2017 [facility] HEMATOLOGY MCH 30.5 pg 27.0 - 31.0 05/31/2017 [facility] HEMATOLOGY MCV 87.2 fL 80.0 - 98.0 05/31/2017 [facility] Chest 2 views DX Chest 2 views DX Clinical Indication: - sob. Comparison: 12/04/2016 FINDINGS: PA and lateral chest radiographs were obtained. MEDIASTINUM: The cardiac silhouette is normal in size. The aorta is unremarkable. LUNGS: The lungs are clear. No pleural effusion or pneumothorax. OTHER: No acute osseous abnormalities. IMPRESSION: No acute cardiopulmonary abnormality identified. SL: [id number] 05/31/2017 - - Read by: Todd Pedroza MD Dictated Date/time: 05/31/17 17:51 Electronically Signed by: Todd Pedroza MD 05/31/17 17:52 FINAL REPORT [facility] CARDIAC ENZYMES CK MB Index 0.7 0.0 - 2.5 12/04/2016 [facility] CARDIAC ENZYMES Total CK 124 unit/L 12 - 191 12/04/2016 [facility] CARDIAC ENZYMES CK MB 0.9 ng/mL 0.5 - 3.6 12/04/2016 [facility] CARDIAC ENZYMES Troponin-I null 0.00 - 0.40 12/04/2016 [facility] CHEM PANEL ALT 35 unit/L 0 - 65 12/04/2016 [facility] CHEM PANEL AST 25 unit/L 0 - 37 12/04/2016 [facility] CHEM PANEL Alk Phos 96 unit/L 39 - 136 12/04/2016 [facility] CHEM PANEL AGAP 6.3 meq/L 10.0 - 20.0 12/04/2016 [facility] CHEM PANEL Bili Total 0.6 mg/dL 0.2 - 1.3 12/04/2016 [facility] CHEM PANEL B/C Ratio 10 6 - 25 12/04/2016 [facility] CHEM PANEL Globulin 5.1 g/dL 2.7 - 4.2 12/04/2016 [facility] CHEM PANEL A/G Ratio 0.7 0.7 - 1.6 12/04/2016 [facility] CHEM PANEL eGFR 113 mL/min/1.73m2 12/04/2016 Result [...] should be multiplied by the estimated BMI. [facility] CHEM PANEL Creatinine Lvl 0.70 mg/dL 0.50 - 1.40 12/04/2016 [facility] CHEM PANEL Sodium Lvl 136 meq/L 135 - 145 12/04/2016 [facility] CHEM PANEL Potassium Lvl 3.3 meq/L 3.5 - 5.1 12/04/2016 [facility] CHEM PANEL Chloride Lvl 100 meq/L 95 - 109 12/04/2016 [facility] CHEM PANEL CO2 33 meq/L 24 - 32 12/04/2016 [facility] CHEM PANEL Calcium Lvl 9.3 mg/dL 8.5 - 10.5 12/04/2016 [facility] CHEM PANEL Total Protein 8.8 g/dL 6.4 - 8.4 12/04/2016 [facility] CHEM PANEL Albumin Lvl 3.7 g/dL 3.5 - 5.0 12/04/2016 [facility] CHEM PANEL Glucose Lvl 111 mg/dL 70 - 99 12/04/2016 [facility] CHEM PANEL BUN 7 mg/dL 7 - 22 12/04/2016 [facility] HEMATOLOGY Segs 45.4 % 45.0 - 75.0 12/04/2016 [facility] HEMATOLOGY Monocytes # 0.9 K/CMM 0.0 - 0.8 12/04/2016 [facility] HEMATOLOGY Lymphocytes # 4.3 K/CMM 1.0 - 5.5 12/04/2016 [facility] HEMATOLOGY Segs-Bands # 4.5 K/CMM 1.5 - 8.1 12/04/2016 [facility] HEMATOLOGY Eosinophils # 0.1 K/CMM 0.0 - 0.5 12/04/2016 [facility] HEMATOLOGY Lymphocytes 43.7 % 20.0 - 40.0 12/04/2016 [facility] HEMATOLOGY Monocytes 9.5 % 2.0 - 12.0 12/04/2016 [facility] HEMATOLOGY Basophils 0.4 % 0.0 - 1.0 12/04/2016 [facility] HEMATOLOGY Eosinophils 1.0 % 0.0 - 4.0 12/04/[address] [facility] MCHC 34.1 g/dL 32.0 - 36.0 12/04/2016 [facility] HEMATOLOGY RDW 14.3 % 11.5 - 14.5 12/04/2016 [facility] HEMATOLOGY MPV 8.4 fL 7.4 - 10.4 12/04/2016 [facility] HEMATOLOGY Platelet 338 K/CMM 133 - 450 12/04/[address] [facility] Hct 38.9 % 36.0 - 48.0 12/04/[address] [facility] MCV 86.9 fL 80.0 - 98.0 12/04/[address] [facility] MCH 29.7 pg 27.0 - 31.0 12/04/[address] [facility] Hgb 13.3 g/dL 12.0 - 16.0 12/04/[address] [facility] WBC 9.9 K/CMM 3.7 - 10.4 12/04/[address] [facility] RBC 4.47 M/CMM 4.20 - 5.40 12/04/2016 [facility] URINE AND STOOL UA Color Ltyellow 12/04/2016 [facility] URINE AND STOOL UA Urobilinogen <=1.0 mg/dL 0.1 - 1.0 12/04/2016 [facility] URINE AND STOOL UA Bili Negative *NA* (12/04/16 4:09 AM) Negative 12/04/2016 [facility] URINE AND STOOL UA Glucose Negative mg/dL Negative mg/dL 12/04/2016 [facility] URINE AND STOOL UA Protein Negative mg/dL Negative mg/dL 12/04/2016 [facility] URINE AND STOOL UA Spec Grav 1.014 <=1.030 12/04/2016 [facility] URINE AND STOOL UA Blood Small *ABN* (12/04/16 4:09 AM) Negative 12/04/2016 [facility] URINE AND STOOL UA pH 5.0 5.0 - 8.0 12/04/2016 [facility] URINE AND STOOL UA Leuk Est Negative (12/04/16 4:09 AM) Negative 12/04/2016 [facility] URINE AND STOOL UA WBC 1 /HPF 0 - 5 12/04/2016 [facility] URINE AND STOOL UA RBC 2 /HPF 0 - 2 12/04/2016 [facility] URINE AND STOOL UA Ketones Negative mg/dL Negative mg/dL 12/04/2016 [facility] URINE AND STOOL UA Sq Epi Occasional /LPF Few /LPF 12/04/2016 [facility] URINE AND STOOL UA Nitrite Negative (12/04/16 4:09 AM) Negative 12/04/2016 [facility] URINE AND STOOL UA Turbidity Clear (12/04/16 4:09 AM) Clear 12/04/2016 [facility] Brain wo contrast CT Brain wo contrast [...] 06:21 FINAL REPORT - - Read by: [id number] -UNKNOWN, DOCTOR Dictated Date/time: 12/04/16 06:18 Electronically Signed by: [id number] -UNKNOWN, DOCTOR 12/04/16 06:21 FINAL REPORT - - Read by: De Mckeon DO Dictated Date/time: 12/04/16 05:58 Electronically Signed by: De Mckeon DO 12/04/16 06:14 FINAL REPORT [facility] 1view DX Chest 1view DX Chest, single [...] Olivier Parker MD 12/04/16 00:39 FINAL REPORT [facility] CHEM PANEL eGFR 107 mL/min/1.73m2 11/23/2016 Result [...] should be multiplied by the estimated BMI. [facility] CHEM PANEL CO2 29 meq/L 24 - 32 11/23/2016 [facility] CHEM PANEL Calcium Lvl 9.0 mg/dL 8.5 - 10.5 11/23/2016 [facility] CHEM PANEL Chloride Lvl 102 meq/L 95 - 109 11/23/2016 [facility] CHEM PANEL Glucose Lvl 109 mg/dL 70 - 99 11/23/2016 [facility] CHEM PANEL BUN 8 mg/dL 7 - 22 11/23/2016 [facility] CHEM PANEL Creatinine Lvl 0.73 mg/dL 0.50 - 1.40 11/23/2016 [facility] CHEM PANEL Sodium Lvl 136 meq/L 135 - 145 11/23/2016 [facility] CHEM PANEL Potassium Lvl 4.3 meq/L 3.5 - 5.1 11/23/2016 [facility] CHEM PANEL AGAP 9.3 meq/L 10.0 - 20.0 11/23/2016 [facility] CHEM PANEL Procalcitonin Lvl <0.05 ng/mL 0.00 - 0.10 11/23/2016 [facility] ENDOCRINOLOGY S Preg Negative *NA* (11/23/16 4:15 AM) Negative 11/23/2016 [facility] HEMATOLOGY Basophils # 0.1 K/CMM 0.0 - 0.2 11/23/2016 [facility] HEMATOLOGY Eosinophils # 0.1 K/CMM 0.0 - 0.5 11/23/2016 [facility] HEMATOLOGY Monocytes # 0.8 K/CMM 0.0 - 0.8 11/23/2016 [facility] HEMATOLOGY Segs 50.0 % 45.0 - 75.0 11/23/2016 [facility] HEMATOLOGY Lymphocytes 39.8 % 20.0 - 40.0 11/23/2016 [facility] HEMATOLOGY Segs-Bands # 4.5 K/CMM 1.5 - 8.1 11/23/2016 [facility] HEMATOLOGY Basophils 0.6 % 0.0 - 1.0 11/23/2016 [facility] HEMATOLOGY Lymphocytes # 3.6 K/CMM 1.0 - 5.5 11/23/2016 [facility] HEMATOLOGY Monocytes 8.7 % 2.0 - 12.0 11/23/2016 [facility] HEMATOLOGY Eosinophils 0.9 % 0.0 - 4.0 11/23/[address] [facility] MCHC 34.8 g/dL 32.0 - 36.0 11/23/[address] [facility] RDW 14.4 % 11.5 - 14.5 11/23/[address] [facility] MCH 30.1 pg 27.0 - 31.0 11/23/[address] [facility] MPV 8.2 fL 7.4 - 10.4 11/23/[address] [facility] Platelet 333 K/CMM 133 - 450 11/23/[address] [facility] WBC 9.0 K/CMM 3.7 - 10.4 11/23/[address] [facility] RBC 4.07 M/CMM 4.20 - 5.40 11/23/[address] [facility] MCV 86.5 fL 80.0 - 98.0 11/23/[address] [facility] Hgb 12.2 g/dL 12.0 - 16.0 11/23/[address] [facility] Hct 35.2 % 36.0 - 48.0 11/23/2016 [facility] URINE AND STOOL UA Color Ltyellow 11/23/2016 [facility] URINE AND STOOL UA WBC 1 /HPF 0 - 5 11/23/2016 [facility] URINE AND STOOL UA RBC 1 /HPF 0 - 2 11/23/2016 [facility] URINE AND STOOL UA Sq Epi Occasional /LPF Few /LPF 11/23/2016 [facility] URINE AND STOOL UA Urobilinogen 2.0 mg/dL 0.1 - 1.0 11/23/2016 [facility] URINE AND STOOL UA Nitrite Negative (11/23/16 4:06 AM) Negative 11/23/2016 [facility] URINE AND STOOL UA Leuk Est Negative (11/23/16 4:06 AM) Negative 11/23/2016 [facility] URINE AND STOOL UA Bili Negative *NA* (11/23/16 4:06 AM) Negative 11/23/2016 [facility] URINE AND STOOL UA Blood Small *ABN* (11/23/16 4:06 AM) Negative 11/23/2016 [facility] URINE AND STOOL UA Glucose Negative mg/dL Negative mg/dL 11/23/2016 [facility] URINE AND STOOL UA Ketones Negative mg/dL Negative mg/dL 11/23/2016 [facility] URINE AND STOOL UA Spec Grav 1.013 <=1.030 11/23/2016 [facility] URINE AND STOOL UA pH 6.0 5.0 - 8.0 11/23/2016 [facility] URINE AND STOOL UA Protein Negative mg/dL Negative mg/dL 11/23/2016 [facility] URINE AND STOOL UA Turbidity Clear (11/23/16 4:06 AM) Clear 11/23/2016 [facility] URINE CHEM U Preg Negative (11/23/16 4:06 AM) Negative 11/23/2016 [facility] Spine lumbar w contrast CT Spine lumbar [...] neuroforaminal stenosis. Incidental note of fatty liver. SL 13 11/23/2016 - - Read by: Nick Coffey MD Dictated Date/time: 11/23/16 07:13 Electronically Signed by: Nick Coffey MD 11/23/16 07:57 FINAL REPORT [facility] URINE AND STOOL UA Sq Epi Occasional /LPF Few /LPF 02/25/2016 [facility] URINE AND STOOL UA WBC 2 /HPF 0 - 5 02/25/2016 [facility] URINE AND STOOL UA RBC 5 /HPF 0 - 2 02/25/2016 [facility] URINE AND STOOL UA Mucus Few /LPF None Seen /LPF 02/25/2016 [facility] URINE AND STOOL UA Urobilinogen <=1.0 mg/dL 0.1 - 1.0 02/25/2016 [facility] URINE AND STOOL UA Ketones Negative mg/dL Negative mg/dL 02/25/2016 [facility] URINE AND STOOL UA Bili Negative *NA* (02/25/16 6:09 PM) Negative 02/25/2016 [facility] URINE AND STOOL UA Blood Small *ABN* (02/25/16 6:09 PM) Negative 02/25/2016 [facility] URINE AND STOOL UA Nitrite Negative (02/25/16 6:09 PM) Negative 02/25/2016 [facility] URINE AND STOOL UA Leuk Est Negative (02/25/16 6:09 PM) Negative 02/25/2016 [facility] URINE AND STOOL UA Turbidity Clear (02/25/16 6:09 PM) Clear 02/25/2016 [facility] URINE AND STOOL UA Spec Grav 1.021 <=1.030 02/25/2016 [facility] URINE AND STOOL UA Protein Negative mg/dL Negative mg/dL 02/25/2016 [facility] URINE AND STOOL UA pH 5.0 5.0 - 8.0 02/25/2016 [facility] URINE AND STOOL UA Glucose Negative mg/dL Negative mg/dL 02/25/2016 [facility] URINE AND STOOL UA Color Yellow *NA* (02/25/16 6:09 PM) Yellow 02/25/2016 [facility] URINE CHEM U Preg Negative (02/25/16 6:09 PM) Negative 02/25/2016 [facility] ELECTROLYTES AGAP 9.9 meq/L 10.0 - 20.0 09/27/2015 [facility] ELECTROLYTES Globulin 4.9 g/dL 2.0 - 4.0 09/27/2015 [facility] ELECTROLYTES B/C Ratio 11 6 - 25 09/27/2015 [facility] ELECTROLYTES A/G Ratio 0.8 0.7 - 1.6 09/27/2015 [facility] ELECTROLYTES Glucose Lvl 123 mg/dL 70 - 99 09/27/2015 [facility] ELECTROLYTES Creatinine Lvl 0.74 mg/dL 0.50 - 1.40 09/27/2015 [facility] ELECTROLYTES BUN 8 mg/dL 7 - 22 09/27/2015 [facility] ELECTROLYTES eGFR 107 mL/min/1.73m2 09/27/2015 Result Comment: [...] should be multiplied by the estimated BMI. [facility] ELECTROLYTES Bili Total 0.3 mg/dL 0.2 - 1.3 09/27/2015 [facility] ELECTROLYTES Albumin Lvl 3.7 g/dL 3.5 - 5.0 09/27/2015 [facility] ELECTROLYTES Total Protein 8.6 g/dL 6.4 - 8.4 09/27/2015 [facility] ELECTROLYTES AST 20 unit/L 0 - 37 09/27/2015 [facility] ELECTROLYTES ALT 34 unit/L 0 - 65 09/27/2015 [facility] ELECTROLYTES Alk Phos 97 unit/L 39 - 136 09/27/2015 [facility] ELECTROLYTES Sodium Lvl 138 meq/L 135 - 145 09/27/2015 [facility] ELECTROLYTES Chloride Lvl 105 meq/L 95 - 109 09/27/2015 [facility] ELECTROLYTES Potassium Lvl 3.9 meq/L 3.5 - 5.1 09/27/2015 [facility] ELECTROLYTES Calcium Lvl 9.1 mg/dL 8.5 - 10.5 09/27/2015 [facility] ELECTROLYTES CO2 27 meq/L 24 - 32 09/27/2015 [facility] HEMATOLOGY Monocytes # 0.7 K/CMM 0.0 - 0.8 09/27/2015 [facility] HEMATOLOGY Eosinophils # 0.1 K/CMM 0.0 - 0.5 09/27/2015 [facility] HEMATOLOGY Lymphocytes 43.2 % 20.0 - 40.0 09/27/2015 [facility] HEMATOLOGY Monocytes 7.9 % 2.0 - 12.0 09/27/2015 [facility] HEMATOLOGY Segs 47.0 % 45.0 - 75.0 09/27/2015 [facility] HEMATOLOGY Segs-Bands # 4.0 K/CMM 1.5 - 8.1 09/27/2015 [facility] HEMATOLOGY Lymphocytes # 3.7 K/CMM 1.0 - 5.5 09/27/2015 [facility] HEMATOLOGY Basophils 0.4 % 0.0 - 1.0 09/27/2015 [facility] HEMATOLOGY Eosinophils 1.5 % 0.0 - 4.0 09/27/2015 [facility] HEMATOLOGY Platelet 320 K/CMM 133 - 450 09/27/2015 [facility] HEMATOLOGY MCHC 33.2 g/dL 32.0 - 36.0 09/27/2015 [facility] HEMATOLOGY RDW 14.4 % 11.5 - 14.5 09/27/2015 [facility] HEMATOLOGY MPV 8.5 fL 7.4 - 10.4 09/27/2015 [facility] HEMATOLOGY MCV 87.6 fL 80.0 - 98.0 09/27/2015 [facility] HEMATOLOGY Hct 38.6 % 36.0 - 48.0 09/27/2015 [facility] HEMATOLOGY MCH 29.1 pg 27.0 - 31.0 09/27/2015 [facility] HEMATOLOGY WBC 8.5 K/CMM 3.7 - 10.4 09/27/2015 [facility] HEMATOLOGY RBC 4.41 M/CMM 4.20 - 5.40 09/27/2015 [facility] HEMATOLOGY Hgb 12.8 g/dL 12.0 - 16.0 09/27/2015 [facility] URINE AND STOOL UA Urobilinogen <=1.0 mg/dL 0.1 - 1.0 09/27/2015 [facility] URINE AND STOOL UA Color Ltyellow 09/27/2015 [facility] URINE AND STOOL UA Sq Epi Occasional /LPF Few /LPF 09/27/2015 [facility] URINE AND STOOL UA WBC 1 /HPF 0 - 5 09/27/2015 [facility] URINE AND STOOL UA RBC 2 /HPF 0 - 2 09/27/2015 [facility] URINE AND STOOL UA Leuk Est Negative (09/27/15 2:58 AM) Negative 09/27/2015 [facility] URINE AND STOOL UA Ketones Negative mg/dL Negative mg/dL 09/27/2015 [facility] URINE AND STOOL UA Glucose Negative mg/dL Negative mg/dL 09/27/2015 [facility] URINE AND STOOL UA Bili Negative *NA* (09/27/15 2:58 AM) Negative 09/27/2015 [facility] URINE AND STOOL UA Blood Negative (09/27/15 2:58 AM) Negative 09/27/2015 [facility] URINE AND STOOL UA Nitrite Negative (09/27/15 2:58 AM) Negative 09/27/2015 [facility] URINE AND STOOL UA Spec Grav 1.013 <=1.030 09/27/2015 [facility] URINE AND STOOL UA Turbidity Clear (09/27/15 2:58 AM) Clear 09/27/2015 [facility] URINE AND STOOL UA pH 5.0 5.0 - 8.0 09/27/2015 [facility] URINE AND STOOL UA Protein Negative mg/dL Negative mg/dL 09/27/2015 [facility] Chest 1view DX Chest 1view DX Portable chest: The cardiac silhouette and pulmonary vasculature are within normal limits.There is mild right basilar subsegmental atelectasis, unchanged compared to 08/23/2015. The lungs and pleural spaces are otherwiseclear. . IMPRESSION: No acute radiographic abnormality in the chest. [id number] 09/27/2015 - - Read by: Quentin Ames MD Dictated Date/time: 09/27/15 03:00 Electronically Signed by: Quentin Ames MD 09/27/15 03:01 FINAL REPORT [facility] Ext Lower Venous Doppler Unilat US Ext Lower Venous Doppler Unilat US Patient Name: GEETA CHAVARRIA : 1960; Age: 55 years y/o Female MR: [id number] Study: Ext Lower Venous Doppler Unilat US [...] Doppler of the right lower extremity. SL: [id number] 08/23/2015 - - Read by: Reinaldo Browne MD Dictated Date/time: 08/23/15 22:57 Electronically Signed by: Reinaldo Browne MD 08/23/15 22:59 FINAL REPORT [facility] CARDIAC ENZYMES CK MB Index 0.9 0.0 - 2.5 08/23/2015 [facility] CARDIAC ENZYMES BNP 4 pg/mL <=100 pg/mL 08/23/2015 [facility] CARDIAC ENZYMES Troponin-I null 0.00 - 0.40 08/23/2015 [facility] CARDIAC ENZYMES CK MB 2.2 ng/mL 0.5 - 3.6 08/23/2015 [facility] CARDIAC ENZYMES Total CK 250 unit/L 12 - 191 08/23/2015 [facility] CHEM PANEL Magnesium Lvl 2.4 mg/dL 1.8 - 2.4 08/23/2015 [facility] CHEM PANEL eGFR 105 mL/min/1.73m2 08/23/2015 Result [...] should be multiplied by the estimated BMI. [facility] CHEM PANEL Glucose Lvl 125 mg/dL 70 - 99 08/23/2015 [facility] CHEM PANEL Creatinine Lvl 0.74 mg/dL 0.50 - 1.40 08/23/2015 [facility] CHEM PANEL BUN 13 mg/dL 7 - 22 08/23/2015 [facility] CHEM PANEL Sodium Lvl 136 meq/L 135 - 145 08/23/2015 [facility] CHEM PANEL Potassium Lvl 3.5 meq/L 3.5 - 5.1 08/23/2015 [facility] CHEM PANEL Chloride Lvl 102 meq/L 95 - 109 08/23/2015 [facility] CHEM PANEL CO2 28 meq/L 24 - 32 08/23/2015 [facility] CHEM PANEL Calcium Lvl 8.6 mg/dL 8.5 - 10.5 08/23/2015 [facility] CHEM PANEL AGAP 9.5 meq/L 10.0 - 20.0 08/23/2015 [facility] CHEM PANEL A/G Ratio 0.8 0.7 - 1.6 08/23/2015 [facility] CHEM PANEL Globulin 5.1 g/dL 2.0 - 4.0 08/23/2015 [facility] CHEM PANEL Bili Total 0.5 mg/dL 0.2 - 1.3 08/23/2015 [facility] CHEM PANEL B/C Ratio 18 6 - 25 08/23/2015 [facility] CHEM PANEL Total Protein 9.1 g/dL 6.4 - 8.4 08/23/2015 [facility] CHEM PANEL ALT 39 unit/L 0 - 65 08/23/2015 [facility] CHEM PANEL Alk Phos 92 unit/L 39 - 136 08/23/2015 [facility] CHEM PANEL Albumin Lvl 4.0 g/dL 3.5 - 5.0 08/23/2015 [facility] CHEM PANEL AST 25 unit/L 0 - 37 08/23/2015 [facility] HEMATOLOGY Monocytes # 0.7 K/CMM 0.0 - 0.8 08/23/2015 [facility] HEMATOLOGY Lymphocytes 31.3 % 20.0 - 40.0 08/23/2015 [facility] HEMATOLOGY Monocytes 8.4 % 2.0 - 12.0 08/23/2015 [facility] HEMATOLOGY Segs-Bands # 4.9 K/CMM 1.5 - 8.1 08/23/2015 [facility] HEMATOLOGY Basophils 0.5 % 0.0 - 1.0 08/23/2015 [facility] HEMATOLOGY Eosinophils 0.5 % 0.0 - 4.0 08/23/[address] [facility] Lymphocytes # 2.6 K/CMM 1.0 - 5.5 08/23/[address] [facility] Segs 59.3 % 45.0 - 75.0 08/23/[address] [facility] MCHC 33.5 g/dL 32.0 - 36.0 08/23/[address] [facility] Hct 41.4 % 36.0 - 48.0 08/23/[address] [facility] Hgb 13.9 g/dL 12.0 - 16.0 08/23/[address] [facility] MCV 85.8 fL 80.0 - 98.0 08/23/[address] [facility] RDW 14.2 % 11.5 - 14.5 08/23/[address] [facility] Platelet 343 K/CMM 133 - 450 08/23/[address] [facility] MPV 8.5 fL 7.4 - 10.4 08/23/[address] [facility] MCH 28.8 pg 27.0 - 31.0 08/23/[address] [facility] WBC 8.3 K/CMM 3.7 - 10.4 08/23/[address] [facility] RBC 4.83 M/CMM 4.20 - 5.40 08/23/[address] [facility] PTT 37.7 s 22.9 - 35.8 08/23/2015 [facility] HEMATOLOGY INR 1.04 0.85 - 1.17 08/23/2015 [facility] HEMATOLOGY PT 13.9 s 12.0 - 14.7 08/23/2015 [facility] URINE AND STOOL UA Urobilinogen <=1.0 mg/dL 0.1 - 1.0 08/23/2015 [facility] URINE AND STOOL UA Turbidity Clear (08/23/15 4:10 PM) Clear 08/23/2015 [facility] URINE AND STOOL UA Protein Negative mg/dL Negative mg/dL 08/23/2015 [facility] URINE AND STOOL UA pH 5.0 5.0 - 8.0 08/23/2015 [facility] URINE AND STOOL UA Color Yellow *NA* (08/23/15 4:10 PM) Yellow 08/23/2015 [facility] URINE AND STOOL UA Spec Grav 1.015 <=1.030 08/23/2015 [facility] URINE AND STOOL UA Ketones Negative mg/dL Negative mg/dL 08/23/2015 [facility] URINE AND STOOL UA Nitrite Negative (08/23/15 4:10 PM) Negative 08/23/2015 [facility] URINE AND STOOL UA Bili Negative *NA* (08/23/15 4:10 PM) Negative 08/23/2015 [facility] URINE AND STOOL UA Glucose Negative mg/dL Negative mg/dL 08/23/2015 [facility] URINE AND STOOL UA Blood Negative (08/23/15 4:10 PM) Negative 08/23/2015 [facility] URINE AND STOOL UA RBC 1 /HPF 0 - 2 08/23/2015 [facility] URINE AND STOOL UA WBC null 0 - 5 08/23/2015 [facility] URINE AND STOOL UA Sq Epi Occasional /LPF Few /LPF 08/23/2015 [facility] URINE AND STOOL UA Leuk Est Negative (08/23/15 4:10 PM) Negative 08/23/2015 [facility] Chest 1view DX Chest 1view DX Portable chest: There is mild right basilar subsegmental atelectasis. The lungs and pleural spaces are otherwise clear. The cardiomediastinal silhouette is within normal limits. There is no significant change compared to 03/09/2015. IMPRESSION: Mild right basilar subsegmental atelectasis without other acute radiographic abnormalities in the chest. [id number] 08/23/2015 - - Read by: Quentin Ames MD Dictated Date/time: 08/23/15 17:16 Electronically Signed by: Quentin Ames MD 08/23/15 17:17 FINAL REPORT [facility] Chest Pulmonary Embolism CTA Chest Pulmonary Embolism [...] Reinaldo Browne MD 03/09/15 03:30 FINAL REPORT [facility] Chest 2 views DX Chest 2 views [...] Reinaldo Browne MD 03/09/15 02:02 FINAL REPORT [facility] CHEM PANEL Magnesium Lvl 2.2 mg/dL 1.8 - 2.4 04/13/2014 [facility] ELECTROLYTES AGAP 13.1 meq/L 10.0 - 20.0 04/13/2014 [facility] ELECTROLYTES Chloride Lvl 107 meq/L 95 - 109 04/13/2014 [facility] ELECTROLYTES Potassium Lvl 4.1 meq/L 3.5 - 5.1 04/13/2014 [facility] ELECTROLYTES Sodium Lvl 143 meq/L 135 - 145 04/13/2014 [facility] ELECTROLYTES eGFR 98 mL/min/1.73m2 04/13/2014 1Result Comment: [...] should be multiplied by the estimated BMI. [facility] ELECTROLYTES Glucose Lvl 94 mg/dL 70 - 99 04/13/2014 4Interpretive Data: Adult reference range values reflect the clinical guidelines of the [place] [employer]. [facility] ELECTROLYTES BUN 8 mg/dL 7 - 22 04/13/2014 [facility] ELECTROLYTES Creatinine Lvl 0.8 mg/dL 0.5 - 1.4 04/13/2014 [facility] ELECTROLYTES CO2 27 meq/L 24 - 32 04/13/2014 [facility] ELECTROLYTES Calcium Lvl 8.0 mg/dL 8.5 - 10.5 04/13/2014 [facility] HEMATOLOGY Segs 50.9 % 45.0 - 75.0 04/13/2014 [facility] HEMATOLOGY Monocytes 11.2 % 2.0 - 12.0 04/13/2014 [facility] HEMATOLOGY Basophils 0.3 % 0.0 - 1.0 04/13/[address] [facility] Lymphocytes 36.9 % 20.0 - 40.0 04/13/[address] [facility] Eosinophils 0.7 % 0.0 - 4.0 04/13/[address] [facility] Lymphocytes # 3.3 K/CMM 1.0 - 5.5 04/13/[address] [facility] Segs-Bands # 4.6 K/CMM 1.5 - 8.1 04/13/[address] [facility] Monocytes # 1.0 K/CMM 0.0 - 0.8 04/13/[address] [facility] Eosinophils # 0.1 K/CMM 0.0 - 0.5 04/13/2014 [facility] HEMATOLOGY Hct 32.3 % 36.0 - 48.0 04/13/[address] [facility] MCV 87.3 fL 80.0 - 98.0 04/13/[address] [facility] RBC 3.69 M/CMM 4.20 - 5.40 04/13/[address] [facility] Hgb 11.3 g/dL 12.0 - 16.0 04/13/2014 [facility] HEMATOLOGY WBC 9.0 K/CMM 3.7 - 10.4 04/13/2014 [facility] HEMATOLOGY MCH 30.5 pg 27.0 - 31.0 04/13/2014 [facility] HEMATOLOGY RDW 14.0 % 11.5 - 14.5 04/13/[address] [facility] Platelet 270 K/CMM 133 - 450 04/13/[address] [facility] MCHC 34.9 g/dL 32.0 - 36.0 04/13/[address] [facility] MPV 8.7 fL 7.4 - 10.4 04/13/2014 [facility] ELECTROLYTES AGAP 13.5 meq/L 10.0 - 20.0 04/12/2014 [facility] ELECTROLYTES Sodium Lvl 141 meq/L 135 - 145 04/12/2014 [facility] ELECTROLYTES Chloride Lvl 105 meq/L 95 - 109 04/12/2014 [facility] ELECTROLYTES Potassium Lvl 4.5 meq/L 3.5 - 5.1 04/12/2014 [facility] ELECTROLYTES eGFR 115 mL/min/1.73m2 04/12/2014 2Result Comment: [...] should be multiplied by the estimated BMI. [facility] ELECTROLYTES CO2 27 meq/L 24 - 32 04/12/2014 [facility] ELECTROLYTES Calcium Lvl 8.7 mg/dL 8.5 - 10.5 04/12/2014 [facility] ELECTROLYTES Glucose Lvl 113 mg/dL 70 - 99 04/12/2014 5Interpretive Data: Adult reference range values reflect the clinical guidelines of the [place] [employer]. [facility] ELECTROLYTES BUN 12 mg/dL 7 - 22 04/12/2014 [facility] ELECTROLYTES Creatinine Lvl 0.7 mg/dL 0.5 - 1.4 04/12/2014 [facility] HEMATOLOGY Basophils # 0.1 K/CMM 0.0 - 0.2 04/12/2014 [facility] HEMATOLOGY Eosinophils # 0.1 K/CMM 0.0 - 0.5 04/12/2014 [facility] HEMATOLOGY Monocytes 10.7 % 2.0 - 12.0 04/12/2014 [facility] HEMATOLOGY Segs 43.7 % 45.0 - 75.0 04/12/2014 [facility] HEMATOLOGY Lymphocytes 44.0 % 20.0 - 40.0 04/12/2014 [facility] HEMATOLOGY Eosinophils 0.9 % 0.0 - 4.0 04/12/2014 [facility] HEMATOLOGY Basophils 0.7 % 0.0 - 1.0 04/12/2014 [facility] HEMATOLOGY Segs-Bands # 3.5 K/CMM 1.5 - 8.1 04/12/2014 [facility] HEMATOLOGY Lymphocytes # 3.5 K/CMM 1.0 - 5.5 04/12/2014 [facility] HEMATOLOGY Monocytes # 0.9 K/CMM 0.0 - 0.8 04/12/[address] [facility] MPV 9.2 fL 7.4 - 10.4 04/12/[address] [facility] MCH 30.4 pg 27.0 - 31.0 04/12/2014 [facility] HEMATOLOGY MCV 87.4 fL 80.0 - 98.0 04/12/2014 [facility] HEMATOLOGY Hct 34.0 % 36.0 - 48.0 04/12/[address] [facility] Hgb 11.8 g/dL 12.0 - 16.0 04/12/[address] [facility] RBC 3.89 M/CMM 4.20 - 5.40 04/12/[address] [facility] WBC 8.1 K/CMM 3.7 - 10.4 04/12/[address] [facility] Platelet 276 K/CMM 133 - 450 04/12/[address] [facility] RDW 14.6 % 11.5 - 14.5 04/12/[address] [facility] MCHC 34.8 g/dL 32.0 - 36.0 04/12/[address] [facility] PTT 46.7 s 22.9 - 35.8 04/12/2014 9Interpretive Data: Heparin Therapeutic Range: 57 - [address] [facility] INR 0.94 0.85 - 1.17 04/12/2014 7Interpretive Data: RECOMMENDED RANGES FOR PROTIME INR: 2.0-3.0 for most medical and surgical thromboembolic states. 2.5-3.5 for artificial heart valves and recurrent embolism. INR SHOULD BE USED ONLY FOR PATIENTS ON STABLE ANTICOAGULANT THERAPY. [facility] HEMATOLOGY PT 12.5 s 12.0 - 14.7 04/12/2014 [facility] Spine lumbar wo contrast CT Spine lumbar [...] Kathy Brink MD 04/11/14 21:14 FINAL REPORT [facility] [employer] [facility] eGFR 98 mL/min/1.73m2 04/10/2014 3Result Comment: The [...] should be multiplied by the estimated BMI. [facility] CHEM PANEL Creatinine Lvl 0.8 mg/dL 0.5 - 1.4 04/10/2014 [facility] Spine lumbar wo contrast MRI Spine lumbar [...] Jermain Cameron MD 04/11/14 14:12 FINAL REPORT [facility] Brain wo contrast CT Brain wo contrast [...] Mitchel Duval MD 04/10/14 05:56 FINAL REPORT [facility] CHEM PANEL Calcium Lvl 8.8 mg/dL 8.5 - 10.5 04/10/2014 [facility] CHEM PANEL CO2 33 meq/L 24 - 32 04/10/2014 [facility] CHEM PANEL Chloride Lvl 102 meq/L 95 - 109 04/10/2014 [facility] CHEM PANEL Glucose Lvl 101 mg/dL 70 - 99 04/10/2014 6Interpretive Data: Adult reference range values reflect the clinical guidelines of the [place] [employer]. [facility] CHEM PANEL BUN 13 mg/dL 7 - 22 04/10/2014 [facility] CHEM PANEL Potassium Lvl 3.6 meq/L 3.5 - 5.1 04/10/2014 [facility] CHEM PANEL Sodium Lvl 139 meq/L 135 - 145 04/10/2014 [facility] CHEM PANEL AGAP 7.6 meq/L 10.0 - 20.0 04/10/[address] [facility] INR 0.83 0.85 - 1.17 04/10/2014 8Interpretive Data: RECOMMENDED RANGES FOR PROTIME INR: 2.0-3.0 for most medical and surgical thromboembolic states. 2.5-3.5 for artificial heart valves and recurrent embolism. INR SHOULD BE USED ONLY FOR PATIENTS ON STABLE ANTICOAGULANT THERAPY. [facility] PT 11.3 s 12.0 - 14.7 04/10/[address] [facility] PTT 42.1 s 22.9 - 35.8 04/10/2014 10Interpretive Data: Heparin Therapeutic Range: 57 - 92 Seconds [facility] HEMATOLOGY Basophils # 0.1 K/CMM 0.0 - 0.2 04/10/[address] [facility] Eosinophils # 0.1 K/CMM 0.0 - 0.5 04/10/[address] [facility] Eosinophils 0.7 % 0.0 - 4.0 04/10/[address] [facility] Basophils 0.8 % 0.0 - 1.0 04/10/[address] [facility] Monocytes # 0.9 K/CMM 0.0 - 0.8 04/10/2014 [facility] HEMATOLOGY Segs-Bands # 4.5 K/CMM 1.5 - 8.1 04/10/2014 [facility] HEMATOLOGY Lymphocytes # 4.3 K/CMM 1.0 - 5.5 04/10/2014 [facility] HEMATOLOGY Monocytes 9.2 % 2.0 - 12.0 04/10/2014 [facility] HEMATOLOGY Segs 45.8 % 45.0 - 75.0 04/10/2014 [facility] HEMATOLOGY Lymphocytes 43.5 % 20.0 - 40.0 04/10/2014 [facility] HEMATOLOGY Platelet 326 K/CMM 133 - 450 04/10/2014 [facility] HEMATOLOGY RDW 14.4 % 11.5 - 14.5 04/10/2014 [facility] HEMATOLOGY MPV 8.5 fL 7.4 - 10.4 04/10/[address] [facility] MCV 86.2 fL 80.0 - 98.0 04/10/[address] [facility] MCH 29.2 pg 27.0 - 31.0 04/10/[address] [facility] Hct 38.9 % 36.0 - 48.0 04/10/[address] [facility] MCHC 33.9 g/dL 32.0 - 36.0 04/10/[address] [facility] RBC 4.51 M/CMM 4.20 - 5.40 04/10/[address] [facility] WBC 9.9 K/CMM 3.7 - 10.4 04/10/[address] [facility] Hgb 13.2 g/dL 12.0 - 16.0 04/10/2014 [facility] URINE AND STOOL UA Hyal Cast 2 /LPF 0 - 2 04/10/2014 [facility] URINE AND STOOL UA RBC 5 /HPF 0 - 2 04/10/2014 [facility] URINE AND STOOL UA Ketones Negative mg/dL Negative mg/dL 04/10/2014 [facility] URINE AND STOOL UA Blood Small *ABN* (04/09/14 8:45 PM) Negative 04/10/2014 [facility] URINE AND STOOL UA Nitrite Negative (04/09/14 8:45 PM) Negative 04/10/2014 [facility] URINE AND STOOL UA Bili Negative *NA* (04/09/14 8:45 PM) Negative 04/10/2014 [facility] URINE AND STOOL UA Urobilinogen 2.0 mg/dL 0.1 - 1.0 04/10/2014 [facility] URINE AND STOOL UA Color Yellow *NA* (04/09/14 8:45 PM) Yellow 04/10/2014 [facility] URINE AND STOOL UA Leuk Est Negative (04/09/14 8:45 PM) Negative 04/10/2014 [facility] URINE AND STOOL UA WBC 1 /HPF 0 - 5 04/10/2014 [facility] URINE AND STOOL UA Sq Epi Occasional /LPF Few /LPF 04/10/2014 [facility] URINE AND STOOL UA Glucose Negative mg/dL Negative mg/dL 04/10/2014 [facility] URINE AND STOOL UA Spec Grav 1.019 <=1.030 04/10/2014 [facility] URINE AND STOOL UA Turbidity Clear (04/09/14 8:45 PM) Clear 04/10/2014 [facility] URINE AND STOOL UA pH 5.0 5.0 - 8.0 04/10/2014 [facility] URINE AND STOOL UA Protein Negative mg/dL Negative mg/dL 04/10/2014 [facility] URINE CHEM U Preg Negative (04/09/14 8:45 PM) Negative 04/10/2014 [facility] Extremity Lower uni CTA Extremity Lower uni [...] Mitchel Duval MD 04/09/14 23:00 FINAL REPORT [facility] Knee wo contrast MRI Knee wo contrast [...] Lvl 2.1 mg/dL 1.8 - 2.4 02/18/2014 [facility] CHEM PANEL Lactic Acid Lvl 0.9 mMol/L 0.5 - 2.2 02/18/2014 [facility] ELECTROLYTES AGAP 8.8 meq/L 10.0 - 20.0 02/18/2014 [facility] ELECTROLYTES eGFR 121 mL/min/1.73m2 02/18/2014 1Result Comment: [...] should be multiplied by the estimated BMI. [facility] ELECTROLYTES Chloride Lvl 107 meq/L 95 - 109 02/18/2014 [facility] ELECTROLYTES Potassium Lvl 3.8 meq/L 3.5 - 5.1 02/18/2014 [facility] ELECTROLYTES CO2 26 meq/L 24 - 32 02/18/2014 [facility] ELECTROLYTES Calcium Lvl 8.6 mg/dL 8.5 - 10.5 02/18/2014 [facility] ELECTROLYTES BUN 9 mg/dL 7 - 22 02/18/2014 [facility] ELECTROLYTES Glucose Lvl 91 mg/dL 70 - 99 02/18/2014 3Interpretive Data: Adult reference range values reflect the clinical guidelines of the [place] [employer]. [facility] ELECTROLYTES Creatinine Lvl 0.6 mg/dL 0.5 - 1.4 02/18/2014 [facility] ELECTROLYTES Sodium Lvl 138 meq/L 135 - 145 02/18/2014 [facility] HEMATOLOGY Eosinophils # 0.1 K/CMM 0.0 - 0.5 02/18/[address] [facility] Monocytes # 0.8 K/CMM 0.0 - 0.8 02/18/[address] [facility] Segs 42.9 % 45.0 - 75.0 02/18/[address] [facility] Lymphocytes 44.0 % 20.0 - 40.0 02/18/[address] [facility] Eosinophils 1.4 % 0.0 - 4.0 02/18/[address] [facility] Monocytes 11.1 % 2.0 - 12.0 02/18/[address] [facility] Basophils 0.6 % 0.0 - 1.0 02/18/[address] [facility] Segs-Bands # 3.1 K/CMM 1.5 - 8.1 02/18/[address] [facility] Lymphocytes # 3.2 K/CMM 1.0 - 5.5 02/18/[address] [facility] MCH 29.7 pg 27.0 - 31.0 02/18/[address] [facility] MCV 86.7 fL 80.0 - 98.0 02/18/[address] [facility] RDW 14.0 % 11.5 - 14.5 02/18/[address] [facility] MCHC 34.3 g/dL 32.0 - 36.0 02/18/[address] [facility] Platelet 300 K/CMM 133 - 450 02/18/[address] [facility] MPV 8.6 fL 7.4 - 10.4 02/18/[address] [facility] Hgb 10.6 g/dL 12.0 - 16.0 02/18/[address] [facility] RBC 3.58 M/CMM 4.20 - 5.40 02/18/[address] [facility] Hct 31.0 % 36.0 - 48.0 02/18/[address] [facility] WBC 7.2 K/CMM 3.7 - 10.4 02/18/2014 [facility] Chest w contrast CT Chest w contrast [...] Anirudh Crooks MD 02/16/14 21:23 FINAL REPORT [facility] CARDIAC ENZYMES Troponin-I null 0.00 - 0.40 02/16/2014 [facility] CARDIAC ENZYMES CK MB 1.2 ng/mL 0.5 - 3.6 02/16/2014 [facility] CARDIAC ENZYMES Total CK 189 unit/L 12 - 191 02/16/2014 [facility] CARDIAC ENZYMES CK MB Index 0.6 0.0 - 2.5 02/16/2014 [facility] CHEM PANEL eGFR 67 mL/min/1.73m2 02/16/2014 2Result [...] by the estimated BMI. [facility] CHEM PANEL A/G Ratio 0.7 0.7 - 1.6 02/16/2014 [facility] CHEM PANEL Globulin 5.8 g/dL 2.0 - 4.0 02/16/2014 [facility] [facility] PANEL B/C Ratio 16 6 - 25 02/16/2014 [facility] CHEM PANEL Bili Total 0.5 mg/dL 0.2 - 1.3 02/16/2014 [facility] CHEM PANEL AGAP 9.4 meq/L 10.0 - 20.0 02/16/2014 [facility] CHEM PANEL Alk Phos 96 unit/L 39 - 136 02/16/2014 [facility] CHEM PANEL ALT 37 unit/L 0 - 65 02/16/2014 [facility] CHEM PANEL AST 30 unit/L 0 - 37 02/16/2014 [facility] CHEM PANEL Albumin Lvl 4.1 g/dL 3.5 - 5.0 02/16/2014 [facility] CHEM PANEL Calcium Lvl 9.6 mg/dL 8.5 - 10.5 02/16/2014 [facility] CHEM PANEL Total Protein 9.9 g/dL 6.4 - 8.4 02/16/2014 [facility] CHEM PANEL CO2 29 meq/L 24 - 32 02/16/2014 [facility] CHEM PANEL Chloride Lvl 99 meq/L 95 - 109 02/16/2014 [facility] CHEM PANEL Sodium Lvl 134 meq/L 135 - 145 02/16/2014 [facility] CHEM PANEL Potassium Lvl 3.4 meq/L 3.5 - 5.1 02/16/2014 [facility] CHEM PANEL Creatinine Lvl 1.1 mg/dL 0.5 - 1.4 02/16/2014 [facility] CHEM PANEL BUN 18 mg/dL 7 - 22 02/16/2014 [facility] CHEM PANEL Glucose Lvl 128 mg/dL 70 - 99 02/16/2014 4Interpretive Data: Adult reference range values reflect the clinical guidelines of the [place] [employer]. [facility] HEMATOLOGY INR 1.02 0.85 - 1.17 02/16/2014 5Interpretive Data: RECOMMENDED RANGES FOR PROTIME INR: 2.0-3.0 for most medical and surgical thromboembolic states. 2.5-3.5 for artificial heart valves and recurrent embolism. INR SHOULD BE USED ONLY FOR PATIENTS ON STABLE ANTICOAGULANT THERAPY. [facility] HEMATOLOGY PT 13.4 s 12.0 - 14.7 02/16/[address] [facility] PTT 42.9 s 22.9 - 35.8 02/16/2014 6Interpretive Data: Heparin Therapeutic Range: 57 - [address] [facility] Platelet 380 K/CMM 133 - 450 02/16/[address] [facility] RDW 14.1 % 11.5 - 14.5 02/16/[address] [facility] MCHC 34.5 g/dL 32.0 - 36.0 02/16/[address] [facility] MPV 8.9 fL 7.4 - 10.4 02/16/[address] [facility] MCH 29.6 pg 27.0 - 31.0 02/16/[address] [facility] Hct 42.2 % 36.0 - 48.0 02/16/[address] [facility] Hgb 14.5 g/dL 12.0 - 16.0 02/16/[address] [facility] MCV 85.8 fL 80.0 - 98.0 02/16/[address] [facility] RBC 4.91 M/CMM 4.20 - 5.40 02/16/[address] [facility] WBC 10.9 K/CMM 3.7 - 10.4 02/16/[address] [facility] Monocytes 11.0 % 2.0 - 12.0 02/16/[address] [facility] Basophils 0.4 % 0.0 - 1.0 02/16/[address] [facility] Eosinophils 0.4 % 0.0 - 4.0 02/16/[address] [facility] Lymphocytes 18.9 % 20.0 - 40.0 02/16/[address] [facility] Lymphocytes # 2.1 K/CMM 1.0 - 5.5 02/16/[address] [facility] Segs-Bands # 7.6 K/CMM 1.5 - 8.1 02/16/[address] [facility] Monocytes # 1.2 K/CMM 0.0 - 0.8 02/16/[address] [facility] Segs 69.3 % 45.0 - 75.0 02/16/2014 [facility] Chest 2 views Chest 2 views CHEST [...] Keven Powers MD 02/16/14 15:09 FINAL REPORT [facility] Spine lumbar wo contrast MRI Spine lumbar wo contrast MRI EXAM: MRI lumbar spine. HISTORY: Lumbosacral radiculopathy. COMPARISON: MRI lumbar spine [id number] TECHNIQUE: Sagittal and axial images of the [...] of the L3-L4 and L5-S1 discs. SL: 05/28/2013 - - Read by: Nick Coffey Dictated Date/time: 05/29/13 08:28 Electronically Signed by: Nick Coffey MD 05/29/13 09:33 FINAL REPORT [facility] Extremity venous Duplex bilat US Extremity venous [...] Jimmy Murillo MD 10/31/12 17:37 FINAL REPORT [facility] Tibia fibula series Tibia fibula series LEFT [...] Keven Powers MD 10/31/12 15:10 FINAL REPORT [facility] Foot series Foot series LEFT FOOT RADIOGRAPH [...] Keven Powers MD 10/31/12 15:12 FINAL REPORT [facility] Vital Signs Vital Sign Value Date Comments Source Systolic (mm Hg) 148 12/29/2017 [facility] Diastolic (mm Hg) 70 12/29/2017 [facility] Heart Rate 81 12/29/2017 [facility] Respitory Rate 17 12/29/2017 [facility] Temperature Oral (F) 98.4 F 12/29/2017 [facility] Systolic (mm Hg) 144 12/29/2017 [facility] Diastolic (mm Hg) 67 12/29/2017 [facility] Temperature Oral (F) 98 F 12/29/2017 [facility] Heart Rate 82 12/29/2017 [facility] Respitory Rate 16 12/29/2017 [facility] Systolic (mm Hg) 151 12/29/2017 [facility] Diastolic (mm Hg) 67 12/29/2017 [facility] Respitory Rate 16 12/29/2017 [facility] Heart Rate 87 12/29/2017 [facility] Temperature Oral (F) 97.9 F 12/29/2017 [facility] Height 167.64 cm 12/29/2017 [facility] BMI Calculated 32.35 12/29/2017 [facility] Weight 90.909 12/29/2017 [facility] Diastolic (mm Hg) 91 11/30/2017 [facility] Systolic (mm Hg) 147 11/30/2017 [facility] Temperature Oral (F) 98.6 F 11/30/2017 [facility] Respitory Rate 18 11/30/2017 [facility] Heart Rate 88 11/30/2017 [facility] Heart Rate 85 11/30/2017 [facility] Systolic (mm Hg) 147 11/30/2017 [facility] Respitory Rate 18 11/30/2017 [facility] Diastolic (mm Hg) 91 11/30/2017 [facility] Weight 91.818 11/30/2017 [facility] Temperature Oral (F) 99.0 F 11/30/2017 [facility] Respitory Rate 18 11/30/2017 [facility] Systolic (mm Hg) 133 11/30/2017 [facility] Diastolic (mm Hg) 73 11/30/2017 [facility] Heart Rate 103 11/30/2017 [facility] Height 167.64 cm 11/26/2017 [facility] Weight 91.818 11/26/2017 [facility] BMI Calculated 32.67 11/26/2017 [facility] Heart Rate 106 11/26/2017 [facility] Systolic (mm Hg) 113 11/26/2017 [facility] Diastolic (mm Hg) 74 11/26/2017 [facility] Systolic (mm Hg) 134 11/04/2017 [facility] Diastolic (mm Hg) 73 11/04/2017 [facility] Heart Rate 84 11/04/2017 [facility] Temperature Oral (F) 98.2 F 11/04/2017 [facility] Respitory Rate 16 11/04/2017 [facility] Respitory Rate 20 11/04/2017 [facility] Temperature Oral (F) 98.6 F 11/04/2017 [facility] Systolic (mm Hg) 146 11/04/2017 [facility] Diastolic (mm Hg) 81 11/04/2017 [facility] Heart Rate 94 11/04/2017 [facility] Temperature Oral (F) 98.2 F 10/22/2017 [facility] Systolic (mm Hg) 110 10/22/2017 [facility] Diastolic (mm Hg) 57 10/22/2017 [facility] Heart Rate 91 10/22/2017 [facility] Respitory Rate 17 10/22/2017 [facility] Systolic (mm Hg) 167 10/22/2017 [facility] Diastolic (mm Hg) 98 10/22/2017 [facility] Respitory Rate 15 10/22/2017 [facility] Heart Rate 102 10/22/2017 [facility] Respitory Rate 18 10/22/2017 [facility] Systolic (mm Hg) 167 10/22/2017 [facility] Diastolic (mm Hg) 98 10/22/2017 [facility] Weight 89.091 10/22/2017 [facility] Height 167.64 cm 10/22/2017 [facility] BMI Calculated 31.7 10/22/2017 [facility] Heart Rate 103 10/22/2017 [facility] Temperature Oral (F) 98.6 F 10/22/2017 [facility] Systolic (mm Hg) 101 10/08/2017 [facility] Diastolic (mm Hg) 64 10/08/2017 [facility] Respitory Rate 16 10/08/2017 [facility] Heart Rate 80 10/08/2017 [facility] Temperature Oral (F) 98.1 F 10/08/2017 [facility] Systolic (mm Hg) 114 10/08/2017 [facility] Diastolic (mm Hg) 67 10/08/2017 [facility] Temperature Oral (F) 97.9 F 10/08/2017 [facility] Heart Rate 86 10/08/2017 [facility] Respitory Rate 16 10/08/2017 [facility] Heart Rate 90 10/08/2017 [facility] Respitory Rate 16 10/08/2017 [facility] Systolic (mm Hg) 118 10/08/2017 [facility] Diastolic (mm Hg) 69 10/08/2017 [facility] Temperature Oral (F) 98.5 F 10/08/2017 [facility] BMI Calculated 32.03 10/05/2017 [facility] Height 167.64 cm 10/05/2017 [facility] Weight 90.001 10/05/2017 [facility] Weight 109.091 10/05/2017 [facility] Respitory Rate 18 09/24/2017 [facility] Heart Rate 98 09/24/2017 [facility] Systolic (mm Hg) 158 09/24/2017 [facility] Diastolic (mm Hg) 84 09/24/2017 [facility] Temperature Oral (F) 98.3 F 09/24/2017 [facility] Weight 89.545 09/23/2017 [facility] BMI Calculated 31.86 09/23/2017 [facility] Height 167.64 cm 09/23/2017 [facility] Systolic (mm Hg) 73 09/23/2017 [facility] Diastolic (mm Hg) 73 09/23/2017 [facility] Heart Rate 104 09/23/2017 [facility] Respitory Rate 18 09/23/2017 [facility] Temperature Oral (F) 98.4 F 09/23/2017 [facility] Respitory Rate 16 09/07/2017 [facility] Systolic (mm Hg) 133 09/07/2017 [facility] Diastolic (mm Hg) 68 09/07/2017 [facility] Heart Rate 92 09/07/2017 [facility] Temperature Oral (F) 98.5 F 09/07/2017 [facility] Systolic (mm Hg) 120 09/07/2017 [facility] Diastolic (mm Hg) 64 09/07/2017 [facility] Heart Rate 92 09/07/2017 [facility] Respitory Rate 18 09/07/2017 [facility] Temperature Oral (F) 98.7 F 09/07/2017 [facility] Respitory Rate 16 09/07/2017 [facility] Systolic (mm Hg) 147 09/07/2017 [facility] Heart Rate 109 09/07/2017 [facility] Diastolic (mm Hg) 77 09/07/2017 [facility] Temperature Oral (F) 98.7 F 09/06/2017 [facility] Heart Rate 96 06/01/2017 [facility] Respitory Rate 18 06/01/2017 [facility] Systolic (mm Hg) 117 06/01/2017 [facility] Diastolic (mm Hg) 70 06/01/2017 [facility] Temperature Oral (F) 98.6 F 06/01/2017 [facility] Temperature Oral (F) 99.0 F 06/01/2017 [facility] Heart Rate 100 06/01/2017 [facility] Respitory Rate 14 06/01/2017 [facility] Systolic (mm Hg) 121 06/01/2017 [facility] Diastolic (mm Hg) 63 06/01/2017 [facility] Temperature Oral (F) 100.2 F 06/01/2017 [facility] Systolic (mm Hg) 141 06/01/2017 [facility] Diastolic (mm Hg) 83 06/01/2017 [facility] Respitory Rate 20 06/01/2017 [facility] Heart Rate 102 06/01/2017 [facility] Weight 89.545 05/31/2017 [facility] BMI Calculated 31.86 05/31/2017 [facility] Height 167.64 cm 05/31/2017 [facility] Weight 90.909 01/03/2017 [facility] Systolic (mm Hg) 130 01/03/2017 [facility] Diastolic (mm Hg) 77 01/03/2017 [facility] Temperature Oral (F) 98.6 F 01/03/2017 [facility] Respitory Rate 16 01/03/2017 [facility] Heart Rate 111 01/03/2017 [facility] BMI Calculated 32.35 01/03/2017 [facility] Height 167.64 cm 01/03/2017 [facility] Temperature Oral (F) 98.2 F 12/04/2016 [facility] Systolic (mm Hg) 111 12/04/2016 [facility] Diastolic (mm Hg) 84 12/04/2016 [facility] Respitory Rate 19 12/04/2016 [facility] Systolic (mm Hg) 104 12/04/2016 [facility] Diastolic (mm Hg) 86 12/04/2016 [facility] Respitory Rate 16 12/04/2016 [facility] Systolic (mm Hg) 131 12/04/2016 [facility] Diastolic (mm Hg) 84 12/04/2016 [facility] Respitory Rate 14 12/04/2016 [facility] Temperature Oral (F) 98.1 F 12/04/2016 [facility] Weight 85.909 12/04/2016 [facility] BMI Calculated 30.57 12/04/2016 [facility] Heart Rate 102 12/04/2016 [facility] Height 167.64 cm 12/04/2016 [facility] Temperature Oral (F) 98.7 F 12/04/2016 [facility] Temperature Oral (F) 98 F 11/23/2016 [facility] Systolic (mm Hg) 132 11/23/2016 [facility] Diastolic (mm Hg) 78 11/23/2016 [facility] Heart Rate 85 11/23/2016 [facility] Respitory Rate 16 11/23/2016 [facility] Systolic (mm Hg) 138 11/23/2016 [facility] Diastolic (mm Hg) 84 11/23/2016 [facility] Respitory Rate 16 11/23/2016 [facility] Temperature Oral (F) 98.7 F 11/23/2016 [facility] Heart Rate 78 11/23/2016 [facility] Systolic (mm Hg) 170 11/23/2016 [facility] Diastolic (mm Hg) 90 11/23/2016 [facility] Temperature Oral (F) 99 F 11/23/2016 [facility] Respitory Rate 16 11/23/2016 [facility] Heart Rate 86 11/23/2016 [facility] Height 167.64 cm 11/23/2016 [facility] BMI Calculated 30.25 11/23/2016 [facility] Weight 85 11/23/2016 [facility] Heart Rate 99 02/26/2016 [facility] Systolic (mm Hg) 136 02/26/2016 [facility] Diastolic (mm Hg) 77 02/26/2016 [facility] Respitory Rate 18 02/26/2016 [facility] Temperature Oral (F) 97.9 F 02/26/2016 [facility] Height 167.64 cm 02/25/2016 [facility] Weight 85.909 02/25/2016 [facility] BMI Calculated 30.57 02/25/2016 [facility] Systolic (mm Hg) 158 02/25/2016 [facility] Diastolic (mm Hg) 121 02/25/2016 [facility] Temperature Oral (F) 98.1 F 02/25/2016 [facility] Heart Rate 84 02/25/2016 [facility] Respitory Rate 18 02/25/2016 [facility] Heart Rate 94 09/27/2015 [facility] Respitory Rate 16 09/27/2015 [facility] Systolic (mm Hg) 128 09/27/2015 [facility] Diastolic (mm Hg) 77 09/27/2015 [facility] Temperature Oral (F) 98.5 F 09/27/2015 [facility] Temperature Oral (F) 98.4 F 09/27/2015 [facility] Systolic (mm Hg) 132 09/27/2015 [facility] Diastolic (mm Hg) 84 09/27/2015 [facility] Heart Rate 96 09/27/2015 [facility] Respitory Rate 16 09/27/2015 [facility] Height 167.64 cm 09/27/2015 [facility] Weight 85.455 09/27/2015 [facility] BMI Calculated 30.41 09/27/2015 [facility] Temperature Oral (F) 98 F 08/24/2015 [facility] Systolic (mm Hg) 135 08/24/2015 [facility] Diastolic (mm Hg) 81 08/24/2015 [facility] Heart Rate 81 08/24/2015 [facility] Respitory Rate 17 08/24/2015 [facility] Systolic (mm Hg) 155 08/24/2015 [facility] Diastolic (mm Hg) 100 08/24/2015 [facility] Respitory Rate 18 08/24/2015 [facility] Heart Rate 97 08/24/2015 [facility] Temperature Oral (F) 98.1 F 08/24/2015 [facility] Weight 85.909 08/23/2015 [facility] BMI Calculated 31.52 08/23/2015 [facility] Temperature Oral (F) 98.2 F 08/23/2015 [facility] Respitory Rate 17 08/23/2015 [facility] Systolic (mm Hg) 129 08/23/2015 [facility] Diastolic (mm Hg) 80 08/23/2015 [facility] Heart Rate 105 08/23/2015 [facility] Height 165.1 cm 08/23/2015 [facility] Temperature Oral (F) 98.6 F 09/28/2014 [facility] Respitory Rate 18 09/28/2014 [facility] Systolic (mm Hg) 138 09/28/2014 [facility] Diastolic (mm Hg) 80 09/28/2014 [facility] Heart Rate 87 09/28/2014 [facility] BMI Calculated 23.79 09/28/2014 [facility] Height 160.02 cm 09/28/2014 [facility] Weight 60.909 09/28/2014 [facility] Systolic (mm Hg) 152 09/28/2014 [facility] Diastolic (mm Hg) 72 09/28/2014 [facility] Temperature Oral (F) 98.6 F 09/28/2014 [facility] Respitory Rate 20 09/28/2014 [facility] Heart Rate 100 09/28/2014 [facility] Systolic (mm Hg) 157 09/17/2014 [facility] Diastolic (mm Hg) 101 09/17/2014 [facility] Temperature Oral (F) 98.9 F 09/17/2014 [facility] Heart Rate 94 09/17/2014 [facility] Respitory Rate 20 09/17/2014 [facility] Systolic (mm Hg) 157 09/16/2014 [facility] Temperature Oral (F) 99.2 F 09/16/2014 [facility] Diastolic (mm Hg) 90 09/16/2014 [facility] Heart Rate 93 09/16/2014 [facility] Respitory Rate 18 09/16/2014 [facility] Weight 78.636 09/16/2014 [facility] BMI Calculated 29.76 09/16/2014 [facility] Height 162.56 cm 09/16/2014 [facility] Systolic (mm Hg) 149 09/16/2014 [facility] Diastolic (mm Hg) 98 09/16/2014 [facility] Heart Rate 101 09/16/2014 [facility] Respitory Rate 20 09/16/2014 [facility] Temperature Oral (F) 99.2 F 09/16/2014 [facility] Respitory Rate 18 08/30/2014 [facility] Systolic (mm Hg) 134 08/30/2014 [facility] Diastolic (mm Hg) 88 08/30/2014 [facility] Temperature Oral (F) 98.6 F 08/30/2014 [facility] Heart Rate 88 08/30/2014 [facility] Height 160.02 cm 08/30/2014 [facility] BMI Calculated 32.84 08/30/2014 [facility] Weight 84.091 08/30/2014 [facility] Temperature Oral (F) 98.8 F 08/30/2014 [facility] Respitory Rate 20 08/30/2014 [facility] Heart Rate 95 08/30/2014 [facility] Systolic (mm Hg) 139 08/30/2014 [facility] Diastolic (mm Hg) 89 08/30/2014 [facility] Respitory Rate 18 04/14/2014 [facility] Systolic (mm Hg) 114 04/14/2014 [facility] Diastolic (mm Hg) 64 04/14/2014 [facility] Respitory Rate 18 04/14/2014 [facility] Heart Rate 97 04/14/2014 [facility] Temperature Oral (F) 98.8 F 04/14/2014 [facility] Temperature Oral (F) 99.1 F 04/14/2014 [facility] Systolic (mm Hg) 96 04/14/2014 [facility] Heart Rate 109 04/14/2014 [facility] Diastolic (mm Hg) 54 04/14/2014 [facility] Temperature Oral (F) 99.6 F 04/14/2014 [facility] [...] 73.636 06/17/2011 [facility] Height 170.18 cm 06/17/2011 [facility] Respitory Rate 18 06/15/2011 [facility] Systolic (mm Hg) 156 06/15/2011 [facility] Heart Rate 70 06/15/2011 [facility] Temperature Oral (F) 98.3 F 06/15/2011 [facility] Diastolic (mm Hg) 54 06/15/2011 [facility] Height 167.64 cm 06/14/2011 [facility] Weight 73.636 06/14/2011 [facility] Diastolic (mm Hg) 89 06/14/2011 [facility] Systolic (mm Hg) 155 06/14/2011 [facility] Temperature Oral (F) 99.0 F 06/14/2011 [facility] Respitory Rate 80 06/14/2011 [facility] Heart Rate 90 06/14/2011 [facility] Encounters Location Location Details Encounter Type Encounter Number Reason For Visit Attending Provider ADM Date DC Date Status Source [facility] Emergency [id number] BACK PAIN TADEO CARLA 06/14/2011 06/14/2011 Active [facility] Emergency [id number] SARA BIRCHEL 06/17/2011 06/17/2011 Active [facility] Outpatient [id number] TISH RIVERA 07/03/2011 Active [facility] Emergency [id number] FOOT PAIN ASEM SOUMAN 11/20/2011 11/21/2011 Active [facility] Outpatient [id number] 724.4 COMPRESSION OF LUMBAR NERVE ROOT / LEG PAIN MITCHEL JENNIFER 10/31/2012 Active [facility] Emergency [id number] TITI ARRIAGA 03/06/2013 03/06/2013 Active [facility] Outpatient [id number] 724.4 BASEM MARYANNEID 05/28/2013 Active [facility] Inpatient [id number] Hugo Denny 02/16/2014 02/18/2014 [facility] [place] [facility] [id number] Jermain Steven 03/24/2014 03/25/2014 [facility] Emergency [facility] [id number] Feroz Gutierrez 04/08/2014 04/08/2014 [facility] Inpatient [id number] Cody Devik 04/09/2014 04/14/2014 [facility] OP Therapy Patients [id number] Mitchel Jennifer 06/10/2014 07/10/2014 [facility] Medical [facility] EC Emergency Center [id number] Nadim Yarsani 08/30/2014 08/30/2014 [facility] Emergency Center [id number] Suki Kinney 09/16/2014 09/16/2014 [facility] Outpatient [id number] Peg Gera 09/16/2014 09/17/2014 [facility] Emergency Center [id number] Feroz Gutierrez 09/17/2014 09/17/2014 [facility] Emergency Center [id number] Cat Duval 09/28/2014 09/28/2014 [facility] Emergency Center [id number] Nadim Yarsani 08/23/2015 08/24/2015 [facility] Emergency Center [id number] Kerripedro Rodríguezujobi 09/27/2015 09/27/2015 [facility] Emergency [id number] Javier Kessler 02/25/2016 02/26/2016 [facility] Emergency [id number] Cat Duval 11/23/2016 11/23/2016 [facility] Emergency [id number] Tadeo Ny 12/04/2016 12/04/2016 [facility] Emergency [id number] Xavier Perales 01/03/2017 01/03/2017 [facility] Emergency [id number] Patricia Tomas 05/31/2017 06/01/2017 [facility] Emergency [id number] Brando Diaz 09/06/2017 09/07/2017 [facility] Emergency [id number] Mary Anniwgonzalo Taylor 09/23/2017 09/24/2017 [facility] Inpatient [id number] Roby Piña 10/05/2017 10/08/2017 [facility] Emergency [id number] Ceci Llanosen 10/22/2017 10/22/2017 [facility] Emergency [id number] Mauri Farrisff 11/04/2017 11/04/2017 [facility] Phone Message [id number] 11/19/2017 11/21/2017 [facility] Phone Message [id number] 11/21/2017 11/23/2017 [facility] Outpatient [id number] MITCHEL [facility] 11/26/2017 [facility] [id number] Mitchel [facility] 11/26/2017 11/27/2017 [facility] Emergency [id number] Tadeo Ny 11/30/2017 11/30/2017 [facility] Emergency [id number] Tadeo Anant 12/29/2017 12/29/2017 [facility] Outpatient [id number] MITCHEL [facility] 01/07/2018 [facility] [id number] MITCHEL [facility] 01/14/2018 [facility] [id number] MITCHEL [facility] 02/14/2018 [facility] Outpatient [id number] MITCHEL [facility] 04/08/2018 [facility] [id number] RODOLFO KOEHLER MD 06/11/2018 [facility] Departed Emergency Room [id number] ILEANA [place] MD 06/12/2018 06/13/2018 [facility] Outpatient [id number] MITCHEL [facility] 07/03/2018 [facility] [id number] AMY MARIN 07/08/2018 [facility] Outpatient [id number] AMY MARIN 07/18/2018 [facility] [id number] AMY MARIN 07/24/2018 [facility] [id number] MITCHEL JENNIFER 08/12/2018 Active [facility] Procedures Procedure Code Date Perfomer Comments Source Computed tomography of abdomen and pelvis with contrast [id number] 06/12/2018 [facility] Computed tomography of chest with contrast [id number] 06/12/2018 [facility] X-ray of chest, two views [id number] 06/10/[address] [facility] Laminectomy [id number] 10/06/2016 [facility] Laminectomy [id number] 10/06/2016 [facility] Emergency department visit for the evaluation and management of a patient, which requires these 3 beck components: An expanded problem focused history; An expanded problem focused examination; and Medical decision making of moderate complexity. Counseling [id number] 03/06/2013 [facility] section [id number] [facility] section [id number] [facility]
== END 2018-07-31 22:30 | disposition home or self-care (01) ==
LOC: ER 21:54
DX: M54.42 Lumbago with sciatica, left side (principal); I10 Essential (primary) hypertension; E78.5 Hyperlipidemia, unspecified; G89.29 Other chronic pain
CPT/HCPCS: 99282

== ENCOUNTER → 2020-01-29 | Outpatient (CLI) | payer OTHER ==
[~2020-01-29] MED LIST changes: +IOPAMIDOL 370 MG/ML 200 ML INFUS..BTL INJ ONE; +METFORMIN HCL500 MG PO; +SODIUM CHLORIDE 0.9% 50ML 50 ML ONE; +VITAMIN D PO
[2020-01-29 10:39] LABS: BLOOD UREA NITROGEN 7 mg/dL (7-26); BUN/CREATININE RATIO 9 (6-25); CREATININE, SERUM 0.75 mg/dL (0.57-1.11); EST GLOMERULAR FILTRATION RATE > 60 ML/MIN (60-)
--- NOTE | 2020-01-29 11:34 | Diagnostic Imaging Report ---
EXAM: CT Abdomen and Pelvis WITH intravenous contrast INDICATION: Colon cancer screening COMPARISON: CT abdomen/pelvis of 06/12/2018 TECHNIQUE: Abdomen and pelvis were scanned utilizing a multidetector helical scanner from the lung base to the pubic symphysis after administration of IV contrast. Coronal and sagittal reformations were obtained. Routine protocol was performed. Scan was performed during portal venous phase. Note is made that this study is not a CT colonography study which requires 3-D reconstructions of the colon on a dedicated workstation using a software suite which is not available at this institution. Thus, the utility of the study for the provided indication of colon cancer screening is limited. Correlation should be made with colonoscopy. IV CONTRAST: 100mL of Isovue 370 ORAL CONTRAST: Water RADIATION DOSE: Total DLP: 679 mGy*cm Dose modulation, iterative reconstruction, and/or weight based adjustment of the mA/kV was utilized to reduce the radiation dose to as low as reasonably achievable. FINDINGS: LOWER THORAX: Dependent right lower lobe subsegmental atelectasis. No focal lung base consolidation. HEPATOBILIARY: Severe diffuse hepatic steatosis. No focal liver lesion. Status post cholecystectomy. SPLEEN: No splenomegaly. PANCREAS: No focal masses or ductal dilatation. ADRENALS: No adrenal nodules. KIDNEYS/URETERS: No hydronephrosis, stones, or solid mass lesions. PELVIC ORGANS/BLADDER: Unremarkable. PERITONEUM / RETROPERITONEUM: No free air or fluid. LYMPH NODES: No lymphadenopathy. VESSELS: Unremarkable. GI TRACT: No abnormal bowel thickening. No bowel obstruction. Normal appendix. BONES AND SOFT TISSUES: No acute osseous injury. Postoperative findings of posterior decompression and fusion at L4-5. No suspicious lytic or blastic lesions. IMPRESSION: No abnormal bowel thickening or bowel obstruction. This study is not a CT colonography examination which requires 3-D reconstructions of the colon on a dedicated workstation using a software suite which is not available at this institution. Thus, the utility of the study for the provided indication of colon cancer screening is limited. Correlation should be made with colonoscopy. Severe diffuse hepatic steatosis. Signed by: Pipo Kelley MD on 01/29/2020 11:30 AM
== END ==
LOC: CT 09:48
PROVIDERS: ATTEND Internal Medicine Gastroenterology
DX: R10.10 Upper abdominal pain, unspecified (principal); R19.09 Other intra-abdominal and pelvic swelling, mass and lump; Z12.11 Encounter for screening for malignant neoplasm of colon
CPT/HCPCS: 36415; 74177; 82565; 84520; Q9967

== ENCOUNTER → 2020-02-01 | Outpatient (CLI) | payer OTHER ==
[~2020-02-01] MED LIST changes: -IOPAMIDOL 370 MG/ML 200 ML INFUS..BTL INJ ONE; -SODIUM CHLORIDE 0.9% 50ML 50 ML ONE
[2020-02-01 13:07] LABS: BASOPHILS % 0.4 % (0.0-1.0); EOSINOPHILS # (AUTO) 0.1 (0.0-0.4); EOSINOPHILS % 1.1 % (0.0-6.0); HEMATOCRIT 35.3 % (34.2-44.1); HEMOGLOBIN 12.2 g/dL (12.0-16.0); LYMPHOCYTES % 44.6 % (18.0-39.1); MEAN CORPUSCULAR HEMOGLOBIN 29.4 pg (28-32); MEAN CORPUSCULAR HGB CONC 34.6 g/dL (31-35); MEAN CORPUSCULAR VOLUME 85.1 fL (81-99); MONOCYTES # (AUTO) 0.7 (0.2-0.8); MONOCYTES % 7.4 % (4.4-11.3); NEUTROPHILS # (AUTO) 4.1 (2.1-6.9); NEUTROPHILS % 46.1 % (38.7-80.0); PLATELET COUNT 378 x10e3/uL (140-360); RED BLOOD COUNT 4.15 x10e6/uL (3.6-5.1); RED CELL DISTRIBUTION WIDTH 14.2 % (11.7-14.4)
== END ==
LOC: DX 14:45 → EDSTATUS 02-04 10:00
PROVIDERS: ATTEND Internal Medicine Gastroenterology
DX: Z12.11 Encounter for screening for malignant neoplasm of colon (principal); R10.10 Upper abdominal pain, unspecified; R14.0 Abdominal distension (gaseous); Z11.59 Encounter for screening for other viral diseases
CPT/HCPCS: 36415; 85025; 93005; U0002

== ENCOUNTER → 2020-03-10 | Day surgery (SDC) | payer OTHER ==
[2020-03-07 11:48] LABS: BASOPHILS % 0.4 % (0.0-1.0); EOSINOPHILS # (AUTO) 0.1 (0.0-0.4); EOSINOPHILS % 0.7 % (0.0-6.0); HEMOGLOBIN 11.7 g/dL (12.0-16.0); LYMPHOCYTES # (AUTO) 3.8 (1.0-3.2); LYMPHOCYTES % 37.6 % (18.0-39.1); MEAN CORPUSCULAR HEMOGLOBIN 29.5 pg (28-32); MEAN CORPUSCULAR HGB CONC 34.4 g/dL (31-35); MEAN CORPUSCULAR VOLUME 85.6 fL (81-99); MONOCYTES # (AUTO) 0.8 (0.2-0.8); MONOCYTES % 7.5 % (4.4-11.3); NEUTROPHILS # (AUTO) 5.4 (2.1-6.9); NEUTROPHILS % 53.4 % (38.7-80.0); PLATELET COUNT 357 x10e3/uL (140-360); RED BLOOD COUNT 3.97 x10e6/uL (3.6-5.1)
[~2020-03-10] MED LIST changes: +FENTANYL CITRATE/PF 100MCG/2 ML INJ ONE; +GLYCOPYRROLATE INJ 0.2 MG/ML VIAL ONE; +MIDAZOLAM HCL 2 MG/2 ML VIAL ONE
[2020-03-10 17:45] VITALS: BP 146/87
== END | disposition home or self-care (01) ==
LOC: OR 13:37
PROVIDERS: ATTEND Internal Medicine Gastroenterology
DX: K29.50 Unspecified chronic gastritis without bleeding (principal); K29.80 Duodenitis without bleeding; K20.90 Esophagitis, unspecified without bleeding; K27.9 Peptic ulcer, site unspecified, unspecified as acute or chronic, without hemorrhage or perforation; K44.9 Diaphragmatic hernia without obstruction or gangrene; G47.33 Obstructive sleep apnea (adult) (pediatric); G89.29 Other chronic pain; I10 Essential (primary) hypertension; E11.9 Type 2 diabetes mellitus without complications; E78.5 Hyperlipidemia, unspecified; Z01.812 Encounter for preprocedural laboratory examination; Z11.59 Encounter for screening for other viral diseases; Z86.718 Personal history of other venous thrombosis and embolism
CPT/HCPCS: 36415 ×2; 43239; 82948; 85025; J2250; J3010; U0002